=== PATIENT | male | born 1970 ===

== ENCOUNTER 2023-01-26 10:32 | Outpatient (REF) | payer OTHER, SELFPAY ==
--- NOTE | ~2023-01-26 | MR_ITS ---
EXAMINATION: MR BRAIN WITHOUT CONTRAST CLINICAL INFORMATION: Syncope. Ataxia. Vertigo. COMPARISON: None available. TECHNIQUE: Multiplanar, multisequence imaging of the brain was performed without contrast. FINDINGS: No diffusion abnormalities are identified to suggest an acute infarct. The ventricles are normal in size. No mass effect or midline shift is seen. Minimal nonspecific bifrontal white matter signal changes noted. There is [id number] frontoparietal lobe volume loss bilaterally. No extra-axial fluid collections are seen. The brainstem and cerebellum are normal. The hippocampi are normal in appearance. The gradient refocused acquisition is normal. The craniovertebral junction, marrow signal, and midline structures are normal. The major intracranial flow voids at the level of the [place] of [place] are preserved. The dural venous sinus flow voids are maintained. The mastoid air cells and paranasal sinuses are well aerated. MR/MR head/brain wo con IMPRESSION: No acute intracranial process. Nonspecific mild bifrontal white matter signal changes and [id number] bilateral frontoparietal lobe volume loss.
== END 2023-01-26 10:33 | disposition home or self-care (01) ==
LOC: HO.MRI 10:32
PROVIDERS: Visit Provider Psychiatry & Neurology Neurology
DX: R55 Syncope and collapse (principal)
CPT/HCPCS: 70551

== ENCOUNTER 2023-05-26 21:13 | Emergency (ER) | payer OTHER, SELFPAY ==
[2023-05-26 21:54] VITALS: BP 140/87; PULSE 81; RESP 16; TEMP 36.8; O2SAT 96; BMI 31.4
--- NOTE | 2023-05-26 22:13 | MHC.EDTECH ---
EKG taken and signed by provider,labs were obtained and sent to lab.
== END 2023-05-26 23:54 | disposition left against medical advice (07) ==
PROVIDERS: Emergency Provider Emergency Medicine
DX: R42 Dizziness and giddiness (principal); S09.90XA Unspecified injury of head, initial encounter; W18.30XA Fall on same level, unspecified, initial encounter; Z91.81 History of falling; Y93.9 Activity, unspecified; Y92.002 Bathroom of unspecified non-institutional (private) residence as the place of occurrence of the external cause; Y99.9 Unspecified external cause status
CPT/HCPCS: 36415; 80053; 85025; 93005; 99283

== ENCOUNTER → 2023-05-26 22:08 | Outpatient (BNV) | payer OTHER, SELFPAY | PROVIDERS: Emergency Provider Emergency Medicine; Visit Provider Internal Medicine Cardiovascular Disease | DX: R55 Syncope and collapse (principal) | CPT/HCPCS: 93010 ==

== ENCOUNTER 2023-09-20 16:16 | Outpatient (AMB) | payer OTHER, SELFPAY ==
--- NOTE | 2023-09-20 16:56 | MHC.OFFVISPS ---
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 Allergies naproxen Allergy (Verified 05/26/23 21:54) Unknown ondansetron [From Zofran] Allergy (Verified 05/26/23 21:54) Rash Medication List - Last Reconciled 09/20/23 by Elena Sherman APRN acetaminophen 500 mg PO Q6H PRN albuterol sulfate mg inhalation atorvastatin 40 mg PO DAILY cyanocobalamin (vitamin B-12) 1,000 mcg PO DAILY divalproex ER 500 mg PO DAILY divalproex ER 250 mg PO DAILY docusate sodium 100 mg PO BID duloxetine 60 mg PO DAILY empagliflozin (Jardiance) 10 mg PO DAILY gabapentin 600 mg PO DAILY gabapentin 300 mg PO DAILY insulin lispro (Humalog KwikPen U-200 Insulin) subcut magnesium oxide 500 mg PO DAILY melatonin 5 mg PO BEDTIME pantoprazole 20 mg PO DAILY propranolol ER 120 mg PO DAILY psyllium husk (Reguloid (psyllium husk)) grams PO trazodone 200 mg PO BEDTIME PRN HPI- Psychiatric Chief Complaint: depression, insomnia, 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 He has no pain or nausea. He is working out at the gym. He and getting outside No SI or HI; no hallucinations. Pt was supposed to follow up with [facility] for follow up care including psych meds but he did not connect with them. 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: Code(s): F06.30 - Mood disorder due to known physiological condition, unspecified; S09.90XS - Unspecified injury of head, sequela (2) Major depressive disorder, recurrent, moderate: Status: Acute Code(s): F33.1 - Major depressive disorder, recurrent, moderate (3) Mild TBI: Status: Acute Qualifiers: Encounter type: sequela Loss of consciousness presence/duration: unknown LOC status Qualified Code(s): S06.9XAS - Unspecified intracranial injury with loss of consciousness status unknown, sequela Code(s): S06.9XAA - Unspecified intracranial injury with loss of consciousness status unknown, initial encounter (4) Chronic post-traumatic stress disorder (PTSD): Status: Acute Code(s): F43.12 - Post-traumatic stress disorder, chronic Plan continue medications: depakote ER 750mg daily trazodone 200mg at bedtime cymbalta 60 mg daily gabpentin 300mg in am and 600mg at bedtime pt instructed to get labs done before next visit Medications: New divalproex ER 500 mg PO DAILY cyanocobalamin (vitamin B-12) 1,000 mcg PO DAILY gabapentin 600 mg PO DAILY acetaminophen 500 mg PO Q6H PRN albuterol sulfate mg inhalation divalproex ER 250 mg PO DAILY propranolol ER 120 mg PO DAILY docusate sodium 100 mg PO BID magnesium oxide 500 mg PO DAILY trazodone 200 mg PO BEDTIME PRN atorvastatin 40 mg PO DAILY pantoprazole 20 mg PO DAILY insulin lispro (Humalog KwikPen U-200 Insulin) subcut duloxetine 60 mg PO DAILY gabapentin 300 mg PO DAILY Orders: Orders Comprehensive Met. Panel 09/20/23 Z79.899 - Other custodial (current) drug therapy Valproate 09/20/23 Z79.899 - Other custodial (current) drug therapy Complete Blood Count Auto Diff 09/20/23 Z79.899 - Other custodial (current) drug therapy Counseling and coordination of Care Pt. Self Management counseling: Exercise, Maintenance-social rhythm, Mod caffeine/ETOH intake, Sleep hygiene, Behavior activation and General coping skills Medication management counseling: Effectiveness, Side effects, Dosing range, Duration, Drug interaction and Adherence Diagnosis and Prognosis Counseling: Accuracy of diagnosis, Prognosis over time, Impact of diagnosis on life functions, Impact of family relationship, Problematic behaviors secondary to diagnosis and Adequacy of current interventions Details: I spent 45 minutes reviewing the record, seeing the patient and documenting in the medical record. Counseling provided to the patient/caregiver as outlined below. Addressed patient/caregiver concerns regarding current medication regime including effective adherence. Addressed patient/caregiver concerns regarding diagnosis and prognosis including accuracy of diagnosis, prognosis over time, impact of diagnosis. Addressed patient/caregiver concerns regarding impact of recent stressors. 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
== END 2023-09-20 17:05 | disposition home or self-care (01) ==
LOC: HO.HOP 16:16
PROVIDERS: PCP Family Medicine; Visit Provider Clinical Nurse Specialist Psychiatric/Mental Health
DX: F33.1 Major depressive disorder, recurrent, moderate (principal); S06.9XAS Unspecified intracranial injury with loss of consciousness status unknown, sequela; F06.30 Mood disorder due to known physiological condition, unspecified; F43.12 Post-traumatic stress disorder, chronic
CPT/HCPCS: 99215

== ENCOUNTER → 2023-09-20 16:16 | Outpatient (BNVA) | payer OTHER, SELFPAY | PROVIDERS: PCP Family Medicine; Visit Provider Clinical Nurse Specialist Psychiatric/Mental Health | DX: F06.30 Mood disorder due to known physiological condition, unspecified (principal); F33.1 Major depressive disorder, recurrent, moderate; F43.12 Post-traumatic stress disorder, chronic; S09.90XS Unspecified injury of head, sequela; S06.9XAS Unspecified intracranial injury with loss of consciousness status unknown, sequela | CPT/HCPCS: 99212 ==

== ENCOUNTER 2024-01-27 11:42 | Outpatient (AMB) | payer OTHER, SELFPAY ==
--- NOTE | 2024-01-27 11:49 | A.OFFPSYCH_ITS ---
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 Allergies naproxen Allergy (Verified 05/26/23 21:54) Unknown ondansetron [From Zofran] Allergy (Verified 05/26/23 21:54) Rash Medication List - Last Reconciled 01/27/24 by Elena Sherman APRN acetaminophen 500 mg PO Q6H PRN albuterol sulfate mg inhalation atorvastatin 40 mg PO DAILY cyanocobalamin (vitamin B-12) 1,000 mcg PO DAILY divalproex ER 500 mg PO DAILY divalproex ER 250 mg PO DAILY docusate sodium 100 mg PO BID duloxetine 60 mg PO DAILY empagliflozin (Jardiance) 10 mg PO DAILY gabapentin 600 mg PO DAILY gabapentin 300 mg PO DAILY insulin lispro (Humalog KwikPen U-200 Insulin) subcut magnesium oxide 500 mg PO DAILY melatonin 5 mg PO BEDTIME olanzapine 5 mg orally Take 1/2 tablet every night and may take additional half 1/2 tablet during day if needed for agitation; pantoprazole 20 mg PO DAILY propranolol ER 120 mg PO DAILY psyllium husk (Reguloid (psyllium husk)) grams PO trazodone 200 mg PO BEDTIME PRN HPI- Psychiatric Chief Complaint: depression HPI Narrative: pt has been without meds for several days due to missing last two appts. Pt reports not sleeping well and mood angry; pt saw PCP yesterday. no changes; says she has POA for him but not guardianship. Pt reports although he struggles with balance he continues to work out at gym. 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; , depression since preteens, depression and anxiety started when he moved from [place], grew up with grandparents and then came [place] where [place] mother was- she was not able to care for him as well Subjective Subjective Subjective Medication Compliance: Yes Side effects from medications: No Review of Systems Medical Review of Systems: unchanged Mental Status Exam Mental Status Exam Patient Appearance: Well Grooomed and Appropriate Patient Orientation: Person, Place, Time and Situation Level of Consciousness: Awake Patient Behavior: Appropriate Mood Description: Calm Affect Description: Calm Patient Cognition Impaired: No Ability to Follow Directions: Fair Speech Pattern: Clear, Impoverished and Soft-Spoken Memory Description: Remote Impaired, Immediate Impaired and Vocational Director Impaired Hallucinations: None Delusions: Not Present Thought Content: positive for [place] Judgement: Fair Assessment and Plan Assessment & Plan (1) Chronic post-traumatic stress disorder (PTSD): Status: Acute Code(s): F43.12 - Post-traumatic stress disorder, chronic (2) Major depressive disorder, recurrent, moderate: Status: Acute Code(s): F33.1 - Major depressive disorder, recurrent, moderate Plan continue medications discussed need to come to appts in order for me to prescribe medications also discussed need to get lab work and they signed a release of info to obtain lab results from [facility] Medications: New duloxetine 60 mg PO DAILY 90 caps 1RF trazodone 200 mg (2 x 100 mg) PO BEDTIME PRN 180 tabs 1RF sleep gabapentin 600 mg PO DAILY 90 tabs 1RF magnesium oxide 500 mg PO DAILY 90 tabs 1RF cyanocobalamin (vitamin B-12) 1,000 mcg PO DAILY 30 tabs 4RF divalproex ER 500 mg PO DAILY 90 tabs 1RF Refilled gabapentin 300 mg PO DAILY 90 caps 1RF olanzapine 5 mg orally Take 1/2 tablet every night and may take additional half 1/2 tablet during day if needed for agitation; 90 tabs 1RF divalproex ER 250 mg PO DAILY 90 tabs 1RF Counseling and coordination of Care Pt. Self Management counseling: Maintenance-social rhythm, Mod caffeine/ETOH intake, Sleep hygiene, Behavior activation and General coping skills Medication management counseling: Effectiveness, Side effects, Dosing range, Duration, Drug interaction and Adherence Diagnosis and Prognosis Counseling: Accuracy of diagnosis, Prognosis over time, Impact of diagnosis on life functions, Impact of family relationship, Problematic behaviors secondary to diagnosis and Adequacy of current interventions Details: I spent 30 minutes reviewing the record, seeing the patient and documenting in the medical record. Counseling provided to the patient/caregiver as outlined below. Addressed patient/caregiver concerns regarding current medication regime including effective adherence. Addressed patient/caregiver concerns regarding diagnosis and prognosis including accuracy of diagnosis, prognosis over time, impact of diagnosis. Addressed patient/caregiver concerns regarding impact of recent stressors. 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
== END 2024-01-27 16:13 | disposition home or self-care (01) ==
LOC: HO.HOP 11:42
PROVIDERS: PCP Family Medicine; Visit Provider Clinical Nurse Specialist Psychiatric/Mental Health
DX: F43.12 Post-traumatic stress disorder, chronic (principal); F33.1 Major depressive disorder, recurrent, moderate
CPT/HCPCS: 99214

== ENCOUNTER → 2024-01-27 11:42 | Outpatient (BNVA) | payer OTHER, SELFPAY | PROVIDERS: PCP Family Medicine; Visit Provider Clinical Nurse Specialist Psychiatric/Mental Health | DX: F33.1 Major depressive disorder, recurrent, moderate (principal); F43.12 Post-traumatic stress disorder, chronic | CPT/HCPCS: 99212 ==

== ENCOUNTER 2024-05-21 08:03 | Outpatient (AMB) | payer OTHER, SELFPAY ==
--- OUTSIDE RECORDS SUMMARY | 2024-05-21 08:08 | XMS_ITS | Continuity of Care Document ---
Author Organization [facility] [place] [address] [place] [address]- Care Team Providers Care Neurologist Name Role Phone Not on Staff, PCP Primary Care Physician Unavail able Encounter 05/01/24 - 05/08/24 [facility] [address], [address] [place] [address]- Attending Physician: Rian Chew Admitting Physician: Rian Chew Referring Physician: Rian Chew Encounter Type: OutPatient One Time Allergies, Adverse Reactions, Alerts Substance Criticality Severity Reaction Reaction Severity Status naproxen Rash Active Zofran Rash Active Medications aspirin 81 mg oral tablet 1 tablet = 81 mg, By Mouth, Daily, # 30 tablet, 0 Refills, Maintenance, 09/12/18 11:01:57 AM EDT, Tablet Start Date: 09/12/18 Status: Ordered Quantity: 30.0 Unit: tablet Repeat number: 1 atorvastatin 40 mg oral tablet 1 tablet = 40 mg, By Mouth, Daily, Maintenance, 12/25/20 5:23:00 PM EDT, Tablet, ; Start Date: 12/25/20 Status: Ordered Repeat number: 1 dexcom g6 sensors dexcom g6 sensors, See Instructions, # 3 each, Refills 11, Tot. Refills 11, Maintenance, e11.65 useto continously monitor glucose level change every 10 days, 06/07/23 3:22:00 PM EST, Supply, 165, cm,06/03/23 19:55:00 EST, Height, 86, kg, 06/03/23 19:55:00 EST, Dry Weight Start Date: 06/07/23 Status: Ordered Quantity: 3.0 Unit: each Repeat number: 12 DEXCOM G6 TRANSMITTER [address]-24 DEXCOM G6 TRANSMITTER [address]-47, See Instructions, # 1 each, Refills 3, Tot. Refills 3, Maintenance, 11.9 use to monitor blood glucose continuously, change every 90 days, 06/07/23 3:17:00 PM EST, Compound, 165, cm, 06/03/23 19:55:00 EST, Height, 86, kg, 06/03/23 19:55:00 EST, Dry Weight Start Date: 06/07/23 Status: Ordered Quantity: 1.0 Unit: each Repeat number: 4 diazepam 5 mg oral tablet 1 1/2 TABLET, By Mouth, Daily, Maintenance, 12/25/20 5:34:00 PM EDT, ; Start Date: 12/25/20 Status: Ordered Repeat number: 1 docusate sodium 100 mg oral capsule 1 capsule = 100 mg, By Mouth, 2 times a day, PRN as needed for constipation, Maintenance, 12/25/20 5:34:00 PM EDT, Capsule, ; Start Date: 12/25/20 Status: Ordered Repeat number: 1 duloxetine 60 mg oral enteric coated capsule 1 capsule = 60 mg, By Mouth, Daily, # 30 capsule, 0 Refills, Maintenance, 06/16/23 11:07:00 PM EST, EC Capsule, Partial fill upon patient request if the prescription is for a schedule II opioid drug. Start Date: 06/16/23 Status: Ordered Quantity: 30.0 Unit: capsule Repeat number: 1 Freestyle Cindy 2 reader Freestyle Cindy 2 reader, See Instructions, # 1 each, Refills 0, Tot. Refills 0, Maintenance, Use to monitor blood glucose contiously, E11.65, 09/25/21 12:54:00 PM EDT, Patient has voucher from [employer] free reader, Supply, 165, cm, 09/08/21 11:04:00 EDT, Height, 86, kg, 04/10/21 19:26:00 EST, DryWeight Start Date: 09/25/21 Status: Ordered Quantity: 1.0 Unit: each Repeat number: 1 Freestyle Lite Lancets See Instructions, # 100 each, Refills 11, Tot. Refills 11, Maintenance, e11.65, use to check blood glucose 3 times a day, 30 day supply, 03/04/22 4:08:00 PM EDT, Supply, 165, cm, 02/05/22 8:08:00 EDT, Height, 86, kg, 04/10/21 19:26:00 EST, Dry Weight Start Date: 03/04/22 Status: Ordered Quantity: 100.0 Unit: each Repeat number: 12 gabapentin 300 mg oral capsule 300 mg, 1, capsule, By Mouth, 2 times a day, Maintenance, 12/25/20 5:20:00 PM EDT, ; Start Date: 12/25/20 Status: Ordered Repeat number: 1 gabapentin 600 mg oral tablet 1 tablet = 600 mg, By Mouth, Daily at bedtime, 0 Refills, Maintenance, 09/12/18 10:56:39 AM EDT Start Date: 09/12/18 Status: Ordered Repeat number: 1 HumaLOG KwikPen 200 units/mL (Concentrated) subcutaneous solution See Instructions, USE INDICATED FOR MAX OF 230 UNITS DAILY., # 54 mL, 0 Refills, Maintenance, 03/29/24 6:41:00 PM EST, [facility], 164, cm, 06/17/23 7:58:00 EST, Height, 86, kg, 06/16/23 23:29:00 EST, Dry Weight Start Date: 03/29/24 Status: Ordered Quantity: 54.0 Unit: mL Repeat number: 1 Jardiance 10 mg oral tablet 1 tablet, By Mouth, Daily in AM, KEEP UP WITH FLUIDS., # 28 tablet, 11 Refills, Maintenance, 06/15/23 12:48:00 PM EST, [facility] [address], 165, cm, 06/03/23 19:55:00 EST, Height, 86, kg, 06/03/23 19:55:00 EST, Dry Weight Start Date: 06/15/23 Status: Ordered Quantity: 28.0 Unit: tablet Repeat number: 1 lisinopril 2.5 mg oral tablet 2.5 mg, 1, tablet, By Mouth, Daily, # 30 tablet, Refills 0, Maintenance, 06/16/23 11:08:00 PM EST, Partial fill upon patient request if the prescription is for a schedule II opioid drug. Start Date: 06/16/23 Status: Ordered Quantity: 30.0 Unit: tablet Repeat number: 1 loratadine 10 mg oral capsule 1 capsule = 10 mg, By Mouth, Daily, 0 Refills, Maintenance, 09/12/18 10:50:28 AM EDT Start Date: 09/12/18 Status: Ordered Repeat number: 1 magnesium oxide 500 mg oral tablet 1 tablet = 500 mg, By Mouth, Daily, Maintenance, 12/25/20 5:34:00 PM EDT, Tablet, ; Start Date: 12/25/20 Status: Ordered Repeat number: 1 Melatonin 3 mg oral tablet 2 tablet = 6 mg, By Mouth, Daily at bedtime, PRN for insomnia, Maintenance, 12/25/20 5:24:00 PM EDT, Tablet, ; Start Date: 12/25/20 Status: Ordered Repeat number: 1 pantoprazole 20 mg oral delayed release tablet 1 tablet = 20 mg, By Mouth, Daily, Maintenance, 12/25/20 5:19:00 PM EDT, CR Tablet Start Date: 12/25/20 Status: Ordered Repeat number: 1 propranolol 120 mg oral capsule, extended release 1 capsule = 120 mg, By Mouth, Daily, Maintenance, 12/25/20 5:34:00 PM EDT, CR Capsule, ; Start Date: 12/25/20 Status: Ordered Repeat number: 1 REGULOID CAP 400MG REGULOID CAP 400MG, 1, capsule, By Mouth, Daily, Maintenance, METAMUCIL, 12/25/20 5:41:00 PM EDT Start Date: 12/25/20 Status: Ordered Repeat number: 1 SUMAtriptan 100 mg oral tablet 1 tablet = 100 mg, By Mouth, Daily, PRN for migraine headache, may repeat dose after 2 hours up to a maximum of 2, Maintenance, 12/25/20 5:35:00 PM EDT, Tablet, ; Start Date: 12/25/20 Status: Ordered Repeat number: 1 tamsulosin 0.4 mg oral capsule 0.4 mg, 1, capsule, By Mouth, Daily, # 30 capsule, Refills 0, Maintenance, 06/16/23 11:09:00 PM EST,Partial fill upon patient request if the prescription is for a schedule II opioid drug. Start Date: 06/16/23 Status: Ordered Quantity: 30.0 Unit: capsule Repeat number: 1 traZODone 100 mg oral tablet 100 mg, 1, tablet, By Mouth, 2 times a day, Maintenance, 12/25/20 5:22:00 PM EDT, ; Start Date: 12/25/20 Status: Ordered Repeat number: 1 triamcinolone 55 mcg/inh nasal spray 1 sprays, Nares, Both, Daily, Maintenance, 12/25/20 5:35:00 PM EDT, [place], ; Start Date: 12/25/20 Status: Ordered Repeat number: 1 Trulicity Pen 4.5 mg/0.5 mL subcutaneous solution See Instructions, INJECT 4.5 MG SUBCUTANEOUSLY EVERY WEEK; INJECTING SAME DAY EVERY WEEK, # 2 mL, 11 Refills, Maintenance, 08/01/23 4:49:00 PM EDT, [facility], 164, cm, 06/17/23 7:58:00 EST, Height, 86, kg, 06/16/23 23:29:00 EST, Dry Weight Start Date: 08/01/23 Status: Ordered Quantity: 2.0 Unit: mL Repeat number: 1 Vitamin B-12 1000 mcg oral tablet 1,000 mcg, 1, tablet, By Mouth, Daily, Maintenance, 12/25/20 5:35:00 PM EDT, ; Start Date: 12/25/20 Status: Ordered Repeat number: 1 Vitamin D3 2000 intl units oral capsule 1 capsule = 50 mcg, By Mouth, Daily, Maintenance, 12/25/20 5:34:00 PM EDT, Capsule, ; Start Date: 12/25/20 Status: Ordered Repeat number: 1 Problem List Condition Confirmation Course Effective Dates Status H ealth Status Informant Anxiety Confirmed Active Dementia Confirmed Active Depression Confirmed Active Diabetes mellitus Confirmed Active Hyperlipidemia Confirmed Active Hypertension Confirmed Active Common migraine Confirmed Active Obese class I Confirmed Active [place] - Obstructive sleep apnea Confirmed Active PTSD - Post-traumatic stress disorder Confirmed Active Tachycardia 1 Confirmed 2014 Active Vitamin D deficiency Confirmed Active 1client currently under treatment by lab head Results Radiology Reports * Exam Date Time Procedure Performing Provider Status 05/01/24 12:[address] Abd/Pelvis W/O Contrast Keily Voss; Auth (Verified) Notes: (CT Abd/Pelvis W/O Contrast) Reason For Exam: Stone RESULT: CT Abd/Pelvis W/O Contrast CT Abd/Pelvis W/O Contrast Reason: Stone TECHNIQUE: Spiral CT through the abdomen and pelvis without IV contrast formatted in 3 planes. Thisstudy was performed without oral contrast. Weight- based protocol using automatic tube modulation was used to optimize exposure parameters. COMPARISON: 06/16/2023 FINDINGS: Tube Builder View Findings, Lines and Tubes: None. Visualized Chest: The visualized costophrenic angles are clear. No pleural effusion. Liver: Included portion is within normal limits for noncontrast technique Gallbladder: Subcentimeter hypodensity within the gallbladder neck seen on axial image 31 of series2. Bile ducts: No biliary ductal dilation. Spleen: Normal in size Pancreas: Within normal limits for noncontrast technique Adrenal glands: No suspicious nodule Kidneys and ureters: No hydronephrosis, stones, or noncontrast evidence of suspicious masses. Bladder: Incompletely distended, limiting evaluation. No evidence of calculus. Reproductive organs: Unremarkable. Stomach, small bowel, and large bowel: Detailed evaluation is suboptimal without enteral opacification. Stomach is moderately distended with ingested or inspissated contents. Small and large bowel loops are normal in caliber. Mild amount retained stool throughout the colon. No evidence of pericolonic fat stranding. Appendix: Not visualized with certainty. No secondary evidence of acute appendicitis. Peritoneum and retroperitoneum: No ascites or pneumoperitoneum. Lymph nodes: No enlarged lymph nodes. Blood vessels: No evidence of abdominal aortic aneurysm Abdominal and pelvic wall: No acute abnormality Bones: No acute abnormality. Transitional anatomy at the lumbosacral junction and degenerative endplate ridging most pronounced at L3-4 and L4-5. IMPRESSION: No evidence of hydronephrosis or genitourinary calculus Subcentimeter hypodensity within the gallbladder neck which may represent a small noncalcified stone or polyp. Correlation with dedicated right upper quadrant ultrasound is recommended. An actionable message (Yellow) has been communicated via the [employer] system on 05/02/2024 9:23 AM, Message ID [id number]. WSN: [id number] Ordering Physician: Rian Lomeli Dictated By: Zachary Boudreaux Jr, MD Dictated Date/Time: 05/02/24 9:23 am Reviewed By: Zachary Boudreaux Jr, MD Signed By: Zachary Boudreaux Jr, MD Signed Date/Time: 05/02/24 9:23 am Transcribed By: ADY Transcribed Date/Time: 05/02/24 9:12 am Social History Social History Type Response Smoking Status Never (less than 100 in lifetime) entered on: 03/11/21 Sex Sex Representation Male (finding) Patient Care team information Care Team Personnel Name: Clotilde SAWANT, Olivia Position: [facility] RN Member Role: Primary Care Nurse Name: Diana Molina RN Position: [facility] Onco RN Member Role: Primary Care Nurse Name: Olivia Swartz Position: [facility] Outreach Member Role: Lifetime Consulting Physician Name: Not on Staff, PCP Position: [facility] Physician (General Medicine) Member Role: PCP Care Team Related Persons Name: NURIA BARRAZA Insurance Providers Guarantor name: [facility] Information #: 1 Payer: [employer] Member Number: [id number] Policy Number: NA Group Number: [facility] Health Plan Information #: 2 Payer: [employer] [employer] Member Number: [id number] Policy Number: NA Group Number: NA
--- NOTE | 2024-05-21 11:09 | MHC.OFFVISWM ---
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 -see note please Allergies naproxen Allergy (Verified 05/21/24 11:09) Unknown ondansetron [From Zofran] Allergy (Verified 05/21/24 11:09) Rash Medication List - Last Reconciled 05/21/24 by Umer Rider MD acetaminophen 500 mg PO Q6H PRN albuterol sulfate mg inhalation aspirin (Adult Aspirin Regimen) 81 mg PO DAILY atorvastatin 40 mg PO DAILY blood-glucose sensor ([employer] G6 Sensor device) As directed cholecalciferol (vitamin D3) 50 mcg PO DAILY cyanocobalamin (vitamin B-12) 1,000 mcg PO DAILY divalproex ER 250 mg PO DAILY divalproex ER 500 mg PO DAILY docusate sodium 100 mg PO BID dulaglutide (Trulicity) mg subcut duloxetine 60 mg PO DAILY empagliflozin (Jardiance) 10 mg PO DAILY gabapentin 600 mg PO DAILY gabapentin 300 mg PO DAILY insulin pump cart,10 units/day As directed - has sensor that determines rate insulin pump controller As directed lisinopril 2.5 mg PO DAILY magnesium oxide 500 mg PO DAILY melatonin 5 mg PO BEDTIME meloxicam 15 mg PO DAILY olanzapine 2.5 mg PO BEDTIME pantoprazole 20 mg PO DAILY propranolol ER 120 mg PO DAILY psyllium husk (Reguloid (psyllium husk)) grams PO trazodone 200 mg (2 x 100 mg) PO BEDTIME PRN HPI HPI 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 BMI 36.8 -see note please: Details: Start time: 10.59am, End time: 11.59am ?I spent 55 minutes speaking with the patient on the phone plus an additional 5 minutes reviewing and updating records for a total of 60 minutes HPI Comments Details: Previous weight loss efforts: exercise Wakes up: 4am, Sleeps: 7pm Breakfast: skips Lunch: 12pm (chicken and vegetables) Dinner: 5pm (chicken, and vegetables) Snacks: 2 snacks before lunch (Quest bars), 4pm (fruit or Quest bars) Exercise: Gym Fluids: Coffee: none, tea: none, soda: none, juice: daily 1 glass per day (apple juice), ETOH: none PFSH Medical History (Updated 05/21/24 @ 11:37 by Umer Rider MD) Neuropathy Insomnia Asthma DJD (degenerative joint disease) GERD (gastroesophageal reflux disease) Hyperlipidemia Hypertension Insulin dependent type 2 diabetes mellitus BMI 36.0-36.9,adult Obesity H/O nephrolithotomy with removal of calculi Family History (Updated 04/27/24 @ 12:35 by Alli Olsen, JESE) Mother No problems noted. Father No problems noted. Social History (Updated 04/27/24 @ 12:34 by Alli Olsen RN) Alcohol intake: never Patient Tobacco Use Status: Never used Tobacco Telehealth Telehealth Telehealth Platform: Telephone Location of provider rendering services: practice address Location of patient: address on file Patient Identification confirmed using: Name, : Yes Telehealth method: voice only Patient verbally consented to treatment: Yes Patient verbally consented to billing insurance company: Yes Patient informed of any privacy concerns related to visit: Yes Minutes spent on Phone/Video with Pt.: 60 Assessment & Plan Assessment & Plan (1) Obesity: Code(s): E66.9 - Obesity, unspecified Category: Medical Qualifiers: Obesity type: due to excess calories Obesity classification: adult class 2 (BMI 35 - 39.9) Serious obesity comorbidity presence: with serious comorbidity Body mass index: BMI 36.0-36.9 Qualified Code(s): E66.812 - Obesity, class 2; E66.01 - Morbid (severe) obesity due to excess calories; Z68.36 - Body mass index [BMI] 36.0-36.9, adult Plan: 1.? Plan for lap sleeve gastrectomy. If diaphragmatic or ventral hernias are present at time of surgery, these will be repaired laparoscopically as well. I emphasized the importance of close follow-up, adherence to instructions and good communication. The surgery does not replace the need to change your lifestlyle which is the cause of the obesity problem. The surgery provides the motivation to try again to change your lifestyle, it reduces the appetite and make the transition to a better lifestyle easier and doubles the amount of weight you would lose compared to doing the lifestyle change without the surgery. You will need to be on a liquid diet with protein shakes for 2 weeks before surgery to maximize weight loss and boost your nutritional status to recover better from surgery and also for the first two weeks after surgery to let the stomach heal before we introduce other foods. After the first 2 weeks we will introduce protein bars and soft foods like scrambled eggs, cottage cheese and yogurt and after the 6th week will introduce meat, fish and cooked vegetables in small amounts. Over time you should be able to eat everything in small amounts. Side effects like nausea, vomiting, heartburn or abdominal pain are not common in the practice unless you are not following in the practice. This operation requires lifetime commitment to following in our practice and communication with me. You will much less weight and experience side effects if you don?t communicate or not following in the practice. Complications are rare and in our practice is about 1/10 of the national average. However, you can develop bleeding that may require transfusion (hasn?t happened for year in the practice), you may from complications (we did not have any deaths in the practice) and infections. Infections are usually a result of breakdown in communication or not understanding or following directions correctly. They are difficult to treat, they can happen during the first 6 weeks, they may require to be in the hospital for weeks or even months, not being able to eat by mouth and you may have drains and surgeries to try and correct the issue. Other risks and complications include possible conversion to an open procedure, leaks, small bowel obstruction, blood clots, cardiac, or pulmonary complications, as usp complications such as ulcers, insufficient weight loss and vitamin deficiencies. 2. Nutritional counseling. Start with 2 ORGAIN protein shakes (ONE scoop EACH in 8oz low fat unsweetened almond milk each) at 5am-7am and 8am-10am, 2 ORGAIN protein bars at 11am-1pm and 2pm-4pm and dinner at 5pm-6pm (8 forks of protein and 8 forks of salad/vegetables) So you do 2 protein shakes, 2 protein bars and one meal per day. Meal to include lean meat (beef, fish, pork, turkey, chicken), or kinyarwanda yogurt, or egg whites, or beans with a salad with olive oil and fruits (berries, pears, apples, kiwi). Avoid salt, breads, potatoes, rice, pasta, desserts. 3. Each shake would be drunk slowly, like coffee in a period of 2 hours. 4. Cut each bar in 4 pieces and eat each piece in 30min ?to make each bar last 2 hours. 5. I emphasized the importance of measuring accurately the food portion and measure it when serving the food in plate 6. The meal portions include 8 full-size forks of meat and 8 full-size forks of salad. You always eat the meat portion but you can replace up to 4 forks for salad/vegetables with rice, potatoes or pasta, or a fruit ?if you like. The less you do it the better weight loss will be. 7. One full-size fork is what it can be scooped on the fork without falling aside and not what can be bit with the fork. Use regular forks like those you find in a typical restaurant. 8.? Please buy the body composition scale we discussed and send me weight measurements as soon as possible and then once a week. Always include your diet and exercise plan. 9. Start treadmill with an incline of 2.0 and speed of 3.0. Increase incline by 1 every 3 min to a max incline of 8.0, stay 3min at 8.0 and then return to 2.0 and repeat same steps until calorie goal is met. Goal is to burn 2000 calories per week on exercise, which means either 330 calories, 6 days per week. 10. Alternatively start stationary bike at a resistance level of 4.0 Increase level by 1.0 every 3 min to a max level of 10.0. Stay at this level for 3 min and then return to level 4.0 and repeat same steps until 330 calories are burned. Velocity target is 12mph and heart rate is 145 bpm. Goal is to burn 2000 calories per week on exercise 11. Goal is to lose at least 1.5-2lbs per week 12. Goal to lose 10% of your weight before surgery, which is about 21lbs. Ultimate weight goal: 200lbs before surgery 13. Please follow the diet plan exactly without any change. If you don't like something about the plan or you feel hungry you need to communicate with me so I can help you revise the plan. You should not change the plan yourself. 14. To be scheduled for EGD on 06/05/24 due to the history of GERD. The possibility of biopsies was discussed. Patient needs to avoid use of NSAIDs and aspirin for 1 week prior to EGD. You must be on liquids only the day before your endoscopy. Risks of perforation and bleeding was discussed with the patient. This will be an outpatient procedure with IV sedation.
[2024-05-21 11:28] VITALS: BMI 36.8
== END 2024-05-21 11:59 | disposition home or self-care (01) ==
LOC: HO.HBS 08:03
PROVIDERS: PCP Family Medicine; Visit Provider Surgery
DX: E66.812 Obesity, class 2 (principal); E66.01 Morbid (severe) obesity due to excess calories; Z68.36 Body mass index [BMI] 36.0-36.9, adult
CPT/HCPCS: 99205

== ENCOUNTER → 2024-05-21 08:03 | Outpatient (BNVA) | payer OTHER, SELFPAY | PROVIDERS: PCP Family Medicine; Visit Provider Surgery ==

== ENCOUNTER 2024-07-17 16:15 | Outpatient (AMB) | payer OTHER, SELFPAY ==
--- NOTE | 2024-07-17 16:00 | A.OFFPSYCH_ITS ---
Intake Intake Visit Reasons: depression Flame Degreaser Required: No Allergies naproxen Allergy (Verified 05/21/24 11:09) Unknown ondansetron [From Zofran] Allergy (Verified 05/21/24 11:09) Rash Medication List - Last Reconciled 07/17/24 by Elena Sherman APRN albuterol sulfate mg inhalation aspirin (Adult Aspirin Regimen) 81 mg PO DAILY atorvastatin 40 mg PO DAILY blood-glucose sensor (Pawngo G6 Sensor device) As directed cholecalciferol (vitamin D3) 50 mcg PO DAILY cyanocobalamin (vitamin B-12) 1,000 mcg PO DAILY divalproex ER 250 mg PO DAILY divalproex ER 500 mg PO DAILY docusate sodium 100 mg PO BID dulaglutide (Trulicity) mg subcut duloxetine 60 mg PO DAILY empagliflozin (Jardiance) 10 mg PO DAILY gabapentin 600 mg PO DAILY gabapentin 300 mg PO DAILY insulin pump cart,10 units/day As directed - has sensor that determines rate insulin pump controller As directed lisinopril 2.5 mg PO DAILY magnesium oxide 500 mg PO DAILY melatonin 5 mg PO BEDTIME meloxicam 15 mg PO DAILY pantoprazole 20 mg PO DAILY propranolol ER 120 mg PO DAILY psyllium husk (Reguloid (psyllium husk)) grams PO tramadol 50 mg PO Q6H trazodone 200 mg (2 x 100 mg) PO BEDTIME PRN HPI- Psychiatric Chief Complaint: depression HPI Narrative: pt mood fair; currently has viral symptoms and doesn't feel good so asked to do telehlth appt. pt denies significant anxiety; sleep is most troublesome; pt says he only sleeps 3-4 hours and then awake the rest of the night; he is taking most of his meds in am so we agree to change several to bedtime to aid in sleep. No SI or HI. He is working with [employer] to prepare fro surgery due to obesity. 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; , depression since preteens, depression and anxiety started when he moved from [place], grew up with grandparents and then came [place] where his mother was- she was not able to care for him as well Subjective Subjective Subjective Medication Compliance: Yes Side effects from medications: No Mental Status Exam Mental Status Exam Patient Appearance: Well Grooomed and Appropriate Patient Orientation: Person, Place, Time and Situation Level of Consciousness: Awake and Appropriate Patient Behavior: Appropriate Mood Description: Calm, Withdrawn and Depressed Affect Description: Calm, Withdrawn and Depressed Patient Cognition Impaired: No Ability to Follow Directions: Good Speech Pattern: Clear Memory Description: Episodic Impaired Hallucinations: None Delusions: Not Present Thought Process: Slowed Thinking Thought Content: positive for Poverty of Content Judgement: Fair Telehealth Telehealth Telehealth Platform: Other (please specify) ([email or web address]) Location of provider rendering services: practice address Location of patient: address on file Patient Identification confirmed using: Name, : Yes Telehealth method: video Patient verbally consented to treatment: Yes Patient verbally consented to billing insurance company: Yes Patient informed of any privacy concerns related to visit: Yes Minutes spent on Phone/Video with Pt.: 28 Assessment and Plan Assessment & Plan (1) Chronic post-traumatic stress disorder (PTSD): Status: Acute Code(s): F43.12 - Post-traumatic stress disorder, chronic (2) Major depressive disorder, recurrent, moderate: Status: Acute Code(s): F33.1 - Major depressive disorder, recurrent, moderate Plan change gabapentin 600mg to bedtime change depakote 500mg to bedtime change magnesium supplement to bedtime continue melatonin and trazodone to bedtime labs re-ordered as he has not done yet return for f/u in 6 months Medications: New cholecalciferol (vitamin D3) 50 mcg PO DAILY 30 caps 5RF melatonin 5 mg PO BEDTIME 30 tabs 5RF Changed From gabapentin 600 mg PO DAILY 90 tabs 1RF To gabapentin 600 mg PO BEDTIME 30 tabs 5RF From magnesium oxide 500 mg PO DAILY 90 tabs 1RF To magnesium oxide 500 mg PO BEDTIME 30 tabs 5RF From divalproex ER 500 mg PO DAILY 90 tabs 3RF To divalproex ER 500 mg PO BEDTIME 30 tabs 5RF Refilled cyanocobalamin (vitamin B-12) 1,000 mcg PO DAILY 30 tabs 5RF docusate sodium 100 mg PO BID 60 caps 5RF gabapentin 300 mg PO DAILY 30 caps 5RF trazodone 200 mg (2 x 100 mg) PO BEDTIME PRN 60 tabs 5RF sleep divalproex ER 250 mg PO DAILY 30 tabs 5RF duloxetine 60 mg PO DAILY 30 caps 5RF Counseling and coordination of Care Pt. Self Management counseling: Exercise, Maintenance-social rhythm, Med illness tx adherence, Mod caffeine/ETOH intake, Nutrition education and improvement, Sleep hygiene, Behavior activation and General coping skills Medication management counseling: Effectiveness, Side effects, Dosing range, Duration, Drug interaction and Adherence Diagnosis and Prognosis Counseling: Accuracy of diagnosis, Prognosis over time, Impact of diagnosis on life functions, Impact of family relationship, Problematic behaviors secondary to diagnosis and Adequacy of current interventions Details: I spent 35 minutes reviewing the record, seeing the patient and documenting in the medical record. Counseling provided to the patient/caregiver as outlined below. Addressed patient/caregiver concerns regarding current medication regime including effective adherence. Addressed patient/caregiver concerns regarding diagnosis and prognosis including accuracy of diagnosis, prognosis over time, impact of diagnosis. Addressed patient/caregiver concerns regarding impact of recent stressors. [facility] Medical History (Updated 07/16/24 @ 11:00 by WARD Sims) Overweight Carpal tunnel syndrome Sleep apnea Calcium urolithiasis Sinus tachycardia Osteoarthritis of both hands Ulnar neuropathy at elbow Atypical chest pain Glaucoma Anxiety PTSD (post-traumatic stress disorder) Mold exposure Allergic rhinitis BPH (benign prostatic hyperplasia) Type 2 diabetes mellitus Neuropathy Insomnia Asthma DJD (degenerative joint disease) GERD (gastroesophageal reflux disease) Hyperlipidemia Hypertension Insulin dependent type 2 diabetes mellitus BMI 36.0-36.9,adult Obesity H/O nephrolithotomy with removal of calculi Surgical History (Updated 07/16/24 @ 11:01 by WARD Sims) H/O circumcision Family History (Updated 04/27/24 @ 12:35 by Alli Olsen, JESE) Mother No problems noted. Father No problems noted. 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
--- OUTSIDE RECORDS SUMMARY | 2024-07-17 19:42 | XMS_ITS | Encounter Summary ---
Author Organization [facility] Address [address] [place] [address] Care Team Providers Care Windows Software Engineer Name Role Phone Sinai Patel MD Primary Care Pr ovider Reason for Visit * Reason Onset Date Comments call from office 06/07/2024 Encounter Details Date Type Department Care Team ([facility] st Contact Info) Description 06/07/2024 Telephone Endocrinology - [place] [address], [place] [phone] Ty Hager MD [address] [place] [address] call from md office Social History Tobacco Use Types Packs/Day Years Used Date Smoking Tobacco: Never Cigarettes Qu it: 05/23/1990 Smokeless Tobacco: Never Alcohol Use Standard Drinks/Week Comments Not Asked 0 (1 standard drink = 0.6 oz pur e alcohol) Sex and Gender Information Value Date Recorded Sex Assigned at Not on file Legal Sex Male 5:06 PM EST Gender Identity Not on file Sexual Orientation Not on file documented as of this encounter Progress Notes * Bibi Onofre RN - 06/18/2024 9:34 AM EST I can not find patient's pump settings Please enter into chart * Bibi Onofre RN - 06/08/2024 2:43 PM EST Called Melchor from [facility] - he is with a patient,contact info left * Penny Sutherland Godfrey - 06/07/2024 2:16 PM EST Melchor from [facility] office needs to speak with Dr Hager's nurse about patient's pumpand what family knows and does not know. Please call him back. documented in this encounter Plan of Treatment Upcoming Encounters Date Type Department Care Team (Late st Contact Info) Description 08/02/2024 3:20 PM EDT Consult Gastroenterology - [address] [place] [address] Macy Joseph NP [address] [facility] [address] [place] [address] 08/08/2024 2:30 PM EDT Office Visit Adult Medicine [address] [phone] Sinai Patel MD [address] [place] [address] documented as of this encounter Visit Diagnoses Not on filedocumented in this encounter Care Teams Windows Software Engineer Relationship Specialty Start Date End Date Sinai Patel MD [address] [place] [address] PCP - General 07/27/22 documented as of this encounter
--- OUTSIDE RECORDS SUMMARY | 2024-07-17 19:42 | XMS_ITS | Clinical Summary ---
Author Organization [facility] Address [address] [place] [address] Care Team Providers Care Disability Liaison Officer Name Role Phone Irene Logan Primary Care Provider Social History Tobacco Use Types Packs/Day Years Used Date Smoking Tobacco: Never Assessed Sex and Gender Information Value Date Recorded Sex Assigned at Not on file Gender Identity Not on file Sexual Orientation Not on file Plan of Treatment Health Maintenance Due Date Last Done Comments Hepatitis B Vaccines (1 of 3 - 3-dose series) 1969 Hepatitis C Screening 1969 COVID-19 Vaccine (#1) 1969 Depression Screening 1981 Preventative Health Evaluation 1987 Colon Cancer Screening (Colonoscopy) 2014 Shingrix-Zoster Vaccine (1 of 2) 2019 DTap / Tdap / Td (2 - Td or Tdap) 10/14/2020 10/14/2010 Influenza Vaccine (#1) 2024 9, 04/20/2018, 04/19/2017, Additional history exists Pneumococcal Vaccine Aged Out 04/26/2014 No long er eligible based on patient's age to complete this topic RSV Ped < 20 months Aged Out No longe r eligible based on patient's age to complete this topic Care Teams Disability Liaison Officer Relationship Specialty Start Date End Date Irene Logan Elver [address] [place], [place] [address] [address] PCP - General Internal Medicine 02/04/20
--- OUTSIDE RECORDS SUMMARY | 2024-07-17 19:42 | XMS_ITS | Clinical Summary ---
Author Organization [address] [place] [address] Address [address] [place] [address] Phone Care Team Providers Care Track Grinder Operator Name Role Phone Sinai Patel MD Primary Care Pr ovider Allergies Active Allergy Reactions Criticality Noted Date Comments Naproxen High 04/19/2017 Other Reaction(s): Rash/Dermatitis Ondansetron 12/19/2017 zofran Medications aspirin 81 mg EC tablet TAKE 1 TABLET BY MOUTH EVERY DAY Active blood-glucose meter mis Use to test blood sugar twice daily. Active cholecalciferol (VITAMIN D-3) 50 mcg (2,000 unit) capsule TAKE 1 CAPSULE BY MOUTH EVERY DAY Active dulaglutide (Trulicity) 4.5 mg/0.5 mL pen injector injection Inject 4.5 mg into the skin once a week. Active lisinopriL (PRINIVIL,ZESTRI L) 2.5 mg tablet TAKE 1 TABLET BY MOUTH EVERY DAY Active magnesium oxide 500 mg magnesium tablet Take 1 Tablet by mouth daily. Active melatonin 5 mg tablet Take 1 Tablet by mouth every evening. Active alcohol swabs pads, medicated Apply 1 Packet topically at bedtime. Active arformoteroL (BROVANA) 15 mcg/2 mL nebulizer solution Take 2 mL by nebulization 2 times daily. COPD J44.9 024 Active medical supply, miscellaneous (MISCELLANEOUS MEDICAL SUPPLY [facility]) Casts and Splints Mis 2 Each by Does not apply route daily as needed for Other (pain). DX G56.03 024 Active blood-glucose sensor (DEXCOM G6 SENSOR [facility]) DEXCOM G6 SENSOR 3 PACK [id number], See Instructions, # 3 pack/packet, Refills 11, Tot. Refills 11, Maintenance, 11.9 use to monitor blood glucose continuously, change sensor every 10 days, 10/15/22 12:29:00 EDT, Compound 023 Active blood-glucose transmitter (DEXCOM G6 TRANSMITTER [facility]) DEXCOM G6 TRANSMITTER [id number], See Instructions, # 1 each, Refills 3, Tot. Refills 3, Maintenance, 11.9 use to monitor blood glucose continuously, change every 90 days, 10/15/22 12:29:00 EDT, Compound 023 Active diazePAM (VALIUM) 5 mg tablet TAKE 1 TABLET BY MOUTH EVERYDAY AT BEDTIME Active divalproex (DEPAKOTE) [address] tablet 750mg nightly Active docusate sodium (COLACE) 100 mg capsule Take 1 Capsule by mouth 2 times daily. 024 Active DULoxetine (CYMBALTA) [address] capsule Take 1 Capsule by mouth daily. 024 Active arm brace [facility] Elastic Bandages & Supports (Wrist Brace Deluxe) Mis 1 Each by Does not apply route at bedtime. - Does not apply 024 Active empagliflozin (Jardiance) 10 mg tablet Take 1 Tablet by mouth daily. Active gabapentin (NEURONTIN) 300 mg capsule Take 1 Capsule by mouth every morning. Active gabapentin (NEURONTIN) 600 mg tablet Take 1 Tablet by mouth every evening. Per Psych Active insulin lispro (HumaLOG KwikPen Insulin) 200 unit/mL (3 mL) CONCENTRATED injection pen Inject 200 Units into the skin continuous. Use daily with insulin pump. Max daily dose 200 units. 024 Active OLANZapine (ZyPREXA) 5 mg tablet Active glucose blood test strip Apply 1 Strip topically 2 times daily. To test blood sugar. Active lancets lancets Use to test blood sugar twice daily. Active pantoprazole (PROTONIX) 20 mg EC tablet TAKE 1 TABLET BY MOUTH EVERY DAY BEFORE BREAKFAST Active polyethylene glycol (MIRALAX) 17 gram packet 1 capful with water twice daily, or as directed Active inhaler, assist devices (VORTEX HOLDING CHAMBER [facility]) by Does not apply route. Active cycloSPORINE (Restasis MultiDose) 0.05 % drops Active SUMAtriptan (IMITREX) 100 mg tablet Take 1 Tablet by mouth daily as needed. May repeat dose once after 2 hours, if needed. Active tamsulosin (FLOMAX) 0.4 mg 24 hr capsule TAKE 1 CAPSULE BY MOUTH EVERY DAY Active traZODone (DESYREL) 100 mg tablet Take 200 mg by mouth at bedtime. Active triamcinolone (NASACORT) 55 mcg nasal inhaler USE 1 SPRAY INTO EACH NOSTRIL DAILY Active lifitegrast (Xiidra) 5 % dropperette Place 1 Drop into both eyes 2 times daily. Active albuterol HFA (Ventolin HFA) 90 mcg/actuation inhaler Inhale 2 Puffs into the lungs every 6 hours as needed for Cough, Wheezing or Shortness of Breath (chest tightness). Active medical supply, miscellaneous (MISCELLANEOUS MEDICAL SUPPLY [facility]) CPAP Historical (HISTORICAL CPAP Inhale 12-16 cm into the lungs at bedtime. apria-pressure 10-16 Active zolpidem tartrate (ZOLPIDEM ORAL) Take by mouth. Active pen needle, diabetic 32 gauge x 532 needle Use one daily with lantus Active pen needle, diabetic 32 gauge x 532 needle USE DIRECTED EVERY EVENING. Active meclizine (ANTIVERT) 25 mg tablet TAKE 1 TABLET BY MOUTH 2 TIMES DAILY NEEDED FOR DIZZINESS 56 tablet 5 Active loratadine 10 mg capsule Take 1 capsule by mouth 1 (one) time each day. 90 each 1 Active budesonide (PULMICORT) 0.5 mg/2 mL nebulizer solutionIndicati ons:Shortness of breath,Abnormal results of pulmonary function studies TAKE 2 ML BY NEBULIZATION 2 TIMES DAILY. 120 mL 1 025 Active acetaminophen (TYLENOL) 500 mg tablet TAKE 1 TABLET BY MOUTH EVERY 6 HOURS NEEDED FOR PAIN 120 tablet 3 025 Active meloxicam (MOBIC) 15 mg tablet TAKE 1 TABLET BY MOUTH EVERY DAY NEEDED FOR PAIN 90 tablet 1 025 Active psyllium (Reguloid, psyllium husk,) 0.4 gram capsule Take 1 capsule (0.4 g total) by mouth 1 (one) time each day. 28 capsule 3 025 Active traMADoL (ULTRAM) 50 mg tablet Take 1 tablet (50 mg total) by mouth 2 (two) times a day. Max Daily Amount: 100 mg 56 tablet 025 Active atorvastatin (LIPITOR) 40 mg tablet TAKE 1 TABLET BY MOUTH EVERY DAY 30 tablet 025 Active propranolol LA (INDERAL LA) 120 mg 24 hr capsule TAKE 1 CAPSULE BY MOUTH EVERY DAY 90 capsule 1 025 Active acetaminophen (TYLENOL) 500 mg tablet TAKE 1 TABLET BY MOUTH EVERY 6 HOURS NEEDED FOR PAIN 024 2024 Discontinued atorvastatin (LIPITOR) 40 mg tablet Take 1 Tablet by mouth daily. 024 2024 Discontinued propranolol LA (INDERAL LA) 120 mg 24 hr capsule Take 1 Capsule by mouth daily. 024 2024 Discontinued meloxicam (MOBIC) 15 mg tablet TAKE 1 TABLET BY MOUTH EVERY DAY NEEDED FOR PAIN 28 tablet 1 024 2024 Discontinued traMADoL (ULTRAM) 50 mg tablet Take 1 tablet (50 mg total) by mouth 2 (two) times a day. 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 Layton describes chronic low back pain with radiation to the right greater than left leg. It travels down the leg in an S1 distribution. He has not had any recent imaging nor therapy. We talked about appropriate doses of NSAIDs. Going to send him for some x-rays of the lumbar spine. Pending those results he will begin physical therapy. He will follow-up with us in 6 weeks for repeat evaluation. If things or not improving we can consider an MRI at that time. Neck pain 08/31/2023 Overview (03/27/2024): Last Assessment & Plan: Mr. Layton describes neck pain over the past couple of months. He feels like it is related to multiple falls. He denies radiation of pain or numbness into the arms. He has right greater than left shoulder pain but he believes that is related to rotator cuff injuries. He is going to physical therapy for that. I counseled him to take some NSAIDs, will order x-rays of the cervical spine, and pending those results he will begin physical therapy. He will follow-up with us in approximately 6 weeks for repeat evaluation. If he is not improving at that time we can consider an MRI of the cervical spine. Common migraine 07/27/2023 Hyperlipidemia 07/27/2023 Hypertension 07/27/2023 Vitamin D deficiency 07/27/2023 Calcific tendinitis of right shoulder 06/17/2023 Chronic vertigo 06/17/2023 Lumbar degenerative disc disease 06/17/2023 Multiple joint pain 06/17/2023 Traumatic brain injury with loss of consciousnes s 06/17/2023 Benign prostatic hyperplasia 09/06/2022 Seasonal allergic rhinitis 01/04/2022 Evidence of airways hyperrea ctivity without diagnosis of asthma 04/21/2020 Mold exposure 04/21/2020 Restrictive pattern present on pulmonary functio n testing 04/21/2020 Class 1 obesity 03/01/2019 PTSD (post-traumatic stress disorder) 09/01/2018 Anxiety 06/27/2018 Moderate episode of recurrent major depressive d isorder 06/27/2018 Glaucoma 04/19/2017 Overview (03/27/2024): Naomi; Bilat surgery Atypical chest pain 06/08/2016 Ulnar neuropathy at elbow 04/27/2016 Lesions of both ulnar nerves 11/27/2015 Overview (03/27/2024): Bilateral ulnar neuropathy on EMG 11/05 Osteoarthritis of hands, bilateral 11/27/2015 DRAIN TILER (background diabetic retinopathy) 08/27/2015 Sinus tachycardia 04/14/2015 Urolithiasis 12/30/2014 Overview (03/27/2024): Dr. Alston Obstructive sleep apnea 11/29/2014 Overview (03/27/2024): Cx Pulmo 04/09 and 08/17 due to illness resscan 02/10/2016 to 03/30/2016. CPAP@ 10-16/Average 13.5/Max 14.6. 86% compliant with using the machine for >4 hours/day. Average use is 6.5 hours a night with AHI 0.6. 07/14/2016 to 08/12/2016. CPAP@ 10-16/Average 14.8/Max 15.7. 97% compliant with using the machine for >4 hours/day. Average use is 8 hours a night with AHI 0.7. Carpal tunnel syndrome on both sides 12/25/2013 Overview (03/27/2024): Moderate symptoms spring 2013; declined emg Has relief with braces October 2015 EMG: mild bilateral CTS and bilateral ulnar neuropathy Memory impairment 08/24/2013 Overview (03/27/2024): Dr. Pelayo - 08/23/13 - potential benefit for psychotherapy; unclear etiology with only certain segments of memory impairment; followup as needed Overweight 01/29/2013 Diabetic nephropathy 03/22/2008 Encounters Date Type Department Care Team Description 06/07/[address] [phone] Ty Hager MD call from md office 05/30/2024 Telephone Adult Medicine [address] [phone] Tiffanie Velarde, RN 05/28/2024 Telephone Adult [address] [phone] Tiffanie Velarde, RN 05/24/2024 Nurse Triage [address] [phone] Sinai Patel MD from Last 3 Months Immunizations Name Administration Dates Next Due Hepatitis B (Recombivax HB-D ialysis) 18yo and older 05/31/2011,12/04/2010,10/29/2010 Influenza Quadravalent, MDCK , 0.5ml, preservative free (Flucelvax) 6mo and older 05/28/2022,02/11/2021,04/17/2019,04/20 Influenza Quadravalent, MDCK , 0.5ml, with preservative (Flucelvax) 6mo and older 04/19/2017 Influenza trivalent, 0.5mL, preservative free (Fluarix; FluLaval; Fluzone) ages 6mo and older (Afluria) 3 years and older 02/25/2016,04/26/2014,03/22/2008,05/02,04/18/2006 MMR, measles mumps and rubel la Live (Priorix; M-M-R II) 12mo and older 10/29/2010 Pneumococcal polysaccharide 23 valent (Pneumovax 23) 2yo and older 04/26/2014 Td Tetanus diptheria (Tdvax) 7yo and older 05/28/2022 Td, Unspecified 08/29/2003 Tdap Tetanus diptheria acell ular pertussis (Boostrix; Adacel) 7yo and older 10/14/2010 Surgical History Surgery Date Site/Laterality Comments KIDNEY STONE SURGERY - 2015 PROCEDURE: MT NEPHROLITHOTOMY REMOVAL CALCULUS CIRCUMCISION, NON- 05/20/2016 PROCEDURE: CIRCUMCISION, NOT ; COMMENT: [place] OTHER SURGICAL HISTORY N/A PROCEDURE: HISTORY OTHER; COMMENT: kidney stones Medical History Medical History Date Comments Pure hypercholesterolemia 07/11/2006 DX:Pur e hypercholesterolemia Historical Medical DX 03/22/2008 DX:Diabete s, nephropathy Osteoarthritis of hands, bilateral 11/27/2015 DX:Osteoarthritis of hands, bilateral Glaucoma 04/19/2017 DX:Glaucoma Hypertension 07/27/2023 DX:Hypertension Other somatoform disorders DX:Ot her somatoform disorders; COMMENT: fatigue History of fainting spells o f unknown cause DX:History of fainting spell s of unknown cause; COMMENT: fainting spells; black outs Memory change DX:Memory change ; COMMENT: memory problems Disorientation DX:Disorientatio n Difficulty with speech DX:Diffic ulty with speech Unable to concentrate DX:Unable to concentrate Blurred vision DX:Blurred visio n; COMMENT: double; blurred vision Loss of sensation DX:Loss of sen sation Difficulty balancing DX:Difficul ty balancing; COMMENT: vertigo, spinning, etc Depression DX:Depression Anxiety disorder DX:Anxiety diso rder Mixed hyperlipidemia DX:Mixed hy perlipidemia Painful urination DX:Painful uri nation; COMMENT: painful urination; difficulty starting/stopping stream Urinary incontinence DX:Urinary incontinence Kidney stones DX:Kidney stones Joint pain DX:Joint pain; C OMMENT: joint pain and swelling; arm and leg pain Rheumatoid arthritis (CMS/HCC) D X:Rheumatoid arthritis (HCC) Wears glasses DX:Wears glasses Sensorineural hearing loss DX:Se nsorineural hearing loss; COMMENT: hearing loss, wears heaing aids and ringing in the ears Swelling DX:Swelling; COM MENT: hands and feet Mild intermittent asthma, uncomplicated DX:Mild intermittent asthma, uncomplicated Change in bowel habits DX:Change in bowel habits Allergies DX:Allergies Generalized weakness DX:Generali zed weakness; COMMENT: arms and legs Arm and leg pain DX:Arm and leg pain Gastroesophageal reflux dise ase without esophagitis 09/19/2023 DX:Gastroesophageal reflux d isease without esophagitis Family History Medical History Relation Name Comments Cataracts Maternal Grandfather Diabetes Maternal Grandfather Cataracts Maternal Grandmother Diabetes Maternal Grandmother Diabetes Mother Other: unknown Other pt states fam figueroa does not talk about anything Blindness Paternal Grandfather Cataracts Paternal Grandfather Diabetes Paternal Grandfather Cataracts Paternal Grandmother Macular degeneration Neg Hx Strabismus Neg Hx Relation Name Status Comments Maternal Grandfather Maternal Grandmother Mother Other Paternal Grandfather Paternal Grandmother Social History Tobacco Use Types Packs/Day Years [...] on file Sexual Orientation Not on file Obstetrics History Last Filed Vital Signs Vital Sign Reading Time Taken Comments Blood Pressure 114/68 03/14/2024 1:24 PM EDT Pulse 88 03/14/2024 1:24 PM EDT Temperature - - Respiratory Rate - - Oxygen Saturation - - Inhaled Oxygen Concentration - - Weight 101 kg (222 lb) 03/14/2024 1:24 PM EDT Height 165.1 cm (5' 5 ) 03/14/2024 1:24 PM EDT Body Mass Index 36.94 03/14/2024 1:24 PM EDT Plan of Treatment Upcoming Encounters Date Type Department Care Team (Late st Contact Info) Description 08/02/2024 3:20 PM EDT Consult Gastroenterology - [place] [address] [place] [phone] Macy Joseph NP [address] [facility] [address] [place] [address] 08/08/2024 2:30 PM EDT Office Visit Adult Medicine [address] [phone] Sinai Patel MD [address] [place] [address] Health Maintenance Due Date Last Done Comments Diabetes: Annual Retina Eye Exam 1979 Pneumococcal Vaccine: 50+ Years (2 of 2 - PCV) 04/26/2015 04/26/2014 Pneumococcal Vaccine: Pediatrics (0 to 5 Years) and At-Risk Patients (6 to 64 Years) (2 of 2 - PCV) 04/26/2015 04/26/2014 Zoster Vaccines (1 of 2) 2019 HIV Screening 05/01/2022 Medicare Annual Wellness Visit 05/01/2022 Social Influencers of Health Screening 05/01/2022 Diabetes: Annual GFR (Glomerular Filtration Rate) 10/13/2023 10/12/2022 Hypertension/CHF/CAD Annual BMP Blood Test 12/16/2023 10/12/2022 COVID-19 Vaccine ( season) 2024 Influenza Vaccine (#1) 2024 , 02/11/2021, 04/17/2019, Additional history exists Diabetes: Blood Sugar Control Test (HGBA1C) 09/12/2024 03/14/2024, 03/14/2024, 12/01/2023 Diabetes: Annual Foot Exam 11/29/2024 11/30/2023 Diabetes: Annual Urine Albumin-Creatinine Ratio (uACR) 11/30/2024 12/01/2023 Colorectal Cancer Screening: Colonoscopy 03/12/2025 03/12/2020 Depression Screening 03/14/2025 03/14/2024 Cholesterol Screening (Lipid Panel) 08/28/2028 08/29/2023 DTaP,Tdap,and Td Vaccines (4 - Td or Tdap) 05/28/2032 05/28/2022, 10/14/2010, 08/29/2003 Hepatitis C Screening Completed 11/30/2003 MMR Vaccines Aged Out 10/29/2010 No longer eligi ble based on patient's age to complete this topic Hepatitis B Vaccines Completed 05/31/2011, 12/04/2010, 10/29/2010 HIB Vaccines Aged Out No longer eligi ble based on patient's age to complete this topic HPV Vaccines Aged Out No longer eligi ble based on patient's age to complete this topic Hepatitis A Vaccines Aged Out No long er eligible based on patient's age to complete this topic IPV Vaccines Aged Out No longer eligi ble based on patient's age to complete this topic Meningococcal ACWY Vaccine Aged Out N o longer eligible based on patient's age to complete this topic Meningococcal B Vacine Aged Out No lo nger eligible based on patient's age to complete this topic RSV Immunization Patients Under 20 months Aged Out No longer eligible based on patient's age to complete this topic Varicella Vaccines Aged Out No longer eligible based on patient's age to complete this topic Procedures Procedure Name Priority Date/Time Associated Diagnosis Comments DEPRESSION SCREENING Routine 03/14/2024 HEMOGLOBIN A1C Routine 03/14/2024 URINE ALBUMIN CREATININE RATIO Routine 12/01/2023 DIABETES FOOT EXAM Routine 11/30/2023 LIPID PANEL Routine 08/29/2023 ANNUAL BMP BLOOD TEST Routine 10/12/2022 COLONOSCOPY Routine 03/12/2020 HEPATITIS C SCREENING Routine 11/30/2003 from Last 3 Months or Most Recently Relevant to Health Maintenance Results * Depression Screening (03/14/2024) Pathologist [facility] Depression Screening Abstracted Result [facility] Provider HEALTH MAINTENANCE Final Result * (ABNORMAL) Hemoglobin A1c (03/14/2024) [facility] Hemoglobin A1C 6.7(A) <=6.5 % Blood Venous blood specimen / Unknown Result [facility] Provider LAB BLOOD ORDERABLES Ludivina l Result * Urine Albumin Creatinine Ratio (12/01/2023) Pathologist [facility] Urine Albumin Creatinine Ratio Abstracted Result [facility] Provider HEALTH MAINTENANCE Final Result * Diabetes Foot Exam (11/30/2023) Pathologist [facility] Diabetes: Annual Foot Exam Abstracted Result [facility] Provider HEALTH MAINTENANCE Final Result * (ABNORMAL) Lipid panel (08/29/2023) [facility] LDL/HDL Ratio 3 0 - 4 Triglycerides 204(A) 0 - 150 mg/dL Cholesterol 145 0 - 200 mg/dL HDL 51 >=40 mg/dL LDL Cholesterol 54 0 - 100 mg/dL Blood Venous blood specimen / Unknown [facility] Provider LAB BLOOD ORDERABLES Ludivina l Result * Annual BMP Blood Test (10/12/2022) [facility] Annual BMP Blood Test Abstracted Result [facility] Provider HEALTH MAINTENANCE Final Result * Colonoscopy (03/12/2020) [facility] Colonoscopy No Interpretation , Abstracted Anatomical Region Laterality Modality Other [facility] Provider HEALTH MAINTENANCE Final Result * Hepatitis C Screening (11/30/2003) [facility] Hepatitis C Screening Abstracted [facility] Provider HEALTH MAINTENANCE Final Result from Last 3 Months or Most Recently Relevant to Health Maintenance Insurance [employer] MEDICARE Member Subscriber Plan / Payer (Ef fective 2018-Present) Name:Destin Layton Relation to Subscriber:Self Name:Destin Layton Payer ID:[id number] Group ID:[id number] Type:Not on file Address: [address] [facility] [place] [address] Care Teams Track Grinder Operator Relationship Specialty Start Date End Date Sinai Patel MD [address] [place] [phone] PCP - General 07/27/22
--- OUTSIDE RECORDS SUMMARY | 2024-07-17 19:42 | XMS_ITS | Encounter Summary ---
Author Organization [employer] Address [address] [place] [address] Care Team Providers Care Carton Folder Name Role Phone Sinai Patel MD Primary Care Pr ovider Encounter Details Date Type Department Care Team (Late st Contact Info) Description 05/24/2024 Nurse Triage Adult Medicine [address] [phone] Sinai Patel MD [address] [place] [address] Social History Tobacco Use Types Packs/Day Years [...] on file documented as of this encounter Plan of Treatment Upcoming Encounters Date Type Department Care Team (Late Contact Info) Description 08/02/2024 3:20 PM EDT Consult Gastroenterology - [place] [address] [facility] [address] [place] [phone] Macy Joseph, RAMIREZ 175 [facility] [address] [place] [address] 08/08/2024 2:30 PM EDT Office Visit Adult Medicine [facility] [address] [place] [address] Sinai Patel MD [address] [place] [phone] documented as of this encounter Visit Diagnoses Not on filedocumented in this encounter Care Teams Carton Folder Relationship Specialty Start Date End Date Sinai Patel MD [address] [place] [address] [phone] PCP - General 07/27/22 documented as of this encounter
== END 2024-07-17 16:16 | disposition home or self-care (01) ==
LOC: HO.HOP 16:15
PROVIDERS: Visit Provider Clinical Nurse Specialist Psychiatric/Mental Health
DX: F33.1 Major depressive disorder, recurrent, moderate (principal); F43.12 Post-traumatic stress disorder, chronic
CPT/HCPCS: 99214

== ENCOUNTER 2024-07-23 08:11 | Outpatient (AMB) | payer OTHER, SELFPAY ==
[2024-07-23 08:17] VITALS: BP 138/82; PULSE 82; O2SAT 96; BMI 36.8
--- NOTE | 2024-07-23 08:17 | A.OFFVIS_ITS ---
Vital Signs 07/23/24 08:17 Height 5 ft 5 in Weight 221 lb BMI 36.8 BP 138/82 Blood Pressure Location Rt brachial Position Sitting Pulse 82 Pulse Source Pulse Oximeter Pulse Oximetry (%) 96 Oxygen Delivery Method Room Air Intake Visit Reasons: ENP:Chronic Dizziness and memory loss Intake Note: patient referred for memory loss and dizziness. Allergies naproxen Allergy (Verified 07/23/24 08:19) Unknown ondansetron [From Zofran] Allergy (Verified 07/23/24 08:19) Rash Medication List - Last Reconciled 07/23/24 by Meredith Lozano MD albuterol sulfate mg inhalation aspirin (Adult Aspirin Regimen) 81 mg PO DAILY atorvastatin 40 mg PO DAILY blood-glucose sensor (GymRealm G6 Sensor device) As directed cholecalciferol (vitamin D3) 50 mcg PO DAILY cyanocobalamin (vitamin B-12) 1,000 mcg PO DAILY divalproex ER 250 mg PO DAILY divalproex ER 500 mg PO BEDTIME docusate sodium 100 mg PO BID dulaglutide (Trulicity) mg subcut duloxetine 60 mg PO DAILY empagliflozin (Jardiance) 10 mg PO DAILY gabapentin 600 mg PO BEDTIME gabapentin 300 mg PO DAILY insulin pump cart,10 units/day As directed - has sensor that determines rate insulin pump controller As directed lisinopril 2.5 mg PO DAILY magnesium oxide 500 mg PO BEDTIME melatonin 5 mg PO BEDTIME meloxicam 15 mg PO DAILY pantoprazole 20 mg PO DAILY propranolol ER 120 mg PO DAILY psyllium husk (Reguloid (psyllium husk)) grams PO tramadol 50 mg PO Q6H trazodone 200 mg (2 x 100 mg) PO BEDTIME PRN HPI Comments Details: 54y/o Right handed male comes for evaluation of chronic dizziness and memory issues. He has h/o diabetes ( mid 20s) on insulin pump, not well controlled, HTN , back pain, neuropathy [place] on CPAP. According to his he started c/o dizziness since 2010 and has been worse since then . He describes the dizziness as room spinning with nausea.He sees ENT and has done vestibular therapy . He was in in and fought in the first [place] war- had multiple head injuries and concussions.He had a major injury in 2007 when he fell from a flat bed truck - had LOC and diagnosed with concussion. He also has chronic headaches since then.The headaches are mostly occipital and radiates to the front, with light sensitivty . He takes tramadol and meloxicam qd . He started noticing memory issues - in 2007 . 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 he had cognitive evaluation in 2012- results were not available. [facility] Medical History (Updated 07/24/24 @ 08:27 by Meredith Lozano MD) TBI (traumatic brain injury) Overweight Carpal tunnel syndrome Sleep apnea Calcium urolithiasis Sinus tachycardia Osteoarthritis of both hands Ulnar neuropathy at elbow Atypical chest pain Glaucoma Anxiety PTSD (post-traumatic stress disorder) Mold exposure Allergic rhinitis BPH (benign prostatic hyperplasia) Type 2 diabetes mellitus Neuropathy Insomnia Asthma DJD (degenerative joint disease) GERD (gastroesophageal reflux disease) Hyperlipidemia Hypertension Insulin dependent type 2 diabetes mellitus BMI 36.0-36.9,adult Obesity H/O nephrolithotomy with removal of calculi Surgical History H/O circumcision Family History Mother No problems noted. Father No problems noted. Social History Alcohol intake: never Patient Tobacco Use Status: Never used Tobacco Physical Exam Vital Signs: Last Vital Signs Pulse 82 07/23/24 08:17 BP 138/82 07/23/24 08:17 Pulse Ox 96 07/23/24 08:17 Oxygen Delivery Method Room Air 07/23/24 08:17 BMI result Body Mass Index 36.8 Const General: cooperative and comfortable Nutritional Appearance: average body habitus Orientation/consciousness: patient oriented x3 Eyes Pupils: Equal, round and reactive pupils present Neuro Other: Decreased facial expression and blink No tremors slow responses to questions Gait- slow General: patient oriented x3, tone normal, moves all extremities and no focal motor deficits Cranial nerves: Yes Facial sensation intact/muscles of mastication intact, Yes Equal, round and reactive pupils present, Yes Bilaterally intact EOM present, Yes Nystagmus not present, Yes Normal facial strength present, Yes Midline tongue present, Yes Symmetric palate elevation present and Yes Ability to bilaterally elevate shoulders present Deep tendon reflexes (DTR's): Right triceps reflex intensity grade: 1+, Left triceps reflex intensity grade: 1+, Rt Biceps (C5, C6): 1+, Left biceps reflex intensity grade: 1+, Right brachioradialis reflex intensity grade: 1+, Left brachioradialis reflex intensity grade: 1+, Right patellar reflex intensity grade: 1+ and Left patellar reflex intensity grade: 1+ Coordination: [id number] test normal Psych Appearance: grossly normal Speech and movement: Slowed speech present (Psych) and Slowed movement present (Neuro) Affect: Depressed mood present and Blunted affect present Attitude: cooperative Thought content: Normal thought content present Results Reviewed Results Reviewed: 01/2023 No acute intracranial process. Nonspecific mild bifrontal white matter signal changes and [id number] bilateral frontoparietal lobe volume loss. Assessment & Plan Assessment & Plan (1) TBI (traumatic brain injury): Code(s): S06.9XAA - Unspecified intracranial injury with loss of consciousness status unknown, initial encounter Category: Medical Qualifiers: Encounter type: sequela Loss of consciousness presence/duration: unknown LOC status Qualified Code(s): S06.9XAS - Unspecified intracranial injury with loss of consciousness status unknown, sequela (2) Chronic post-traumatic stress disorder (PTSD): Code(s): F43.12 - Post-traumatic stress disorder, chronic Category: Medical Plan Decrease gabapentin to 600mg qhs PT for neck and back Cognitive therapy Good metabolic control Refer to [facility] TBI clinic for further management. Orders: Orders PT Evaluation and Treatment 07/23/24 M54.2 - Cervicalgia, M54.9 - Dorsalgia, unspecified Referrals Neurology Referral S06.9XAA - Unspecified intracranial injury with loss of consciousness status unknown, initial encounter Speech and Hearing Referral F09 - Unspecified mental disorder due to known physiological condition Coding Level of Care Code New Pt Level 4 (12487) Complex EM visit Add On G2211 Diagnoses Traumatic brain injury, with unknown loss of consciousness status, sequela S06.9XAS Encounter type: sequela Loss of consciousness presence/duration: unknown LOC status Chronic post-traumatic stress disorder (PTSD) F43.12
--- OUTSIDE RECORDS SUMMARY | 2024-07-23 08:22 | XMS_ITS | Clinical Summary ---
Author Organization [facility] Address [address] [place] [address] Care Team Providers Care Skiff Operator Name Role Phone Irene Logan Primary Care [...] age to complete this topic Care Teams Skiff Operator Relationship Specialty Start Date End Date Irene Logan Elver [address] [place], [place] [address] [address] PCP - General Internal Medicine 02/04/20
--- OUTSIDE RECORDS SUMMARY | 2024-07-23 08:22 | XMS_ITS | Encounter Summary ---
Author Organization [facility] Address [address] [place] [address] Care Team Providers Care Curb Setter Name Role Phone Sinai Patel MD Primary Care Pr ovider Reason for Visit * Reason Onset Date Comments Medication 07/19/2024 Clarification Encounter Details Date Type Department Care Team (Late st Contact Info) Description 07/19/2024 Telephone Adult Medicine [address] [phone] Sinai Patel MD [address] [place] [phone] Medication (Clarification ) Social History Tobacco Use Types Packs/Day Years [...] as of this encounter Progress Notes * PAYTON Camacho - 07/19/2024 4:02 PM EST Normal renal function February, normal liver function (2022), no history of abnormal liver function on lab work Scheduled with PCP in a few weeks I don't see any reason he cannot take these medications * Mar He - 07/19/2024 11:03 AM EST The pharmacy is calling in regards to patient's pain medications and is wondering if it is okay forthe patient to receive all tramadol, tylenol and meloxicam. They just was concern if the patient isokay health andrade to take all those pain meds and if he can continue with all of them. Please contact pharmacy at phone number [phone]. documented in this encounter Plan of Treatment Upcoming Encounters Date Type Department Care Team (Late st Contact Info) Description 08/02/2024 3:20 PM EDT Consult Gastroenterology - [address] [phone] Macy Joseph NP 175 [facility] [address] [place] [address] 08/08/2024 2:30 PM EDT Office Visit Adult Medicine [address] [phone] Sinai Patel MD [address] [place] [address] documented as of this encounter Visit Diagnoses Not on filedocumented in this encounter Care Teams Curb Setter Relationship Specialty Start Date End Date Sinai Patel MD [address] [place] [address] PCP - General 07/27/22 documented as of this encounter
--- OUTSIDE RECORDS SUMMARY | 2024-07-23 08:22 | XMS_ITS | Clinical Summary ---
Author Organization 175 [facility] Address [address] [place] [address] Phone Care Team Providers Care Crossbar Switch Adjuster Name Role Phone Sinai Patel MD Primary [...] Active medical supply, miscellaneous (MISCELLANEOUS MEDICAL SUPPLY [facility]) Casts and Splints Mis 2 Each by Does not apply route daily as needed for Other (pain). DX G56.03 024 Active blood-glucose sensor (DEXCOM G6 SENSOR [facility]) DEXCOM G6 SENSOR 3 PACK [address]-27, See Instructions, # 3 pack/packet, Refills 11, Tot. Refills 11, Maintenance, 11.9 use to monitor blood glucose continuously, change sensor every 10 days, 10/15/22 12:29:00 EDT, Compound 023 Active blood-glucose transmitter (DEXCOM G6 TRANSMITTER [facility]) DEXCOM G6 TRANSMITTER [address]-72, See Instructions, # 1 each, Refills 3, [...] by mouth daily. 024 Active arm brace [facility] Elastic Bandages & Supports (Wrist Brace Deluxe) [...] Active inhaler, assist devices ([employer] CHAMBER [facility]) by Does not apply route. Active cycloSPORINE [...] Active medical supply, miscellaneous (MISCELLANEOUS MEDICAL SUPPLY [facility]) CPAP Historical (HISTORICAL CPAP Inhale 12-16 cm [...] (one) time each day. 90 each 1 024 Active budesonide (PULMICORT) 0.5 mg/2 mL nebulizer [...] each day. 28 capsule 3 025 Active atorvastatin (LIPITOR) 40 mg tablet TAKE 1 TABLET BY MOUTH EVERY DAY 30 tablet 025 Active propranolol LA (INDERAL LA) 120 mg 24 hr capsule TAKE 1 CAPSULE BY MOUTH EVERY DAY 90 capsule 1 025 Active traMADoL (ULTRAM) 50 mg tablet Take 1 tablet (50 mg total) by mouth 2 (two) times a day. Max Daily Amount: 100 mg 56 tablet 025 Active atorvastatin (LIPITOR) 40 mg tablet Take 1 Tablet by mouth daily. 024 2024 Discontinued propranolol LA (INDERAL LA) 120 mg 24 hr capsule Take 1 Capsule by mouth daily. 024 2024 Discontinued traMADoL (ULTRAM) 50 mg tablet Take 1 tablet (50 mg total) by mouth 2 (two) times a day. 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 (background diabetic retinopathy) 08/27/2015 Sinus tachycardia 04/14/2015 [...] Encounters Date Type Department Care Team Description 07/19/2024 Telephone Adult Medicine [address] [phone] Sinai Patel MD Medication (Clarification ) 06/07/[address] [phone] Ty Hager MD call from md office 05/30/2024 Telephone Adult Medicine [address] [phone] Tiffanie Velarde, RN 05/28/2024 Telephone Adult Medicine [address] [phone] Tiffanie Velarde, RN 05/24/2024 Nurse Triage Adult [address] [phone] Sinai Patel MD from Last 3 Months [...] Date Site/Laterality Comments KIDNEY STONE SURGERY - 2014 PROCEDURE: [place] NEPHROLITHOTOMY REMOVAL CALCULUS CIRCUMCISION, NON- 05/20/2016 PROCEDURE: [...] 08/02/2024 3:20 PM EDT Consult Gastroenterology - [place] 175 [facility] 175 [facility] [address] [place] [phone] Macy Joseph NP 175 [facility] [address] [place] [address] 08/08/2024 2:30 PM EDT Office Visit Adult Medicine [address] [phone] Sinai Patel MD [address] [place] [address] Health Maintenance Due Date Last Done Comments [...] Maintenance Results * Depression Screening (03/14/2024) Pathologist [facility] Depression Screening Abstracted [facility] Provider HEALTH MAINTENANCE Final Result * (ABNORMAL) Hemoglobin A1c (03/14/2024) [facility] Hemoglobin A1C 6.7(A) <=6.5 % Blood Venous blood specimen / Unknown Result [facility] Provider LAB BLOOD ORDERABLES Ludivina l Result * Urine Albumin Creatinine Ratio (12/01/2023) [facility] Urine Albumin Creatinine Ratio Abstracted [facility] Provider HEALTH MAINTENANCE Final Result * Diabetes Foot Exam (11/30/2023) [facility] Diabetes: Annual Foot Exam Abstracted [facility] Provider HEALTH MAINTENANCE Final Result * (ABNORMAL) Lipid panel (08/29/2023) [facility] LDL/HDL Ratio 3 0 - 4 Triglycerides 204(A) 0 - 150 mg/dL Cholesterol 145 0 - 200 mg/dL HDL 51 >=40 mg/dL LDL Cholesterol 54 0 - 100 mg/dL Blood Venous blood specimen / Unknown Historical Provider LAB BLOOD ORDERABLES Ludivina l Result * Annual BMP Blood Test (10/12/2022) [facility] Annual BMP Blood Test Abstracted Result [facility] Provider HEALTH MAINTENANCE Final Result * Colonoscopy (03/12/2020) [facility] Colonoscopy No Interpretation , Abstracted Anatomical Region Laterality Modality Other [facility] Provider HEALTH MAINTENANCE Final Result * Hepatitis C Screening (11/30/2003) [facility] Hepatitis C Screening Abstracted [facility] Provider HEALTH MAINTENANCE Final Result from Last 3 Months or Most Recently Relevant to Health Maintenance Insurance [employer] MEDICARE Member Subscriber Plan / Payer (Ef fective 2018-Present) Name:Destin Layton Relation to Subscriber:Self Name:Destin Layton Payer ID:[id number] Group ID:[id number] Type:Not on file Address: [place] [address] [address] [id number] Care Teams Crossbar Switch Adjuster Relationship Specialty Start Date End Date Sinai Patel MD [address] [place] [phone] PCP - General 07/27/22
--- OUTSIDE RECORDS SUMMARY | 2024-07-23 08:22 | XMS_ITS | Encounter Summary ---
Author Organization [facility] Address [address] [place] [address] Care Team Providers Care Division Director Name Role Phone Sinai Patel MD Primary Care Pr ovider Reason for Visit * Reason Onset Date Comments call from office 06/07/2024 Encounter Details Date Type Department Care Team ([facility] st Contact Info) Description 06/07/2024 Telephone Endocrinology - [place] [address] [place], [place] [phone] Ty Hager MD [address] [place] [address] call from md office Social [...] 06/08/2024 2:43 PM EST Called Melchor from [facility] - he is with a patient,contact info left * Penny Sutherland Godfrey - 06/07/2024 2:16 PM EST Melchor from [facility] office needs to speak with Dr Hager's nurse about patient's pumpand what family knows and does not know. Please call him back. documented in this encounter Plan of Treatment Upcoming Encounters Date Type Department Care Team (Late st Contact Info) Description 08/02/2024 3:20 PM EDT Consult Gastroenterology - [address] [place] [address] Macy Joseph NP 175 [facility] [address] [place] [address] 08/08/2024 2:30 PM EDT Office Visit Adult Medicine [address] [phone] Sinai Patel MD [address] [place] [address] documented as of this encounter Visit Diagnoses Not on filedocumented in this encounter Care Teams Division Director Relationship Specialty Start Date End Date Sinai Patel MD [address] [place] [address] PCP - General 07/27/22 documented as of this encounter
--- OUTSIDE RECORDS SUMMARY | 2024-07-23 08:22 | XMS_ITS | Encounter Summary ---
Author Organization [facility] Address [address] [place] [address] Care Team Providers Care Etcher Aircraft Name Role Phone Sinai Patel MD Primary Care Pr ovider Encounter Details Date Type Department Care Team (Late st Contact Info) Description 05/24/2024 Nurse Triage Adult Medicine [address] [phone] Sinai Patel MD [address] [place] [address] Social History Tobacco Use Types Packs/Day Years [...] 08/02/2024 3:20 PM EDT Consult Gastroenterology - [place] [address] [facility] [address] [place] [phone] Macy Joseph, RAMIREZ 175 [facility] [address] [place] [address] 08/08/2024 2:30 PM EDT Office Visit Adult Medicine [facility] [address] [place] [address] Sinai Patel MD [address] [place] [address] documented as of this encounter Visit Diagnoses Not on filedocumented in this encounter Care Teams Etcher Aircraft Relationship Specialty Start Date End Date Sinai Patel MD [address] [place] [phone] PCP - General 07/27/22 documented as of this encounter
== END 2024-07-23 09:05 | disposition home or self-care (01) ==
PROVIDERS: Visit Provider Psychiatry & Neurology Neurology
DX: S06.9XAS Unspecified intracranial injury with loss of consciousness status unknown, sequela (principal); F43.12 Post-traumatic stress disorder, chronic
CPT/HCPCS: 99204; G2211

== ENCOUNTER → 2024-07-23 08:11 | Outpatient (BNVA) | payer OTHER, SELFPAY | PROVIDERS: Visit Provider Psychiatry & Neurology Neurology | DX: S06.9XAD Unspecified intracranial injury with loss of consciousness status unknown, subsequent encounter (principal); F43.12 Post-traumatic stress disorder, chronic | CPT/HCPCS: 99202 ==

== ENCOUNTER 2024-08-17 14:20 | Outpatient (AMB) | payer OTHER, SELFPAY ==
--- NOTE | 2024-08-17 14:19 | A.OFFWM_ITS ---
Intake Intake Visit Reasons: TV BH Intake Allergies naproxen Allergy (Verified 07/23/24 08:19) Unknown ondansetron [From Zofran] Allergy (Verified 07/23/24 08:19) Rash [facility] Medical History (Updated 07/24/24 @ 08:27 by Meredith Lozano MD) TBI (traumatic brain injury) Overweight Carpal tunnel syndrome Sleep apnea Calcium urolithiasis Sinus tachycardia Osteoarthritis of both hands Ulnar neuropathy at elbow Atypical chest pain Glaucoma Anxiety PTSD (post-traumatic stress disorder) Mold exposure Allergic rhinitis BPH (benign prostatic hyperplasia) Type 2 diabetes mellitus Neuropathy Insomnia Asthma DJD (degenerative joint disease) GERD (gastroesophageal reflux disease) Hyperlipidemia Hypertension Insulin dependent type 2 diabetes mellitus BMI 36.0-36.9,adult Obesity H/O nephrolithotomy with removal of calculi Surgical History H/O circumcision Family History Mother No problems noted. Father No problems noted. Social History Alcohol intake: never Patient Tobacco Use Status: Never used Tobacco Behavioral Health Assessment Weight Management Therapy Therapy Notes Details PT is a 54 years old Female, who presents for a visit to complete BH assessment as part of surgical weight loss program. He was told about the program by his , who had weight-loss surgery here. Presenting Concerns Referral Source [facility]-Provider Reason for referral Completion of behavioral health assessment as part of process for weight-loss surgery. Precipitating Event Obesity. Living Situation Current Living Situation Own At risk of losing current housing? No Satisfied with current living situation? No Comments Pt lives with his and 2 daughters. Food/Weight/Diet Expectations of change Initial Goal to lose 10% of her weight before surgery, which is about 21lbs. Ultimate weight goal: 200lbs before surgery. PT started the program on 05/21/2025 at 221Lbs and most recent weight as of today 219Lbs. PT is not currently following a specific meal plan. PT goes to the Gym 5 times at week, he does the treadmill and bike, also a water class. History/Relationship with food PT reports when stressed he tends to eat a lot. Also at times he tends to skip meals land then feeling very hungry. Example of meals before starting the program: Breakfast: Lunch: Dinner: Snacks: Drinks/Liquids: History/Relationship with weight Denies being overweigh or obese in childhood. In HS he was 140Lbs. 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 In the last 10 years, the patient's Lowest weight was 190Lbs and highest close to 300Lbs History/Relationship with dieting Self-diet, exercise. Social History Family history and relationship PT has been for 29 years. They have 4 children, 2 adults and 2 at home. 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 Developmental history and status Unsure of challenges in childhood, he has been told as an adult he has attentional issues. PT has had 3 TBI, 2 in the and early onset dementia. Currently doesn't receive any treatment. Education Preferred learning style Learn by doing and Visual Service Service? Yes ([place]) Mental Health and Addiction Treatment Current/Past substance abuse? No Comments Alcohol: None Cigarettes/Tobacco: None Cannabis/Edibles: None Current/Past addictive behavior concerns? No Psychiatric history PT attend psychiatrics treatment with Mckayla Smith at [facility]. Not in counseling. Active PTSD Sx. PT has been inpatient, he has done PHP about 3 years ago. He has a history of passive SI. Medical and Physical Health Summary Additional Medical History not covered in history None aditional Sexual History concerns None reported Physical exam in the last year? Yes (Today) Pain Screening Current pain? Yes Pain in the last few months? Yes Medications Is the patient compliant with medications? Yes Does the patient have Max Guardian in place? Not applicable Does the patient use complimentary health approaches? No Trauma/Abuse History History of trauma? Yes Related Trauma Past Assessment & Plan Assessment & Plan (1) Chronic post-traumatic stress disorder (PTSD): Code(s): F43.12 - Post-traumatic stress disorder, chronic Plan PT not cleared today. Will return on 09/12/2024 at 2pm to continue assessment. Coding Level of Care Code New Pt Tele Psy Diag Eval (15412) Patient Type New Diagnoses Chronic post-traumatic stress disorder (PTSD) F43.12 Time Spent (min) 50
== END 2024-08-17 14:59 | disposition home or self-care (01) ==
LOC: HO.HBST 14:20
PROVIDERS: Visit Provider Counselor Mental Health
DX: F43.12 Post-traumatic stress disorder, chronic (principal)
CPT/HCPCS: 90791

== ENCOUNTER → 2024-09-12 14:18 | Outpatient (BNVA) | payer OTHER, SELFPAY | PROVIDERS: Visit Provider Counselor Mental Health ==

== ENCOUNTER → 2024-09-12 14:18 | Outpatient (AMB) | payer OTHER, SELFPAY ==
--- NOTE | 2024-09-12 14:15 | A.OFFWM_ITS ---
Intake Intake Visit Reasons: TV BH F/U Allergies naproxen Allergy (Verified 07/23/24 08:19) Unknown ondansetron [From Zofran] Allergy (Verified 07/23/24 08:19) Rash [facility] Medical History (Updated 07/24/24 @ 08:27 by Meredith Lozano MD) TBI (traumatic brain injury) Overweight Carpal tunnel syndrome Sleep apnea Calcium urolithiasis Sinus tachycardia Osteoarthritis of both hands Ulnar neuropathy at elbow Atypical chest pain Glaucoma Anxiety PTSD (post-traumatic stress disorder) Mold exposure Allergic rhinitis BPH (benign prostatic hyperplasia) Type 2 diabetes mellitus Neuropathy Insomnia Asthma DJD (degenerative joint disease) GERD (gastroesophageal reflux disease) Hyperlipidemia Hypertension Insulin dependent type 2 diabetes mellitus BMI 36.0-36.9,adult Obesity H/O nephrolithotomy with removal of calculi Surgical History H/O circumcision Family History Mother No problems noted. Father No problems noted. Social History Alcohol intake: never Patient Tobacco Use Status: Never used Tobacco Behavioral Health Assessment Weight Management Therapy Therapy Notes Details Client is a 54-year-old male presenting for his second visit to continue the behavioral health assessment as part of the surgical weight loss program. He was referred to the program by his , who previously underwent bariatric surgery at this facility. Client reports currently receiving psychiatric care from Dr. Mckayla Smith at [facility] but is not engaged in ongoing counseling. He has a history of TBI and is experiencing active PTSD symptoms. He shared a past history of inpatient treatment and completed a PHP approximately three years ago. Client also disclosed a history of passive suicidal ideation, though no current risk was identified during the session. At this time, client is not fully adhering to the recommended meal plan and has not maintained contact with his WMP provider, Dr Pérez at [facility]. He also reported current plans to sell his home and relocate out of state, which has created uncertainty around whether he will proceed with bariatric surgery. Presenting Concerns Referral Source WMP-Provider Reason for referral Completion of behavioral health assessment as part of process for weight-loss surgery. Precipitating Event Obesity. Living Situation Current Living Situation Own At risk of losing current housing? No Satisfied with current living situation? No Comments Pt lives with his and 2 daughters. Food/Weight/Diet Expectations of change Initial Goal to lose 10% of her weight before surgery, which is about 21lbs. Ultimate weight goal: 200lbs before surgery. PT started the program on 05/21/2025 at 221Lbs, and the most recent weight as of today is 219Lbs. Meal plan: Not following strictly. Had a combination of 2 shakes, 2 shakes, and 1 meal. Exercise plan: PT goes to the Gym 5 times at week, he does the treadmill and bike, also a water class. Scale: Yes Communication w/ provider: Dr Pérez History/Relationship with food PT reports when stressed he tends to eat a lot, at times he tends to skip meals, and then, feeling very hungry and his portions are bigger in general. Example of meals before starting the program: Breakfast: Lunch: Dinner: Snacks: Drinks/Liquids: History/Relationship with weight Denies being overweigh or obese in childhood. In HS he was 140Lbs. 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 In the last 10 years, the patient's Lowest weight was 190Lbs and highest close to 300Lbs History/Relationship with dieting Self-diet, exercise. Social History Family history and relationship PT has been for 29 years. They have 4 children, 2 adults and 2 at home. 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 Developmental history and status Unsure of challenges in childhood, he has been told as an adult he has attentional issues. PT has had 3 TBI, 2 in the and early onset dementia. Currently doesn't receive any treatment. Social support and children. Community support None. Taoist/Spirituality Christian. Cultural/Ethnic information PT was born in [facility]. [place]oved [place] the [place] at age 7. Legal Involvement and History Current or historical involvement with the legal system? None reported. Education Highest grade completed Masters degree in theology. Preferred learning style Learn by doing and Visual Currently enrolled in educational program? No Interested in further educational program? 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 Employment Employment Status Unemployed (since 2010. ) Wants help to find employment? No Meaningful activities Shelli-related activities. Reading. Financial Situation Describe current financial situation Occasional struggle and Often struggles with finance Financial assistance? Food [place] and Disability Service Service? Yes ([place] - [employer]) Mental Health and Addiction Treatment Current/Past substance abuse? No Comments Alcohol: None Cigarettes/Tobacco: None Cannabis/Edibles: None Current/Past addictive behavior concerns? No Psychiatric history PT attend psychiatrics treatment with Mckayla Smith at [facility]. Not in counseling. Active PTSD Sx. PT has been inpatient, he has done PHP about 3 years ago. He has a history of passive SI. Medical and Physical Health Summary Additional Medical History not covered in history None aditional Sexual History concerns None reported Physical exam in the last year? Yes (Today) Pain Screening Current pain? Yes Pain in the last few months? Yes Medications Is the patient compliant with medications? Yes Does the patient have Max Guardian in place? Not applicable Does the patient use complimentary health approaches? No Trauma/Abuse History History of trauma? Yes Related Trauma Past Assessment & Plan Assessment & Plan (1) Chronic post-traumatic stress disorder (PTSD): Code(s): F43.12 - Post-traumatic stress disorder, chronic Plan The assessment could not be completed today, and the client did not finish the new patient intake packet which includes the PHQ-9 or BES. He is scheduled to return for a third visit, during which the assessment and required scales will be completed. Next annetta: 1-3 weeks. Telehealth Telehealth Telehealth Platform: [facility] Location of provider rendering services: other Location of patient: address on file Patient Identification confirmed using: Name, : Yes Telehealth method: voice only Patient verbally consented to treatment: Yes Patient verbally consented to billing insurance company: Yes Patient informed of any privacy concerns related to visit: Yes Minutes spent on Phone/Video with Pt.: 45 Coding Level of Care Code Established Pt Tele Psytx 45 mins (99500) Patient Type Established Diagnoses Chronic post-traumatic stress disorder (PTSD) F43.12 Time Spent (min) 45 Comment Start time: 2:45pm - End time: 3:00pm
--- OUTSIDE RECORDS SUMMARY | 2024-09-12 17:11 | XMS_ITS | Encounter Summary ---
Author Organization [employer] [facility] Address [address] [place] [address] Care Team Providers Care Senior Property Manager Name Role Phone Sinai Patel MD Primary Care Provider + Rosemarie Young MD Unavailable [phone] Antonette King PA-C Unavailable [phone] Samson Ellis PA-C Unavailable [phone] Encounter Details Date Type Department Care Team Description 06/17/2023 Hospital Medical Records [address] [place] [address] Chris Lau MD Social History Tobacco Use Types Packs/Day Years Used Date Smoking Tobacco: Never Cigarettes Qu it: 05/23/1990 Smokeless Tobacco: Never Alcohol Use Standard Drinks/Week Comments Not Asked 0 (1 standard drink = 0.6 oz pur e alcohol) Sex Assigned at Date Recorded Not on file Job Start Date Occupation Industry Not on file Not on file Not on file documented as of this encounter Plan of Treatment Not on file documented as of this encounter Visit Diagnoses Not on filedocumented in this encounter Care Teams Senior Property Manager Relationship Specialty Start Date End Date Sinai Patel MD [address] [place] [address] PCP - General Internal Medicine 07/27/22 Rosemarie Young MD [address] [facility] [address] [place], [place] [id number] Surgeon Neurosurgery 07/27/23 Antonette King PA-C [address] [address] Specialist Neurosurgery 07/27/23 Samson Ellis PA-C [address] [address] Specialist Neurosurgery 07/27/23 documented as of this encounter
--- OUTSIDE RECORDS SUMMARY | 2024-09-12 17:11 | XMS_ITS | Encounter Summary ---
Author Organization [employer] [facility] Address [address] [place] [address] Care Team Providers Care Digital Court Reporter Name Role Phone Irene Armstrong MD Primary Care Provider U Jose Gao MD Primary Care Provider [phone] Sinai Patel MD Primary Care Provider + Rosemarie Young MD Unavailable [phone] Antonette King PA-C Unavailable [phone] Samson Ellis PA-C Unavailable [phone] Reason for Visit * Reason Onset Date Comments Call From Md Office 11/14/2020 Dr. Huy romero Encounter Details Date Type Department Care Team Description 11/14/2020 Telephone Adult Medicine [address] [address] Irene Armstrong MD Call From Office (Dr. Lin) Social History Tobacco Use Types Packs/Day Years Used Date Smoking Tobacco: Former Cigarettes Q uit: 05/23/1990 Smokeless Tobacco: Never Alcohol Use Standard Drinks/Week Comments Not Asked 0 (1 standard drink = 0.6 oz pur e alcohol) Sex Assigned at Date Recorded Not on file Job Start Date Occupation Industry Not on file Not on file Not on file COVID-19 Exposure Response Date Recorded In the last month, have you been in contact with someone who was confirmed or suspected to have Coronavirus / COVID-19? No / Unsure 11/14/2020 9:24 AM EDT documented as of this encounter Miscellaneous Notes * Telephone Encounter - Sarina Medina C.M.A. - 11/19/2020 8:49 AM EDT NOted. FYI as above. * Telephone Encounter - Irene Logan MD - 11/18/2020 11:[address] Lin's office. He is off all week and will return 11/25. Left number to call back when he gets back in. * Telephone Encounter - Sarina Medina C.M.A. - 11/18/2020 8:[address] Lin would like to speak to pt pcp dr Logan, please review and advise what time the call can be connected or please call at your convenience at [phone] option 0, thanks. * Telephone Encounter - Dee Valdivia M.A. - 11/14/2020 3:40 PM EDT Spoke to the office of Dr. Lin and the service picked up, they leave early on Fridays. Please follow up with Pasquale (the caller) next week regarding this message when is back in the office. Thank you. * Telephone Encounter - Dee Valdivia M.A. - 11/14/2020 12:58 PM EDT is out of the office this afternoon, ok to wait (Per verbal ). Will return call after to 2 PM to advise their office. * Telephone Encounter - Enid Clotilde - 11/14/2020 12:19 PM EDT Pasquale from Dr. Lin office, states that he would like to speak to DR. Logan in regards to this patient. He will only be in the office today till about 2 p.m. maybe a little later. documented in this encounter Plan of Treatment Not on file documented as of this encounter Visit Diagnoses Not on filedocumented in this encounter Care Teams Digital Court Reporter Relationship Specialty Start Date End Date Irene Armstrong MD PCP - General Internal Medicine 04/19/17 Jose Tidwell MD PCP - General Internal Medicine 05/26/22 07/26/22 Sinai Patel MD [address] [place] [address] PCP - General Internal Medicine 07/27/22 Rosemarie Young MD [address] [address] Surgeon Neurosurgery 07/27/23 Antonette King PA-C [address] [address] Specialist Neurosurgery 07/27/23 Samson Ellis PA-C [address] [address] Specialist Neurosurgery 07/27/23 documented as of this encounter
--- OUTSIDE RECORDS SUMMARY | 2024-09-12 17:11 | XMS_ITS | Encounter Summary ---
Author Organization [employer] [facility] [place] [facility] Address [address] [place] [address] Care Team Providers Care Registered Land Surveyor Name Role Phone Irene Armstrong MD Primary Care Provider U Jose Gao MD Primary Care Provider [phone] Sinai Patel MD Primary Care Provider + Rosemarie Young MD Unavailable [phone] Antonette King PA-C Unavailable [phone] Samson Ellis PA-C Unavailable [phone] Reason for Visit * Reason Onset Date Comments Form 06/26/2019 VGO Encounter Details Date Type Department Care Team Description 06/26/2019 Telephone Endocrinology - [place] [address] [place] [address] Zachary Jaramillo MD Form (O) Social History Tobacco Use Types Packs/Day Years Used Date Smoking Tobacco: Former Cigarettes Q uit: 05/23/1990 Smokeless Tobacco: Never Alcohol Use Standard Drinks/Week Comments Not Asked 0 (1 standard drink = 0.6 oz pur e alcohol) Sex Assigned at Date Recorded Not on file Job Start Date Occupation Industry Not on file Not on file Not on file documented as of this encounter Miscellaneous Notes * Telephone Encounter - Fabian Francois - 06/26/2019 9:01 AM EST Marcella is looking for additional information needed for a VGO system faxed back to [phone] documented in this encounter Plan of Treatment Not on file documented as of this encounter Visit Diagnoses Not on filedocumented in this encounter Care Teams Registered Land Surveyor Relationship Specialty Start Date End Date Irene Armstrong MD PCP - General Internal Medicine 04/19/17 Jose Tidwell MD PCP - General Internal Medicine 05/26/22 07/26/22 Sinai Patel MD [address] [place] [address] PCP - General Internal Medicine 07/27/22 Rosemarie Young MD [address] [address] Surgeon Neurosurgery 07/27/23 Antonette King PA-C [address] [address] Specialist Neurosurgery 07/27/23 Samson Ellis PA-C [address] [address] Specialist Neurosurgery 07/27/23 documented as of this encounter
--- OUTSIDE RECORDS SUMMARY | 2024-09-12 17:11 | XMS_ITS | Encounter Summary ---
Author Organization [employer] [facility] Address [address] [place] [address] Care Team Providers Care Extension Forester Name Role Phone Irene Armstrong MD Primary Care Provider U Jose Gao MD Primary Care Provider [phone] Sinai Patel MD Primary Care Provider + Rosemarie Young MD Unavailable [phone] Antonette King PA-C Unavailable [phone] Samson Ellis PA-C Unavailable [phone] Reason for Referral * EXTERNAL (Routine) - Closed Specialty Diagnoses / Procedures Referred By Contjavier t Referred To Contact Cardiology Procedures REFERRAL TO CARDIOLOGY Irene Armstrong MD [address] [place] [address] [facility] Referral ID Status Reason Start Date Expiration Date Visits Re quested Visits Authorized [id number] Closed 11/03/2020 11/03/2021 1 1 Reason for Visit * Reason Onset Date Comments Security Systems Installer Feedback 11/03/2020 [facility] Cardiol monica Encounter Details Date Type Department Care Team Description 11/03/2020 Telephone Adult Medicine B - [address] [address] Irene Armstrong MD Security Systems Installer Feedback ([facility] Cardiology) Social History Tobacco Use Types Packs/Day Years [...] have Coronavirus / COVID-19? No / Unsure 11/04/2020 10:31 AM EDT documented as of this encounter Miscellaneous Notes * Telephone Encounter - Freddie Henry - 11/03/2020 11:03 AM EDT Please review this patients new referral request. The referral has been pended. Please complete the following: If approved> sign order If denied>please give instructions and route to your practice nursing pool. Practice nurse should inform referrals and the patient if denied. * Telephone Encounter - Joseluis Roach - 11/03/2020 10:56 AM EDT What insurance does the patient have today? [facility] Effective 02/20/09: BCBS will not retro referral requests over 90 days. If request is for this please instruct patient to call the 800# on their insurance card to appeal. Do not submit a request. Referrals cannot be processed if the insurance is not accurate. If the insurance listed above in red is NO BILLING INFORMATION FOUND FOR THIS ENCOUTNER The patients correct insurance must be obtained and registered in [facility] or their referral can not be processed. Is this a retro request? NO. If yes for what date of service do you need the retro referral? N/A Who is calling to request this referral? Spouse If the caller is not the patient, what is their name? Shanda Layton Ask the patient WHO referred them to this specialty: Not an initial visit; it is for follow up/continuation of care. Patients PCP is Dr Logan FIRST and LAST NAME of SPECIALIST PATIENT is seeing: [facility] Cardiology What specialty is this? Cardiology DIAGNOSIS Patient is being seen for (Not a body part or a procedure): Enlarged heart Have you seen this SPECIALIST for this PROBLEM/DX before?NO If YES, when:n/a Have you checked REVIEW or the APPT DESK to see if this referral has already been done or has visits left? YES Is this visit:Initial Visit Address of Specialist:[facility] [address] Phone # of Specialist:[phone] Fax #: (if applicable):? Does patient have an appointment scheduled?: NO Date of appointment- (including a retro-request): n/a Is this appointment related to: Not MVA, WC or Surgery related documented in this encounter Plan of Treatment Not on file documented as of this encounter Visit Diagnoses Not on filedocumented in this encounter Care Teams Extension Forester Relationship Specialty Start Date End Date Irene Armstrong MD PCP - General Internal Medicine 04/19/17 Jose Tidwell MD PCP - General Internal Medicine 05/26/22 07/26/22 Sinai Patel MD [address] [place] [address] PCP - General Internal Medicine 07/27/22 Rosemarie Young MD [address] [address] Surgeon Neurosurgery 07/27/23 Antonette King PA-C [address] [address] Specialist Neurosurgery 07/27/23 Samson Ellis PA-C [address] [address] Specialist Neurosurgery 07/27/23 documented as of this encounter
--- OUTSIDE RECORDS SUMMARY | 2024-09-12 17:11 | XMS_ITS | Encounter Summary ---
Author Organization [employer] [facility] Address [address] [place] [address] Care Team Providers Care Waste Management Engineer Name Role Phone Sinai Patel MD Primary Care Provider + Rosemarie Young MD Unavailable [phone] Antonette King-Sammie Unavailable Samson Ellis-Sammie Unavailable Reason for Visit * Reason Onset Date Comments Prior Authorization 06/20/2023 Ct scan of c hest not contrast Encounter Details Date Type Department Care Team Description 06/20/2023 Telephone Pulmonology - [place] [address] [facility] [address] [place] [address] Adele Walker APRN 175 [facility] [address] [place] [address] Prior Authorization (Ct scan of chest not contrast) Social History Tobacco Use Types Packs/Day Years [...] encounter Miscellaneous Notes * Telephone Encounter - Xin Doyle - 06/21/2023 10:08 AM EST Our office has schedule a CT-Scan of the chest without contrast Appointment Date: July 14, 2023 Time: 9:30 am (with an arrival at 9:15 am) Location: [facility] [address] [place] [address] letter sent to patient * Telephone Encounter - Xin Doyle - 06/21/2023 10:06 AM EST Notice of Approval of Service Request Service provider: [facility] Authorization number: [id number] Start date: 06/17/2023 End Date: 10/16/2023 left vm to call back the office for a reminder of his ctscan of the chest ordered by Adele * Telephone Encounter - Xin Doyle - 06/20/2023 10:53 AM EST Autorization sent to [facility] Waiting on an approval documented in this encounter Plan of Treatment Not on file documented as of this encounter Visit Diagnoses Not on filedocumented in this encounter Care Teams Waste Management Engineer Relationship Specialty Start Date End Date Sinai Patel MD [address] [place] [address] PCP - General Internal Medicine 07/27/22 Rosemarie Young MD [address] [address] Surgeon Neurosurgery 07/27/23 Antonette King PA-C [address] [address] Specialist Neurosurgery 07/27/23 Samson Ellis PA-C [address] [address] Specialist Neurosurgery 07/27/23 documented as of this encounter
--- OUTSIDE RECORDS SUMMARY | 2024-09-12 17:11 | XMS_ITS | Encounter Summary ---
Author Organization [employer] [facility] Address [address] [place] [address] Care Team Providers Care Shipping Coordinator Name Role Phone Irene Armstrong MD Primary Care Provider U Jose Gao MD Primary Care Provider [phone] Sinai Patel MD Primary Care Provider + Rosemarie Young MD Unavailable [phone] Antonette King PA-C Unavailable [phone] Samson Ellis PA-C Unavailable [phone] Reason for Visit * Reason Onset Date Comments Medication 12/23/2020 Encounter Details Date Type Department Care Team Description 12/23/2020 Telephone Adult Medicine [address] [address] Irene Armstrong MD Medication Social History Tobacco Use Types Packs/Day Years [...] have Coronavirus / COVID-19? No / Unsure 12/23/2020 9:43 AM EDT documented as of this encounter Miscellaneous Notes * Telephone Encounter - Jazmyn Doyle - 12/24/2020 11:54 AM EDT Soonest available appt booked per PCP request * Telephone Encounter - Shefali Ascencio M.A - 12/24/2020 11:43 AM EDT Left message to call back ask to speak to Dr Logan nurse [phone]. * Telephone Encounter - Irene Logan MD - 12/24/2020 11:36 AM EDT That's not an indication for thick-it. It's a thickener for fluids. Please have him discuss this further with a telehealth visit * Telephone Encounter - Jazmyn Doyle - 12/24/2020 8:46 AM EDT Spoke with patient's she states that his asthma doctor started him on a pump about a year ago and since then he has been having problems with drinking and last satuday he was hospitalized with kidney stones/dehydration. She is concerned he is not getting enough fluids and is wondering if you would be willing to prescribe the thicket medication. * Telephone Encounter - Irene Logan MD - 12/23/2020 5:03 PM EDT Why is he needing this? Was there a recommendation from a speech therapist or GI? * Telephone Encounter - Antonette Henry M.A. - 12/23/2020 4:39 PM EDT Rx pending, please complete and sign if appropriate. * Telephone Encounter - Antonette Henry M.A. - 12/23/2020 3:36 PM EDT Need pharmacy * Telephone Encounter - Samantha Randolph - 12/23/2020 3:26 PM EDT Who is calling? Spouse: Name: Shanda Name of the medication Thicket (Used to thicken up other liquids) What is the specific problem or interaction? Patient would like to know if Doctor would prescribe this medication? If the patient is having a problem with taking the med - how long has the problem been going on? N/A documented in this encounter Plan of Treatment Not on file documented as of this encounter Visit Diagnoses Not on filedocumented in this encounter Care Teams Shipping Coordinator Relationship Specialty Start Date End Date Irene Armstrong MD PCP - General Internal Medicine 04/19/17 Jose Tidwell MD PCP - General Internal Medicine 05/26/22 07/26/22 Sinai Patel MD [address] [place] [address] PCP - General Internal Medicine 07/27/22 Rosemarie Young MD [address] [address] Surgeon Neurosurgery 07/27/23 Antonette King PA-C [address] [address] Specialist Neurosurgery 07/27/23 Samson Ellis PA-C [address] [address] Specialist Neurosurgery 07/27/23 documented as of this encounter
--- OUTSIDE RECORDS SUMMARY | 2024-09-12 17:11 | XMS_ITS | Encounter Summary ---
Author Organization [facility] Address [address] [place] [address] Care Team Providers Care Dish Room Worker Name Role Phone Zachary Jaramillo MD Primary Care Provider Unavail able Irene Armstrong MD Primary Care Provider [facility] Primary Care Provider [facility] Kell[facility] MD Primary Care Provider [phone] Sinai Patel MD Primary Care Provider + Rosemarie Young MD Unavailable [phone] Antonette King PA-C Unavailable [phone] Samson Ellis PA-C Unavailable [phone] Encounter Details Date Type Department Care Team Description 09/13/2014 Juvenile Officer Report Medical Records [address] [place] [address] Porfirio Alston MD Social History Tobacco Use Types Packs/Day Years Used Date Smoking Tobacco: Former Alcohol Use Standard Drinks/Week Comments Not Asked [...] on filedocumented in this encounter Care Teams Dish Room Worker Relationship Specialty Start Date End Date Zachary Jaramillo MD PCP - General Internal Medicine 05/21/14 03/06/15 Irene Armstrong MD PCP - General Internal Medicine 04/19/17 Irene Armstrong MD PCP - General 03/07/15 Jose Tidwell MD PCP - General Internal Medicine 05/26/22 07/26/22 Sinai Patel MD [address] [place] [address] PCP - General Internal Medicine 07/27/22 Rosemarie Young MD [address] [address] Surgeon Neurosurgery 07/27/23 Antonette King PA-C [address] [address] Specialist Neurosurgery 07/27/23 Samson Ellis PA-C 175 [facility] [address] [place] [address] Specialist Neurosurgery 07/27/23 documented as of this encounter
--- OUTSIDE RECORDS SUMMARY | 2024-09-12 17:11 | XMS_ITS | Encounter Summary ---
Author Organization [facility] Address [address] [place] [address] Care Team Providers Care Conservation Officer Name Role Phone Irene Armstrong MD Primary Care Provider U Jose Gao MD Primary Care Provider [phone] Sinai Patel MD Primary Care Provider + Rosemarie Young MD Unavailable [phone] Antonette King PA-C Unavailable Samson Ellis PA-C Unavailable [phone] Reason for Visit * Reason Onset Date Comments medication problems 11/13/2020 Encounter Details Date Type Department Care Team Description 11/13/2020 Telephone Endocrinology - [address] [address] Rosemarie Thomas PA-C [address] [place] [address] medication problems Social History Tobacco Use Types Packs/Day Years [...] encounter Miscellaneous Notes * Telephone Encounter - Precious Escalera - 11/14/2020 2:50 PM EDT Patient's spouse called sating wrong medication was send to pharmacy again. It is supposed to be Concentrated NA Pen. Please review and call the patient * Telephone Encounter - Antonette Henry M.A. - 11/13/2020 9:39 AM EDT Corrected rx pending. Please sign. * Telephone Encounter - Honey James - 11/13/2020 9:31 AM EDT Patient's spouse claims that an Rx for Humalog was sent to the pharmacy, when an Rx for Novolog should have been sent. Patient's states that it is imperative that the correct Rx be sent neha. documented in this encounter Plan of Treatment Not on file documented as of this encounter Visit Diagnoses Not on filedocumented in this encounter Care Teams Conservation Officer Relationship Specialty Start Date End Date Irene Armstrong MD PCP - General Internal Medicine 04/19/17 Jose Tidwell MD PCP - General Internal Medicine 05/26/22 07/26/22 Sinai Patel MD [address] [place] [address] PCP - General Internal Medicine 07/27/22 Rosemarie Young MD 175 [facility] [address] [place] [address] Surgeon Neurosurgery 07/27/23 Antonette King PA-C [address] [address] Specialist Neurosurgery 07/27/23 Samson Ellis PA-C [address] [address] Specialist Neurosurgery 07/27/23 documented as of this encounter
--- OUTSIDE RECORDS SUMMARY | 2024-09-12 17:11 | XMS_ITS | Encounter Summary ---
Author Organization [facility] Address [address] [place] [address] Care Team Providers Care Hogshead Salvage Name Role Phone Sinai Patel MD Primary Care Provider + Rosemarie Young MD Unavailable [phone] Antonette King PA-C Unavailable [phone] Samson Ellis PA-C Unavailable [phone] Encounter Details Date Type Department Care Team Description 06/16/2023 Pt. Non Urgent Medical Question Adult Medicine [address] [address] Elizabeth Rodriguez PA-C [address] [place] [address] Social History Tobacco Use Types Packs/Day Years [...] encounter Miscellaneous Notes * Telephone Encounter - Amanda Trinh - 06/16/2023 1:13 PM ESTFrom: Destin Layton To: Andrew Rodriguez Sent: 06/16/2023 1:10 PM EST Subject: Appointment I???m having problems connecting to your phone, they keep hanging up documented in this encounter Plan of Treatment Not on file documented as of this encounter Visit Diagnoses Not on filedocumented in this encounter Care Teams Hogshead Salvage Relationship Specialty Start Date End Date Sinai Patel MD [address] [place] [address] PCP - General Internal Medicine 07/27/22 Rosemarie Young MD [address] [address] Surgeon Neurosurgery 07/27/23 Antonette King PA-C [address] [address] Specialist Neurosurgery 07/27/23 Samson Ellis PA-C [address] [address] Specialist Neurosurgery 07/27/23 documented as of this encounter
--- OUTSIDE RECORDS SUMMARY | 2024-09-12 17:11 | XMS_ITS | Encounter Summary ---
Author Organization [facility] Address [address] [place] [address] Care Team Providers Care Craft Worker Name Role Phone Irene Armstrong MD Primary Care Provider U Jose Gao MD Primary Care Provider [phone] Sinai Patel MD Primary Care Provider + Rosemarie Young MD Unavailable [phone] Antonette King PA-C Unavailable [phone] Samson Ellis PA-C Unavailable [phone] Encounter Details Date Type Department Care Team Description 08/06/2019 Pt. Non Urgent Medical Question Adult Medicine - [address] [address] Irene Armstrong MD Social History Tobacco Use Types Packs/Day [...] as of this encounter Progress Notes * Milrded Chavez M.A. - 08/06/2019 10:35 AM EDTFrom: Destin Layton To: Irene Logan MD Sent: 08/06/2019 9:21 AM EDT Subject: Appointment I have an appointment tomorrow morning with you,are you still seeing patients? documented in this encounter Plan of Treatment Not on file documented as of this encounter Visit Diagnoses Not on filedocumented in this encounter Care Teams Craft Worker Relationship Specialty Start Date End Date Irene Armstrong MD PCP - General Internal Medicine 04/19/17 Jose Tidwell MD PCP - General Internal Medicine 05/26/22 07/26/22 Sinai Patel MD [address] [place] [address] PCP - General Internal Medicine 07/27/22 Rosemarie Young MD [address] [address] Surgeon Neurosurgery 07/27/23 Antonette King PA-C [address] [address] Specialist Neurosurgery 07/27/23 Samson Ellis PA-C [address] [address] Specialist Neurosurgery 07/27/23 documented as of this encounter
--- OUTSIDE RECORDS SUMMARY | 2024-09-12 17:11 | XMS_ITS | Encounter Summary ---
Author Organization [facility] Address [address] [place] [address] Care Team Providers Care Mechanical Technical Service Specialist Name Role Phone Irene Armstrong MD Primary Care Provider U Jose Gao MD Primary Care Provider [phone] Sinai Patel MD Primary Care Provider + Rosemarie Young MD Unavailable [phone] Antonette King PA-C Unavailable Samson Ellis PA-C Unavailable Reason for Visit * Reason Onset Date Comments medication problems 01/19/2021 Encounter Details Date Type Department Care Team Description 01/19/2021 Telephone Endocrinology - [address] [address] Rosemarie Thomas PA-C [address] [place] [address] medication problems Social History Tobacco Use Types [...] have Coronavirus / COVID-19? No / Unsure 01/20/2021 10:59 AM EDT documented as of this encounter Miscellaneous Notes * Telephone Encounter - Rosemarie Thomas PA-C - 01/19/2021 1:33 PM EDT See other tell encounter. * Telephone Encounter - Honey James - 01/19/2021 9:49 AM EDT Patient's reports that the numbers on the patient's Jaiden Pod will need to changed. documented in this encounter Plan of Treatment Not on file documented as of this encounter Visit Diagnoses Not on filedocumented in this encounter Care Teams Mechanical Technical Service Specialist Relationship Specialty Start Date End Date Irene Armstrong MD PCP - General Internal Medicine 04/19/17 Jose Tidwell MD PCP - General Internal Medicine 05/26/22 07/26/22 Sinai Patel MD [address] [place] [address] PCP - General Internal Medicine 07/27/22 Rosemarie Young MD [address] [address] Surgeon Neurosurgery 07/27/23 Antonette King PA-C [address] [address] Specialist Neurosurgery 07/27/23 Samson Ellis PA-C 175 [facility] [address] [place] [address] Specialist Neurosurgery 07/27/23 documented as of this encounter
--- OUTSIDE RECORDS SUMMARY | 2024-09-12 17:11 | XMS_ITS | Encounter Summary ---
Author Organization [facility] Address [address] [place] [address] Care Team Providers Care Retail Tire Sales Manager Name Role Phone Sinai Patel MD Primary Care Provider + Rosemarie Young MD Unavailable [phone] Antonette King PA-C Unavailable [phone] Samson Ellis PA-C Unavailable [phone] Encounter Details Date Type Department Care Team Description 06/10/2023 [facility] Report Medical Records [address] [place] [address] Abstract, Provider Social History Tobacco Use Types Packs/Day [...] on filedocumented in this encounter Care Teams Retail Tire Sales Manager Relationship Specialty Start Date End Date Sinai Patel MD [address] [place], [place] [phone] PCP - General Internal Medicine 07/27/22 Rosemarie Young MD 175 [facility] [address] [place], [place] [address] Surgeon Neurosurgery 07/27/23 Antonette King PA-C [address] [id number] Specialist Neurosurgery 07/27/23 Samson Ellis PA-C [address] [address] Specialist Neurosurgery 07/27/23 documented as of this encounter
--- OUTSIDE RECORDS SUMMARY | 2024-09-12 17:11 | XMS_ITS | Encounter Summary ---
Author Organization [facility] Address [address] [place] [address] Care Team Providers Care Lawyer Real Estate Name Role Phone Sinai Patel MD Primary Care Provider + Rosemarie Young MD Unavailable [phone] Antonette King PA-C Unavailable [phone] Samson Ellis PA-C Unavailable [phone] Reason for Visit * Reason Onset Date Comments other 04/05/2023 Diabetic shoes Encounter Details Date Type Department Care Team Description 04/05/2023 Telephone [facility] 175 [facility] [address] [place] [phone] Zion Lagos DPM other (Diabetic shoes) Social History Tobacco Use Types Packs/Day Years [...] Exposure Response Date Recorded In the last 10 days, have yo u been in contact with someone who was confirmed or suspected to have Coronavirus/COVID-19? No / Unsure 03/24/2023 2:47 PM EDT documented as of this encounter Miscellaneous Notes * Telephone Encounter - Shaista Coats - 04/06/2023 10:20 AM EST I called could not talk at a doctors Appointment. * Telephone Encounter - Kaitlin Lala - 04/05/2023 2:28 PM EST Shanda Layton calling on behalf of her spouse Destin: They are wondering is Dr Lagos can writean Rx for diabetic shoes as the insert that they tried getting is very expensive. 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, not stated as uncontrolled Pain in both feet Pain in limb Arthritis of foot, right Unspecified arthropathy, ankle and foot Plantar fasciitis, left Plantar fascial fibromatosis Radiculopathy, lumbosacral region Thoracic or lumbosacral neuritis or radiculitis, unspecified documented in this encounter Care Teams Lawyer Real Estate Relationship Specialty Start Date End Date Sinai Patel MD [address] [place] [address] PCP - General Internal Medicine 07/27/22 Rosemarie Young MD [address] [address] Surgeon Neurosurgery 07/27/23 Antonette King PA-C [address] [address] Specialist Neurosurgery 07/27/23 Samson Ellis PA-C 175 [facility] [address] [place] [address] Specialist Neurosurgery 07/27/23 documented as of this encounter
--- OUTSIDE RECORDS SUMMARY | 2024-09-12 17:11 | XMS_ITS | Encounter Summary ---
Author Organization [facility] Address [address] [place] [address] Care Team Providers Care Brinell Tester Name Role Phone rIene Armstrong MD Primary Care Provider U Jose Gao MD Primary Care Provider [phone] Sinai Patel MD Primary Care Provider + Rosemarie Young MD Unavailable [phone] Antonette King PA-C Unavailable [phone] Samson Ellis PA-C Unavailable [phone] Reason for Visit * Reason Comments E-prescribe Rx Request Encounter Details Date Type Department Care Team Description 11/05/2020 Refill Adult Medicine - [address] [address] Zachary Jaramillo MD E-prescribe Rx Request Social History Tobacco Use Types Packs/Day Years [...] encounter Miscellaneous Notes * Telephone Encounter - Susan Cristobal M.A. - 11/05/2020 4:56 PM EDT Date of last office visi twas 09/24/20. Pended appt for 11/13/20 Lab Results Component Value Date NA 136 11/04/2020 K 4.3 11/04/2020 CO2 26 11/04/2020 CL 103 11/04/2020 BUN 18 11/04/2020 CREAT 0.97 11/04/2020 GLU 147 11/04/2020 CA 9.6 11/04/2020 GFR > 60 11/04/2020 * Telephone Encounter - Feliberto Laboy M.A. - 11/05/2020 2:54 PM EDT I have attempted without success to contact this patient by phone to REFILL / NO ANSWER , WILL TRY AGAIN * Telephone Encounter - Maddie Jo - 11/05/2020 2:28 PM EDT Patient would like script to be: E-PRESCRIBED/FAXED TO PHARMACY WHEN WAS THE PATIENT'S LAST APPOINTMENT IN ADULT MEDICINE? 09/24/20 WHEN WAS THE LAST TIME THE PATIENT SAW THEIR PCP? 04/02/20 Does patient have an upcoming appointment? Yes 11/13/20 (THE MEDICATION REQUESTED IS ON THE MED LIST ABOVE) All of the medications requested were on the CURRENT MEDS list Did you check the Pharmacy information above?: YES Patient wants: 30 -day supply Is this a mail order prescription request ? NO If the refill is from a FAXED refill request what is the RX # listed on the fax? N/A Patients current insurance carrier is: Payor: [employer] [facility] [employer] M[employer] / Plan: [facility] / Product Type: HMO [id number] documented in this encounter Plan of Treatment Not on file documented as of this encounter Visit Diagnoses Not on filedocumented in this encounter Care Teams Brinell Tester Relationship Specialty Start Date End Date Irene Armstrong MD PCP - General Internal Medicine 04/19/17 Jose Tidwell MD PCP - General Internal Medicine 05/26/22 07/26/22 Sinai Patel MD [address] [place] [address] PCP - General Internal Medicine 07/27/22 Rosemarie Young MD [address] [address] Surgeon Neurosurgery 07/27/23 Antonette King PA-C [address] [address] Specialist Neurosurgery 07/27/23 Samson Ellis PA-C 175 [facility] [address] [place] [address] Specialist Neurosurgery 07/27/23 documented as of this encounter
--- OUTSIDE RECORDS SUMMARY | 2024-09-12 17:11 | XMS_ITS | Clinical Summary ---
Author Organization [facility] Address [address] [place] [address] Care Team Providers Care Tafe Lecturer Name Role Phone Irene Logan Primary Care [...] age to complete this topic Care Teams Tafe Lecturer Relationship Specialty Start Date End Date Irene Logan Elver [address] [place], [place] [address] [address] PCP - General Internal Medicine 02/04/20
--- OUTSIDE RECORDS SUMMARY | 2024-09-12 17:11 | XMS_ITS | Encounter Summary ---
Author Organization [email or web address] [facility] Address [address] [place] [address] Care Team Providers Care Aboriginal Education Teacher Name Role Phone Irene Armstrong MD Primary Care Provider U Jose Gao MD Primary Care Provider [phone] Sinai Patel MD Primary Care Provider + Rosemarie Young MD Unavailable [phone] Antonette King PA-C Unavailable [phone] Samson Ellis PA-C Unavailable [phone] Encounter Details Date Type Department Care Team Description 11/27/2020 Hospital Medical Records [address] [place] [address] Evie Waller NP Social History Tobacco Use Types Packs/Day Years [...] AM EDT documented as of this encounter Plan of Treatment Not on file documented as of this encounter Visit Diagnoses Not on filedocumented in this encounter Care Teams Aboriginal Education Teacher Relationship Specialty Start Date End Date Irene Armstrong MD PCP - General Internal Medicine 04/19/17 Jose Tidwell MD PCP - General Internal Medicine 05/26/22 07/26/22 Sniai Patel MD [address] [place] [address] PCP - General Internal Medicine 07/27/22 Rosemarie Young MD [address] [address] Surgeon Neurosurgery 07/27/23 Antonette King PA-C [address] [address] Specialist Neurosurgery 07/27/23 Samson Ellis PA-C [address] [address] Specialist Neurosurgery 07/27/23 documented as of this encounter
--- OUTSIDE RECORDS SUMMARY | 2024-09-12 17:11 | XMS_ITS | Encounter Summary ---
Author Organization [facility] Address [address] [place] [address] Care Team Providers Care Multimedia Developer Name Role Phone Irene Armstrong MD Primary Care Provider U Jose Gao MD Primary Care Provider [phone] Sinai Patel MD Primary Care Provider + Rosemarie Young MD Unavailable [phone] Antonette King PA-C Unavailable [phone] Samson Ellis PA-C Unavailable [phone] Reason for Visit * Reason Onset Date Comments [facility] Rx Refill 07/23/2019 Encounter Details Date Type Department Care Team Description 07/23/2019 Refill Adult Medicine - [address] [address] Irene Armstrong MD Mychart Rx Refill Social History Tobacco Use Types Packs/Day Years [...] encounter Miscellaneous Notes * Telephone Encounter - Marla Yarbrough M.A. - 07/24/2019 12:46 PM EST Pt states that apt is scheduled 08/01 * Telephone Encounter - Irene Logan MD - 07/24/2019 12:38 PM EST Signed, please ask him when he has an appointment with psych. * Telephone Encounter - Feliberto Laboy M.A. - 07/24/2019 9:49 AM EST Last office visit 05.10.19 Pending appt 08.07.19 NO CSC for the Valium Last rx was 28 on 06.22.19 documented in this encounter Plan of Treatment Not on file documented as of this encounter Visit Diagnoses Not on filedocumented in this encounter Care Teams Multimedia Developer Relationship Specialty Start Date End Date Irene Armstrong MD PCP - General Internal Medicine 04/19/17 Jose Tidwell MD PCP - General Internal Medicine 05/26/22 07/26/22 Sinai Patel MD [address] [place] [address] PCP - General Internal Medicine 07/27/22 Rosemarie Young MD [address] [address] Surgeon Neurosurgery 07/27/23 Antonette King PA-C [address] [address] Specialist Neurosurgery 07/27/23 Samson Ellis PA-C [address] [address] Specialist Neurosurgery 07/27/23 documented as of this encounter
--- OUTSIDE RECORDS SUMMARY | 2024-09-12 17:11 | XMS_ITS | Encounter Summary ---
Author Organization [facility] Address [address] [place] [address] Care Team Providers Care Assistant Manager Airside Operations Name Role Phone Irene Armstrong MD Primary Care Provider U [facility] Jose Tidwell MD Primary Care Provider [phone] Sinai Patel MD Primary Care Provider + Rosemarie Young MD Unavailable [phone] Antonette King PA-C Unavailable [phone] Samson Ellis PA-C Unavailable [phone] Encounter Details Date Type Department Care Team Description 02/27/2020 Manager Medical Report Medical Records [address] [place] [address] Porfirio Alston MD Social History Tobacco Use [...] on filedocumented in this encounter Care Teams Assistant Manager Airside Operations Relationship Specialty Start Date End Date Irene Armstrong MD PCP - General Internal Medicine 04/19/17 Jose Tidwell MD PCP - General Internal Medicine 05/26/22 07/26/22 Sinai Patel MD [address] [place] [address] PCP - General Internal Medicine 07/27/22 Rosemarie Young MD [address] [address] Surgeon Neurosurgery 07/27/23 Antonette King PA-C [address] [address] Specialist Neurosurgery 07/27/23 Samson Ellis PA-C 175 [facility] [address] [place] [address] Specialist Neurosurgery 07/27/23 documented as of this encounter
--- OUTSIDE RECORDS SUMMARY | 2024-09-12 17:11 | XMS_ITS | Encounter Summary ---
Author Organization [facility] Address [address] [place] [address] Care Team Providers Care Medical Staff Specialist Name Role Phone Irene Armstrong MD Primary Care Provider U Jose Gao MD Primary Care Provider [phone] Sinai Patel MD Primary Care Provider + Rosemarie Young MD Unavailable [phone] Antonette King PA-C Unavailable [phone] Samson Ellis PA-C Unavailable [phone] Reason for Visit * Reason Onset Date Comments refill request 12/17/2020 Encounter Details Date Type Department Care Team Description 12/17/2020 Refill Gastroenterology - [address] [place] [address] Brandon Aguilar PA-C refill request Social History Tobacco Use Types Packs/Day Years [...] or suspected to have Coronavirus / COVID-19? Unable to assess 12/20/2020 11:21 AM EDT documented as of this encounter Miscellaneous Notes * Telephone Encounter - Irma Arvizu M.A. - 12/17/2020 3:54 PM EDT [facility] 08/01/20 * Telephone Encounter - Jennifer Thomas - 12/17/2020 1:58 PM EDT [facility] 08/01/20 documented in this encounter Plan of Treatment Not on file documented as of this encounter Visit Diagnoses Not on filedocumented in this encounter Care Teams Medical Staff Specialist Relationship Specialty Start Date End Date Irene Armstrong MD PCP - General Internal Medicine 04/19/17 Jose Tidwell MD PCP - General Internal Medicine 05/26/22 07/26/22 Sinai Patel MD [address] [place] [address] PCP - General Internal Medicine 07/27/22 Rosemarie Young MD [address] [address] Surgeon Neurosurgery 07/27/23 Antonette King PA-C [address] [address] Specialist Neurosurgery 07/27/23 Samson Ellis PA-C [address] [address] Specialist Neurosurgery 07/27/23 documented as of this encounter
--- OUTSIDE RECORDS SUMMARY | 2024-09-12 17:11 | XMS_ITS | Encounter Summary ---
Author Organization [employer] [facility] Address [address] [place] [address] Care Team Providers Care Medical Economics Consultant Name Role Phone Irene Armstrong MD Primary Care Provider U Jose Gao MD Primary Care Provider [phone] Sinai Patel MD Primary Care Provider + Rosemarie Young MD Unavailable [phone] Antonette King PA-C Unavailable [phone] Samson Ellis PA-C Unavailable [phone] Reason for Visit * Reason Onset Date Comments Prior Authorization 09/11/2019 Continuous B lood Gluc Sensor (FREESTYLE JOHN PAUL 14 DAY SENSOR) [facility] Encounter Details Date Type Department Care Team Description 09/11/2019 Telephone Adult Medicine [facility] [address] [place] [address] Irene Armstrong MD Prior Authorization (Continuous Blood Gluc Sensor (FREESTYLE JOHN PAUL 14 DAY SENSOR) [facility] [place] Social History Tobacco Use Types Packs/Day Years [...] encounter Miscellaneous Notes * Telephone Encounter - Ara Richmond M.A. - 09/18/2019 10:48 AM EDT It was APPROVAL * Telephone Encounter - Ara Richmond M.A. - 09/17/2019 11:30 AM EDT Received a paper work from [facility] Notice of Approval of Service Request.. * Telephone Encounter - Juanita Mackay M.A. - 09/12/2019 8:50 AM EDT Ordered by dr allen, not sure if we are supposed to do prior auths on these now This is navitus ins, would need to call can be done by phone [place] p [phone] Prior Auth sheryl Mackay M.A. [facility] Prior Authorizations Ext [phone] Fax: [phone] reply back to p [phone] Prior Auth pool * Telephone Encounter - Kaitlin Almazan - 09/11/2019 3:58 PM EDT Prior Authorization for Medication-do not complete and send this encounter unless you have the fax from the pharmacy. Is this a Cover My Meds request: Yes -- Thomas Code [id number] Name of Medication: Continuous Blood Gluc Sensor (FREESTYLE JOHN PAUL 14 DAY SENSOR) Misc Dose of Medication N/A What is the RX # from the faxed refill? [facility] How does patient take this med? Use to check blood sugars. ??Apply to the back of the upper arm every 14 days. What Pharmacy did the fax come from: [facility] fax #: [phone] [employer] Information from fax: What Prescription Plan does the patient have? BIN/PCN if applicable: Cardholder ID: Person Code: Relationship Code: Help desk phone: [phone] documented in this encounter Plan of Treatment Not on file documented as of this encounter Visit Diagnoses Not on filedocumented in this encounter Care Teams Medical Economics Consultant Relationship Specialty Start Date End Date Irene Armstrong MD PCP - General Internal Medicine 04/19/17 Jose Tidwell MD PCP - General Internal Medicine 05/26/22 07/26/22 Sinai Patel MD [address] [place] [address] PCP - General Internal Medicine 07/27/22 Rosemarie Young MD [address] [address] Surgeon Neurosurgery 07/27/23 Antonette King PA-C [address] [address] Specialist Neurosurgery 07/27/23 Samson Ellis PA-C [address] [address] Specialist Neurosurgery 07/27/23 documented as of this encounter
--- OUTSIDE RECORDS SUMMARY | 2024-09-12 17:11 | XMS_ITS | Encounter Summary ---
Author Organization [facility] Address [address] [place] [address] Care Team Providers Care Ruling Machine Set Up Operator Name Role Phone Irene Armstrong MD Primary Care Provider U Jose Gao MD Primary Care Provider [phone] Sinai Patel MD Primary Care Provider + Rosemarie Young MD Unavailable [phone] Antonette King PA-C Unavailable [phone] Samson Ellis PA-C Unavailable [phone] Encounter Details Date Type Department Care Team Description 09/24/2019 Telephone Rheumatology - [address] [address] Monroe Noonan MD Social History Tobacco Use Types Packs/Day [...] encounter Miscellaneous Notes * Telephone Encounter - Carolyn Sexton M.A. - 09/24/2019 10:01 AM EDT Appt booked for tomorrow, 09/24 at 11am. * Telephone Encounter - Carolyn Sexton M.A. - 09/24/2019 8:56 AM EDT Patient's calling following a [employer] message we received on 09/11/19. Patient is in a lot of pain and states he needs to be seen . He has appt booked with Dr. Noonan on 10/04/19 for joint pain (audio). If okay to book sooner, what would be a good day and time to bring in patient rather than audio? We are booked until 10/08/19, even Ronnie. . documented in this encounter Plan of Treatment Not on file documented as of this encounter Visit Diagnoses Not on filedocumented in this encounter Care Teams Ruling Machine Set Up Operator Relationship Specialty Start Date End Date Irene Armstrong MD PCP - General Internal Medicine 04/19/17 Jose Tidwell MD PCP - General Internal Medicine 05/26/22 07/26/22 Sinai Patel MD [address] [place] [address] PCP - General Internal Medicine 07/27/22 Rosemarie Young MD [address] [address] Surgeon Neurosurgery 07/27/23 Antonette King PA-C 175 [facility] [address] [place] [address] Specialist Neurosurgery 07/27/23 Samson Ellis PA-C 175 [facility] [address] [place] [address] Specialist Neurosurgery 07/27/23 documented as of this encounter
--- OUTSIDE RECORDS SUMMARY | 2024-09-12 17:11 | XMS_ITS | Encounter Summary ---
Author Organization [employer] [facility] Address [address] [place] [address] Care Team Providers Care Cnc Mill Set Up Operator Name Role Phone Irene Armstrong MD Primary Care Provider U Jose Gao MD Primary Care Provider [phone] Sinai Patel MD Primary Care Provider + Rosemarie Young MD Unavailable [phone] Antonette King PA-C Unavailable [phone] Samson Ellis PA-C Unavailable [phone] Encounter Details Date Type Department Care Team Description 11/27/2020 Hospital Medical Records [address] [place] [address] Evie Waller NP Social History Tobacco Use [...] on file documented as of this encounter Procedures Procedure Name Priority Date/Time Associated Diagnosis Comments OUTSIDE LAB Routine 11/27/2020 OUTSIDE LAB Routine 11/27/2020 OUTSIDE LAB Routine 11/27/2020 documented in this encounter Results * OUTSIDE LAB (11/27/2020) Provider Default LAB * OUTSIDE LAB (11/27/2020) Provider Default LAB * OUTSIDE LAB (11/27/2020) Provider Default LAB documented in this encounter Visit Diagnoses Not on filedocumented in this encounter Care Teams Cnc Mill Set Up Operator Relationship Specialty Start Date End Date rIene Armstrong MD PCP - General Internal Medicine 04/19/17 Jose Tidwell MD PCP - General Internal Medicine 05/26/22 07/26/22 Sinai Patel MD [address] [place] [address] PCP - General Internal Medicine 07/27/22 Rosemarie Young MD [address] [address] Surgeon Neurosurgery 07/27/23 Antonette King PA-C [address] [address] Specialist Neurosurgery 07/27/23 Samson Ellis PA-C [address] [address] Specialist Neurosurgery 07/27/23 documented as of this encounter
--- OUTSIDE RECORDS SUMMARY | 2024-09-12 17:11 | XMS_ITS | Encounter Summary ---
Author Organization [employer] Address [address] [place] [address] Care Team Providers Care Work Order Clerk Name Role Phone Sinai Patel MD Primary Care Pr ovider Encounter Details Date Type Department Care Team (Late Contact Info) Description 05/24/2024 Nurse Triage Adult Medicine [address] [phone] Sinai Patel MD [address] [place] [address] Social History Tobacco Use Types Packs/Day Years Used Date Smoking Tobacco: Never Cigarettes Qu it: 05/23/1990 Smokeless Tobacco: Never Alcohol Use Standard Drinks/Week Comments Not Asked 0 (1 standard drink = 0.6 oz pur e alcohol) Sex and Gender Information Value Date Recorded Sex Assigned at Male 08/03/2024 1:26 PM EDT Legal Sex Male 5:06 PM EST Gender Identity Male 08/03/2024 1:26 PM EDT Sexual Orientation Straight 08/03/2024 1: 26 PM EDT documented as of this encounter Plan of Treatment Upcoming Encounters Date Type Department Care Team (Late Contact Info) Description 10/03/2024 2:15 PM EDT Office Visit [address] [phone] Ty Hager MD [address] [place] [address] 11/12/2024 1:30 PM EDT Office Visit Adult Medicine [address] [phone] Sinai Patel MD [address] [place] [address] documented as of this encounter Visit Diagnoses Not on filedocumented in this encounter Care Teams Work Order Clerk Relationship Specialty Start Date End Date Sinai Patel MD [address] [place] [address] PCP - General 07/27/22 documented as of this encounter
--- OUTSIDE RECORDS SUMMARY | 2024-09-12 17:11 | XMS_ITS | Encounter Summary ---
Author Organization [facility] Address [address] [place] [address] Care Team Providers Care Flower Picker Name Role Phone Samson Iyer MD Primary Care Provider Unavail able Tisha Carpio MD Primary Care Provider Osvaldo Lambert MD Primary Care Provider Unava ilJuve Krueger MD Primary Care Provider Unavailab Zachary Rasmussen MD Primary Care Provider Unavail able Irene Armstrong MD Primary Care Provider U navailIrnee Araujo MD Primary Care Provider U Jose Gao MD Primary Care Provider [phone] Sinai Patel MD Primary Care Provider + Rosemarie Young MD Unavailable [phone] Antonette King PA-C Unavailable [phone] Samson Ellis PA-C Unavailable [phone] Encounter Details Date Type Department Care Team Description 11/28/2004 Orders Only Medical [address] [place] [address] Zachary Jaramillo MD DIABETES MELLITUS TYPE II-UNCOMPL (Primary Dx) Social History Tobacco Use Types Packs/Day Years Used Date Smoking Tobacco: Never Assessed Sex Assigned at Date Recorded Not on file Job Start Date Occupation Industry Not on file Not on file Not on file documented as of this encounter Plan of Treatment Scheduled Orders Name Type Priority Associated Diagnoses Orde r Schedule VENIPUNCTURE Lab Routine Diabetes Mellitus Type Ii-Uncompl Ordered: 11/28/2004 documented as of this encounter Procedures Procedure Name Priority Date/Time Associated Diagnosis Comments MICROALBUMIN/CREATININ E, URINE Routine 11/28/2004 9:05 AM EDT Diabetes Mellitus Type Ii-Uncompl HEMOGLOBIN A1C Routine 11/28/2004 9:05 AM EDT Diabetes Mellitus Type Ii-Uncompl TSH Routine 11/28/2004 9:05 AM EDT Diabetes Mellitus Type Ii-Uncompl CHG LIPID PANEL Routine 11/28/2004 9:05 AM EDT Diabetes Mellitus Type Ii-Uncompl CHG COMPREHENSIVE METABOLIC PANEL Routine 11/28/2004 9:05 AM EDT Diabetes Mellitus Type Ii-Uncompl documented in this encounter Results * TSH (11/28/2004 9:05 AM EDT) TSH 0.83 0.40 - 4.00 uIU/ml [facility] 11/28/2004 9:05 AM EDT 11/28/2004 11:28 AM EDT Zachary Jaramillo MD LAB Performing Organization Address [facility]/ZIP Co de Phone Number [email or web address] * MICROALBUMIN/CREATININE, URINE (11/28/2004 9:05 AM EDT) MICROALBUMIN, RANDOM 11.4 0.0 - 29.0 mg/L [facility] MICROALB/CRE RATIO RANDOM 7.4 0.0 - 30.0 mg/G [facility] CREATININE, RANDOM URINE 153 mg/dL [facility] 11/28/2004 9:05 AM EDT 11/28/2004 11:28 AM EDT Zachary Jaramillo MD LAB [facility] * (ABNORMAL) HEMOGLOBIN A1C (11/28/2004 9:05 AM EDT) GLYCOSYLATED HEMOGLOBIN A1C 7.2(H) 4.0 - 6.0 % [facility] 11/28/2004 9:05 AM EDT 11/28/2004 11:28 AM EDT Zachary Jaramillo MD LAB [facility] * LIPID PROFILE (11/28/2004 9:05 AM EDT) Pathologist [facility] Cholesterol 137 0 - 200 mg/dL [facility] TRIGLYCERIDES 102 0 - 150 mg/dL [facility] HDL CHOLESTEROL 52 >40 mg/dL [facility] LDL CALCULATED 65 0 - 100 mg/dL [facility] TC-HDLC RATIO 2.6 0 - 4.4 mg/dL [facility] 11/28/2004 9:05 AM EDT 11/28/2004 11:28 AM EDT Zachary Jaramillo MD LAB Performing Organization Address City/[facility]/ZIP Co de Phone Number [facility] * (ABNORMAL) COMPREHENSIVE METABOLIC PANEL (11/28/2004 9:05 AM EDT) GLUCOSE 104 70 - 110 mg/dL [facility] Blood Urea Nitrogen 10 5 - 25 mg/dL [facility] creatinine 0.8 0.7 - 1.5 mg/dL [facility] BUN/CREATININE RATIO 12.5 6.0 - 20.0 G/dL [facility] Sodium 136 133 - 145 mEq/L [facility] Potassium 4.1 3.5 - 5.2 mEq/L [facility] Chloride 101 96 - 108 mEq/L [facility] CARBON DIOXIDE (CO2) 23.6 21.0 - 32.0 mEq/L [facility] CALCIUM 9.3 8.5 - 10.5 mg/dL [facility] TOTAL PROTEIN (TP) 8.4(H) 6.0 - 8.0 G/dL [facility] Albumin 4.4 3.2 - 5.6 G/dL [facility] GLOBULIN 4.0 1.9 - 4.4 G/dL [facility] ALBUMIN/GLOBULI N RATIO 1.1 1.1 - 2.3 [facility] BILIRUBIN TOTAL 0.6 0.0 - 1.4 mg/dL [facility] AST (SGOT) 29 10 - 42 U/L [facility] ALT (SGPT) 46 10 - 60 U/L [facility] Alk Phos 59 42 - 121 U/L [facility] 11/28/2004 9:05 AM EDT 11/28/2004 11:28 AM EDT Zachary Jaramillo MD LAB [facility] documented in this encounter Visit Diagnoses Diagnosis Type II or unspecified type diabetes mellitus without mention of complication, not stated as uncontrolled- Primary documented in this encounter Care Teams Flower Picker Relationship Specialty Start Date End Date Samson Iyer MD PCP - General 02/10/11 01/29/13 Tisha Carpio MD [address] [place] [address] PCP - General 12/05/01 02/09/11 Osvaldo Lambert MD [address] [place] [address] PCP - General Internal Medicine 01/30/13 08/12/13 Juve Reno MD [address] [place] [address] PCP - General Internal Medicine 08/13/13 05/20/14 Zachary Jaramillo MD [address] [place] [address] PCP - General Internal Medicine 05/21/14 03/06/15 Irene Armstrong MD [address] [place] [address] PCP - General Internal Medicine 04/19/17 05/25/22 Irene Armstrong MD [address] [place] [address] PCP - General 03/07/15 04/18/17 Jose Tidwell MD [address] [place] [address] PCP - General Internal Medicine 05/26/22 07/26/22 Sinai Patel MD [address] [place] [address] PCP - General Internal Medicine 07/27/22 Rosemarie Young MD [address] [address] Surgeon Neurosurgery 07/27/23 Antonette King PA-C [address] [address] Specialist Neurosurgery 07/27/23 Samson Ellis PA-C [address] [phone] Specialist Neurosurgery 07/27/23 documented as of this encounter
--- OUTSIDE RECORDS SUMMARY | 2024-09-12 17:12 | XMS_ITS | Encounter Summary ---
Author Organization [facility] Address [address] [place] [address] Care Team Providers Care Film Or Videotape Editor Name Role Phone Sinai Patel MD Primary Care Provider + Rosemarie Young MD Unavailable [phone] Antonette King PA-C Unavailable [phone] Samson Ellis PA-C Unavailable [phone] Encounter Details Date Type Department Care Team Description 08/09/2023 SCAN [facility] Medical [facility] Neurosurgery [place] [address] [phone] Samson Ellis PA-C [address] [phone] Social History Tobacco Use Types Packs/Day Years [...] on filedocumented in this encounter Care Teams Film Or Videotape Editor Relationship Specialty Start Date End Date Sinai Patel MD [address] [place] [phone] PCP - General Internal Medicine 07/27/22 Rosemarie Young MD 175 [facility] [address] [place] [phone] Surgeon Neurosurgery 07/27/23 Antonette King PA-C [address] [address] Specialist Neurosurgery 07/27/23 Samson Ellis PA-C 175 [facility] [address] [place] [address] Specialist Neurosurgery 07/27/23 documented as of this encounter
--- OUTSIDE RECORDS SUMMARY | 2024-09-12 17:12 | XMS_ITS | Encounter Summary ---
Author Organization [employer] [facility] Address [address] [place] [address] Care Team Providers Care Plant Equipment Engineer Name Role Phone Irene Armstrong MD Primary Care Provider [facility] Jose Tidwell MD Primary Care Provider [phone] Sinai Patel MD Primary Care Provider + Rosemarie Young MD Unavailable [phone] Antonette King PA-C Unavailable [phone] Samson Ellis PA-C Unavailable [phone] Encounter Details Date Type Department Care Team Description 03/16/2022 Joint Cleaning Machine Operator Report Medical Records [address] [place] [address] [facility] Endocrine And Diabetes Social History Tobacco Use Types Packs/Day Years [...] on filedocumented in this encounter Care Teams Plant Equipment Engineer Relationship Specialty Start Date End Date Irene Armstrong MD PCP - General Internal Medicine 04/19/17 Jose Tidwell MD PCP - General Internal Medicine 05/26/22 07/26/22 Sinai Patel MD [address] [place] [address] PCP - General Internal Medicine 07/27/22 Rosemarie Young MD [address] [address] Surgeon Neurosurgery 07/27/23 Antonette King PA-C [address] [address] Specialist Neurosurgery 07/27/23 Samson Ellis PA-C 175 [facility] [address] [place] [address] Specialist Neurosurgery 07/27/23 documented as of this encounter
--- OUTSIDE RECORDS SUMMARY | 2024-09-12 17:12 | XMS_ITS | Encounter Summary ---
Author Organization [employer] [facility] Address [address] [place] [address] Care Team Providers Care Solar Process Engineer Name Role Phone Sinai Patel MD Primary Care Provider + Rosemarie Young MD Unavailable [phone] Antonette King PA-C Unavailable [phone] Samson Ellis PA-C Unavailable [phone] Reason for Visit * Reason Comments E-prescribe Rx Request Encounter Details Date Type Department Care Team Description 08/13/2023 [facility] Gastroenterology [address] [place] [phone] Brandon Aguilar PA-C E-prescribe Rx Request Social History Tobacco Use [...] on filedocumented in this encounter Care Teams Solar Process Engineer Relationship Specialty Start Date End Date Sinai Patel MD [address] [place] [address] PCP - General Internal Medicine 07/27/22 Rosemarie Young MD [address] [address] Surgeon Neurosurgery 07/27/23 Antonette King PA-C [address] [address] Specialist Neurosurgery 07/27/23 Samson Ellis PA-C [address] [address] Specialist Neurosurgery 07/27/23 documented as of this encounter
--- OUTSIDE RECORDS SUMMARY | 2024-09-12 17:12 | XMS_ITS | Encounter Summary ---
Author Organization [employer] [facility] Address [address] [place] [address] Care Team Providers Care Chief Cloth Finishing Range Operator Name Role Phone Irene Armstrong MD Primary Care Provider U Jose Gao MD Primary Care Provider [phone] Sinai Patel MD Primary Care Provider + Rosemarie Young MD Unavailable [phone] Antonette King PA-C Unavailable [phone] Samson Ellis PA-C Unavailable Reason for Visit * Reason Comments E-prescribe Rx Request Encounter Details Date Type Department Care Team Description 05/15/2017 Refill Adult Medicine B - [address] [address] Rosemarie Thomas PA-C [address] [place] [address] E-prescribe Rx Request Social History Tobacco Use [...] encounter Miscellaneous Notes * Telephone Encounter - Irene Logan MD - 2017 3:39 PM EST Signed, thank you * Telephone Encounter - Lisa DicksonPSanjanaN. - 2017 3:06 PM EST Last office visit 04/19/17. * Telephone Encounter - Jeremy Derick - 2017 6:44 AM EST Patient would like script to be: E-PRESCRIBED/FAXED TO PHARMACY WHEN WAS THE PATIENT'S LAST APPOINTMENT IN ADULT MEDICINE? 04/19/17 WHEN WAS THE LAST TIME THE PATIENT SAW THEIR PCP? N/a Does patient have an upcoming appointment? No-patient refused appointment, will call back to book appointment (THE MEDICATION REQUESTED IS ON THE MED LIST ABOVE) All of the medications requested were on the CURRENT MEDS list Did you check the Pharmacy information above?: YES Patient wants: 30 -day supply Is this a mail order prescription request ? NO Patients current insurance carrier is: Payor: [facility] [facility] MEDICAID / Plan: [facility] MEDICAID HMO $0 [place] / Product Type: HMO [id number] documented in this encounter Plan of Treatment Not on file documented as of this encounter Visit Diagnoses Not on filedocumented in this encounter Care Teams Chief Cloth Finishing Range Operator Relationship Specialty Start Date End Date Irene Armstrong MD PCP - General Internal Medicine 04/19/17 Jose Tidwell MD PCP - General Internal Medicine 05/26/22 07/26/22 Sinai Patel MD [address] [place] [address] PCP - General Internal Medicine 07/27/22 Rosemarie Young MD [address] [address] Surgeon Neurosurgery 07/27/23 Antonette King PA-C [address] [address] Specialist Neurosurgery 07/27/23 Samson Ellis PA-C [address] [address] Specialist Neurosurgery 07/27/23 documented as of this encounter
--- OUTSIDE RECORDS SUMMARY | 2024-09-12 17:12 | XMS_ITS | Encounter Summary ---
Author Organization [facility] [facility] Address [address] [place] [address] Care Team Providers Care Quality Assurance Inspector Name Role Phone Sinai Patel MD Primary Care Provider + Rosemarie Young MD Unavailable [phone] Antonette King PA-C Unavailable [phone] Samson Ellis PA-C Unavailable [phone] Encounter Details Date Type Department Care Team Description 10/07/2023 Refill Pulmonology - [address] [place] [address] Fernando Richey MD Social History Tobacco Use Types Packs/Day [...] as of this encounter Visit Diagnoses Diagnosis Restrictive pattern present on pulmonary function testing Shortness of breath Wheezing Obstructive sleep apnea AHI 5.8/REM AHI 53 Obstructive sleep apnea (adult) (pediatric) documented in this encounter Care Teams Quality Assurance Inspector Relationship Specialty Start Date End Date Sinai Patel MD [address] [place] [phone] PCP - General Internal Medicine 07/27/22 Rosemarie Young MD [address] [phone] Surgeon Neurosurgery 07/27/23 Antonette King PA-C [address] [address] Specialist Neurosurgery 07/27/23 Samson Ellis PA-C 175 [facility] [address] [place] [phone] Specialist Neurosurgery 07/27/23 documented as of this encounter
--- OUTSIDE RECORDS SUMMARY | 2024-09-12 17:12 | XMS_ITS | Encounter Summary ---
Author Organization [employer] [facility] Address [address] [place] [address] Care Team Providers Care Surgical Instrument Mechanic Name Role Phone Irene Armstrong MD Primary Care Provider U Jose Gao MD Primary Care Provider [phone] Sinai Patel MD Primary Care Provider + Rosemarie Young MD Unavailable [phone] Antonette King PA-C Unavailable [phone] Samson Ellis PA-C Unavailable [phone] Encounter Details Date Type Department Care Team Description 03/13/2021 Hospital Medical Records [address] [place] [address] Fransisco Landry MD Social History Tobacco Use Types Packs/Day [...] have Coronavirus / COVID-19? No / Unsure 03/13/2021 2:12 PM EDT documented as of this encounter Plan of Treatment Not on file documented as of this encounter Visit Diagnoses Not on filedocumented in this encounter Care Teams Surgical Instrument Mechanic Relationship Specialty Start Date End Date Irene Armstrong MD PCP - General Internal Medicine 04/19/17 Jose Tidwell MD PCP - General Internal Medicine 05/26/22 07/26/22 Sinai Patel MD [address] [place] [address] PCP - General Internal Medicine 07/27/22 Rosemarie Young MD [address] [address] Surgeon Neurosurgery 07/27/23 Antonette King PA-C [address] [address] Specialist Neurosurgery 07/27/23 Samson Ellis PA-C [address] [address] Specialist Neurosurgery 07/27/23 documented as of this encounter
--- OUTSIDE RECORDS SUMMARY | 2024-09-12 17:12 | XMS_ITS | Encounter Summary ---
Author Organization [facility] Address [address] [place] [address] Care Team Providers Care Warehouse Guard Name Role Phone Zachary Jaramillo MD Primary Care Provider Unavail able Irene Armstrong MD Primary [facility] Primary Care Provider U Jose Gao MD Primary Care Provider [phone] Sinai Patel MD Primary Care Provider + Rosemarie Young MD Unavailable [phone] Antonette King PA-C Unavailable [phone] Samson Ellis PA-C Unavailable [phone] Encounter Details Date Type Department Care Team Description 09/30/2014 Skin Grader Report Medical Records [address] [place] [id number] Porfirio Alston MD Social History Tobacco Use [...] on filedocumented in this encounter Care Teams Warehouse Guard Relationship Specialty Start Date End Date Zachary Jaramillo MD PCP - General Internal Medicine 05/21/14 03/06/15 Irene Armstrong MD PCP - General Internal Medicine 04/19/17 Irene Armstrong MD PCP - General 03/07/15 Jose Tidwell MD PCP - General Internal Medicine 05/26/22 07/26/22 Sinai Patel MD [address] [place] [id number] PCP - General Internal Medicine 07/27/22 Rosemarie Young MD [address] [address] Surgeon Neurosurgery 07/27/23 Antonette King PA-C [address] [address] Specialist Neurosurgery 07/27/23 Samson Ellis PA-C [address] [facility] [address] [place] [address] Specialist Neurosurgery 07/27/23 documented as of this encounter
--- OUTSIDE RECORDS SUMMARY | 2024-09-12 17:12 | XMS_ITS | Clinical Summary ---
Author Organization [address] [facility] Address [address] [place] [address] Phone Care Team Providers Care Classification Analyst Name Role Phone iSnai Patel MD Primary Care Pr ovider Allergies Active Allergy Reactions Criticality Noted Date Comments Naproxen High 04/19/2017 Other Reaction(s): Rash/Dermatitis Ondansetron Rash 12/19/2017 Medications blood-glucose meter misc Use to test blood sugar twice daily. Active cholecalciferol (VITAMIN D-3) 50 mcg (2,000 unit) capsule TAKE 1 CAPSULE BY MOUTH EVERY DAY Active dulaglutide (Trulicity) 4.5 mg/0.5 mL pen injector injection Inject 4.5 mg into the skin once a week. 024 Active magnesium oxide 500 mg magnesium tablet Take 1 Tablet by mouth daily. Active melatonin 5 mg tablet Take 1 Tablet by mouth every evening. Active alcohol swabs pads, medicated Apply 1 Packet topically at bedtime. 023 Active arformoteroL (BROVANA) 15 mcg/2 mL nebulizer solution Take 2 mL by nebulization 2 times daily. COPD J44.9 024 Active medical supply, miscellaneous (MISCELLANEOUS MEDICAL SUPPLY MISC) Casts and Splints Misc 2 Each by Does not apply route daily as needed for Other (pain). DX G56.03 Active blood-glucose transmitter (DEXCOM G6 TRANSMITTER [facility]) DEXCOM G6 TRANSMITTER [address]-05, See Instructions, # 1 each, Refills 3, Tot. Refills 3, Maintenance, 11.9 use to monitor blood glucose continuously, change every 90 days, 10/15/22 12:29:00 EDT, Compound Active divalproex (DEPAKOTE) [address] tablet 750mg nightly Active docusate sodium (COLACE) 100 mg capsule Take 1 Capsule by mouth 2 times daily. Active DULoxetine (CYMBALTA) [address] capsule Take 1 Capsule by mouth daily. Active arm brace [facility] Elastic Bandages & Supports (Wrist Brace Deluxe) [facility] 1 Each by Does not apply route at bedtime. - Does not apply Active gabapentin (NEURONTIN) 300 mg capsule Take 1 Capsule by mouth every morning. Active gabapentin (NEURONTIN) 600 mg tablet Take 1 Tablet by mouth every evening. Per Psych Active insulin lispro (HumaLOG KwikPen Insulin) 200 unit/mL (3 mL) CONCENTRATED injection pen Inject 200 Units into the skin continuous. Use daily with insulin pump. Max daily dose 200 units. Active OLANZapine (ZyPREXA) 5 mg tablet Active glucose blood test strip Apply 1 Strip topically 2 times daily. To test blood sugar. Active lancets lancets Use to test blood sugar twice daily. Active polyethylene glycol (MIRALAX) 17 gram packet 1 capful with water twice daily, or as directed Active inhaler, assist devices (VORTEX HOLDING CHAMBER [facility]) by Does not apply route. Active cycloSPORINE (Restasis MultiDose) 0.05 % drops Active SUMAtriptan (IMITREX) 100 mg tablet Take 1 Tablet by mouth daily as needed. May repeat dose once after 2 hours, if needed. Active lifitegrast (Xiidra) 5 % dropperette Place 1 Drop into both eyes 2 times daily. 07/23/2 021 Active albuterol HFA (Ventolin HFA) 90 mcg/actuation inhaler Inhale 2 Puffs into the lungs every 6 hours as needed for Cough, Wheezing or Shortness of Breath (chest tightness). 024 Active medical supply, miscellaneous (MISCELLANEOUS MEDICAL SUPPLY [facility]) CPAP Historical (HISTORICAL CPAP Inhale 12-16 cm into the lungs at bedtime. apria-pressure 10-16 021 Active zolpidem tartrate (ZOLPIDEM ORAL) Take by mouth. Active pen needle, diabetic 32 gauge x 5/32 needle Use one daily with lantus Active pen needle, diabetic 32 gauge x 5/32 needle USE DIRECTED EVERY EVENING. 020 Active budesonide (PULMICORT) 0.5 mg/2 mL nebulizer solutionIndicatio ns:Shortness of breath,Abnormal results of pulmonary function studies [...] each day. 28 capsule 3 025 Active propranolol LA (INDERAL LA) 120 mg 24 hr capsule TAKE 1 CAPSULE BY MOUTH EVERY DAY 90 capsule 1 025 Active cyanocobalamin (VITAMIN B-12) 1,000 mcg tablet Take 1 tablet (1,000 mcg total) by mouth 1 (one) time each day. 025 Active traMADoL (ULTRAM) 50 mg tablet TAKE 1 TABLET BY MOUTH TWICE A DAY 56 tablet 025 Active aspirin 81 mg EC tabletIndications :Mixed hyperlipidemia,Pr imary hypertension Take 1 tablet (81 mg total) by mouth 1 (one) time each day. 90 tablet 1 025 Active atorvastatin (LIPITOR) 40 mg tabletIndications :Mixed hyperlipidemia Take 1 tablet (40 mg total) by mouth 1 (one) time each day. 90 each 1 025 2024 Active lisinopriL (PRINIVIL,ZESTRIL ) 2.5 mg tabletIndications :Primary hypertension Take 1 tablet (2.5 mg total) by mouth 1 (one) time each day. 90 tablet 1 025 Active meclizine (ANTIVERT) 25 mg tabletIndications :Chronic vertigo Take 1 tablet (25 mg total) by mouth 2 (two) times a day. 180 tablet 1 025 Active traZODone (DESYREL) 100 mg tablet Take 2 tablets (200 mg total) by mouth at bedtime. Active loratadine 10 mg capsuleIndication s:Seasonal allergic rhinitis, unspecified trigger Take 1 capsule by mouth 1 (one) time each day. 90 each Active blood-glucose sensor (Dexcom G6 Sensor) device Change sensor every 10 days. 9 each 025 Active pantoprazole (PROTONIX) 20 mg EC tablet TAKE 1 TABLET BY MOUTH EVERY DAY BEFORE BREAKFAST 90 tablet 1 025 Active tamsulosin (FLOMAX) 0.4 mg 24 hr capsule Take 1 capsule (0.4 mg total) by mouth 1 (one) time each day. Capsules should be taken 30 minutes following the same meal each day. 90 capsule 1 Active aspirin 81 mg EC tablet TAKE 1 TABLET BY MOUTH EVERY DAY 2024 Discontinued(R eorder) lisinopriL (PRINIVIL,ZESTRIL ) 2.5 mg tablet TAKE 1 TABLET BY MOUTH EVERY DAY 2024 Discontinued(R eorder) blood-glucose sensor (DEXCOM G6 SENSOR [facility]) DEXCOM G6 SENSOR 3 PACK [id number], See Instructions, # 3 pack/packet, Refills 11, Tot. Refills 11, Maintenance, 11.9 use to monitor blood glucose continuously, change sensor every 10 days, 10/15/22 12:29:00 EDT, Compound 023 2024 Discontinued(R eorder) diazePAM (VALIUM) 5 mg tablet TAKE 1 TABLET BY MOUTH EVERYDAY AT BEDTIME 2024 Discontinued(T herapy completed) empagliflozin (Jardiance) 10 mg tablet Take 1 Tablet by mouth daily. 2024 Discontinued(T herapy completed) pantoprazole (PROTONIX) 20 mg EC tablet TAKE 1 TABLET BY MOUTH EVERY DAY BEFORE BREAKFAST 2024 Discontinued tamsulosin (FLOMAX) 0.4 mg 24 hr capsule TAKE 1 CAPSULE BY MOUTH EVERY DAY 2024 Discontinued(R eorder) traZODone (DESYREL) 100 mg tablet Take 200 mg by mouth at bedtime. 2024 Discontinued(R eorder) triamcinolone (NASACORT) 55 mcg nasal inhaler USE 1 SPRAY INTO EACH NOSTRIL DAILY 2024 Discontinued(T herapy completed) meclizine (ANTIVERT) 25 mg tablet TAKE 1 TABLET BY MOUTH 2 TIMES DAILY NEEDED FOR DIZZINESS 56 tablet 5 2024 Discontinued(R eorder) loratadine 10 mg capsule Take 1 capsule by mouth 1 (one) time each day. 90 each 1 2024 Discontinued(R eorder) atorvastatin (LIPITOR) 40 mg tablet TAKE 1 TABLET BY MOUTH EVERY DAY 30 tablet 2024 Discontinued(R eorder) traMADoL (ULTRAM) 50 mg tablet Take 1 tablet (50 mg total) by mouth 2 (two) times a day. Max Daily Amount: 100 mg 56 tablet 2024 Discontinued clotrimazole-beta methasone (LOTRISONE) 1-0.05 % cream APPLY SMALL AMOUNTS TO AFFECTED AREA EVERY 12 HOURS. 2024 Discontinued(T herapy completed) polyethylene glycol (Golytely) 236-22.74-6.74 -5.86 gram solution Take 4L by mouth once for one dose. May substitue any PEG. Starting at 6PM the night before your procedure drink 1 8oz glasses at your own pace until you complete half of the gallon. Finish 2nd half of the gallon 5 hours before your procedure. 4000 mL 28/ 2025 Discontinued(T herapy completed) bisacodyL (DULCOLAX) 5 mg EC tablet Take 2 tablets by mouth right before beginning bowel prep. See instructions provided by the office 2 tablet 025 2024 Discontinued(T herapy completed) Active Problems Problem Noted Date Diagnosed Date Fatty liver 09/11/2024 Urge incontinence of urine 08/17/2024 Assessment & Plan (08/17/2024 5:41 PM EDT): He already has briefs, wipes and urine pads. Requesting [employer] for the bed because he sometimes has accidents. 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 the building today Will update labs Orders: Ambulatory referral to Endocrinology; Future Hemoglobin A1c; Future Comprehensive metabolic panel; Future CBC and differential; Future Microalbumin creatinine urine ratio; Future Gastroesophageal reflux disease without esophagi tis 09/19/2023 Assessment & Plan (08/17/2024 5:41 PM EDT): Continue pantoprazole 20 mg daily Insomnia 09/19/2023 Assessment & Plan (08/17/2024 5:41 PM EDT): Continue valproic acid 750mg nightly , trazodone and zolpidem -these are prescribed by his psychiatrist Ama Sherman Chronic low back pain with bilateral sciatica [...] can consider an MRI at that time. Assessment & Plan (08/17/2024 5:41 PM EDT): He Is on [facility] for tramadol 50 mg BID. His last visit was in February. Per controlled substance contract he is to be seen every 3 months. He is strongly advised that he needs to keep up with appointments every 3 months, otherwise he will be found in violation of his contract and he will no longer be able to get the tramadol. He expressed understanding Neck pain 08/31/2023 Overview (03/27/2024): Last Assessment [...] of the cervical spine. Common migraine 07/27/2023 Assessment & Plan (08/17/2024 5:41 PM EDT): Continue propranolol 120 mg daily, sumatriptan 100 mg daily as needed Hyperlipidemia 07/27/2023 Assessment & Plan (08/17/2024 5:41 PM EDT): Continue Lipitor Orders: aspirin 81 mg EC tablet; Take 1 tablet (81 mg total) by mouth 1 (one) time each day. atorvastatin (LIPITOR) 40 mg tablet; Take 1 tablet (40 mg total) by mouth 1 (one) time each day. Lipid panel with reflex to direct LDL; Future Hypertension 07/27/2023 Assessment & Plan (08/17/2024 5:41 PM EDT): Continue lisinopril Orders: aspirin 81 mg EC tablet; Take 1 tablet (81 mg total) by mouth 1 (one) time each day. lisinopriL (PRINIVIL,ZESTRIL) 2.5 mg tablet; Take 1 tablet (2.5 mg total) by mouth 1 (one) time each day. Vitamin D deficiency 07/27/2023 Assessment & Plan (08/17/2024 5:41 PM EDT): Continue vitamin D Calcific tendinitis of right shoulder 06/17/2023 Chronic vertigo 06/17/2023 Assessment & Plan (08/17/2024 5:41 PM EDT): Continue meclizine Orders: meclizine (ANTIVERT) 25 mg tablet; Take 1 tablet (25 mg total) by mouth 2 (two) times a day. CBC and differential; Future Lumbar degenerative disc disease 06/17/2023 Assessment & Plan (08/17/2024 5:41 PM EDT): Continue Tramadol 50 mg BID Multiple joint pain 06/17/2023 Assessment & Plan (08/17/2024 5:41 PM EDT): Continue Tramadol 50 mg BID Traumatic brain injury with loss of consciousness ([facility] V24, [facility] V28) 06/17/2023 Benign prostatic hyperplasia 09/06/2022 Assessment & Plan (08/17/2024 5:41 PM EDT): Continue tamsulosin 0.4 mg daily Seasonal allergic rhinitis 01/04/2022 Assessment & Plan (08/17/2024 5:41 PM EDT): Orders: loratadine 10 mg capsule; Take 1 capsule by mouth 1 (one) time each day. Evidence of airways hyperrea ctivity without diagnosis of asthma 04/21/2020 Mold exposure 04/21/2020 Restrictive pattern present on pulmonary functio n testing 04/21/2020 Class 1 obesity 03/01/2019 PTSD (post-traumatic stress disorder) 09/01/2018 Assessment & Plan (08/17/2024 5:41 PM EDT): Continue valproic acid. Continue follow-up with his psychiatrist Anxiety and depression 06/27/2018 Assessment & Plan (08/17/2024 5:41 PM EDT): Continue duloxetine 60 mg , gabapentin 300 mg every morning +600 mg nightly, Zyprexa- prescribed by Ama Sherman Glaucoma 04/19/2017 Overview (03/27/2024): Salgado; Bilat surgery Atypical chest pain 06/08/2016 Ulnar neuropathy at elbow 04/27/2016 Lesions of both ulnar nerves 11/27/2015 Overview (03/27/2024): Bilateral ulnar neuropathy on EMG 11/05 Osteoarthritis of hands, bilateral 11/27/2015 SE[employer] (background diabetic ret inopathy) ([facility] V24, [facility] V28) 08/27/2015 Urolithiasis 12/30/2014 Overview (03/27/2024): Dr. Alston Obstructive [...] segments of memory impairment; followup as needed Diabetic nephropathy ([facility] V24, [facility] V28) 03/22/2008 Resolved Problems Problem Noted Date Diagnosed Date Resolved Date Moderate episode of recurren t major depressive disorder ([facility] V24, [facility] V28) 06/27/2018 08/17/2024 Sinus tachycardia 04/14/2015 08/17/2024 Overweight 01/29/2013 08/17/2024 Encounters Date Type Department Care Team Description 09/11/2024 7:51 AM EDT - 09/11/2024 11:59 PM EDT Hospital Encounter Radiology Department - [address] [phone] Right upper quadrant abdominal pain Discharge Disposition: Home or Self Care 09/11/2024 Telephone Adult Medicine [address] [phone] Sinai Patel MD Results 08/27/2024 Telephone Endocrinology [address] [phone] Ty Hager MD prior auth 08/20/2024 Telephone Adult Medicine [address] [phone] Kerry Ramirez LPN Fitting for DME 08/17/2024 12:30 PM EDT Office Visit Adult Medicine [address] [phone] Sinai Patel MD Type 2 diabetes mellitus with diabetic neuropathic arthropathy, with long-term current use of insulin ([facility] V24, [facility] V28) (Primary Dx); Chronic vertigo; Migraine without aura and without status migrainosus, not intractable; Urge incontinence of urine; Benign prostatic hyperplasia with lower urinary tract symptoms, symptom details unspecified; Gastroesophageal reflux disease without esophagitis; Mixed hyperlipidemia; Primary hypertension; Primary insomnia; Chronic bilateral low back pain with bilateral sciatica; Degeneration of intervertebral disc of lumbar region with discogenic back pain; Multiple joint pain; PTSD (post-traumatic stress disorder); Anxiety and depression; Vitamin D deficiency; Dysuria; Right upper quadrant abdominal pain; Seasonal allergic rhinitis, unspecified trigger; Need for vaccination against Streptococcus pneumoniae; Family history of B12 deficiency 08/15/2024 9:49 AM EDT Anesthesia Event [facility] [address] [place] [phone] Hong Marquis DO 08/15/2024 9:06 AM EDT - 08/15/2024 11:59 PM EDT Hospital Encounter [facility] [address] [place] [phone] Mary Kimbrough MD Steele, Matthew G, CRNA Kriz, Petra, MD Right upper quadrant abdominal pain; Chronic constipation; Chronic GERD; History of adenomatous polyp of colon Discharge Disposition: Home or Self Care 08/08/2024 Telephone Gastroenterology [facility] [address] [phone] Mary Kimbrough MD special procedure 08/08/2024 Telephone Adult Medicine [address] [phone] Tiffanie Velarde RN 08/02/2024 3:20 PM EDT Consult Gastroenterology [address] [phone] Macy Joseph NP Right upper quadrant abdominal pain (Primary Dx); Chronic constipation; Chronic GERD; History of adenomatous polyp of colon; Incontinence of feces with fecal urgency 08/02/2024 Telephone Gastroenterology [address] [phone] Mcay Joseph NP 07/19/2024 Telephone Adult Medicine [address] [phone] Sinai Patel MD Medication (Clarification ) from Last 3 Months Immunizations Name Administration Dates Next Due Hepatitis B (Vwpcgid-N-Hties , Recombivax HB-Adult) 19yo and older 05/31/2011,12/04/2010,10/29/2010 Hepatitis B (Recombivax HB-D ialysis) 18yo and older 05/31/2011,12/04/2010,10/29/2010 Influenza Quadravalent, MDCK , 0.5ml, preservative free (Flucelvax) 6mo and older 05/28/2022,02/11/2021,04/17/2019,04/20 Influenza Quadravalent, MDCK , 0.5ml, with preservative (Flucelvax) 6mo and older 04/19/2017 Influenza trivalent, 0.5mL, preservative free (Fluarix; FluLaval; Fluzone) ages 6mo and older (Afluria) 3 years and older 02/25/2016,04/26/2014,03/22/2008,05/02,04/18/2006 Influenza trivalent, with pr eservative (Fluzone; Afluria) 6mo and older 02/25/2016,04/26/2014,03/22/2008,05/02,04/18/2006 MMR, measles mumps and rubel la Live (Priorix; M-M-R II) 12mo and older 10/29/2010 Pneumococcal conjugate 20 va lent (Prevnar 20, PCV 20) 2mo and older 08/17/2024 Pneumococcal polysaccharide 23 valent (Pneumovax 23) 2yo and older 04/26/2014 Td Tetanus diptheria (Tdvax) 7yo and older 05/28/2022 Td, Unspecified 08/29/2003 Tdap Tetanus diptheria acell ular pertussis (Boostrix; Adacel) 7yo and older 10/14/2010 Surgical History Surgery Date Site/Laterality Comments KIDNEY STONE SURGERY - 2014 PROCEDURE: [place] NEPHROLITHOTOMY REMOVAL CALCULUS CIRCUMCISION, NON- 05/20/2016 PROCEDURE: CIRCUMCISION, NOT ; COMMENT: [place] OTHER SURGICAL HISTORY N/A PROCEDURE: HISTORY OTHER; COMMENT: kidney stones COLONOSCOPY Medical History Medical History Date Comments Pure [...] swelling; arm and leg pain Rheumatoid arthritis ([facility] V[facility], [facility] V28) DX:Rheumatoid arthritis ([facility] ) Wears glasses DX:Wears glasses Sensorineural hearing loss [...] 09/19/2023 DX:Gastroesophageal reflux d isease without esophagitis Moderate episode of recurren t major depressive disorder ([facility] V24, [facility] V28) 06/27/2018 Sinus tachycardia 04/14/2015 Family History Medical History Relation Name Comments [...] Tobacco: Never Alcohol Use Standard Drinks/Week Comments Never 0 (1 standard drink = 0.6 oz pur e alcohol) Interpersonal Safety Answer Date Record ed Physical Abuse 08/15/2024 Verbal Abuse 08/15/2024 Sex and Gender Information Value Date Recorded Sex Assigned at Male 08/03/2024 1:26 PM EDT Legal Sex Male 5:06 PM EST Gender Identity Male 08/03/2024 1:26 PM EDT Sexual Orientation Straight 08/03/2024 1: 26 PM EDT Obstetrics History Last Filed Vital Signs Vital Sign Reading Time Taken Comments Blood Pressure 112/69 08/17/2024 12:35 PM EDT Pulse 76 08/17/2024 12:35 PM EDT Temperature 36.8 ??C (98.2 ??F) 08/17/2024 12:35 PM E DT Respiratory Rate 18 08/17/2024 12:35 PM EDT Oxygen Saturation 96% 08/15/2024 10:20 AM EDT Inhaled Oxygen Concentration - - Weight 97.5 kg (215 lb) 08/17/2024 12:35 PM EDT Height 165.1 cm (5' 5 ) 08/17/2024 12:35 PM EDT Body Mass Index 35.78 08/17/2024 12:35 PM EDT Plan of Treatment Upcoming Encounters Date Type Department Care Team (Late st Contact Info) Description 10/03/2024 2:15 PM EDT Office Visit [address] [phone] Ty Hager MD [address] [place] [phone] 11/12/2024 1:30 PM EDT Office Visit Adult Medicine [address] [phone] Sinai Patel MD [address] [place] [address] Health Maintenance Due Date Last Done Comments Zoster Vaccines (1 of 2) 2019 HIV Screening 05/01/2022 Medicare Annual Wellness Visit 05/01/2022 Social Influencers of Health Screening 05/01/2022 Diabetes: Annual Foot Exam 11/29/2024 11/30/2023 Diabetes: Blood Sugar Control Test (HGBA1C) 02/17/2025 08/17/2024, 03/14/2024, 03/14/2024, Additional history exists Depression Screening 03/14/2025 03/14/2024 Diabetes: Annual Retina Eye Exam 06/19/2025 06/19/2024 Diabetes: Annual Urine Albumin-Creatinine Ratio (uACR) 08/17/2025 08/17/2024, 12/01/2023 Diabetes: Annual GFR (Glomerular Filtration Rate) 08/17/2025 08/17/2024, 10/12/2022 Hypertension/CHF/CAD Annual BMP Blood Test 08/17/2025 08/17/2024, 10/12/2022 Colorectal Cancer Screening: Colonoscopy 08/15/2029 08/15/2024, 03/12/2020 Cholesterol Screening (Lipid Panel) 08/17/2029 08/17/2024, 08/29/2023 DTaP,Tdap,and Td Vaccines (4 - Td or Tdap) 05/28/2032 05/28/2022, 10/14/2010, 08/29/2003 Hepatitis C Screening Completed 11/30/2003 MMR Vaccines Aged Out 10/29/2010 No longer eligi ble based on patient's age to complete this topic Hepatitis B Vaccines Completed 05/31/2011, 05/31/2011, 12/04/2010, Additional history exists Influenza Vaccine Discontinued 05/28/2022, , 04/17/2019, Additional history exists Pneumococcal Vaccine: 50+ Years Completed 08/17/2024, 04/26/2014 Pneumococcal Vaccine: Pediatrics (0 to 5 Years) and At-Risk Patients (6 to 64 Years) Completed 08/17/2024, 04/26/2014 COVID-19 Vaccine Discontinued HIB Vaccines Aged Out No longer eligi [...] age to complete this topic Meningococcal B Vaccine Aged Out No l onger eligible based on patient's age to complete this topic RSV Immunization Patients Under 20 months Aged Out No longer eligible based on patient's age to complete this topic Varicella Vaccines Aged Out No longer eligible based on patient's age to complete this topic Procedures Procedure Name Priority Date/Time Associated Diagnosis Comments US ABDOMEN LIMITED Routine 09/11/2024 8: 23 AM EDT Right upper quadrant abdominal pain URINALYSIS WITH REFLEX MICROSCOPIC Routine 08/17/2024 1:29 PM EDT Dysuria MICROALBUMIN CREATININE URINE RATIO Routine 08/17/2024 1:29 PM EDT Type 2 diabetes mellitus with diabetic neuropathic arthropathy, with long-term current use of insulin ([facility] V24, CMS/HCC V28) URINALYSIS WITH REFLEX MICROSCOPIC Routine 08/17/2024 1:29 PM EDT Dysuria CULTURE URINE Routine 08/17/2024 1:29 PM EDT Dysuria CBC WITH AUTO DIFFERENTIAL Routine 08/17/2024 1:27 PM EDT Type 2 diabetes mellitus with diabetic neuropathic arthropathy, with long-term current use of insulin (CMS/HCC V24, CMS/HCC V28) Chronic vertigo HEMOGLOBIN A1C Routine 08/17/2024 1:27 PM EDT Type 2 diabetes mellitus with diabetic neuropathic arthropathy, with long-term current use of insulin (CMS/HCC V24, CMS/HCC V28) LIPID PANEL WITH REFLEX TO DIRECT LDL Routine 08/17/2024 1:27 PM EDT Mixed hyperlipidemia COMPREHENSIVE METABOLIC PANEL Routine 08/17/2024 1:27 PM EDT Type 2 diabetes mellitus with diabetic neuropathic arthropathy, with long-term current use of insulin (CMS/HCC V24, CMS/HCC V28) CBC AND DIFFERENTIAL Routine 08/17/2024 1:27 PM EDT Type 2 diabetes mellitus with diabetic neuropathic arthropathy, with long-term current use of insulin (CMS/HCC V24, CMS/HCC V28) Chronic vertigo COLONOSCOPY Routine 08/15/2024 10:09 AM EDT Right upper quadrant abdominal pain Chronic constipation Chronic GERD History of adenomatous polyp of colon EGD Routine 08/15/2024 10:09 AM EDT Right upper quadrant abdominal pain Chronic constipation Chronic GERD History of adenomatous polyp of colon DEPRESSION SCREENING Routine 03/14/2024 DIABETES FOOT EXAM Routine 11/30/2023 HEPATITIS C SCREENING Routine 11/30/2003 from Last 3 Months or Most Recently Relevant to Health Maintenance Results * US Abdomen Limited (09/11/2024 8:23 AM EDT) Anatomical Region Laterality Modality Body Ultrasound 09/11/2024 10:4 0 AM EDT Narrative 09/11/2024 10:43 AM EDT Limited abdominal ultrasound. Right upper quadrant pain. Comparison with previous study from 12/02/2022. Study is limited due to patient's body habitus and bowel gas artifact. Gallbladder is unremarkable. There is no biliary ducts dilatation. Liver measures 16.1 cm in long axis. It revealed heterogeneous increased echotexture with focal areas of sparing near the gallbladder fossa. There is no intrahepatic biliary duct dilatation. Common biliary duct is normal in caliber, measuring 4 mm. There is normal flow in the portal vein. Pancreas is mostly obscured due to bowel gas artifact. Right kidney is normal in size and echogenicity. CONCLUSIONS: Limited by body habitus and bowel gas artifact examination. Abnormal echogenicity of the liver most likely due to steatosis with focal sparing. Nonvisualization of the pancreas. -------- FINAL REPORT -------- Dictated By: Celeste Avery Dictated Date: 09/11/2024 10:40 ET Assigned Physician: Celeste Avery Reviewed and Electronically Signed By: Celeste Avery Signed Date: 09/11/2024 10:43 ET Workstation ID: [id number] Transcribed By: Self Edit Transcribed Date: 09/11/2024 10:40 ET Procedure Note Celeste Avery MD - 09/11/2024 Limited abdominal ultrasound. Right upper quadrant pain. Comparison with previous study from 12/02/2022. Study is limited due to patient's body habitus and bowel gas artifact. Gallbladder is unremarkable. There is no biliary ducts dilatation. Livermeasures 16.1 cm in long axis. It revealed heterogeneous increasedechotexture with focal areas of sparing near the gallbladder fossa. Thereis no intrahepatic biliary duct dilatation. Common biliary duct is normalin caliber, measuring 4 mm. There is normal flow in the portal vein. Pancreas is mostly obscured due to bowel gas artifact. Right kidney isnormal in size and echogenicity. CONCLUSIONS: Limited by body habitus and bowel gas artifact examination.Abnormal echogenicity of the liver most likely due to steatosis with focalsparing. Nonvisualization of the pancreas. -------- FINAL REPORT -------- Dictated By: Celeste Avery Dictated Date: 09/11/2024 10:40 ET Assigned Physician: Celeste Avery Reviewed and Electronically Signed By: Celeste Avery Signed Date: 09/11/2024 10:43 ET Workstation ID: [id number] Transcribed By: Self Edit Transcribed Date: 09/11/2024 10:40 ET us Sinai Patel MD [facility] [place] US PROCEDURE S Final Result * (ABNORMAL) Urinalysis with reflex microscopic (08/17/2024 1:29 PM EDT) Specific [place] Urine 1.045(H) 1.003 - 1.030 LAB URINALYSIS - AUTOMATED METHOD 08/17/2024 6:31 PM EDT [facility] pH, Urine 5.5 5.0 - 8.0 pH LAB URINALYSIS - AUTOMATED METHOD 08/17/2024 6:31 PM [facility] Leukocytes, Urine Negative Negative LAB URINALYSIS - AUTOMATED METHOD 08/17/2024 6:31 PM [facility] Nitrite, Urine Negative Negative LAB URINALYSIS - AUTOMATED METHOD 08/17/2024 6:31 PM [facility] Protein, Urine Negative <=Trace mg/dL LAB URINALYSIS - AUTOMATED METHOD 08/17/2024 6:31 PM [facility] Glucose, Urine >=1000(A) Negative mg/dL LAB URINALYSIS - AUTOMATED METHOD 08/17/2024 6:31 PM [facility] Ketones, Urine Negative Negative mg/dL LAB URINALYSIS - AUTOMATED METHOD 08/17/2024 6:31 PM [facility] Urobilinogen , Urine 0.2 0.2 - 1.0 mg/dL LAB URINALYSIS - AUTOMATED METHOD 08/17/2024 6:31 PM [facility] Bilirubin, Urine Negative Negative LAB URINALYSIS - AUTOMATED METHOD 08/17/2024 6:31 PM [facility] Blood, Urine Negative Negative LAB URINALYSIS - AUTOMATED METHOD 08/17/2024 6:31 PM [facility] Urine Urine specimen obtained by clean catch procedure / Unknown Non-blood Collection / Unknown 08/17/2024 1:29 PM EDT 08/17/2024 1:29 PM EDT us Sinai Patel MD LAB URINE ORDERA BLES Final Result [facility] [address] [place] [address], [place] [phone] * Microalbumin creatinine urine ratio (08/17/2024 1:29 PM EDT) Creatinine, Urine 91.0 mg/dL LAB CHEMISTRY METHOD 08/17/2024 7:05 PM EDT [facility] Microalb, Ur 7.8 0.0 - 29.0 mg/L LAB CHEMISTRY METHOD 08/17/2024 7:05 PM EDT [facility] Microalb/Creat Ratio 9 <30 mg/g creat LAB CHEMISTRY METHOD 08/17/2024 7:05 PM EDT [facility] Urine Urine specimen obtained by clean catch procedure / Unknown Non-blood Collection / Unknown 08/17/2024 1:29 PM EDT 08/17/2024 1:29 PM EDT Sinai Patel MD LAB URINE ORDERA BLES Final Result [facility] [address] [place] [address], [place] [phone] * Culture urine (08/17/2024 1:29 PM EDT) Culture, Urine No growth 08/18/2024 10:26 AM EDT [facility] Urine Urine specimen obtained by clean catch procedure / Unknown Non-blood Collection / Unknown 08/17/2024 1:29 PM EDT 08/17/2024 1:29 PM EDT Sinai Patel MD LAB MICROBIOLOGY - GENERAL ORDERABLES Final Result [facility] [address] [place] [address], [place] [phone] * (ABNORMAL) Lipid panel with reflex to direct LDL (08/17/2024 1:27 PM EDT) Pathologist [facility] Cholesterol 154 0 - 200 mg/dL LAB CHEMISTRY METHOD 08/17/2024 6:27 PM EDT [facility] Triglycerides 187(H) 0 - 150 mg/dL LAB CHEMISTRY METHOD 08/17/2024 6:27 PM EDT [facility] HDL 46 >=40 mg/dL LAB CHEMISTRY METHOD 08/17/2024 6:27 PM EDT [facility] LDL Calculated 71 0 - 100 mg/dL LAB CHEMISTRY METHOD 08/17/2024 6:27 PM EDT [facility] VLDL Cholesterol Shreyas 37.4 mg/dL LAB CHEMISTRY METHOD 08/17/2024 6:27 PM EDT [facility] Non HDL Chol. (LDL+VLDL) 108 <145 mg/dL LAB CHEMISTRY METHOD 08/17/2024 6:27 PM EDT [facility] Chol/HDL Ratio 3.3 0.0 - 4.4 LAB CHEMISTRY METHOD 08/17/2024 6:27 PM EDT [facility] Blood Venous blood specimen / Unknown Venipuncture / Unknown 08/17/2024 1:27 PM EDT 08/17/2024 1:27 PM EDT Sinai Patel MD LAB BLOOD ORDERA BLES Final Result [facility] [address] [place] [address], [place] [phone] * (ABNORMAL) CBC auto differential (08/17/2024 1:27 PM EDT) Pathologist [facility] WBC 8.9 4.8 - 10.8 K/mcL LAB HEMETOLOGY METHOD 08/17/2024 6:14 PM EDT [facility] RBC 4.90 4.50 - 5.50 M/mcL LAB HEMETOLOGY METHOD 08/17/2024 6:14 PM EDT [facility] Hemoglobin 14.2 13.5 - 17.5 g/dL LAB HEMETOLOGY METHOD 08/17/2024 6:14 PM EDT [facility] Hematocrit 44.1 42.0 - 54.0 % LAB HEMETOLOGY METHOD 08/17/2024 6:14 PM EDT [facility] MCV 89.3 79.0 - 98.0 FL LAB HEMETOLOGY METHOD 08/17/2024 6:14 PM EDT [facility] MCH 28.7 27.0 - 32.0 pcg LAB HEMETOLOGY METHOD [facility]24 [facility] MCHC 32.2 32.0 - 37.0 g/dL LAB HEMETOLOGY METHOD 08/17/2024 6:[facility] RDW 13.9 11.0 - 15.0 % LAB HEMETOLOGY METHOD 08/17/2024 6:[facility] Platelets 180 130 - 400 K/mcL LAB HEMETOLOGY METHOD 08/17/2024 6:[facility] MPV 10.5 7.0 - 11.0 FL LAB HEMETOLOGY METHOD 08/17/2024 6:[facility] NRBC 0.0 <1.0 % LAB HEMETOLOGY METHOD 08/17/2024 6:14 PM EDT [facility] NRBC Absolute 0.00 <0.10 K/mcL LAB HEMETOLOGY METHOD 08/17/2024 6:[facility] Neutrophils Relative 55.5 % LAB HEMETOLOGY METHOD 08/17/2024 6:14 [facility] Lymphocytes Relative 32.5 % LAB HEMETOLOGY METHOD 08/17/2024 6:14 PM EDT [facility] Monocytes Relative 7.2 % LAB HEMETOLOGY METHOD 08/17/2024 6:14 PM EDT [facility] Eosinophils Relative 3.4 % LAB HEMETOLOGY METHOD 08/17/2024 6:14 PM EDT [facility] Basophils Relative 0.9 % LAB HEMETOLOGY METHOD 08/17/2024 6:14 PM EDT [facility] Immature Granulocytes Relative 0.5 % LAB HEMETOLOGY METHOD 08/17/2024 6:14 PM EDT [facility] Neutrophils Absolute 4.91 1.50 - 7.00 K/mcL LAB HEMETOLOGY METHOD 08/17/2024 6:14 PM EDT [facility] Lymphocytes Absolute 2.88 1.00 - 5.00 K/mcL LAB HEMETOLOGY METHOD 08/17/2024 6[facility] Monocytes Absolute 0.64 0.20 - 1.00 K/mcL LAB HEMETOLOGY METHOD 08/17/2024 6:14 PM EDT [facility] Eosinophils Absolute 0.30 0.00 - 0.50 K/mcL LAB HEMETOLOGY METHOD 08/17/2024 6:14 PM [facility] Basophils Absolute 0.08 0.00 - 0.20 K/mcL LAB HEMETOLOGY METHOD 08/17/2024 6:14 PM EDT [facility] Immature Granulocytes Absolute 0.04(H) 0.00 - 0.03 K/mcL LAB HEMETOLOGY METHOD 08/17/2024 6:14 PM [facility] Blood Venous blood specimen / Unknown Venipuncture / Unknown 08/17/2024 1:27 PM EDT 08/17/2024 1:27 PM EDT Sinai Patel MD LAB BLOOD ORDERA BLES Final Result Performing Organization Address [facility]/ZIP Co de Phone Number [facility] [address] [place] [address], * (ABNORMAL) Hemoglobin A1c (08/17/2024 1:27 PM EDT) Pathologist [facility] Hemoglobin A1C 7.3(H) <6.5 % LAB CHEMISTRY METHOD 08/17/2024 8:17 PM EDT [facility] Mean Bld Glu Estim. 163 mg/dL LAB CHEMISTRY METHOD 08/17/2024 8:17 PM EDT [facility] Blood Venous blood specimen / Unknown Venipuncture / Unknown 08/17/2024 1:27 PM EDT 08/17/2024 1:27 PM EDT Sinai Patel MD LAB BLOOD ORDERA BLES Final Result Performing Organization Address [facility]/ZIP Co de Phone Number [facility] [address] [place] [address], * (ABNORMAL) Comprehensive metabolic panel (08/17/2024 1:27 PM EDT) [facility] Sodium 137 133 - 145 mmol/L LAB CHEMISTRY METHOD 08/17/2024 6:27 PM EDT [facility] Potassium 3.9 3.5 - 5.5 mmol/L LAB CHEMISTRY METHOD 08/17/2024 6:27 PM EDT [facility] Chloride 101 96 - 110 mmol/L LAB CHEMISTRY METHOD 08/17/2024 6:27 PM EDT [facility] CO2 29 21 - 32 mmol/L LAB CHEMISTRY METHOD 08/17/2024 6:27 PM EDT [facility] Anion Gap 7 3 - 11 LAB CHEMISTRY METHOD 08/17/2024 6:27 PM EDT [facility] Glucose 156(H) 70 - 100 mg/dL LAB CHEMISTRY METHOD 08/17/2024 6:27 PM [facility] BUN 12 5 - 25 mg/dL LAB CHEMISTRY METHOD 08/17/2024 6:27 PM [facility] Creatinine 0.90 0.70 - 1.30 mg/dL LAB CHEMISTRY METHOD 08/17/2024 6:27 PM [facility] eGFR 101 >=60 mL/min/1. 73m2 LAB CHEMISTRY METHOD 08/17/2024 6:27 PM [facility] Comment:Calculation based on the??Chronic Kidney Disease Epidemiology Collaboration (CKD-EPI) equation refit??without adjustment for race. BUN/Creatinine Ratio 13.3 LAB CHEMISTRY METHOD 08/17/2024 6:27 PM [facility] Calcium 9.1 8.5 - 10.5 mg/dL LAB CHEMISTRY METHOD 08/17/2024 6:27 PM [facility] AST (SGOT) 14 10 - 42 unit/L LAB CHEMISTRY METHOD 08/17/2024 6:27 PM [facility] ALT (SGPT) 20 10 - 60 unit/L LAB CHEMISTRY METHOD 08/17/2024 6:27 PM [facility] Alkaline Phosphatase 60 42 - 121 unit/L LAB CHEMISTRY METHOD 08/17/2024 6:27 PM [facility] Total Protein 7.9 6.0 - 8.0 g/dL LAB CHEMISTRY METHOD 08/17/2024 6:27 PM [facility] Albumin 3.6 3.2 - 5.0 g/dL LAB CHEMISTRY METHOD 08/17/2024 6:27 PM [facility] Total Bilirubin 0.3 0.0 - 1.4 mg/dL LAB CHEMISTRY METHOD 08/17/2024 6:27 PM [facility] Blood Venous blood specimen / Unknown Venipuncture / Unknown 08/17/2024 1:27 PM EDT 08/17/2024 1:27 PM EDT Sinai Patel MD LAB BLOOD ORDERA BLES Final Result Performing Organization Address [facility]/ZIP Co de Phone Number [facility] [address] [place] [address], * COLONOSCOPY Anesthesia - MAC; [facility] ENDOSCOPY (08/15/2024 10:09 AM EDT) Anatomical Region Laterality Modality Endoscopy 08/15/2024 9:52 AM EDT Impressions 08/15/2024 10:11 AM EDT - The entire examined colon is normal on direct and ? retroflexion views. ? - No specimens collected. Recommendation: ?- Discharge patient to home. ? - Repeat colonoscopy in 10 years for surveillance. Narrative 08/15/2024 10:11 AM EDT [facility] Patient Name: Destin Layton Procedure Date: 08/15/2024 9:52 AM Date of : 1970 Age: 54 Gender: Male Note Status: Finalized Attending MD: Mary Kimbrough MD, Procedure Date No Time: 08/15/2024 Procedure: ? Colonoscopy Indications: ? High risk colon cancer surveillance: Personal history ? of colonic polyps, Last colonoscopy: February 2020 Providers: ? Mary Kimbrough MD Referring MD: ?Mary Kimbrough MD Medicines: ? Monitored Anesthesia Care Complications: ? No immediate complications. Estimated Blood Loss: ? Estimated blood loss: none. Procedure: ? Pre-Anesthesia Assessment: ? - Prior to the procedure, a History and Physical was ? performed, and patient medications and allergies were ? reviewed. The patient is competent. The risks and ? benefits of the procedure and the sedation options and ? risks were discussed with the patient. All questions ? were answered and informed consent was obtained. ? Patient identification and proposed procedure were ? verified by the physician, the nurse, the recreation counselor ? and the pharmacy intake technician in the pre-procedure area in the ? endoscopy suite. Mental Status Examination: alert and ? oriented. Airway Examination: normal oropharyngeal ? airway and neck mobility. Respiratory Examination: ? clear to auscultation. CV Examination: normal. ? Prophylactic Antibiotics: The patient does not require ? prophylactic antibiotics. Prior Anticoagulants: The ? patient has taken no anticoagulant or antiplatelet ? agents. ASA Grade Assessment: III - A patient with ? severe systemic disease. After reviewing the risks and ? benefits, the patient was deemed in satisfactory ? condition to undergo the procedure. The anesthesia ? plan was to use monitored anesthesia care (MAC). ? Immediately prior to administration of medications, ? the patient was re-assessed for adequacy to receive ? sedatives. The heart rate, respiratory rate, oxygen ? saturations, blood pressure, adequacy of pulmonary ? ventilation, and response to care were monitored ? throughout the procedure. The physical status of the ? patient was re-assessed after the procedure. ? After I obtained informed consent, the scope was ? passed under direct vision. Throughout the procedure, ? the patient's blood pressure, pulse, and oxygen ? saturations were monitored continuously.The ? Colonoscope was introduced through the anus and ? advanced to the cecum, identified by appendiceal ? orifice and ileocecal valve. The colonoscopy was ? performed without difficulty. The patient tolerated ? the procedure well. The quality of the bowel ? preparation was excellent. Findings: ?The perianal and digital rectal examinations were ? normal. ? The entire examined colon appeared normal on direct ? and retroflexion views. Procedure Code(s): ? --- Professional --- ? G0105, Colorectal cancer screening; colonoscopy on ? individual at high risk Diagnosis Code(s): ? --- Professional --- ? Z86.010, Personal history of colonic polyps CPT copyright 202 [employer]. All rights reserved. The codes documented in this report are preliminary and upon demand inspector review may be revised to meet current compliance requirements. Mary Kimbrough MD 08/15/2024 10:11:05 AM This report has been signed electronically.Mary Kimbrough MD Number of Addenda: 0 Note Initiated On: 08/15/2024 9:52 AM Scope Withdrawal Time: 0 hours 6 minutes 8 seconds Scope In: 9:57:18 AM Scope Out: 10:04:37 AM ? Endoscopy Department at [facility] - [address] [place] [address], ? [place] [address] Procedure Note Mary Kimbrough MD - 08/15/2024 [facility] Patient Name: Destin Layton Procedure Date: 08/15/2024 9:52 AM Date of : 1970 Age: 54 Gender: Male Note Status: Finalized Attending MD: Mary Kimbrough MD, Procedure Date No Time: 08/15/2024 Procedure: Colonoscopy Indications: High risk colon cancer surveillance: Personalhistory of colonic polyps, Last colonoscopy: February 2020 Providers: Mary Kimbrough MD Referring MD: Mary Kimbrough MD Medicines: Monitored Anesthesia Care Complications: No immediate complications. Estimated Blood Loss: Estimated blood loss: none. Procedure: Pre-Anesthesia Assessment: - Prior to the procedure, a History and Physicalwas performed, and patient medications and allergieswere reviewed. The patient is competent. The risks and benefits of the procedure and the sedation optionsand risks were discussed with the patient. Allquestions were answered and informed consent was obtained. Patient identification and proposed procedure were verified by the physician, the nurse, theanesthetist and the pharmacy intake technician in the pre-procedure area in the endoscopy suite. Mental Status Examination: alertand oriented. Airway Examination: normal oropharyngeal airway and neck mobility. Respiratory Examination: clear to auscultation. CV Examination: normal. Prophylactic Antibiotics: The patient does notrequire prophylactic antibiotics. Prior Anticoagulants: The patient has taken no anticoagulant or antiplatelet agents. ASA Grade Assessment: III - A patient with severe systemic disease. After reviewing the risksand benefits, the patient was deemed in satisfactory condition to undergo the procedure. The anesthesia plan was to use monitored anesthesia care (MAC). Immediately prior to administration of medications, the patient was re-assessed for adequacy to receive sedatives. The heart rate, respiratory rate, oxygen saturations, blood pressure, adequacy of pulmonary ventilation, and response to care were monitored throughout the procedure. The physical status ofthe patient was re-assessed after the procedure. After I obtained informed consent, the scope was passed under direct vision. Throughout theprocedure, the patient's blood pressure, pulse, and oxygen saturations were monitored continuously.The Colonoscope was introduced through the anus and advanced to the cecum, identified by appendiceal orifice and ileocecal valve. The colonoscopy was performed without difficulty. The patient tolerated the procedure well. The quality of the bowel preparation was excellent. Findings: The perianal and digital rectal examinations were normal. The entire examined colon appeared normal on direct and retroflexion views. Procedure Code(s): --- Professional --- G0105, Colorectal cancer screening; colonoscopy on individual at high risk Diagnosis Code(s): --- Professional --- Z86.010, Personal history of colonic polyps CPT copyright 2020 [employer]. All rights reserved. The codes documented in this report are preliminary and upon demand inspector reviewmay be revised to meet current compliance requirements. Mary Kimbrough MD 08/15/2024 10:11:05 AM This report has been signed electronically.Mary Kimbrough MD Number of Addenda: 0 Note Initiated On: 08/15/2024 9:52 AM Scope Withdrawal Time: 0 hours 6 minutes 8 seconds Scope In: 9:57:18 AM Scope Out: 10:04:37 AM Endoscopy Department at [facility] - [address] [place] [id number] IMPRESSION: - The entire examined colon is normal on direct and retroflexion views. - No specimens collected. Recommendation: - Discharge patient to home. - Repeat colonoscopy in 10 years forsurveillance. us Mary Kimbroguh MD GI~PROCEDURE ORDERABLES Fin al Result * EGD Anesthesia - MAC; [facility] ENDOSCOPY (08/15/2024 10:09 AM EDT) Anatomical Region Laterality Modality Endoscopy 08/15/2024 10:0 2 AM EDT Impressions 08/15/2024 10:09 AM EDT - Normal esophagus. ? - Normal stomach. ? - Normal examined duodenum. ? - No specimens collected. Recommendation: ?- Discharge patient to home. ? - Follow an antireflux regimen. ? - Continue present medications. Narrative 08/15/2024 10:09 AM [facility] GI Patient Name: Destin Layton Procedure Date: 08/15/2024 10:02 AM Date of : 1970 Age: 54 Gender: Male Note Status: Finalized Attending MD: Mary Kimbrough MD, Procedure Date No Time: 08/15/2024 Procedure: ? Upper GI endoscopy Indications: ? Esophageal reflux symptoms that persist despite ? appropriate therapy, Heartburn Providers: ? Mary Kimbrough MD Referring MD: ?Mary Kimbrough MD Medicines: ? Monitored Anesthesia Care Complications: ? No immediate complications. Estimated Blood Loss: ? Estimated blood loss: none. Procedure: ? Pre-Anesthesia Assessment: ? - Prior to the procedure, a History and Physical was ? performed, and patient medications and allergies were ? reviewed. The patient is competent. The risks and ? benefits of the procedure and the sedation options and ? risks were discussed with the patient. All questions ? were answered and informed consent was obtained. ? Patient identification and proposed procedure were ? verified by the physician, the nurse, the recreation counselor ? and the pharmacy intake technician in the pre-procedure area in the ? endoscopy suite. Mental Status Examination: alert and ? oriented. Airway Examination: normal oropharyngeal ? airway and neck mobility. Respiratory Examination: ? clear to auscultation. CV Examination: normal. ? Prophylactic Antibiotics: The patient does not require ? prophylactic antibiotics. Prior Anticoagulants: The ? patient has taken no anticoagulant or antiplatelet ? agents. ASA Grade Assessment: III - A patient with ? severe systemic disease. After reviewing the risks and ? benefits, the patient was deemed in satisfactory ? condition to undergo the procedure. The anesthesia ? plan was to use monitored anesthesia care (MAC). ? Immediately prior to administration of medications, ? the patient was re-assessed for adequacy to receive ? sedatives. The heart rate, respiratory rate, oxygen ? saturations, blood pressure, adequacy of pulmonary ? ventilation, and response to care were monitored ? throughout the procedure. The physical status of the ? patient was re-assessed after the procedure. ? After obtaining informed consent, the endoscope was ? passed under direct vision. Throughout the procedure, ? the patient's blood pressure, pulse, and oxygen ? saturations were monitored continuously. The Endoscope ? was introduced through the mouth, and advanced to the ? second part of duodenum. The upper GI endoscopy was ? accomplished without difficulty. The patient tolerated ? the procedure well. Findings: ?The esophagus was normal. ? The stomach was normal. ? The examined duodenum was normal. Procedure Code(s): ? --- Professional --- ? 29962, Esophagogastroduodenoscopy, flexible, ? transoral; diagnostic, including collection of ? specimen(s) by brushing or washing, when performed ? (separate procedure) Diagnosis Code(s): ? --- Professional --- ? K21.9, Gastro-esophageal reflux disease without ? esophagitis ? R12, Heartburn CPT copyright 2020 [employer]. All rights reserved. The codes documented in this report are preliminary and upon demand inspector review may be revised to meet current compliance requirements. Mary Kimbrough MD 08/15/2024 10:09:25 AM This report has been signed electronically.Mary Kimbrough MD Number of Addenda: 0 Note Initiated On: 08/15/2024 10:02 AM Scope In: Scope Out: ? Endoscopy Department at [facility] - [address] [place] [address], ? [place] [address] Procedure Note Mary Kimbrough MD - 03/26/2025 [facility] GI Patient Name: Destin Layton Procedure Date: 08/15/2024 10:02 AM Date of : 1970 Age: 54 Gender: Male Note Status: Finalized Attending MD: Mary Kimbrough MD, Procedure Date No Time: 08/15/2024 Procedure: Upper GI endoscopy Indications: Esophageal reflux symptoms that persist despite appropriate therapy, Heartburn Providers: Mary Kimbrough MD Referring MD: Mary Kimbrough MD Medicines: Monitored Anesthesia Care Complications: No immediate complications. Estimated Blood Loss: Estimated blood loss: none. Procedure: Pre-Anesthesia Assessment: - Prior to the procedure, a History and Physicalwas performed, and patient medications and allergieswere reviewed. The patient is competent. The risks and benefits of the procedure and the sedation optionsand risks were discussed with the patient. Allquestions were answered and informed consent was obtained. Patient identification and proposed procedure were verified by the physician, the nurse, theanesthetist and the pharmacy intake technician in the pre-procedure area in the endoscopy suite. Mental Status Examination: alertand oriented. Airway Examination: normal oropharyngeal airway and neck mobility. Respiratory Examination: clear to auscultation. CV Examination: normal. Prophylactic Antibiotics: The patient does notrequire prophylactic antibiotics. Prior Anticoagulants: The patient has taken no anticoagulant or antiplatelet agents. ASA Grade Assessment: III - A patient with severe systemic disease. After reviewing the risksand benefits, the patient was deemed in satisfactory condition to undergo the procedure. The anesthesia plan was to use monitored anesthesia care (MAC). Immediately prior to administration of medications, the patient was re-assessed for adequacy to receive sedatives. The heart rate, respiratory rate, oxygen saturations, blood pressure, adequacy of pulmonary ventilation, and response to care were monitored throughout the procedure. The physical status ofthe patient was re-assessed after the procedure. After obtaining informed consent, the endoscope was passed under direct vision. Throughout theprocedure, the patient's blood pressure, pulse, and oxygen saturations were monitored continuously. TheEndoscope was introduced through the mouth, and advanced tothe second part of duodenum. The upper GI endoscopy was accomplished without difficulty. The patienttolerated the procedure well. Findings: The esophagus was normal. The stomach was normal. The examined duodenum was normal. Procedure Code(s): --- Professional --- 35810, Esophagogastroduodenoscopy, flexible, transoral; diagnostic, including collection of specimen(s) by brushing or washing, when performed (separate procedure) Diagnosis Code(s): --- Professional --- K21.9, Gastro-esophageal reflux disease without esophagitis R12, Heartburn CPT copyright 2020 [employer]. All rights reserved. The codes documented in this report are preliminary and upon demand inspector reviewmay be revised to meet current compliance requirements. Mary Kimbrough MD 08/15/2024 10:09:25 AM This report has been signed electronically.Mary Kimbrough MD Number of Addenda: 0 Note Initiated On: 08/15/2024 10:02 AM Scope In: Scope Out: Endoscopy Department at [address] [address] IMPRESSION: - Normal esophagus. - Normal stomach. - Normal examined duodenum. - No specimens collected. Recommendation: - Discharge patient to home. - Follow an antireflux regimen. - Continue present medications. Result [facility] Mary Kimbrough MD GI~PROCEDURE ORDERABLES Fin al Result * Depression Screening (03/14/2024) Pathologist [facility] Depression Screening Abstracted Result [facility] Historical Provider HEALTH MAINTENANCE Final Result * Diabetes Foot Exam (11/30/2023) [facility] Diabetes: Annual Foot Exam Abstracted Result [facility] Historical Provider HEALTH MAINTENANCE Final Result * Hepatitis C Screening (11/30/2003) Pathologist [facility] Hepatitis C Screening Abstracted Result [facility] Historical Provider HEALTH MAINTENANCE Final Result from Last 3 Months or Most Recently Relevant to Health Maintenance Insurance [employer] MEDICARE Member Subscriber Plan / Payer (Ef fective 2018-Present) Name:Destin Layton Relation to Subscriber:Self Name:Destin Layton Payer ID:[id number] Group ID:[id number] Type:Not on file Address: [place] [address] [address] [id number] Care Teams Classification Analyst Relationship Specialty Start Date End Date Sinai Patel MD [address] [place] [address] PCP - General 07/27/22
--- OUTSIDE RECORDS SUMMARY | 2024-09-12 17:12 | XMS_ITS | Encounter Summary ---
Author Organization [facility] Address [address] [place] [address] Care Team Providers Care Franchise Development Manager Name Role Phone Irene Armstrong MD Primary Care Provider U Jose Gao MD Primary Care Provider [phone] Sinai Patel MD Primary Care Provider + Rosemarie Young MD Unavailable [phone] Antonette King PA-C Unavailable [phone] Samson Ellis PA-C Unavailable [phone] Reason for Visit * Reason Onset Date Comments refill request 02/01/2022 Encounter Details Date Type Department Care Team Description 02/01/2022 Telephone Adult Medicine [address] [address] Irene Armstrong MD refill request Social History Tobacco Use Types [...] encounter Miscellaneous Notes * Telephone Encounter - Mildred Doyle - 02/01/2022 2:25 PM EDT Last office visit 01/04/22 Lab Results Component Value Date NA 137 02/11/2021 K 4.1 02/11/2021 CO2 26 02/11/2021 CL 103 02/11/2021 BUN 17 02/11/2021 CREAT 0.89 02/11/2021 GLU 194 02/11/2021 CA 9.5 02/11/2021 GFR > 60 02/11/2021 * Telephone Encounter - Samantha Randolph - 02/01/2022 1:40 PM EDT Patient would like script to be: E-PRESCRIBED/FAXED TO PHARMACY WHEN WAS THE PATIENT'S LAST APPOINTMENT IN ADULT MEDICINE? 01/04/22 WHEN WAS THE LAST TIME THE PATIENT SAW THEIR PCP? 12/26/20 Does patient have an upcoming appointment? no (THE MEDICATION REQUESTED IS ON THE MED LIST ABOVE) All of the medications requested were on the CURRENT MEDS list Did you check the Pharmacy information above?: YES Patient wants: 90 -day supply Is this a mail order prescription request ? NO If the refill is from a FAXED refill request what is the RX # listed on the fax? 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, uncontrolled Slow transit constipation documented in this encounter Care Teams Franchise Development Manager Relationship Specialty Start Date End Date Irene Armstrong MD PCP - General Internal Medicine 04/19/17 Jose Tidwell MD PCP - General Internal Medicine 05/26/22 07/26/22 Sinai Patel MD [address] [place] [address] PCP - General Internal Medicine 07/27/22 Rosemarie Young MD [address] [address] Surgeon Neurosurgery 07/27/23 Antonette King PA-C [address] [address] Specialist Neurosurgery 07/27/23 Samson Ellis PA-C [address] [address] Specialist Neurosurgery 07/27/23 documented as of this encounter
--- OUTSIDE RECORDS SUMMARY | 2024-09-12 17:12 | XMS_ITS | Encounter Summary ---
Author Organization [employer] [facility] Address [address] [place] [address] Care Team Providers Care Roving Technician Name Role Phone Irene Armstrong MD Primary Care Provider U Jose Gao MD Primary Care Provider [phone] Sinai Patel MD Primary Care Provider + Rosemarie Young MD Unavailable [phone] Antonette King PA-C Unavailable [phone] Samson Ellis PA-C Unavailable [phone] Reason for Visit * Reason Comments E-prescribe Rx Request Encounter Details Date Type Department Care Team Description 05/09/2018 Refill Adult Medicine [address] [address] Irene Armstrong MD E-prescribe Rx Request Social History Tobacco [...] Telephone Encounter - Irene Logan MD - 05/10/2018 11:14 AM EST Signed, thank you * Telephone Encounter - Susan Cristobal M.A. - 05/10/2018 9:34 AM EST Date of last office visit was 04/20/18. Pended appt for 06/29/18 Lab Results Component Value Date NA 141 04/20/2018 K 5.2 04/20/2018 CO2 25.2 04/20/2018 CL 97 04/20/2018 BUN 13 04/20/2018 CREAT 0.9 04/20/2018 GLU 199 04/20/2018 CA 10.4 04/20/2018 GFR > 60 04/20/2018 * Telephone Encounter - Rodolfo Gracia - 05/10/2018 8:48 AM EST Patient would like script to be: E-PRESCRIBED/FAXED TO PHARMACY WHEN WAS THE PATIENT'S LAST APPOINTMENT IN ADULT MEDICINE? 04-20-18 WHEN WAS THE LAST TIME THE PATIENT SAW THEIR PCP? Same as above Does patient have an upcoming appointment? Yes 06-29-18 (THE MEDICATION REQUESTED IS ON THE MED [...] N/A Patients current insurance carrier is: Payor: [employer] FFS / Plan: [employer] / Product Type: MEDICAID RISK documented in this encounter Plan of Treatment Not on file documented as of this encounter Visit Diagnoses Not on filedocumented in this encounter Care Teams Roving Technician Relationship Specialty Start Date End Date Irene Armstrong MD PCP - General Internal Medicine 04/19/17 Jose Tidwell MD PCP - General Internal Medicine 05/26/22 07/26/22 Sinai Patel MD [address] [place] [address] PCP - General Internal Medicine 07/27/22 Rosemarie Young MD [address] [address] Surgeon Neurosurgery 07/27/23 Antonette King PA-C [address] [address] Specialist Neurosurgery 07/27/23 Samson Ellis PA-C 175 [facility] [address] [place] [address] Specialist Neurosurgery 07/27/23 documented as of this encounter
--- OUTSIDE RECORDS SUMMARY | 2024-09-12 17:12 | XMS_ITS | Encounter Summary ---
Author Organization [email or web address] [facility] Address [address] [place] [address] Care Team Providers Care Ruby Software Developer Name Role Phone Irene Armstrong MD Primary Care Provider U Jose Gao MD Primary Care Provider [phone] Sinai Patel MD Primary Care Provider + Rosemarie Young MD Unavailable [phone] Antonette King PA-C Unavailable [phone] Samson Ellis PA-C Unavailable [phone] Reason for Visit * Reason Onset Date Comments refill request 10/21/2017 Encounter Details Date Type Department Care Team Description 10/21/2017 Refill Adult Medicine [address] [address] Irene Armstrong MD refill request Social History [...] Telephone Encounter - Irene Logan MD - 10/21/2017 4:44 PM EDT Signed, thank you * Telephone Encounter - Feliberto Laboy M.A. - 10/21/2017 4:28 PM EDT Last office visit 5..18 * Telephone Encounter - Rafy Bass - 10/21/2017 2:48 PM EDT Patient would like script to be: E-PRESCRIBED/FAXED TO PHARMACY WHEN WAS THE PATIENT'S LAST APPOINTMENT IN ADULT MEDICINE? -09-23-17 WHEN WAS THE LAST TIME THE PATIENT SAW THEIR PCP? Same as above Does patient have an upcoming appointment? Yes 01-04-18 (THE MEDICATION REQUESTED IS ON THE MED LIST ABOVE) All of the medications requested were on the CURRENT MEDS list Did you check the Pharmacy information above?: YES Patient wants: 30 -day supply Is this a mail order prescription request ? NO Patients current insurance carrier is: Payor: [employer] [facility] / Plan: [facility] ALLIANCE / Product Type: MEDICAID RISK documented in this encounter Plan of Treatment Not on file documented as of this encounter Visit Diagnoses Not on filedocumented in this encounter Care Teams Ruby Software Developer Relationship Specialty Start Date End Date Irene Armstrong MD PCP - General Internal Medicine 04/19/17 Jose Tidwell MD PCP - General Internal Medicine 05/26/22 07/26/22 Sinai Patel MD [address] [place] [address] PCP - General Internal Medicine 07/27/22 Rosemarie Young MD [address] [address] Surgeon Neurosurgery 07/27/23 Antonette King PA-C [address] [address] Specialist Neurosurgery 07/27/23 Samson Ellis PA-C [address] [address] Specialist Neurosurgery 07/27/23 documented as of this encounter
--- OUTSIDE RECORDS SUMMARY | 2024-09-12 17:12 | XMS_ITS | Encounter Summary ---
Author Organization [email or web address] [facility] Address [address] [place] [address] Care Team Providers Care Ink Printer Name Role Phone Irene Armstrong MD Primary Care Provider U Jose Gao MD Primary Care Provider [phone] Sinai Patel MD Primary Care Provider + Rosemarie Young MD Unavailable [phone] Antonette King PA-C Unavailable [phone] Samson Ellis PA-C Unavailable [phone] Reason for Visit * Reason Onset Date Comments refill request 10/30/2019 Encounter Details Date Type Department Care Team Description 10/30/2019 Refill Adult Medicine [address] [address] Irene Armstrong MD refill request Social History [...] Telephone Encounter - Irene Logan MD - 10/30/2019 3:12 PM EDT Signed, thank you * Telephone Encounter - Dee Valdivia M.A. - 10/30/2019 1:46 PM EDT Ref Range & Units 1yr ago VITAMIN B12 250 - 900 pg/mL 216 Abnormally low Resulting Agency [facility] Narrative Performed by: [facility] Specify Random or 24Hr->Random Specimen Collected: 09/06/18 ??8:24 AM Last Resulted: 09/06/18 ?? * Telephone Encounter - Ita Tidwell - 10/30/2019 9:10 AM EDT Needs today for richybble Patient would like script to be: E-PRESCRIBED/FAXED TO PHARMACY WHEN WAS THE PATIENT'S LAST APPOINTMENT IN ADULT MEDICINE? 08/07/2019 WHEN WAS THE LAST TIME THE PATIENT SAW THEIR PCP? Same as above Does patient have an upcoming appointment? Yes 11/07/2019 (THE MEDICATION REQUESTED IS ON THE MED [...] N/A Patients current insurance carrier is: Payor: [employer] [facility] ALLIANCE MCR / Plan: ONE CARE [facility] / Product Type: HMO [id number]-[id number] documented in this encounter Plan of Treatment Not on file documented as of this encounter Visit Diagnoses Not on filedocumented in this encounter Care Teams Ink Printer Relationship Specialty Start Date End Date Irene Armstrong MD PCP - General Internal Medicine 04/19/17 Jose Tidwell MD PCP - General Internal Medicine 05/26/22 07/26/22 Sinai Patel MD [address] [place] [address] PCP - General Internal Medicine 07/27/22 Rosemarie Young MD [address] [address] Surgeon Neurosurgery 07/27/23 Antonette King PA-C [address] [address] Specialist Neurosurgery 07/27/23 Samson Ellis PA-C 175 [facility] [address] [place] [address] Specialist Neurosurgery 07/27/23 documented as of this encounter
--- OUTSIDE RECORDS SUMMARY | 2024-09-12 17:12 | XMS_ITS | Encounter Summary ---
Author Organization [facility] Address [address] [place] [address] Care Team Providers Care Poultry Pinner Name Role Phone Sinai Patel MD Primary Care Provider + Rosemarie Young MD Unavailable [phone] Antonette King PA-C Unavailable Samson Ellis PA-C Unavailable [phone] Encounter Details Date Type Department Care Team Description 10/20/2023 Telephone [facility] [address] [address] Mannie Deluca DPM [address] [id number] Social History Tobacco Use Types Packs/Day Years [...] on filedocumented in this encounter Care Teams Poultry Pinner Relationship Specialty Start Date End Date Sinai Patel MD [address] [place] [phone] PCP - General Internal Medicine 07/27/22 Rosemarie Young MD 175 [facility] [address] [place] [address] Surgeon Neurosurgery 07/27/23 Antonette King PA-C [address] [address] Specialist Neurosurgery 07/27/23 Samson Ellis PA-C 175 [facility] [address] [place] [address] Specialist Neurosurgery 07/27/23 documented as of this encounter
--- OUTSIDE RECORDS SUMMARY | 2024-09-12 17:12 | XMS_ITS | Encounter Summary ---
Author Organization [facility] Address [address] [place] [address] Care Team Providers Care Supervisor Meter Repair Shop Name Role Phone Irene Armstrong MD Primary Care Provider U Jose Gao MD Primary Care Provider [phone] Sinai Patel MD Primary Care Provider + Rosemarie Young MD Unavailable [phone] Antonette King PA-C Unavailable [phone] Samson Ellis PA-C Unavailable [phone] Reason for Visit * Reason Onset Date Comments refill request 10/22/2019 Encounter Details Date Type Department Care Team Description 10/22/2019 Refill Adult Medicine - [address] [address] Zachary Jaramillo MD refill request Social History Tobacco Use [...] encounter Miscellaneous Notes * Telephone Encounter - Anastacia Broussard L.P.N. - 10/22/2019 11:06 AM EDT requesting Novolog refill. RX pended. Thank you. Last endo appt: 05/24/19 Lab Results Component Value Date HGBA1C 9.1 08/07/2019 MALBUR 61.6 03/07/2019 MALBCR 70.8 03/07/2019 CHOL 155 12/11/2018 LDL TNP 12/11/2018 HDL 33 12/11/2018 TRIG 555 12/11/2018 GLU 239 08/07/2019 CREAT 0.92 08/07/2019 documented in this encounter Plan of Treatment Not on file documented as of this encounter Visit Diagnoses Not on filedocumented in this encounter Care Teams Supervisor Meter Repair Shop Relationship Specialty Start Date End Date Irene Armstrong MD PCP - General Internal Medicine 04/19/17 Jose Tidwell MD PCP - General Internal Medicine 05/26/22 07/26/22 Sinai Patel MD [address] [place] [address] PCP - General Internal Medicine 07/27/22 Rosemarie Young MD [address] [address] Surgeon Neurosurgery 07/27/23 Antonette King PA-C [address] [address] Specialist Neurosurgery 07/27/23 Samson Ellis PA-C [address] [address] Specialist Neurosurgery 07/27/23 documented as of this encounter
--- OUTSIDE RECORDS SUMMARY | 2024-09-12 17:12 | XMS_ITS | Encounter Summary ---
Author Organization [employer] [facility] Address [address] [place] [address] Care Team Providers Care Long Filler Cigar Roller Machine Name Role Phone Zachary Jaramillo MD Primary Care Provider Unavail able Irene Armstrong MD Primary Care Provider [facility]Irene Araujo MD Primary Care Provider U Jose Gao MD Primary Care Provider [phone] Sinai Patel MD Primary Care Provider + Rosmearie Young MD Unavailable [phone] Antonette King PA-C Unavailable [phone] Samson Ellis PA-C Unavailable [phone] Encounter Details Date Type Department Care Team Description 10/22/2014 Hospital Medical Records [address] [place] [address] Porfirio Alston MD Social History Tobacco Use [...] on filedocumented in this encounter Care Teams Long Filler Cigar Roller Machine Relationship Specialty Start Date End Date Zachary Jaramillo MD PCP - General Internal Medicine 05/21/14 03/06/15 Irene Armstrong MD PCP - General Internal Medicine 04/19/17 Irene Armstrong MD PCP - General 03/07/15 Jose Tidwell MD PCP - General Internal Medicine 05/26/22 07/26/22 Sinai Patel MD [address] [place] [address] PCP - General Internal Medicine 07/27/22 Rosemarie Young MD [address] [address] Surgeon Neurosurgery 07/27/23 Antonette King PA-C [address] [address] Specialist Neurosurgery 07/27/23 Samson Ellis PA-C 175 [facility] [address] [place] [address] Specialist Neurosurgery 07/27/23 documented as of this encounter
--- OUTSIDE RECORDS SUMMARY | 2024-09-12 17:12 | XMS_ITS | Encounter Summary ---
Author Organization [employer] [facility] Address [address] [place] [address] Care Team Providers Care Management Professor Name Role Phone Irene Armstrong MD Primary Care Provider U [facility] Jose Tidwell MD Primary Care Provider [phone] Sinai Patel MD Primary Care Provider + Rosemarie Young MD Unavailable [phone] Antonette King PA-C Unavailable [phone] Samson Ellis PA-C Unavailable [phone] Encounter Details Date Type Department Care Team Description 07/25/2017 Orders Only Adult Medicine B - [address] [address] Zachary Jaramillo MD Social History Tobacco Use Types Packs/Day [...] on filedocumented in this encounter Care Teams Management Professor Relationship Specialty Start Date End Date Irene Armstrong MD PCP - General Internal Medicine 04/19/17 Jose Tidwell MD PCP - General Internal Medicine 05/26/22 07/26/22 Sinai Patel MD [address] [place] [address] PCP - General Internal Medicine 07/27/22 Rosemarie Young MD [address] [address] Surgeon Neurosurgery 07/27/23 Antonette King PA-C [address] [address] Specialist Neurosurgery 07/27/23 Samson Ellis PA-C [address] [address] Specialist Neurosurgery 07/27/23 documented as of this encounter
--- OUTSIDE RECORDS SUMMARY | 2024-09-12 17:12 | XMS_ITS | Encounter Summary ---
Author Organization [employer] [facility] Address [address] [place] [address] Care Team Providers Care Medical Assistant Supervisor Name Role Phone Irene Armstrong MD Primary Care Provider U Irene Tanner MD Primary Care Provider U Jose Gao MD Primary Care Provider [phone] Sinai Patel MD Primary Care Provider + Rosemarie Young MD Unavailable [phone] Antonette King PA-C Unavailable [phone] Samson Ellis PA-C Unavailable [phone] Reason for Visit * Reason Onset Date Comments Call From Patient Family 04/14/2015 Encounter Details Date Type Department Care Team Description 04/14/2015 Telephone Adult Medicine [address] [address] Zachary Jaramillo MD Call From Patient Family Social History Tobacco Use Types Packs/Day Years [...] Miscellaneous Notes * Telephone Encounter - Irma Ludin - 05/05/2015 9:03 AM EST Re routed to correct pool. * Telephone Encounter - Clarisa Rodriguez - 05/02/2015 11:16 AM EST Patient's Shanda Came into the office to check on status of patient's brace request. Please Return call To [phone]. * Telephone Encounter - Laurie Martinez M.A. - 04/21/2015 10:26 AM EST Dme sent to To sign please fax and close out message * Telephone Encounter - Delia Germain - 04/14/2015 1:47 PM EST Caller requesting call back from provider: Is the caller the patient? NO If caller is not the patient, what is the callers name? Shanda Callers relationship to patient? If person calling is not the patient themselves, is there a verbal release in FYI or permanent comments for this person: YES Reason for call back: Patient's stating that he needs a new prescription for his arm brace that he wears at night sent to [facility] [address]. She states that [facility] gave himthe first prescription Caller offered to speak with the nurse for assistance: YES Response: Patient offered to speak with nurse for assistance and patient agreed. Message forwarded to nurse. 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, uncontrolled documented in this encounter Care Teams Medical Assistant Supervisor Relationship Specialty Start Date End Date Irene Armstrong MD PCP - General Internal Medicine 04/19/17 Irene Armstrong MD PCP - General 03/07/15 Jose Tidwell MD PCP - General Internal Medicine 05/26/22 07/26/22 Sinai Patel MD [address] [place] [address] PCP - General Internal Medicine 07/27/22 Rosemarie Young MD [address] [address] Surgeon Neurosurgery 07/27/23 Antonette King PA-C [address] [id number] Specialist Neurosurgery 07/27/23 Samson Ellis PA-C [address] [address] Specialist Neurosurgery 07/27/23 documented as of this encounter
--- OUTSIDE RECORDS SUMMARY | 2024-09-12 17:12 | XMS_ITS | Encounter Summary ---
Author Organization [employer] [facility] Address [address] [place] [address] Care Team Providers Care Infrastructure Tech Name Role Phone Irene Armstrong MD Primary Care Provider U Jose Gao MD Primary Care Provider [phone] Sinai Patel MD Primary Care Provider + Rosemarie Young MD Unavailable [phone] Antonette King PA-C Unavailable [phone] Samson Ellis PA-C Unavailable [phone] Reason for Visit * Reason Comments E-prescribe Rx Request Encounter Details Date Type Department Care Team Description 05/19/2021 Refill Gastroenterology - [address] [place] [id number] Brandon Aguilar PA-C E-prescribe Rx Request [...] encounter Miscellaneous Notes * Telephone Encounter - Penny Romero M.A. - 05/19/2021 1:23 PM EST Last office visit : 08/01/2020 Next office visit not scheduled (pt has cancelled last 3 appts) documented in this encounter Plan of Treatment Not on file documented as of this encounter Visit Diagnoses Not on filedocumented in this encounter Care Teams Infrastructure Tech Relationship Specialty Start Date End Date Irene Armstrong MD PCP - General Internal Medicine 04/19/17 Jose Tidwell MD PCP - General Internal Medicine 05/26/22 07/26/22 Sinai Patel MD [address] [place] [address] PCP - General Internal Medicine 07/27/22 Rosemarie Young MD [address] [address] Surgeon Neurosurgery 07/27/23 Antonette King PA-C [address] [address] Specialist Neurosurgery 07/27/23 Samson Ellis PA-C 175 [facility] [address] [place] [address] Specialist Neurosurgery 07/27/23 documented as of this encounter
--- OUTSIDE RECORDS SUMMARY | 2024-09-12 17:12 | XMS_ITS | Encounter Summary ---
Author Organization [facility] Address [address] [place] [address] Care Team Providers Care Job Coach/Job Developer Name Role Phone Zachary Jaramillo MD Primary Care Provider Unavail able Irene Armstrong MD Primary Care Provider [facility] Primary Care Provider U Jose Gao MD Primary Care Provider [phone] Sinai Patel MD Primary Care Provider + Rosemarie Young MD Unavailable [phone] Antonette King PA-C Unavailable [phone] Samson Ellis PA-C Unavailable [phone] Encounter Details Date Type Department Care Team Description 11/05/2014 Retail Event Assistant Report Medical Records [address] [place] [address] [facility] [address] [place] [address] Social History Tobacco Use Types Packs/Day Years [...] on filedocumented in this encounter Care Teams Job Coach/Job Developer Relationship Specialty Start Date End Date Zachary Jaramillo MD PCP - General Internal Medicine 05/21/14 03/06/15 Irene Armstrong MD PCP - General Internal Medicine 04/19/17 Irene Armstrong MD PCP - General 03/07/15 Jose Tidwell MD PCP - General Internal Medicine 05/26/22 07/26/22 Sinai Patel MD [address] [place] [address] PCP - General Internal Medicine 07/27/22 Rosemarie Young MD [address] [address] Surgeon Neurosurgery 07/27/23 Antonette King PA-C [address] [address] Specialist Neurosurgery 07/27/23 Samson Ellis PA-C 175 [facility] [address] [place] [address] Specialist Neurosurgery 07/27/23 documented as of this encounter
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
--- OUTSIDE RECORDS SUMMARY | 2024-09-12 17:12 | XMS_ITS | Encounter Summary ---
Author Organization [employer] [facility] Address [address] [place] [address] Care Team Providers Care Lumber Puller Name Role Phone Irene Armstrong MD Primary Care Provider U Jose Gao MD Primary Care Provider [phone] Sinai Patel MD Primary Care Provider + Rosemarie Young MD Unavailable [phone] Antonette King PA-C Unavailable [phone] Samson Ellis PA-C Unavailable [phone] Encounter Details Date Type Department Care Team Description 03/24/2021 Environmental Health Nurse Report Medical Records [address] [place] [id number] [place] [address] Social History Tobacco Use Types Packs/Day Years [...] have Coronavirus / COVID-19? No / Unsure 03/19/2021 10:41 AM EDT documented as of this encounter Plan of Treatment Not on file documented as of this encounter Visit Diagnoses Not on filedocumented in this encounter Care Teams Lumber Puller Relationship Specialty Start Date End Date Irene Armstrong MD PCP - General Internal Medicine 04/19/17 Jose Tidwell MD PCP - General Internal Medicine 05/26/22 07/26/22 Sinai Patel MD [address] [place] [address] PCP - General Internal Medicine 07/27/22 Rosemarie Young MD [address] [address] Surgeon Neurosurgery 07/27/23 Antonette King PA-C [address] [address] Specialist Neurosurgery 07/27/23 Samson Ellis PA-C 175 [facility] [address] [place] [address] Specialist Neurosurgery 07/27/23 documented as of this encounter
--- OUTSIDE RECORDS SUMMARY | 2024-09-12 17:12 | XMS_ITS | Encounter Summary ---
Author Organization [facility] Address [address] [place] [address] Care Team Providers Care Campus Executive Director Name Role Phone Irene Armstrong MD Primary Care Provider U Jose Gao MD Primary Care Provider [phone] Sinai Patel MD Primary Care Provider + Rosemarie Young MD Unavailable [phone] Antonette King PA-C Unavailable [phone] Samson Ellis PA-C Unavailable [phone] Encounter Details Date Type Department Care Team Description 03/16/2021 Orders Only Medical Records [address] [place] [address] Abstract, Provider Social History Tobacco Use Types [...] Name Priority Date/Time Associated Diagnosis Comments OUTSIDE PLAIN FILM Routine 03/13/2021 documented in this encounter Results * OUTSIDE PLAIN FILM (03/13/2021) Provider Abstract RADIOLOGY documented in this encounter Visit Diagnoses Not on filedocumented in this encounter Care Teams Campus Executive Director Relationship Specialty Start Date End Date Irene Armstrong MD PCP - General Internal Medicine 04/19/17 Jose Tidwell MD PCP - General Internal Medicine 05/26/22 07/26/22 Sinai Patel MD [address] [place] [address] PCP - General Internal Medicine 07/27/22 Rosemarie Young MD [address] [address] Surgeon Neurosurgery 07/27/23 Antonette King PA-C [address] [address] Specialist Neurosurgery 07/27/23 Samson Ellis PA-C [address] [address] Specialist Neurosurgery 07/27/23 documented as of this encounter
--- OUTSIDE RECORDS SUMMARY | 2024-09-12 17:12 | XMS_ITS | Encounter Summary ---
Author Organization [facility] [facility] Address [address] [place] [address] Care Team Providers Care Associate Professor Of Education Name Role Phone Irene Armstrong MD Primary Care Provider U Jose Gao MD Primary Care Provider [phone] Sinai Patel MD Primary Care Provider + Rosemarie Young MD Unavailable [phone] Antonette King PA-C Unavailable [phone] Samson Ellis PA-C Unavailable [phone] Reason for Visit * Reason Comments E-prescribe Rx Request Encounter Details Date Type Department Care Team Description 02/07/2018 Refill Adult Medicine [address] [address] Irene Armstrong MD E-prescribe Rx Request Social [...] Telephone Encounter - Irene Logan MD - 02/07/2018 4:23 PM EDT Signed, thank you * Telephone Encounter - Susan Cristobal M.A. - 02/07/2018 3:05 PM EDT Date of last office visit was 12/14/17. Pended appt for 04/20/18 Lab Results Component Value Date NA 138 07/25/2017 K 4.5 07/25/2017 CO2 20.3 07/25/2017 CL 97 07/25/2017 BUN 8 07/25/2017 CREAT 0.9 07/25/2017 GLU 325 07/25/2017 CA 9.5 07/25/2017 GFR > 60 07/25/2017 * Telephone Encounter - Rodolfo Gracia - 02/07/2018 2:43 PM EDT Patient would like script to be: E-PRESCRIBED/FAXED TO PHARMACY WHEN WAS THE PATIENT'S LAST APPOINTMENT IN ADULT MEDICINE? 12-14-17 WHEN WAS THE LAST TIME THE PATIENT SAW THEIR PCP? Same as above Does patient have an upcoming appointment? Yes 04-20-18 (THE MEDICATION REQUESTED IS ON THE MED [...] N/A Patients current insurance carrier is: Payor: [employer] FFS / Plan: [employer] / Product Type: MEDICAID RISK documented in this encounter Plan of Treatment Not on file documented as of this encounter Visit Diagnoses Not on filedocumented in this encounter Care Teams Associate Professor Of Education Relationship Specialty Start Date End Date Irene Armstrong MD PCP - General Internal Medicine 04/19/17 Jose Tidwell MD PCP - General Internal Medicine 05/26/22 07/26/22 Sinai Patel MD [address] [place] [address] PCP - General Internal Medicine 07/27/22 Rosemarie Young MD [address] [address] Surgeon Neurosurgery 07/27/23 Antonette King PA-C [address] [address] Specialist Neurosurgery 07/27/23 Samson Ellis PA-C 175 [facility] [address] [place] [address] Specialist Neurosurgery 07/27/23 documented as of this encounter
--- OUTSIDE RECORDS SUMMARY | 2024-09-12 17:12 | XMS_ITS | Encounter Summary ---
Author Organization [employer] [facility] Address [address] [place] [address] Care Team Providers Care Sfdc Architect Name Role Phone Irene Armstrong MD Primary Care Provider U Jose Gao MD Primary Care Provider [phone] Sinai Patel MD Primary Care Provider + Rosemarie Young MD Unavailable [phone] Antonette King PA-C Unavailable Samson Ellis PA-C Unavailable Reason for Visit * Reason Comments E-prescribe Rx Request Encounter Details Date Type Department Care Team Description 05/09/2018 Refill Adult Medicine B - [address] [address] Remedios Moe NP [address] [place] [address] E-prescribe Rx Request Social History Tobacco Use [...] Encounter - Susan Cristobal M.A. - 05/10/2018 9:29 AM EST Date of last office visit was 04/20/18. Pended appt for 06/29/18 Lab Results Component Value Date NA 141 04/20/2018 K 5.2 04/20/2018 CO2 25.2 04/20/2018 CL 97 04/20/2018 BUN 13 04/20/2018 CREAT 0.9 04/20/2018 GLU 199 04/20/2018 CA 10.4 04/20/2018 GFR > 60 04/20/2018 * Telephone Encounter - Rodolfo Gracia - 05/10/2018 8:47 AM EST Patient would like script to [...] N/A Patients current insurance carrier is: Payor: [employer] FFS / Plan: [employer] / Product Type: MEDICAID RISK documented in this encounter Plan of Treatment Not on file documented as of this encounter Visit Diagnoses Not on filedocumented in this encounter Care Teams Sfdc Architect Relationship Specialty Start Date End Date Irene Armstrong MD PCP - General Internal Medicine 04/19/17 Jose Tidwell MD PCP - General Internal Medicine 05/26/22 07/26/22 Sinai Patel MD [address] [place] [address] PCP - General Internal Medicine 07/27/22 Rosemarie Young MD [address] [address] Surgeon Neurosurgery 07/27/23 Antonette King PA-C [address] [address] Specialist Neurosurgery 07/27/23 Samson Ellis PA-C [address] [address] Specialist Neurosurgery 07/27/23 documented as of this encounter
--- OUTSIDE RECORDS SUMMARY | 2024-09-12 17:12 | XMS_ITS | Encounter Summary ---
Author Organization [employer] [facility] Address [address] [place] [address] Care Team Providers Care Net Mender Name Role Phone Irene Armstrong MD Primary Care Provider U Jose Gao MD Primary Care Provider [phone] Sinai Patel MD Primary Care Provider + Rosemarie Young MD Unavailable [phone] Antonette King PA-C Unavailable [phone] Samson Ellis PA-C Unavailable [phone] Reason for Visit * Reason Comments E-prescribe Rx Request Encounter Details Date Type Department Care Team Description 05/14/2017 Refill Adult Medicine - [address] [address] Zachary Jaramillo MD E-prescribe Rx Request Social [...] Encounter - Irene Logan MD - 2017 3:40 PM EST Signed, thank you * Telephone Encounter - Mary Brewer - 2017 2:34 PM EST Patient would like script to be: E-PRESCRIBED/FAXED TO PHARMACY WHEN WAS THE PATIENT'S LAST APPOINTMENT IN ADULT MEDICINE? 04/19/17 WHEN WAS THE LAST TIME THE PATIENT SAW THEIR PCP? Same as above Does patient have an upcoming appointment? Yes 06/22/17 (THE MEDICATION REQUESTED IS ON THE MED LIST ABOVE) All of the medications requested were on the CURRENT MEDS list Did you check the Pharmacy information above?: YES Patient wants: 30 -day supply Is this a mail order prescription request ? NO Patients current insurance carrier is: Payor: [facility] [employer] [facility] MEDICAID / Plan: [facility] MEDICAID O $0 ENDEAVOR / Product Type: HMO [id number] Patient needs RX for tomorrow * Telephone Encounter - Daija Middleton M.A. - 2017 1:09 PM EST PIPO: 04/19/2017 Upcoming appt with Endo: 06/22/17 No appts with PCP Lab Results Component Value Date HGBA1C 8.8 04/19/2017 MALBUR 46.9 04/19/2017 MALBCR 41.8 04/19/2017 CHOL 153 04/19/2017 LDL 64 04/19/2017 HDL 36 04/19/2017 TRIG 268 04/19/2017 GLU 186 04/19/2017 CREAT 0.8 04/19/2017 * Telephone Encounter - Torie Garcia - 05/14/2017 10:01 AM EST Patient would like script to be: E-PRESCRIBED/FAXED TO PHARMACY WHEN WAS THE PATIENT'S LAST APPOINTMENT IN ADULT MEDICINE? 04/19/17 WHEN WAS THE LAST TIME THE PATIENT SAW THEIR PCP? Has not seen pcp Does patient have an upcoming appointment? no (THE MEDICATION REQUESTED IS ON THE MED LIST ABOVE) All of the medications requested were on the CURRENT MEDS list Did you check the Pharmacy information above?: YES Patient wants: 30 -day supply Is this a mail order prescription request ? NO Patients current insurance carrier is: Payor: [facility] MEDICAID / Plan: [employer] MEDICAID HMO $0 ENDEAVOR / Product Type: HMO [id number] documented in this encounter Plan of Treatment Not on file documented as of this encounter Visit Diagnoses Not on filedocumented in this encounter Care Teams Net Mender Relationship Specialty Start Date End Date Irene Armstrong MD PCP - General Internal Medicine 04/19/17 Jose Tidwell MD PCP - General Internal Medicine 05/26/22 07/26/22 Sinai Patel MD [address] [place] [address] PCP - General Internal Medicine 07/27/22 Rosemarie Young MD [address] [address] Surgeon Neurosurgery 07/27/23 Antonette King PA-C [address] [address] Specialist Neurosurgery 07/27/23 Samson Ellis PA-C [address] [place] [address] [address] [place] [address] Specialist Neurosurgery 07/27/23 documented as of this encounter
--- OUTSIDE RECORDS SUMMARY | 2024-09-12 17:12 | XMS_ITS | Encounter Summary ---
Author Organization [employer] [facility] Address [address] [place] [address] Care Team Providers Care Licensing Coordinator Name Role Phone Irene Armstrong MD Primary Care Provider [facility] Jose Tidwell MD Primary Care Provider [phone] Sinai Patel MD Primary Care Provider + Rosemarie Young MD Unavailable [phone] Antonette King PA-C Unavailable [phone] Samson Ellis PA-C Unavailable [phone] Encounter Details Date Type Department Care Team Description [address] [address] Zachary Jaramillo MD Social History Tobacco Use [...] on filedocumented in this encounter Care Teams Licensing Coordinator Relationship Specialty Start Date End Date Irene Armstrong MD PCP - General Internal Medicine 04/19/17 Jose Tidwell MD PCP - General Internal Medicine 05/26/22 07/26/22 Sinai Patel MD [address] [place] [address] PCP - General Internal Medicine 07/27/22 Rosemarie Young MD [address] [address] Surgeon Neurosurgery 07/27/23 Antonette King PA-C [address] [address] Specialist Neurosurgery 07/27/23 Samson Ellis PA-C [address] [address] Specialist Neurosurgery 07/27/23 documented as of this encounter
--- OUTSIDE RECORDS SUMMARY | 2024-09-12 17:12 | XMS_ITS | Encounter Summary ---
Author Organization [facility] Address [address] [place] [address] Care Team Providers Care Hat Renovator Name Role Phone Sinai Patel MD Primary Care Provider + Rosemarie Young MD Unavailable [phone] Antonette King PA-C Unavailable Samson Ellis PA-C Unavailable [phone] Reason for Visit * Reason Onset Date Comments Mychart Rx Refill 11/28/2023 Encounter Details Date Type Department Care Team Description 11/28/2023 Refill Adult Medicine [facility] [address] [place] [address] Sinai Patel MD [address] [place] [id number] Mychart Rx Refill Social History Tobacco Use [...] encounter Miscellaneous Notes * Telephone Encounter - Elizabeth Rodriguez PA-C - 11/29/2023 12:39 PM EDT Rx signed. [facility] reviewed and appropriate. * Telephone Encounter - Manuela Trinidad M.A. - 11/29/2023 9:12 AM EDT Lab Results Component Value Date URBENZO POSITIVE 09/28/2023 UROPIATES NONE DETECTED 09/28/2023 UROXYCODONE NONE DETECTED 09/28/2023 URBARBITUATE NONE DETECTED 09/28/2023 PAINAMPHETAM NONE DETECTED 09/28/2023 PAINCOCAINE NONE DETECTED 09/28/2023 PAINCANNABIN NONE DETECTED 09/28/2023 Pending appt with pcp 11/30/23 11/10/2023 09/19/2023 1 GABAPENTIN 300 MG CAPSULE 28 28 [place] [id number] [facility]/2 [place] 11/04/2023 09/08/2023 1 GABAPENTIN 600 MG TABLET 28 28 [place] [id number] [facility] 2/ 0.67 LME [place] 10/18/2023 10/18/2023 1 TRAMADOL HCL 50 MG TABLET 56 28 [place] [id number] [facility] ([facility] 0/0 20.00 MME [place] 10/17/2023 09/19/2023 1 GABAPENTIN 300 MG CAPSULE 28 28 [place] [id number] [facility] 1/2 [place] 10/07/2023 09/08/2023 1 GABAPENTIN 600 MG TABLET 28 28 [place] [id number] [facility] (18[facility] 1 0.67 LME [place] documented in this encounter Plan of Treatment Not on file documented as of this encounter Visit Diagnoses Diagnosis Multiple joint pain Pain in joint, multiple sites documented in this encounter Care Teams Hat Renovator Relationship Specialty Start Date End Date Sinai Patel MD [address] [place] [address] PCP - General Internal Medicine 07/27/22 Rosemarie Young MD [address] [address] Surgeon Neurosurgery 07/27/23 Antonette King PA-C [address] [address] Specialist Neurosurgery 07/27/23 Samson Ellis PA-C [address] [address] Specialist Neurosurgery 07/27/23 documented as of this encounter
--- OUTSIDE RECORDS SUMMARY | 2024-09-12 17:12 | XMS_ITS | Encounter Summary ---
Author Organization [employer] [facility] [facility] [employer] Address [address] [place] [address] Care Team Providers Care Guard Immigration Name Role Phone Sinai Patel MD Primary Care Provider + Rosemarie Young MD Unavailable [phone] Antonette King PA-C Unavailable [phone] Samson Ellis PA-C Unavailable [phone] Reason for Visit * Reason Comments E-prescribe Rx Request Encounter Details Date Type Department Care Team Description 11/08/2023 Refill Pulmonology - [place] [address] [id number] Adele Walker APRN 175 [facility] [address] [place] [address] E-prescribe Rx Request Social History Tobacco Use [...] encounter Miscellaneous Notes * Telephone Encounter - Anastacio Carter - 11/08/2023 9:52 AM EDT NOV 11/23/23 PIPO 01/11/23 documented in this encounter Plan of Treatment Not on file documented as of this encounter Visit Diagnoses Diagnosis Wheezing Obstructive sleep apnea AHI 5.8/REM AHI 53 Obstructive sleep apnea (adult) (pediatric) Seasonal allergic rhinitis, unspecified trigger documented in this encounter Care Teams Guard Immigration Relationship Specialty Start Date End Date Sinai Patel MD [address] [place] [address] PCP - General Internal Medicine 07/27/22 Rosemarie Young MD [address] [address] Surgeon Neurosurgery 07/27/23 Antonette King PA-C [address] [address] Specialist Neurosurgery 07/27/23 Samson Ellis PA-C [address] [address] Specialist Neurosurgery 07/27/23 documented as of this encounter
--- OUTSIDE RECORDS SUMMARY | 2024-09-12 17:12 | XMS_ITS | Encounter Summary ---
Author Organization [facility] Address [address] [place] [address] Care Team Providers Care Special Effects Makeup Artist Name Role Phone Irene Armstrong MD Primary Care Provider U Jose Gao MD Primary Care Provider [phone] Sinai Patel MD Primary Care Provider + Rosemarie Young MD Unavailable [phone] Antonette King PA-C Unavailable [phone] Samson Ellis PA-C Unavailable [phone] Encounter Details Date Type Department Care Team Description 01/22/2020 Cork Sorter Report Medical Records [address] [place] [address] Reza Crespo Social History Tobacco Use Types Packs/Day Years [...] have Coronavirus / COVID-19? No / Unsure 01/23/2020 9:14 AM EDT documented as of this encounter Plan of Treatment Not on file documented as of this encounter Visit Diagnoses Not on filedocumented in this encounter Care Teams Special Effects Makeup Artist Relationship Specialty Start Date End Date Irene Armstrong MD PCP - General Internal Medicine 04/19/17 Jose Tidwell MD PCP - General Internal Medicine 05/26/22 07/26/22 Sinai Patel MD [address] [place] [address] PCP - General Internal Medicine 07/27/22 Rosemarie Young MD [address] [address] Surgeon Neurosurgery 07/27/23 Antonette King PA-C [address] [address] Specialist Neurosurgery 07/27/23 Samson Ellis PA-C [address] [address] Specialist Neurosurgery 07/27/23 documented as of this encounter
--- OUTSIDE RECORDS SUMMARY | 2024-09-12 17:12 | XMS_ITS | Encounter Summary ---
Author Organization [facility] Address [address] [place] [address] Care Team Providers Care Charge Master Coordinator Name Role Phone Sinai Patel MD Primary Care Provider + Rosemarie Young MD Unavailable [phone] Antonette King PA-C Unavailable [phone] Samson Ellis PA-C Unavailable Encounter Details Date Type Department Care Team Description 09/19/2023 Pt. Non Urgent Medical Question Endocrinology - [address] [address] Ty Hager MD [address] [place], [place] [id number] Social History Tobacco Use Types Packs/Day Years [...] encounter Miscellaneous Notes * Telephone Encounter - Manuela Trinidad M.A. - 09/19/2023 10:47 AM EDTFrom: Destin Layton To: Susan Hager Sent: 09/19/2023 10:41 AM EDT Subject: Pump Do you want me to bring the new pump with us today? documented in this encounter Plan of Treatment Not on file documented as of this encounter Visit Diagnoses Not on filedocumented in this encounter Care Teams Charge Master Coordinator Relationship Specialty Start Date End Date Sinai Patel MD [address] [place] [address] PCP - General Internal Medicine 07/27/22 Rosemarie Young MD [address] [address] Surgeon Neurosurgery 07/27/23 Antonette King PA-C [address] [address] Specialist Neurosurgery 07/27/23 Samson Ellis PA-C [address] [address] Specialist Neurosurgery 07/27/23 documented as of this encounter
--- OUTSIDE RECORDS SUMMARY | 2024-09-12 17:12 | XMS_ITS | Encounter Summary ---
Author Organization [facility] Address [address] [place] [address] Care Team Providers Care Movers Name Role Phone Samson Iyer MD Primary Care Provider Unavail able Tisha Carpio MD Primary Care Provider Osvaldo Lambert MD Primary Care Provider Unava ilJuve Krueger MD Primary Care Provider Unavailab Zachary Rasmussen MD Primary Care Provider Unavail able Irene Armstrong MD Primary Care Provider U navailIrene Araujo MD Primary Care Provider U Jose Gao MD Primary Care Provider [phone] Sinai Patel MD Primary Care Provider + Rosemarie Young MD Unavailable [phone] Antonette King PA-C Unavailable [phone] Samson Ellis PA-C Unavailable [phone] Encounter Details Date Type Department Care Team Description 02/20/2005 Orders Only Medical [address] [place] [address] Zachary Jaramillo MD DIABETES MELLITUS TYPE II-UNCOMPL [...] Lab Routine Diabetes Mellitus Type Ii-Uncompl Ordered: 02/20/2005 documented as of this encounter Procedures Procedure Name Priority Date/Time Associated Diagnosis Comments HEMOGLOBIN A1C Routine 02/20/2005 8:00 AM EDT Diabetes Mellitus Type Ii-Uncompl documented in this encounter Results * (ABNORMAL) HEMOGLOBIN A1C (02/20/2005 8:00 AM EDT) GLYCOSYLATED HEMOGLOBIN A1C 7.3(H) 4.0 - 6.0 % [facility] 02/20/2005 8:00 AM EDT 02/20/2005 9:53 AM EDT Zachary Jaramillo MD LAB [facility] documented in this encounter Visit Diagnoses Diagnosis Type II or unspecified type diabetes mellitus without mention of complication, not stated as uncontrolled- Primary documented in this encounter Care Teams Movers Relationship Specialty Start Date End Date Samson Iyer MD PCP - General 02/10/11 01/29/13 Tisha Carpio MD [address] [place] [address] PCP - General 12/05/01 02/09/11 Osvaldo Lambert MD [address] [place] [address] PCP - General Internal Medicine 01/30/13 08/12/13 Juve Reno MD [address] [place] [address] PCP - General Internal Medicine 08/13/13 05/20/14 Zachary Jaarmillo MD [address] [place] [address] PCP - General Internal Medicine 05/21/14 03/06/15 Irene Armstrong MD [address] [place] [address] PCP - General Internal Medicine 04/19/17 05/25/22 Irene Armstrong MD [address] [place] [address] PCP - General 03/07/15 04/18/17 Jose Tidwell MD [address] [place] [address] PCP - General Internal Medicine 05/26/22 07/26/22 Sinai Patel MD [address] [place] [address] PCP - General Internal Medicine 07/27/22 Rosemarie Young MD [address] [address] Surgeon Neurosurgery 07/27/23 Antonette King PA-C [address] [address] Specialist Neurosurgery 07/27/23 Samson Ellis PA-C [address] [address] Specialist Neurosurgery 07/27/23 documented as of this encounter
--- OUTSIDE RECORDS SUMMARY | 2024-09-12 17:12 | XMS_ITS | Encounter Summary ---
Author Organization [facility] Address [address] [place] [address] Care Team Providers Care Wire Threader Name Role Phone Sinai Patel MD Primary Care Provider + Rosemarie Young MD Unavailable [phone] Antonette King PA-C Unavailable Samson Ellis PA-C Unavailable Encounter Details Date Type Department Care Team Description 10/06/2023 Refill Pulmonology - [place] 175 [facility] [address] [place] [phone] Adele Walker APRN 175 [facility] [address] [place] [phone] Social History Tobacco Use Types Packs/Day Years [...] encounter Miscellaneous Notes * Telephone Encounter - Brandon Rojas CMA - 10/06/2023 4:26 PM EDT PIPO 01/11/23 NOV 10/18/23 documented in this encounter Plan of Treatment Not on file documented as of this encounter Visit Diagnoses Diagnosis Wheezing Obstructive sleep apnea AHI 5.8/REM AHI 53 Obstructive sleep apnea (adult) (pediatric) Seasonal allergic rhinitis, unspecified trigger documented in this encounter Care Teams Wire Threader Relationship Specialty Start Date End Date Sinai Patel MD [address] [place] [address] PCP - General Internal Medicine 07/27/22 Rosemarie Young MD [address] [address] Surgeon Neurosurgery 07/27/23 Antonette King PA-C [address] [address] Specialist Neurosurgery 07/27/23 Samson Ellis PA-C 175 [facility] [address] [place] [address] Specialist Neurosurgery 07/27/23 documented as of this encounter
--- OUTSIDE RECORDS SUMMARY | 2024-09-12 17:12 | XMS_ITS | Encounter Summary ---
Author Organization [employer] [facility] Address [address] [place] [address] Care Team Providers Care Technical Sales Director Name Role Phone Irene Armstrong MD Primary Care Provider U Jose Gao MD Primary Care Provider [phone] Sinai Patel MD Primary Care Provider + Rosemarie Young MD Unavailable [phone] Antonette King PA-C Unavailable [phone] Samson Ellis PA-C Unavailable [phone] Reason for Visit * Reason Onset Date Comments Blood Pressure follow up 03/05/2021 Encounter Details Date Type Department Care Team Description 03/05/2021 Telephone Adult Medicine [facility] [address] [place] [address] Irene Armstrong MD Blood Pressure follow up Social History Tobacco Use Types Packs/Day Years [...] have Coronavirus / COVID-19? No / Unsure 02/11/2021 8:40 AM EDT documented as of this encounter Miscellaneous Notes * Telephone Encounter - Rosemarie Thomas PA-C - 03/05/2021 4:59 PM EDT Sent to the pharmacy * Telephone Encounter - Rose HOPPER - 03/05/2021 3:55 PM EDT Pt aware please call in trullicity 3mg * Telephone Encounter - Rosemarie Thomas PA-C - 03/05/2021 2:44 PM EDT If patient's blood sugars are elevated above 300 I can increase his Trulicity to 3 mg 1 shot a week. Please let me know if patient's is okay with this and I will send this to the pharmacy. 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 Do you have fever of higher than 101, sore throat with difficulty swallowing or severe shortnessof breath? NO If YES to any of these above symptoms, send a message to triage and do not book. Red dot. If no, an audio or video visit should be booked. ?? Have you had close contact with someone with Coronavirus in the last 14 days? NO ?? Have you traveled abroad? NO ?? Have you traveled recently to another state outside of [place], [place], [place], [place], [place], [place], [place]? NO o If yes, did you quarantine for 14 days or have a negative covid test? NO If yes to any of the above, patient is not to be scheduled in office until after 14 day quarantine or negative covid test. If pain or injury related was it due to an accident at work or from a motor vehicle accident? NO If yes, gather 3rd green party insurance information Date of accident/Injury: n/a How long has patient had these symptoms?: 2 weeks PCP: Irene Logan Payor: [employer] [facility] [employer] MCR / Plan: [facility] / Product Type: HMO [id number] documented in this encounter Plan of Treatment Not on file documented as of this encounter Visit Diagnoses Not on filedocumented in this encounter Care Teams Technical Sales Director Relationship Specialty Start Date End Date Irene Armstrong MD PCP - General Internal Medicine 04/19/17 Jose Tidwell MD PCP - General Internal Medicine 05/26/22 07/26/22 Sinai Patel MD [address] [place] [address] PCP - General Internal Medicine 07/27/22 Rosemarie Young MD 175 [facility] [address] [place] [address] Surgeon Neurosurgery 07/27/23 Antonette King PA-C 175 [facility] [address] [place] [address] Specialist Neurosurgery 07/27/23 Samson Ellis PA-C 175 [facility] [address] [place] [address] Specialist Neurosurgery 07/27/23 documented as of this encounter
--- OUTSIDE RECORDS SUMMARY | 2024-09-12 17:12 | XMS_ITS | Encounter Summary ---
Author Organization [facility] Address [address] [place] [address] Care Team Providers Care Web Production Manager Name Role Phone Sinai Patel MD Primary Care Provider + Rosemarie Young MD Unavailable [phone] Antonette King PA-C Unavailable [phone] Samson Ellis PA-C Unavailable [phone] Encounter Details Date Type Department Care Team Description 10/06/2023 Refill Pulmonology - [address] [place] [address] Fernando Richey MD Social History [...] (pediatric) documented in this encounter Care Teams Web Production Manager Relationship Specialty Start Date End Date Sinai Patel MD [address] [place] [id number] PCP - General Internal Medicine 07/27/22 Rosemarie Young MD [address] [address] Surgeon Neurosurgery 07/27/23 Antonette King PA-C [address] [address] Specialist Neurosurgery 07/27/23 Samson Ellis PA-C 175 [facility] [address] [place] [id number] Specialist Neurosurgery 07/27/23 documented as of this encounter
--- OUTSIDE RECORDS SUMMARY | 2024-09-12 17:12 | XMS_ITS | Encounter Summary ---
Author Organization [email or web address] Address [address] [place] [address] Care Team Providers Care Field Investigator Name Role Phone Irene Armstrong MD Primary Care Provider U Jose Gao MD Primary Care Provider [phone] Sinai Patel MD Primary Care Provider + Rosemarie Young MD Unavailable [phone] Antonette King PA-C Unavailable [phone] Samson Ellis PA-C Unavailable [phone] Reason for Visit * Reason Onset Date Comments refill request 04/09/2020 Encounter Details Date Type Department Care Team Description 04/09/2020 Refill Adult Medicine - [address] [address] Irene Armstrong MD refill request Social History [...] have Coronavirus / COVID-19? No / Unsure 04/02/2020 2:31 PM EST documented as of this encounter Miscellaneous Notes * Telephone Encounter - Irene Logan MD - 04/09/2020 3:36 PM EST Signed, thank you * Telephone Encounter - Mildred Chavez M.A. - 04/09/2020 1:57 PM EST Last office visit 04/02/20 Lab Results Component Value Date HGBA1C 8.0 04/02/2020 MALBUR 25.0 04/04/2020 MALBCR 21.3 04/04/2020 CHOL 133 11/29/2019 LDL 48 11/29/2019 HDL 37 11/29/2019 TRIG 243 11/29/2019 GLU 129 04/02/2020 CREAT 0.90 04/02/2020 * Telephone Encounter - Kimmie Sanchez - 04/09/2020 10:58 AM EST Patient would like script to be: E-PRESCRIBED/FAXED TO PHARMACY WHEN WAS THE PATIENT'S LAST APPOINTMENT IN ADULT MEDICINE? 04-02-20 WHEN WAS THE LAST TIME THE PATIENT SAW THEIR PCP? Same as above Does patient have an upcoming appointment? No-patient will call back to book appointment - pharmacycalling (THE MEDICATION REQUESTED IS ON THE MED LIST ABOVE) One or some of the medications requested were on the HISTORICAL MED list Did you check the Pharmacy information above?: YES Patient wants: 30 -day supply Is this a mail order prescription request ? NO If the refill is from a FAXED refill request what is the RX # listed on the fax? N/A Patients current insurance carrier is: Payor: [facility] MCR / Plan: [facility] / Product Type: HMO [id number] documented in this encounter Plan of Treatment Not on file documented as of this encounter Visit Diagnoses Not on filedocumented in this encounter Care Teams Field Investigator Relationship Specialty Start Date End Date Irene Armstrong MD PCP - General Internal Medicine 04/19/17 Jose Tidwell MD PCP - General Internal Medicine 05/26/22 07/26/22 Sinai Patel MD [address] [place] [address] PCP - General Internal Medicine 07/27/22 Rosemarie Young MD 175 [facility] [address] [place] [address] Surgeon Neurosurgery 07/27/23 Antonette King PA-C 175 [facility] [address] [place] [address] Specialist Neurosurgery 07/27/23 Samson Ellis PA-C 175 [facility] [address] [place] [address] Specialist Neurosurgery 07/27/23 documented as of this encounter
--- OUTSIDE RECORDS SUMMARY | 2024-09-12 17:12 | XMS_ITS | Encounter Summary ---
Author Organization [facility] Address [address] [place] [address] Care Team Providers Care Cyanide Pot Hardener Name Role Phone Irene Armstrong MD Primary Care Provider U Jose Gao MD Primary Care Provider [phone] Sinai Patel MD Primary Care Provider + Rosemarie Young MD Unavailable [phone] Antonette King PA-C Unavailable [phone] Samson Ellis PA-C Unavailable [phone] Reason for Visit * Reason Onset Date Comments Call From Patient Family 04/03/2020 Encounter Details Date Type Department Care Team Description 04/03/2020 Telephone Adult Medicine [address] [address] Zachary Jaramillo MD Call From Patient Family [...] encounter Miscellaneous Notes * Telephone Encounter - Zachary Jaramillo MD - 04/03/2020 9:06 PM EST D/w Mrs. Layton, inc lantus & Novolog. I will try to connect it [facility] office * Telephone Encounter - Cristi Cl - 04/03/2020 10:47 AM EST The patient's spouse, Cipriano, is calling today because she was told by Dr. Irene Logan to relay that the patient's A1C reading was 8 yesterday. She is also calling to ask if Dr. Zachary Jaramillo has an update on the situation regarding the patient's request for a new insulin pump. documented in this encounter Plan of Treatment Not on file documented as of this encounter Visit Diagnoses Not on filedocumented in this encounter Care Teams Cyanide Pot Hardener Relationship Specialty Start Date End Date Irene Armstrong MD PCP - General Internal Medicine 04/19/17 Jose Tidwell MD PCP - General Internal Medicine 05/26/22 07/26/22 Sinai Patel MD [address] [place] [address] PCP - General Internal Medicine 07/27/22 Rosemarie Young MD [address] [address] Surgeon Neurosurgery 07/27/23 Antonette King PA-C [address] [address] Specialist Neurosurgery 07/27/23 Samson Ellis PA-C [address] [address] Specialist Neurosurgery 07/27/23 documented as of this encounter
--- OUTSIDE RECORDS SUMMARY | 2024-09-12 17:12 | XMS_ITS | Encounter Summary ---
Author Organization [employer] [facility] Address [address] [place] [address] Care Team Providers Care Motor And Generator Brush Cutter Name Role Phone Irene Armstrong MD Primary Care Provider U Jose Gao MD Primary Care Provider [phone] Sinai Patel MD Primary Care Provider + Rosemarie Young MD Unavailable [phone] Antonette King PA-C Unavailable [phone] Samson Ellis PA-C Unavailable [phone] Reason for Visit * Reason Onset Date Comments Provider Call Back 12/14/2019 Encounter Details Date Type Department Care Team Description 12/14/2019 Telephone Adult Medicine [address] [address] Orion Dao MD Provider Call Back Social History Tobacco Use Types Packs/Day Years [...] encounter Miscellaneous Notes * Telephone Encounter - Luba Russo M.A. - 12/27/2019 3:15 PM EDT [phone] message stats office is closed * Telephone Encounter - Marisabel Lunsford M.A. - 12/26/2019 11:46 AM EDT Tried calling cardiology again, Phone message says they are closed * Telephone Encounter - Marisabel Lunsford M.A. - 12/24/2019 11:54 AM EDT Tried calling Cardiology, . They were closed at the time. Will call back * Telephone Encounter - Anita Allen M.A. - 12/17/2019 1:43 PM EDT Called [facility] no answer will try back later. * Telephone Encounter - Orion Dao MD - 12/17/2019 8:02 AM EDT I had indicated that I think that cardiac cause of his symptoms is less likely. However, please contact cardiology and see if they are able to perform this sometime in the next 4 weeks if possible. Thank you * Telephone Encounter - Linda Hadley - 12/14/2019 3:40 PM EDT Patient's calling stated that Dr. Dao referred the patient for an Echo and the appoinment that was given was at1. The patient's is concerned because if the patient is having heart issues he needs to be CORTEZ. documented in this encounter Plan of Treatment Not on file documented as of this encounter Visit Diagnoses Not on filedocumented in this encounter Care Teams Motor And Generator Brush Cutter Relationship Specialty Start Date End Date Irene Armstrong MD PCP - General Internal Medicine 04/19/17 Jose Tidwell MD PCP - General Internal Medicine 05/26/22 07/26/22 Sinai Patel MD [address] [place] [address] PCP - General Internal Medicine 07/27/22 Rosemarie Young MD [address] [address] Surgeon Neurosurgery 07/27/23 Antonette King PA-C [address] [address] Specialist Neurosurgery 07/27/23 Samson Ellis PA-C [address] [address] Specialist Neurosurgery 07/27/23 documented as of this encounter
--- OUTSIDE RECORDS SUMMARY | 2024-09-12 17:12 | XMS_ITS | Encounter Summary ---
Author Organization [employer] [facility] Address [address] [place] [address] Care Team Providers Care Foreign Agent Name Role Phone Irene Armstrong MD Primary Care Provider U Jose Gao MD Primary Care Provider [phone] Sinai Patel MD Primary Care Provider + Rosemarie Young MD Unavailable [phone] Antonette King PA-C Unavailable [phone] Samson Ellis PA-C Unavailable [phone] Reason for Referral * EXTERNAL (Routine) - Authorized/Booked Specialty Diagnoses / Procedures Referred By Contjavier t Referred To Contact Physical Therapy Procedures REFERRAL TO PHYSICAL THERAPY Irene Armstrong MD [address] [place], [place] [address]., [facility] Referral ID Status Reason Start Date Expiration Date V isits Requested Visits Authorized SEE NOTE Authorized/B ooked 01/10/2020 04/11/2020 1 1 Reason for Visit * Reason Onset Date Comments Tax Director Feedback 01/09/2020 [facility] PT Encounter Details Date Type Department Care Team Description 01/09/2020 Telephone Adult Medicine B - [address] [address] Irene Armstrong MD Tax Director Feedback ([facility] HUFF) Social History Tobacco Use Types Packs/Day Years [...] Miscellaneous Notes * Telephone Encounter - Freddie Figueroa - 01/09/2020 9:51 AM EDT Irene Logan We have pended a new PT order since the original one will by time of appt on 01/21/2020. Please sign Thanks documented in this encounter Plan of Treatment Not on file documented as of this encounter Visit Diagnoses Not on filedocumented in this encounter Care Teams Foreign Agent Relationship Specialty Start Date End Date Irene Armstrong MD PCP - General Internal Medicine 04/19/17 Jose Tidwell MD PCP - General Internal Medicine 05/26/22 07/26/22 Sinai Patel MD [address] [place] [address] PCP - General Internal Medicine 07/27/22 Rosemarie Young MD [address] [address] Surgeon Neurosurgery 07/27/23 Antonette King PA-C [address] [address] Specialist Neurosurgery 07/27/23 Samson Ellis PA-C [address] [address] Specialist Neurosurgery 07/27/23 documented as of this encounter
--- OUTSIDE RECORDS SUMMARY | 2024-09-12 17:12 | XMS_ITS | Encounter Summary ---
Author Organization [facility] Address [address] [place] [address] Care Team Providers Care Loop Puller Name Role Crusher Wet Ground MicaJuve Reno MD Primary Care Provider Unavailab Zachary Rasmussen MD Primary Care Provider Unavail able Irene Armstrong MD Primary Care Provider [facility] Primary Care Provider U [facility] Jose Tdiwell MD Primary Care Provider [phone] Sinai Patel MD Primary Care Provider + Rosemarie Young MD Unavailable [phone] Antonette King PA-C Unavailable [phone] Samson Ellis PA-C Unavailable [phone] Reason for Visit * Reason Onset Date Comments Provider Call Back 05/14/2014 Encounter Details Date Type Department Care Team Description 05/14/2014 Telephone Medicine/Pediatrics - [address] [address] Juve Reno MD Provider Call Back Social History Tobacco [...] Telephone Encounter - Luba Russo M.A. - 05/21/2014 1:34 PM EST [phone] (home) Spoke with Shanda. She is not currently with the patient to give me the recentreadings. She notes that the pt was feeling so poorly that he resumed the Glyburide on his own and is feeling better. I have asked them to call or send a [employer] message with the readings from both when he was feeling poorly and now that he has resumed Glyburide. Shanda told me that they will sendit through [employer]. * Telephone Encounter - Sally Cosme C.M.A. - 05/14/2014 2:47 PM EST Spoke with Shanda. She informed me that she did not know the blood sugars but that she would talk to her and call me tomorrow. I offered to call him myself but she declined. * Telephone Encounter - Orion Dao MD - 05/14/2014 2:18 PM EST I cannot provide any advice without knowing what the blood sugars are, at least approximately. * Telephone Encounter - Landy Antoine L.P.N. - 05/14/2014 1:48 PM EST Spoke with pt's , Shanda. She tells me that Dr. Reno told pt to stop taking his glyburide on04/26/14 and continue his Lantus. (This was because pt's blood sugar was well controlled, but he washaving periods of hypoglycemia. See visit note dated 04/26/14 for documentation.) He did so for 3 days, but his blood sugar went wicked high and he wasn't feeling well (he had some dizziness and headache) so he started taking it again. He's been feeling better since then, and his blood sugars arebetter . He was told to keep a blood sugar log and follow up in 2 weeks. Has appointment on 05/20/14. Advised he be sure keep this appointment! Message to covering provider for review. Shanda wants to know if he should continue both the glyburide and Lantus until his follow up with Dr. Reno? * Telephone Encounter - Charliemargaret Kingston - 05/14/2014 11:47 AM EST Caller requesting call back from provider: Is the caller the patient? NO If caller is not the patient, what is the callers name? [place] Callers relationship to patient? If person calling is not the patient themselves, is there a verbal release in FYI or permanent comments for this person: YES Reason for call back: states that once the patient stopped taking glyburide his blood sugar went extremely high. The patient has not been feeling well so he went back on the medication. would like to speak with Dr. Reno or his nurse. Please call [phone] Caller offered to speak with the nurse for assistance: YES Response: Patient offered to speak with nurse to assist them: refused offer Patient offered to speak with nurse for assistance and patient agreed. Message forwarded to nurse. documented in this encounter Plan of Treatment Not on file documented as of this encounter Visit Diagnoses Not on filedocumented in this encounter Care Teams Loop Puller Relationship Specialty Start Date End Date Juve Reno MD PCP - General Internal Medicine 08/13/13 05/20/14 Zachary Jaramillo MD PCP - General Internal Medicine 05/21/14 03/06/15 Irene Armstrong MD PCP - General Internal Medicine 04/19/17 Irene Armstrong MD PCP - General 03/07/15 Jose Tidwell MD PCP - General Internal Medicine 05/26/22 07/26/22 Sinai Patel MD [address] [place], [place] [id number] PCP - General Internal Medicine 07/27/22 Rosemarie Young MD [address] [address] Surgeon Neurosurgery 07/27/23 Antonette King PA-C [address] [address] Specialist Neurosurgery 07/27/23 Samson Ellis PA-C [address] [address] Specialist Neurosurgery 07/27/23 documented as of this encounter
--- OUTSIDE RECORDS SUMMARY | 2024-09-12 17:12 | XMS_ITS | Encounter Summary ---
Author Organization [employer] [facility] Address [address] [place] [address] Care Team Providers Care Embedded Systems Developer Name Role Phone Irene Armstrong MD Primary Care Provider U Jose Gao MD Primary Care Provider [phone] Sinai Patel MD Primary Care Provider + Rosemarie Young MD Unavailable [phone] Antonette King PA-C Unavailable [phone] Samson Ellis PA-C Unavailable Encounter Details Date Type Department Care Team Description 04/12/2018 Telephone Pulmonology [facility] 175 [facility] [address] [place] [address] Liliya Villa, [facility] [address] [place], [place] [id number] Social History Tobacco Use Types Packs/Day Years [...] on filedocumented in this encounter Care Teams Embedded Systems Developer Relationship Specialty Start Date End Date Irene Armstrong MD PCP - General Internal Medicine 04/19/17 Jose Tidwell MD PCP - General Internal Medicine 05/26/22 07/26/22 Sinai Patel MD [address] [place] [address] PCP - General Internal Medicine 07/27/22 Rosemarie Young MD [address] [address] Surgeon Neurosurgery 07/27/23 Antonette King PA-C [address] [address] Specialist Neurosurgery 07/27/23 Samson Ellis PA-C [address] [address] Specialist Neurosurgery 07/27/23 documented as of this encounter
--- OUTSIDE RECORDS SUMMARY | 2024-09-12 17:12 | XMS_ITS | Encounter Summary ---
Author Organization [employer] [facility] Address [address] [place] [address] Care Team Providers Care Volunteer Manager Name Role Phone Sinai Patel MD Primary Care Provider + Rosemarie Young MD Unavailable [phone] Antonette King PA-C Unavailable [phone] Samson Ellis PA-C Unavailable Reason for Visit * Reason Comments E-prescribe Rx Request Encounter Details Date Type Department Care Team Description 12/25/2023 Refill Pulmonology - [place] 175 [facility] [address] [place] [address] Kimberly Vargas MD [address] [place] [address] E-prescribe Rx Request Social History [...] encounter Miscellaneous Notes * Telephone Encounter - Altagracia Bunch - 12/26/2023 10:31 AM EDT Che: 12/01/2023 Nov: 02/01/2024 documented in this encounter Plan of Treatment Not on file documented as of this encounter Visit Diagnoses Diagnosis Restrictive pattern present on pulmonary function testing Shortness of breath Wheezing Obstructive sleep apnea AHI 5.8/REM AHI 53 Obstructive sleep apnea (adult) (pediatric) documented in this encounter Care Teams Volunteer Manager Relationship Specialty Start Date End Date Sinai Patel MD [address] [place] [address] PCP - General Internal Medicine 07/27/22 Rosemarie Young MD [address] [address] Surgeon Neurosurgery 07/27/23 Antonette King PA-C [address] [address] Specialist Neurosurgery 07/27/23 Samson Ellis PA-C 175 [facility] [address] [place] [address] Specialist Neurosurgery 07/27/23 documented as of this encounter
--- OUTSIDE RECORDS SUMMARY | 2024-09-12 17:12 | XMS_ITS | Encounter Summary ---
Author Organization [facility] Address [address] [place] [address] Care Team Providers Care Asbestos Siding Mechanic Name Role Phone Irene Armstrong MD Primary Care Provider U Jose Gao MD Primary Care Provider [phone] Sinai Patel MD Primary Care Provider + Rosemarie Young MD Unavailable [phone] Antonette King PA-C Unavailable [phone] Samson Ellis PA-C Unavailable [phone] Reason for Visit * Reason Onset Date Comments Blood Sugar Elevated 04/16/2020 Encounter Details Date Type Department Care Team Description 04/16/2020 Telephone Endocrinology - [place] [address] [place] [address] Zachary Jaramillo MD Blood Sugar Elevated Social History Tobacco Use Types Packs/Day Years [...] have Coronavirus / COVID-19? No / Unsure 04/14/2020 9:55 AM EST documented as of this encounter Miscellaneous Notes * Telephone Encounter - Zachary Jaramillo MD - 04/16/2020 8:14 PM EST Spoke with Mrs. Layton: inc Lantus & Novolog * Telephone Encounter - Bhavani [place] M.A. - 04/16/2020 10:02 AM EST Called spoke with patient's I informed her with Dr Jaramillo's previous message, which read take Novolog every 4 hours. Patient's states patient is doing that, blood sugars are not going under 300's. I informed the that I was informed by Alexey from [employer] that Simon is on vacation when he comes back next week he will contact patient tot schedule appt for pump set up. We are not able to set up omnipod, this has to be done by omnipod specialist. Patient aware and agreed. * Telephone Encounter - Precious Escalera - 04/16/2020 9:52 AM EST called stating while she was talking with one nurse from Dr Jaramillo's office, other called her and left a message to call her back. is returning a call. Please review and call * Telephone Encounter - Landy Antoine L.P.N. - 04/16/2020 9:22 AM EST Spoke with pt's , Shanda. She states that pt's blood sugar's have been elevated recently, in the 300s . He is asymptomatic when sugars are elevated. He hasn't been eating much because that will make it go higher . He's going to be getting an Omnipod, but they're waiting for the class (which has not been scheduled yet). Currently taking metformin 500 mg (2) tabs twice daily, Lantus 24 unitsat bedtime, and Novolog Flexpen per sliding scale. Asking for direction. Message to Dr. Jaramillo for review. * Telephone Encounter - Emerita Rainey - 04/16/2020 8:17 AM EST came into office to state that her husbands blood sugar has angel over 300 for the last 2 weeks. She states that he has not changed his diet to make this spike. She would like a call to discuss. documented in this encounter Plan of Treatment Not on file documented as of this encounter Visit Diagnoses Not on filedocumented in this encounter Care Teams Asbestos Siding Mechanic Relationship Specialty Start Date End Date Irene Armstrong MD PCP - General Internal Medicine 04/19/17 Jose Tidwell MD PCP - General Internal Medicine 05/26/22 07/26/22 Sinai Patel MD [address] [place] [address] PCP - General Internal Medicine 07/27/22 Rosemarie Young MD [address] [address] Surgeon Neurosurgery 07/27/23 Antonette King PA-C [address] [address] Specialist Neurosurgery 07/27/23 Samson Ellis PA-C [address] [address] Specialist Neurosurgery 07/27/23 documented as of this encounter
--- OUTSIDE RECORDS SUMMARY | 2024-09-12 17:13 | XMS_ITS | Encounter Summary ---
Author Organization [employer] [facility] Address [address] [place] [address] Care Team Providers Care Pitch Gatherer Name Role Phone Jose Tidwell MD Primary Care Provider [phone] Sinai Patel MD Primary Care Provider + Rosemarie Young MD Unavailable [phone] Antonette King PA-C Unavailable [phone] Samson Ellis PA-C Unavailable [phone] Reason for Visit * Reason Comments E-prescribe Rx Request Encounter Details Date Type Department Care Team Description 07/23/2022 Refill Gastroenterology [address] [phone] Brandon Aguilar PA-C E-prescribe Rx Request Social [...] on filedocumented in this encounter Care Teams Pitch Gatherer Relationship Specialty Start Date End Date Jose Tidwell MD PCP - General Internal Medicine 05/26/22 07/26/22 Sinai Patel MD [address] [place] [address] PCP - General Internal Medicine 07/27/22 Rosemarie Young MD [address] [address] Surgeon Neurosurgery 07/27/23 Antonette King PA-C [address] [address] Specialist Neurosurgery 07/27/23 Samson Ellis PA-C [address] [id number] Specialist Neurosurgery 07/27/23 documented as of this encounter
--- OUTSIDE RECORDS SUMMARY | 2024-09-12 17:13 | XMS_ITS | Encounter Summary ---
Author Organization [facility] Address [address] [place] [address] Care Team Providers Care Neon Sign Mechanic Name Role Phone Irene Armstrong MD Primary Care Provider U Jose Gao MD Primary Care Provider [phone] Sinai Patel MD Primary Care Provider + Rosemarie Young MD Unavailable [phone] Antonette King PA-C Unavailable [phone] Samson Ellis PA-C Unavailable [phone] Encounter Details Date Type Department Care Team Description 04/16/2020 Orders Only Adult Medicine B - [address] [address] Zachary Jaramillo MD Social History Tobacco Use [...] AM EST documented as of this encounter Plan of Treatment Not on file documented as of this encounter Visit Diagnoses Not on filedocumented in this encounter Care Teams Neon Sign Mechanic Relationship Specialty Start Date End Date Irene Armstrong MD PCP - General Internal Medicine 04/19/17 Jose Tidwell MD PCP - General Internal Medicine 05/26/22 07/26/22 Sinai Patel MD [address] [place] [address] PCP - General Internal Medicine 07/27/22 Rosemarie Young MD [address] [address] Surgeon Neurosurgery 07/27/23 Antonette King PA-C [address] [address] Specialist Neurosurgery 07/27/23 Samson Ellis PA-C 175 [facility] [address] [place] [address] Specialist Neurosurgery 07/27/23 documented as of this encounter
--- OUTSIDE RECORDS SUMMARY | 2024-09-12 17:13 | XMS_ITS | Encounter Summary ---
Author Organization [employer] [facility] Address [address] [place] [address] Care Team Providers Care Quad Stayer Name Role Phone Irene Armstrong MD Primary Care Provider [facility] Jose Tidwell MD Primary Care Provider [phone] Sinai Patel MD Primary Care Provider + Rosemarie Young MD Unavailable [phone] Antonette King PA-C Unavailable [phone] Samson Ellis PA-C Unavailable [phone] Encounter Details Date Type Department Care Team Description 07/11/2018 Silversmith Apprentice Report Medical Records [address] [place] [address] Refugio Lin MD Social History Tobacco Use Types Packs/Day [...] on filedocumented in this encounter Care Teams Quad Stayer Relationship Specialty Start Date End Date Irene Armstrong MD PCP - General Internal Medicine 04/19/17 Jose Tidwell MD PCP - General Internal Medicine 05/26/22 07/26/22 Sinai Patel MD [address] [place] [address] PCP - General Internal Medicine 07/27/22 Rosemarie Young MD [address] [address] Surgeon Neurosurgery 07/27/23 Antonette King PA-C [address] [address] Specialist Neurosurgery 07/27/23 Samson Ellis PA-C 175 [facility] [address] [place] [address] Specialist Neurosurgery 07/27/23 documented as of this encounter
--- OUTSIDE RECORDS SUMMARY | 2024-09-12 17:13 | XMS_ITS | Encounter Summary ---
Author Organization [employer] Address [address] [place] [address] Care Team Providers Care Foster Care Case Manager Name Role Phone Sinai Patel MD Primary Care Pr ovider Reason for Visit * Reason Onset Date Comments prior auth 08/27/2024 Encounter Details Date Type Department Care Team (Late st Contact Info) Description 08/27/2024 Telephone Endocrinology - [place] [address] [place], [place] [phone] Ty Hager MD [address] [place] [address] prior auth Social History Tobacco Use Types Packs/Day Years [...] PM EDT documented as of this encounter Progress Notes * Bibi Onofre RN - 09/04/2024 4:21 PM EDT Unable to complete via CMM PA completed with OV notes and faxed to [facility] * Haroon Scott - 08/27/2024 11:50 AM EDT Prior Authorization for Medication-do not complete and send this encounter unless you have the fax from the pharmacy. Is this a Cover My Meds request: Yes -- Thomas Code [id number] Name of Medication Dexcom G6 S Dose of Medication Sensor What is the RX # from the faxed refill? N/A How does patient take this med? N/A What Pharmacy did the fax come from: [facility] fax #: [phone] documented in this encounter Plan of Treatment Upcoming Encounters Date Type Department Care Team (Late st Contact Info) Description 10/03/2024 2:15 PM EDT Office Visit [address] [phone] Ty Hager MD [address] [place] [address] 11/12/2024 1:30 PM EDT Office Visit Adult Medicine [address] [phone] Sinai Patel MD [address] [place] [address] documented as of this encounter Visit Diagnoses Not on filedocumented in this encounter Care Teams Foster Care Case Manager Relationship Specialty Start Date End Date Sinai Patel MD [address] [place] [address] PCP - General 07/27/22 documented as of this encounter
--- OUTSIDE RECORDS SUMMARY | 2024-09-12 17:13 | XMS_ITS | Encounter Summary ---
Author Organization [employer] [facility] Address [address] [place] [address] Care Team Providers Care Flow Coordinator Name Role Phone Irene Armstrong MD Primary Care Provider U [facility] Jose Tidwell MD Primary Care Provider [phone] Sinai Patel MD Primary Care Provider + Rosemarie Young MD Unavailable [phone] Antonette King PA-C Unavailable [phone] Samson Ellis PA-C Unavailable [phone] Encounter Details Date Type Department Care Team Description 06/25/2021 Housekeeping Department Worker Report Medical Records [address] [place] [address] [facility] Social History Tobacco Use [...] on filedocumented in this encounter Care Teams Flow Coordinator Relationship Specialty Start Date End Date Irene Armstrong MD PCP - General Internal Medicine 04/19/17 Jose Tidwell MD PCP - General Internal Medicine 05/26/22 07/26/22 Sinai Patel MD [address] [place] [address] PCP - General Internal Medicine 07/27/22 Rosemarie Young MD [address] [address] Surgeon Neurosurgery 07/27/23 Antonette King PA-C [address] [address] Specialist Neurosurgery 07/27/23 Samson Ellis PA-C 175 [facility] [address] [place] [address] Specialist Neurosurgery 07/27/23 documented as of this encounter
--- OUTSIDE RECORDS SUMMARY | 2024-09-12 17:13 | XMS_ITS | Encounter Summary ---
Author Organization [facility] [facility] Address [address] [place] [address] Care Team Providers Care Communications Executive Name Role Phone Irene Armstrong MD Primary Care Provider U [facility] Jose Tidwell MD Primary Care Provider [phone] Sinai Patel MD Primary Care Provider + Rosemarie Young MD Unavailable [phone] Antonette King PA-C Unavailable [phone] Samson Ellis PA-C Unavailable [phone] Encounter Details Date Type Department Care Team Description 11/16/2021 Motor Vehicle Lecturer Report Medical Records [address] [place] [address] Bradley Segundo MD Social History Tobacco Use Types Packs/Day [...] on filedocumented in this encounter Care Teams Communications Executive Relationship Specialty Start Date End Date Irene Armstrong MD PCP - General Internal Medicine 04/19/17 Jose Tidwell MD PCP - General Internal Medicine 05/26/22 07/26/22 Sinai Patel MD [address] [place] [address] PCP - General Internal Medicine 07/27/22 Rosemarie Young MD [address] [address] Surgeon Neurosurgery 07/27/23 Antonette King PA-C [address] [address] Specialist Neurosurgery 07/27/23 Samson Ellis PA-C 175 [facility] [address] [place] [address] Specialist Neurosurgery 07/27/23 documented as of this encounter
--- OUTSIDE RECORDS SUMMARY | 2024-09-12 17:13 | XMS_ITS | Encounter Summary ---
Author Organization [employer] [facility] Address [address] [place] [address] Care Team Providers Care Loan Services Professional Name Role Phone Irene Armstrong MD Primary Care Provider U Jose Gao MD Primary Care Provider [phone] Sinai Patel MD Primary Care Provider + Rosemarie Young MD Unavailable [phone] Antonette King PA-C Unavailable [phone] Samson Ellis PA-C Unavailable [phone] Encounter Details Date Type Department Care Team Description 03/23/2020 Pt. Non Urgent Medical Question Adult Medicine B - [address] [address] Irene Armstrong MD Social History Tobacco Use [...] have Coronavirus / COVID-19? No / Unsure 03/24/2020 7:56 AM EST documented as of this encounter Plan of Treatment Not on file documented as of this encounter Visit Diagnoses Not on filedocumented in this encounter Care Teams Loan Services Professional Relationship Specialty Start Date End Date Irene Armstrong MD PCP - General Internal Medicine 04/19/17 Jose Tidwell MD PCP - General Internal Medicine 05/26/22 07/26/22 Sinai Patel MD [address] [place] [address] PCP - General Internal Medicine 07/27/22 Rosemarie Young MD [address] [address] Surgeon Neurosurgery 07/27/23 Antonette King PA-C [address] [address] Specialist Neurosurgery 07/27/23 Samson Ellis PA-C 175 [facility] [address] [place] [address] Specialist Neurosurgery 07/27/23 documented as of this encounter
--- OUTSIDE RECORDS SUMMARY | 2024-09-12 17:13 | XMS_ITS | Encounter Summary ---
Author Organization [facility] Address [address] [place] [address] Care Team Providers Care Cone Tender Name Role Phone Irene Armstrong MD Primary Care Provider U Jose Gao MD Primary Care Provider [phone] Sinai Patel MD Primary Care Provider + Rosemarie Young MD Unavailable [phone] Antonette King PA-C Unavailable [phone] Samson Ellis PA-C Unavailable [phone] Encounter Details Date Type Department Care Team Description 03/14/2020 Orders Only Medical Records [address] [place] [address] Urvashi Kimbrough MD [address] [place] [address] Social History Tobacco Use Types Packs/Day Years [...] have Coronavirus / COVID-19? No / Unsure 03/13/2020 1:29 PM EDT documented as of this encounter Progress Notes * Mary Kimbrough MD - 03/23/2020 4:36 PM EST Dear Destin, The polyp(s) that were removed during your colonoscopy were precancerous, but benign. Fortunately, we removed them and therefore, they will not cause any more problems in the future. Based on the number, the size, and the features of the polyp(s) removed, I recommend a follow-up colonoscopy in 5 years. Before, the 5 years are due, we will send you a reminder in the mail asking you to contact our office to have the colonoscopy scheduled. The esophagus biopsies which were taken during the time of your endoscopy show evidence of chronic inflammation. Please follow up in order to discuss these findings with the referring physician at [facility] gastroenterology clinic. I would like to personally thank you for allowing us to take care of you. Please don't hesitate to call us for any questions or concerns. Regards, Alejandro Kimbrough MD Board Certified Gastroenterology and Internal Medicine Transplant Hepatology [facility] documented in this encounter Plan of Treatment Not on file documented as of this encounter Procedures Procedure Name Priority Date/Time Associated Diagnosis Comments OUTSIDE PATHOLOGY Routine 03/12/2020 documented in this encounter Results * OUTSIDE PATHOLOGY (03/12/2020) Urvashi Kimbrough MD OUTSIDE LAB documented in this encounter Visit Diagnoses Not on filedocumented in this encounter Care Teams Cone Tender Relationship Specialty Start Date End Date Irene Armstrong MD PCP - General Internal Medicine 04/19/17 Jose Tidwell MD PCP - General Internal Medicine 05/26/22 07/26/22 Sinai Patel MD [address] [place] [address] PCP - General Internal Medicine 07/27/22 Rosemarie Young MD [address] [place] [address] Surgeon Neurosurgery 07/27/23 Antonette King PA-C [address] [address] Specialist Neurosurgery 07/27/23 Samson Ellis PA-C [address] [address] Specialist Neurosurgery 07/27/23 documented as of this encounter
--- OUTSIDE RECORDS SUMMARY | 2024-09-12 17:13 | XMS_ITS | Encounter Summary ---
Author Organization [facility] Address [address] [place] [address] Care Team Providers Care Bumper Machine Operator Name Role Phone Irene Armstrong MD Primary Care Provider U Jose Gao MD Primary Care Provider [phone] Sinai Patel MD Primary Care Provider + Rosemarie Young MD Unavailable [phone] Antonette King PA-C Unavailable [phone] Samson Ellis PA-C Unavailable [phone] Encounter Details Date Type Department Care Team Description 04/07/2020 [facility] - [address], [address] [place] [address] Irene Armstrong MD Social History Tobacco Use [...] PM EST documented as of this encounter Plan of Treatment Not on file documented as of this encounter Visit Diagnoses Not on filedocumented in this encounter Care Teams Bumper Machine Operator Relationship Specialty Start Date End Date Irene Armstrong MD PCP - General Internal Medicine 04/19/17 Jose Tidwell MD PCP - General Internal Medicine 05/26/22 07/26/22 Sinai Patel MD [address] [place] [address] PCP - General Internal Medicine 07/27/22 Rosemarie Young MD [address] [address] Surgeon Neurosurgery 07/27/23 Antonette King PA-C [address] [address] Specialist Neurosurgery 07/27/23 Samson Ellis PA-C 175 [facility] [address] [place] [address] Specialist Neurosurgery 07/27/23 documented as of this encounter
--- OUTSIDE RECORDS SUMMARY | 2024-09-12 17:13 | XMS_ITS | Encounter Summary ---
Author Organization [facility] Address [address] [place] [address] Care Team Providers Care Director Property Name Role Phone Irene Armstrong MD Primary Care Provider U Jose Gao MD Primary Care Provider [phone] Sinai Patel MD Primary Care Provider + Rosemarie Young MD Unavailable [phone] Antonette King PA-C Unavailable [phone] Samson Ellis PA-C Unavailable [phone] Reason for Visit * Reason Onset Date Comments Form 04/23/2019 PEX Card monas Encounter Details Date Type Department Care Team Description 04/23/2019 Telephone Endocrinology - [address] [address] Zachary Jaramilol MD Form ([employer]) Social History Tobacco Use Types Packs/Day Years [...] * Telephone Encounter - Fabian Francois - 04/23/2019 2:21 PM EST Tier 1 Performance is looking for a completed exception to coverage request sent back to documented in this encounter Plan of Treatment Not on file documented as of this encounter Visit Diagnoses Not on filedocumented in this encounter Care Teams Director Property Relationship Specialty Start Date End Date Irene Armstrong MD PCP - General Internal Medicine 04/19/17 Jose Tidwell MD PCP - General Internal Medicine 05/26/22 07/26/22 Sinai Patel MD [address] [place] [address] PCP - General Internal Medicine 07/27/22 Rosemarie Young MD [address] [address] Surgeon Neurosurgery 07/27/23 Antonette King PA-C [address] [address] Specialist Neurosurgery 07/27/23 Samson Ellis PA-C [address] [address] Specialist Neurosurgery 07/27/23 documented as of this encounter
--- OUTSIDE RECORDS SUMMARY | 2024-09-12 17:13 | XMS_ITS | Encounter Summary ---
Author Organization [facility] Address [address] [place] [address] Care Team Providers Care Aircraft Engine Dismantler Name Role Phone Irene Armstrong MD Primary Care Provider U Jose Gao MD Primary Care Provider [phone] Sinai Patel MD Primary Care Provider + Rosemarie Young MD Unavailable [phone] Antonette King PA-C Unavailable [phone] Samson Ellis PA-C Unavailable Reason for Visit * Reason Comments E-prescribe Rx Request Encounter Details Date Type Department Care Team Description 06/29/2021 Refill Adult Medicine B - [address] [address] Rosemarie Thomas PA-C [address] [place] [address] E-prescribe Rx Request Social History Tobacco Use [...] Miscellaneous Notes * Telephone Encounter - Rose Dean [facility] - 06/29/2021 3:54 PM EST Called [facility] c[facility] and stated that we do not see pt for endo anymore he goes outside of [facility] * Telephone Encounter - Rosemarie Thomas PA-C - 06/29/2021 3:23 PM EST Please double check with this patient. He is not my patient anymore as far as I know I referred himto see outside senior sql server developer. I am not going to be refilling medications. He should see his regular new senior sql server developer. * Telephone Encounter - Susan Cristobal M.A. - 06/29/2021 3:00 PM EST Date of last office visit was 12/23/20 Lab Results Component Value Date HGBA1C 7.3 02/11/2021 MALBUR 25.7 11/04/2020 MALBCR 18.3 11/04/2020 CHOL 135 11/04/2020 LDL 45 11/04/2020 HDL 42 11/04/2020 TRIG 243 11/04/2020 GLU 194 02/11/2021 CREAT 0.89 02/11/2021 * Telephone Encounter - Torie Garcia - 06/29/2021 11:28 AM EST Patient would like script to be: E-PRESCRIBED/FAXED TO PHARMACY WHEN WAS THE PATIENT'S LAST APPOINTMENT IN ADULT MEDICINE? 03/19/21 WHEN WAS THE LAST TIME THE PATIENT SAW THEIR PCP? 12/26/20 Does patient have an upcoming appointment? Sent my chart (THE MEDICATION REQUESTED IS ON THE MED [...] N/A Patients current insurance carrier is: Payor: [facility] / Plan: [facility] / Product Type: HMO [id number] documented in this encounter Plan of Treatment Not on file documented as of this encounter Visit Diagnoses Not on filedocumented in this encounter Care Teams Aircraft Engine Dismantler Relationship Specialty Start Date End Date Irene Armstrong MD PCP - General Internal Medicine 04/19/17 Jose Tidwell MD PCP - General Internal Medicine 05/26/22 07/26/22 Sinai Patel MD [address] [place] [address] PCP - General Internal Medicine 07/27/22 Rosemarie Young MD [address] [address] Surgeon Neurosurgery 07/27/23 Antonette King PA-C [address] [address] Specialist Neurosurgery 07/27/23 Samson Ellis PA-C [address] [address] Specialist Neurosurgery 07/27/23 documented as of this encounter
--- OUTSIDE RECORDS SUMMARY | 2024-09-12 17:13 | XMS_ITS | Encounter Summary ---
Author Organization [facility] Address [address] [place] [address] Care Team Providers Care Shell Sorter Name Role Phone Irene Armstrong MD Primary Care Provider U Jose Gao MD Primary Care Provider [phone] Sinai Patel MD Primary Care Provider + Rosemarie Young MD Unavailable [phone] Antonette King PA-C Unavailable [phone] Samson Ellis PA-C Unavailable [phone] Reason for Visit * Reason Comments E-prescribe Rx Request Encounter Details Date Type Department Care Team Description 07/15/2021 Refill Walk In [facility] [address] [place] [address] Celeste Resendez PA-C E-prescribe Rx Request Social History Tobacco [...] * Telephone Encounter - Mildred Doyle - 07/15/2021 1:40 PM EST Last office visit 12/23/20 with endo Lab Results Component Value Date HGBA1C 7.3 02/11/2021 MALBUR 25.7 11/04/2020 MALBCR 18.3 11/04/2020 CHOL 135 11/04/2020 LDL 45 11/04/2020 HDL 42 11/04/2020 TRIG 243 11/04/2020 GLU 194 02/11/2021 CREAT 0.89 02/11/2021 * Telephone Encounter - Torie Jose - 07/15/2021 12:08 PM EST Patient would like script to be: E-PRESCRIBED/FAXED TO PHARMACY WHEN WAS THE PATIENT'S LAST APPOINTMENT IN ADULT MEDICINE? 02-27-21 WHEN WAS THE LAST TIME THE PATIENT SAW THEIR PCP? 12-26-20 Does patient have an upcoming appointment? Yes 07-29-21 (THE MEDICATION REQUESTED IS ON THE MED [...] N/A Patients current insurance carrier is: Payor: [employer] [facility] MCR / Plan: 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
--- OUTSIDE RECORDS SUMMARY | 2024-09-12 17:13 | XMS_ITS | Encounter Summary ---
Author Organization [facility] Address [address] [place] [address] Care Team Providers Care Performance Manager Name Role Phone Irene Armstrong MD Primary Care Provider U Jose Gao MD Primary Care Provider [phone] Sinai Patel MD Primary Care Provider + Rosemarie Young MD Unavailable [phone] Antonette King PA-C Unavailable [phone] Samson Ellis PA-C Unavailable [phone] Reason for Visit * Reason Comments E-prescribe Rx Request Encounter Details Date Type Department Care Team Description 07/15/2021 Refill Gastroenterology - [address] [place] [id number] Brandon Aguilar PA-C E-prescribe Rx Request [...] Telephone Encounter - Irma Arvizu M.A. - 07/15/2021 11:44 AM EST Last telehealth visit 08/01/2020 documented in this encounter Plan of Treatment Not on file documented as of this encounter Visit Diagnoses Not on filedocumented in this encounter Care Teams Performance Manager Relationship Specialty Start Date End Date Irene Armstrong MD PCP - General Internal Medicine 04/19/17 Jose Tidwell MD PCP - General Internal Medicine 05/26/22 07/26/22 Sinai Patel MD [address] [place] [address] PCP - General Internal Medicine 07/27/22 Rosemarie Young MD [address] [address] Surgeon Neurosurgery 07/27/23 Antonette King PA-C [address] [address] Specialist Neurosurgery 07/27/23 Samson Ellis PA-C [address] [address] Specialist Neurosurgery 07/27/23 documented as of this encounter
--- OUTSIDE RECORDS SUMMARY | 2024-09-12 17:13 | XMS_ITS | Encounter Summary ---
Author Organization [facility] Address [address] [place] [address] Care Team Providers Care Tray Line Supervisor Name Role Phone Irene Armstrong MD Primary Care Provider [facility] MD Primary Care Provider [phone] Sinai Patel MD Primary Care Provider + Rosemarie Young MD Unavailable [phone] Antonette King PA-C Unavailable [phone] Samson Ellis PA-C Unavailable [phone] Encounter Details Date Type Department Care Team Description 07/10/2021 Certified Dietary Manager Report Medical Records [address] [place] [id number] [place] [address] Social History Tobacco Use Types Packs/Day [...] on filedocumented in this encounter Care Teams Tray Line Supervisor Relationship Specialty Start Date End Date Irene Armstrong MD PCP - General Internal Medicine 04/19/17 Jose Tidwell MD PCP - General Internal Medicine 05/26/22 07/26/22 Sinai Patel MD [address] [place] [address] PCP - General Internal Medicine 07/27/22 Roseamrie Young MD 175 [facility] [address] [place] [address] Surgeon Neurosurgery 07/27/23 Antonette King PA-C 175 [facility] [address] [place] [address] Specialist Neurosurgery 07/27/23 Samson Ellis PA-C 175 [facility] [address] [place] [address] Specialist Neurosurgery 07/27/23 documented as of this encounter
--- OUTSIDE RECORDS SUMMARY | 2024-09-12 17:13 | XMS_ITS | Encounter Summary ---
Author Organization [facility] Address [address] [place] [address] Care Team Providers Care Product Specialist Name Role Phone Irene Armstrong MD Primary Care Provider U Jose Gao MD Primary Care Provider [phone] Sinai Patel MD Primary Care Provider + Rosemarie Young MD Unavailable [phone] Antonette King PA-C Unavailable [phone] Samson Ellis PA-C Unavailable [phone] Encounter Details Date Type Department Care Team Description 05/28/2020 Pt. Non Urgent Medical Question Adult Urgent Care - [address] [address] Zachary Jaramillo MD Social History Tobacco Use [...] have Coronavirus / COVID-19? No / Unsure 05/14/2020 10:05 AM EST documented as of this encounter Progress Notes * Marla Yarbrough M.A. - 05/28/2020 9:17 AM ESTFrom: Destin Layton To: Zachary Jaramillo MD Sent: 05/28/2020 9:02 AM EST Subject: Blood sugar His blood sugar are still high, I tried to call the office but no one ever answers documented in this encounter Plan of Treatment Not on file documented as of this encounter Visit Diagnoses Not on filedocumented in this encounter Care Teams Product Specialist Relationship Specialty Start Date End Date Irene Armstrong MD PCP - General Internal Medicine 04/19/17 Jose Tidwell MD PCP - General Internal Medicine 05/26/22 07/26/22 Sinai Patel MD [address] [place] [address] PCP - General Internal Medicine 07/27/22 Rosemarie Young MD [address] [address] Surgeon Neurosurgery 07/27/23 Antonette King PA-C [address] [address] Specialist Neurosurgery 07/27/23 Samson Ellis PA-C [address] [address] Specialist Neurosurgery 07/27/23 documented as of this encounter
--- OUTSIDE RECORDS SUMMARY | 2024-09-12 17:13 | XMS_ITS | Encounter Summary ---
Author Organization [facility] [facility] Address [address] [place] [address] Care Team Providers Care Field Scout Name Role Phone Irene Armstrong MD Primary Care Provider U [facility] Jose Tidwell MD Primary Care Provider [phone] Sinai Patel MD Primary Care Provider + Rosemarie Young MD Unavailable [phone] Antonette King PA-C Unavailable [phone] Samson Ellis PA-C Unavailable [phone] Encounter Details Date Type Department Care Team Description 04/04/2019 Orders Only Adult Medicine B - [address] [address] Zachary Jaramillo MD Social History Tobacco Use [...] filedocumented in this encounter Care Teams Field Scout Relationship Specialty Start Date End Date Irene Armstrong MD PCP - General Internal Medicine 04/19/17 Jose Tidwell MD PCP - General Internal Medicine 05/26/22 07/26/22 Sinai Patel MD [address] [place] [address] PCP - General Internal Medicine 07/27/22 Rosemarie Young MD [address] [address] Surgeon Neurosurgery 07/27/23 Antonette King PA-C [address] [address] Specialist Neurosurgery 07/27/23 Samson Ellis PA-C [address] [address] Specialist Neurosurgery 07/27/23 documented as of this encounter
--- OUTSIDE RECORDS SUMMARY | 2024-09-12 17:13 | XMS_ITS | Encounter Summary ---
Author Organization [facility] Address [address] [place] [address] Care Team Providers Care Chief Hospital Administrator Name Role Phone Irene Armstrong MD Primary Care Provider U Jose Gao MD Primary Care Provider [phone] Sinai Patel MD Primary Care Provider + Rosemarie Young MD Unavailable [phone] Antonette King PA-C Unavailable [phone] Samson Ellis PA-C Unavailable [phone] Reason for Visit * Reason Onset Date Comments Information Needed 04/21/2020 Encounter Details Date Type Department Care Team Description 04/21/2020 Telephone Endocrinology - [address] [address] Zachary Jaramillo MD Information Needed Social History Tobacco Use Types Packs/Day Years [...] have Coronavirus / COVID-19? Unable to assess 04/21/2020 8:24 AM EST documented as of this encounter Miscellaneous Notes * Telephone Encounter - Zachary Jaramillo MD - 04/21/2020 9:01 PM EST Spoke with patient's Yessi Pickens, sugars were coming around and morning sugars varied between 130 and 215 the rest of the days in the 1 40-1 60 range. He has not new positive insulin I text messaged Mr. Simon Gracia to help arrange training for him * Telephone Encounter - Antonette Henry M.A. - 04/21/2020 1:14 PM EST Spoke with pt's Shanda, states she spoke with Dr Jaramillo on 04/16 and she was asked to call today with glucose readings. Declined to give me this information. She is aware Dr Jaramillo is out of the office this afternoon and will not return until tomorrow. She is asking for a call back tomorrow morning. She states she will be in the building with her daughter tomorrow as well. I informed her Dr Jaramillo is not able to meet with her in person because he has a full schedule of patients. She verbalizes understanding. Please call Shanda () [phone] * Telephone Encounter - Mannie Bass - 04/21/2020 10:37 AM EST Information Needed Who is calling: Other spouse Information being requested? Was told to call and leave a message for Dr. Jaramillo so Dr. Jaramillo can callpatient back with blood sugar levels. If information is regarding a referral and notes are needed- transfer call to HIM department If other information is needed, was an NOVA signed? YES How is the information to be communicated back to the caller? documented in this encounter Plan of Treatment Not on file documented as of this encounter Visit Diagnoses Not on filedocumented in this encounter Care Teams Chief Hospital Administrator Relationship Specialty Start Date End Date Irene Armstrong MD PCP - General Internal Medicine 04/19/17 Jose Tidwell MD PCP - General Internal Medicine 05/26/22 07/26/22 Sinai Patel MD [address] [place] [address] PCP - General Internal Medicine 07/27/22 Rosemarie Young MD [address] [id number] Surgeon Neurosurgery 07/27/23 Antonette King PA-C [address] [address] Specialist Neurosurgery 07/27/23 Samson Ellis PA-C 175 [facility] [address] [place] [address] Specialist Neurosurgery 07/27/23 documented as of this encounter
--- OUTSIDE RECORDS SUMMARY | 2024-09-12 17:13 | XMS_ITS | Encounter Summary ---
Author Organization [facility] Address [address] [place] [address] Care Team Providers Care Window Trimmer Name Role Phone Irene Armstrong MD Primary Care Provider U Jose Gao MD Primary Care Provider [phone] Sinai Patel MD Primary Care Provider + Rosemarie Young MD Unavailable [phone] Antonette King PA-C Unavailable [phone] Samson Ellis PA-C Unavailable [phone] Encounter Details Date Type Department Care Team Description 05/28/2020 Pt. Non Urgent Medical Question Adult Urgent Care - [address] [address] Zachary Jaramillo MD Social History Tobacco Use [...] as of this encounter Progress Notes * Susan Cristobal M.A. - 05/28/2020 1:07 PM ESTFrom: Destin Layton To: Zachary Jaramillo MD Sent: 05/28/2020 12:00 PM EST Subject: Blood sugar Today 05/28/20 8:31 189 9:59 140 10:59 112 Tuesday05/27/20 12:14 126 12:24 121 12:54 115 3:45 90 4:42 127 5:26 158 7:23 168 8:42 214 9:33 229 10:23 266 11:20 197 Tuesday05/26/20 9:12 228 1:02 197 2:50 154 7:33 170 9:38 169 documented in this encounter Plan of Treatment Not on file documented as of this encounter Visit Diagnoses Not on filedocumented in this encounter Care Teams Window Trimmer Relationship Specialty Start Date End Date Irene Armstrong MD PCP - General Internal Medicine 04/19/17 Jose Tidwell MD PCP - General Internal Medicine 05/26/22 07/26/22 Sinai Patel MD [address] [place] [address] PCP - General Internal Medicine 07/27/22 Rosemarie Young MD [address] [address] Surgeon Neurosurgery 07/27/23 Antonette King PA-C [address] [address] Specialist Neurosurgery 07/27/23 Samson Ellis PA-C [address] [address] Specialist Neurosurgery 07/27/23 documented as of this encounter
--- OUTSIDE RECORDS SUMMARY | 2024-09-12 17:13 | XMS_ITS | Encounter Summary ---
Author Organization [facility] Address [address] [place] [address] Care Team Providers Care Community Sports Coordinator Name Role Phone Irene Armstrong MD Primary Care Provider U Irene Tanner MD Primary Care Provider U Jose Gao MD Primary Care Provider [phone] Sinai Patel MD Primary Care Provider + Rosemarie Young MD Unavailable [phone] Antonette King PA-C Unavailable [phone] Samson Ellis PA-C Unavailable [phone] Reason for Referral * EXTERNAL (Routine) - Authorized/Booked Specialty Diagnoses / Procedures Referred By Contac t Referred To Contact Neurology Procedures REFERRAL TO NEUROLOGY Zachary Jaramillo MD [address] [place] [address] Refugio Lin MD Referral ID Status Reason Start Date Expiration Date V isits Requested Visits Authorized SEE NOTE Authorized/B ooked 02/13/2016 05/14/2016 1 1 Reason for Visit * Reason Onset Date Comments Water Supervisor Feedback 02/13/2016 DR.Emilio Jessica garza Encounter Details Date Type Department Care Team Description 02/13/2016 Telephone Adult Medicine - [address] [address] Zachary Jaramillo MD Water Supervisor Feedback (DR.Emilio Manrique) Social History Tobacco Use Types Packs/Day Years [...] encounter Miscellaneous Notes * Telephone Encounter - Valeria Abdiows - 02/13/2016 11:32 AM EDT Please review this patients new referral request. The referral has been pended. Please complete thefollowing: If approved> sign order If denied>please give instructions and route to your practice nursing pool. Practice nurse should inform referrals and the patient if denied. * Telephone Encounter - Brandy Michelleer - 02/13/2016 11:02 AM EDT What insurance does the patient have today? [employer] be healthy Effective 02/20/09: [employer]BS will not retro referral [...] insurance must be obtained and registered in [facility] or their referral can not be processed. Is this a retro request? YES. If yes for what date of service do you need the retro referral? N/A Who is calling to request this referral? If the caller is not the patient, what is their name?Shanda Ask the patient WHO referred them to this specialty: Patient self referred FIRST and LAST NAME of SPECIALIST PATIENT is seeing: DR.Emilio Manrique What specialty is this? neurology DIAGNOSIS Patient is being seen for (Not a body part or a procedure): dementia Have you seen this SPECIALIST for this PROBLEM/DX before?NO If YES, when:n/a Have you checked REVIEW or the APPT DESK to see if this referral has already been done or has visits left? NO Is this visit:Initial Visit Address of Specialist:[address] [place] [address] [address], [place] [address] Phone # of Specialist:[phone] Fax #: (if applicable):n/a Does patient have an appointment scheduled?: TBD Date of appointment- (including a retro-request): n/a Is this appointment related to: Not MVA, WC or Surgery related documented in this encounter Plan of Treatment Not on file documented as of this encounter Visit Diagnoses Not on filedocumented in this encounter Care Teams Community Sports Coordinator Relationship Specialty Start Date End Date Irene Armstrong MD PCP - General Internal Medicine 04/19/17 Irene Armstrong MD PCP - General 03/07/15 Jose Tidwell MD PCP - General Internal Medicine 05/26/22 07/26/22 Sinai Patel MD [address] [place] [address] PCP - General Internal Medicine 07/27/22 Rosemarie Young MD [address] [address] Surgeon Neurosurgery 07/27/23 Antonette King PA-C [address] [address] Specialist Neurosurgery 07/27/23 Samson Ellis PA-C [address] [address] Specialist Neurosurgery 07/27/23 documented as of this encounter
--- OUTSIDE RECORDS SUMMARY | 2024-09-12 17:13 | XMS_ITS | Encounter Summary ---
Author Organization [facility] Address [address] [place] [address] Care Team Providers Care Director Of Market Research Name Role Phone Irene Armstrong MD Primary Care Provider U Jose Gao MD Primary Care Provider [phone] Sinai Patel MD Primary Care Provider + Rosemarie Young MD Unavailable [phone] Antonette King PA-C Unavailable [phone] Samson Ellis PA-C Unavailable [phone] Encounter Details Date Type Department Care Team Description 03/11/2020 Orders Only Adult Medicine B - [address] [address] Zachary Jaramillo MD Social History Tobacco Use [...] filedocumented in this encounter Care Teams Director Of Market Research Relationship Specialty Start Date End Date Irene Armstrong MD PCP - General Internal Medicine 04/19/17 Jose Tidwell MD PCP - General Internal Medicine 05/26/22 07/26/22 Sinai Patel MD [address] [place] [address] PCP - General Internal Medicine 07/27/22 Rosemarie Young MD [address] [address] Surgeon Neurosurgery 07/27/23 Antonette King PA-C [address] [address] Specialist Neurosurgery 07/27/23 Samson Ellis PA-C 175 [facility] [address] [place] [address] Specialist Neurosurgery 07/27/23 documented as of this encounter
--- OUTSIDE RECORDS SUMMARY | 2024-09-12 17:13 | XMS_ITS | Encounter Summary ---
Author Organization [facility] Address [address] [place] [address] Care Team Providers Care Backend Developer Name Role Phone Irene Armstrong MD Primary Care Provider U Irene Tanner MD Primary Care Provider U Jose Gao MD Primary Care Provider [phone] Sinai Patel MD Primary Care Provider + Rosemarie Young MD Unavailable [phone] Antonette King PA-C Unavailable [phone] Samson Ellis PA-C Unavailable [phone] Reason for Referral * EXTERNAL (Routine) - Authorized/Booked Specialty Diagnoses / Procedures Referred By Contjavier t Referred To Contact Neurology Procedures REFERRAL TO NEUROLOGY Rosemarie Thomas PA-C [address] [place] [address] Hong Pelayo MD Referral ID Status Reason Start Date Expiration Date V isits Requested Visits Authorized SEE NOTE Authorized/B ooked 01/30/2016 06/02/2016 1 1 Reason for Visit * Reason Onset Date Comments TEST RESULTS 01/29/2016 Encounter Details Date Type Department Care Team Description 01/29/2016 Telephone Adult Medicine - [address] [address] Zachary Jaramillo MD TEST RESULTS Social History Tobacco Use Types Packs/Day Years [...] Telephone Encounter - Rosemarie Thomas PA-C - 01/30/2016 3:41 PM EDT Spoke to patient about results. Patient wants to see a new neurologist for a second opinion because she states he does not address her 's memory loss and has not given her a reason for it. I did order a new referral for neurology. * Telephone Encounter - Lisa Reid L.P.N. - 01/29/2016 10:19 AM EDT Pts would like to further discuss MRI when you have a chance ,she did read the my chart message. * Telephone Encounter - Shanti Witt - 01/29/2016 10:02 AM EDT Caller requesting call back from provider: Is the caller the patient? NO If caller is not the patient, what is the callers name? [place] Callers relationship to patient? If person calling is not the patient themselves, is there a verbal release in FYI or permanent comments for this person: YES Reason for call back: She has the resulta of the brain and has a few questions that she would like to discuss with doctor. Caller offered to speak with the nurse for assistance: YES Response: Patient offered to speak with nurse for assistance and patient prefers Dr. Jaramillo. documented in this encounter Plan of Treatment Not on file documented as of this encounter Visit Diagnoses Not on filedocumented in this encounter Care Teams Backend Developer Relationship Specialty Start Date End Date Irene Armstrong MD PCP - General Internal Medicine 04/19/17 Irene Armstrong MD PCP - General 03/07/15 Jose Tidwell MD PCP - General Internal Medicine 05/26/22 07/26/22 Sinai Patel MD [address] [place] [address] PCP - General Internal Medicine 07/27/22 Rosemarie Young MD [address] [address] Surgeon Neurosurgery 07/27/23 Antonette King PA-C [address] [address] Specialist Neurosurgery 07/27/23 Samson Ellis PA-C 175 [facility] [address] [place] [address] Specialist Neurosurgery 07/27/23 documented as of this encounter
--- OUTSIDE RECORDS SUMMARY | 2024-09-12 17:13 | XMS_ITS | Encounter Summary ---
Author Organization [facility] Address [address] [place] [address] Care Team Providers Care Land Clearer Name Role Phone Irene Armstrong MD Primary Care Provider U Jose Gao MD Primary Care Provider [phone] Sinai Patel MD Primary Care Provider + Rosemarie Young MD Unavailable [phone] Antonette King PA-C Unavailable [phone] Samson Ellis PA-C Unavailable [phone] Reason for Visit * Reason Onset Date Comments Provider Call Back 07/20/2018 Encounter Details Date Type Department Care Team Description 07/20/2018 Telephone Endocrinology - [address] [address] Zachary Jaramillo MD Provider Call Back Social History Tobacco [...] Telephone Encounter - Zachary Jaramillo MD - 07/20/2018 8:37 PM EST Yes please. ordered * Telephone Encounter - Landy Doyle - 07/20/2018 9:[address] Jaramillo, would like patient to have A1C? prior to OV with you on 08.10.2018. Order pended. * Telephone Encounter - Maria Del Rosario Howe - 07/20/2018 9:32 AM EST Caller requesting call back from provider: Is the caller the patient? NO If caller is not the patient, what is the callers name? Shanda Callers relationship to patient? If person calling is not the patient themselves, is there a verbal release in FYI or permanent comments for this person: YES Reason for call back: Pt's called she would like to know if her the Pt needs to have any labs done before his appt with Dr. Jaramillo on 08/10/18. If he does she would like a call back with the orders. Caller offered to speak with the nurse for assistance: YES Response: Patient offered to speak with nurse for assistance and patient agreed. Message forwarded to nurse. documented in this encounter Plan of Treatment Not on file documented as of this encounter Results * (ABNORMAL) HEMOGLOBIN A1C (09/06/2018 8:24 AM EDT) GLYCATED HEMOGLOBIN A1C 9.2(H) <6.5 % 09/06/2018 1:16 PM EDT [facility] ESTIMATED AVERAGE GLUCOSE 217 mg/dL 09/06/2018 1:16 PM EDT [facility] 09/06/2018 8:24 AM EDT 09/06/2018 8:25 AM EDT Zachary Jaramillo MD LAB [facility] [employer] documented in this encounter Visit Diagnoses Diagnosis Diabetic nephropathy associated with type 2 diabetes mellitus (HCC)- Primary documented in this encounter Care Teams Land Clearer Relationship Specialty Start Date End Date Irene Armstrong MD PCP - General Internal Medicine 04/19/17 Jose Tidwell MD PCP - General Internal Medicine 05/26/22 07/26/22 Sinai Patel MD [address] [place] [address] PCP - General Internal Medicine 07/27/22 Rosemarie Young MD [address] [address] Surgeon Neurosurgery 07/27/23 Antonette King PA-C [address] [address] Specialist Neurosurgery 07/27/23 Samson Ellis PA-C [address] [address] Specialist Neurosurgery 07/27/23 documented as of this encounter
--- OUTSIDE RECORDS SUMMARY | 2024-09-12 17:13 | XMS_ITS | Encounter Summary ---
Author Organization [facility] Address [address] [place] [address] Care Team Providers Care Summer Babysitter Name Role Phone Irene Armstrong MD Primary Care Provider U Jose Gao MD Primary Care Provider [phone] Sinai Patel MD Primary Care Provider + Rosemarie Young MD Unavailable [phone] Antonette King PA-C Unavailable [phone] Samson Ellis PA-C Unavailable [phone] Encounter Details Date Type Department Care Team Description 09/11/2018 Orders Only Adult Medicine B - [address] [address] Irene Armstrong MD Vitamin B12 deficiency disease (Primary Dx) Social History Tobacco Use Types [...] Type Priority Associated Diagnoses Orde r Schedule VITAMIN B12 INJECTION Other Routine Vitamin B12 deficiency disease 6 Occurrences starting 09/11/2018 until 03/30/2019 A THERAPEUTIC PROPHYLACTIC/DX INJECTION SUBQ/IM Immunizations/I njection Routine Vitamin B12 deficiency disease 6 Occurrences starting 09/11/2018 until 09/11/2019 VITAMIN B12 INJECTION Other Routine Vitamin B12 deficiency disease 6 Occurrences starting 09/11/2018 until 03/30/2019, 1 completed documented as of this encounter Visit Diagnoses Diagnosis Vitamin B12 deficiency disease- Primary Other B-complex deficiencies documented in this encounter Care Teams Summer Babysitter Relationship Specialty Start Date End Date Irene Armstrong MD PCP - General Internal Medicine 04/19/17 Jose Tidwell MD PCP - General Internal Medicine 05/26/22 07/26/22 Sinai Patel MD [address] [place] [address] PCP - General Internal Medicine 07/27/22 Rosemarie Young MD [address] [address] Surgeon Neurosurgery 07/27/23 Antonette King PA-C [address] [address] Specialist Neurosurgery 07/27/23 Samson Ellis PA-C [address] [address] Specialist Neurosurgery 07/27/23 documented as of this encounter
--- OUTSIDE RECORDS SUMMARY | 2024-09-12 17:13 | XMS_ITS | Encounter Summary ---
Author Organization [employer] [facility] Address [address] [place] [address] Care Team Providers Care Research Agricultural Engineer Name Role Phone Irene Armstrong MD Primary Care Provider U Jose Gao MD Primary Care Provider [phone] Sinai Patel MD Primary Care Provider + Rosemarie Young MD Unavailable [phone] Antonette King PA-C Unavailable [phone] Samson Ellis PA-C Unavailable [phone] Reason for Visit * Reason Comments E-prescribe Rx Request Encounter Details Date Type Department Care Team Description 06/29/2018 Refill Cardiology - [address] [address] Zachary Jaramillo MD E-prescribe Rx Request Social [...] Telephone Encounter - Susan Cristobal M.A. - 06/29/2018 10:57 AM EST Date of last office visit was 04/20/18 Lab Results Component Value Date HGBA1C 8.4 04/20/2018 MALBUR 81.3 04/20/2018 MALBCR 41.2 04/20/2018 CHOL 162 04/20/2018 LDL 79 04/20/2018 HDL 39 04/20/2018 TRIG 221 04/20/2018 GLU 199 04/20/2018 CREAT 0.9 04/20/2018 * Telephone Encounter - Anastaciaphill Munizyokasta - 06/29/2018 8:25 AM EST Patient would like script to be: E-PRESCRIBED/FAXED TO PHARMACY WHEN WAS THE PATIENT'S LAST APPOINTMENT IN ADULT MEDICINE? 04/20/18 WHEN WAS THE LAST TIME THE PATIENT SAW THEIR PCP? Same as above Does patient have an upcoming appointment? no [...] N/A Patients current insurance carrier is: Payor: [employer] FFS / Plan: [employer] / Product Type: MEDICAID RISK documented in this encounter Plan of Treatment Not on file documented as of this encounter Visit Diagnoses Not on filedocumented in this encounter Care Teams Research Agricultural Engineer Relationship Specialty Start Date End Date Irene Armstrong MD PCP - General Internal Medicine 04/19/17 Jose Tidwell MD PCP - General Internal Medicine 05/26/22 07/26/22 Sinai Patel MD [address] [place] [address] PCP - General Internal Medicine 07/27/22 Rosemarie Young MD [address] [address] Surgeon Neurosurgery 07/27/23 Antonette King PA-C [address] [address] Specialist Neurosurgery 07/27/23 Samson Ellis PA-C [address] [address] Specialist Neurosurgery 07/27/23 documented as of this encounter
--- OUTSIDE RECORDS SUMMARY | 2024-09-12 17:14 | XMS_ITS | Encounter Summary ---
Author Organization [employer] [facility] Address [address] [place] [address] Care Team Providers Care Shift Superintendent Caustic Cresylate Name Role Phone Irene Armstrong MD Primary Care Provider U Jose Gao MD Primary Care Provider [phone] Siani Patel MD Primary Care Provider + Rosemarie Young MD Unavailable [phone] Antonette King PA-C Unavailable [phone] Samson Ellis PA-C Unavailable [phone] Reason for Visit * Reason Onset Date Comments Faxed Refill 09/12/2020 Encounter Details Date Type Department Care Team Description 09/12/2020 Refill Adult Medicine - [address] [address] Irene Armstrong MD Faxed Refill Social History Tobacco Use Types Packs/Day [...] have Coronavirus / COVID-19? No / Unsure 08/14/2020 10:55 AM EDT documented as of this encounter Miscellaneous Notes * Telephone Encounter - Irene Logan MD - 09/12/2020 4:50 PM EDT Signed, thank you * Telephone Encounter - Susan Cristobal M.A. - 09/12/2020 4:13 PM EDT Date of last office visit was 04/02/20. Pended appt for 09/24/20 Lab Results Component Value Date NA 135 04/02/2020 K 4.3 04/02/2020 CO2 26 04/02/2020 CL 102 04/02/2020 BUN 10 04/02/2020 CREAT 0.90 04/02/2020 GLU 129 04/02/2020 CA 9.8 04/02/2020 GFR > 60 04/02/2020 Lab Results Component Value Date HGBA1C 8.0 04/02/2020 MALBUR 25.0 04/04/2020 MALBCR 21.3 04/04/2020 CHOL 133 11/29/2019 LDL 48 11/29/2019 HDL 37 11/29/2019 TRIG 243 11/29/2019 GLU 129 04/02/2020 CREAT 0.90 04/02/2020 * Telephone Encounter - Torie Garcia - 09/12/2020 4:07 PM EDT Patient would like script to be: E-PRESCRIBED/FAXED TO PHARMACY WHEN WAS THE PATIENT'S LAST APPOINTMENT IN ADULT MEDICINE? 04/02/20 WHEN WAS THE LAST TIME THE PATIENT SAW THEIR PCP? Same as above Does patient have an upcoming appointment? Yes 09/24/20 (THE MEDICATION REQUESTED IS ON THE MED [...] N/A Patients current insurance carrier is: Payor: [facility] MCR / Plan: [facility] / Product Type: HMO [id number] documented in this encounter Plan of Treatment Not on file documented as of this encounter Visit Diagnoses Not on filedocumented in this encounter Care Teams Shift Superintendent Caustic Cresylate Relationship Specialty Start Date End Date Irene Armstrong MD PCP - General Internal Medicine 04/19/17 Jose Tidwell MD PCP - General Internal Medicine 05/26/22 07/26/22 Sinia Patel MD [address] [place] [address] PCP - General Internal Medicine 07/27/22 Rosemarie Young MD [address] [address] Surgeon Neurosurgery 07/27/23 Antonette King PA-C [address] [address] Specialist Neurosurgery 07/27/23 Samson Ellis PA-C [address] [address] Specialist Neurosurgery 07/27/23 documented as of this encounter
--- OUTSIDE RECORDS SUMMARY | 2024-09-12 17:14 | XMS_ITS | Encounter Summary ---
Author Organization [facility] Address [address] [place] [address] Care Team Providers Care Gas Adjuster Name Role Phone Sinai Patel MD Primary Care Pr ovider Reason for Referral * Imaging (Routine) - Pending Review Specialty Diagnoses / Procedures Referred By Wendie nick Referred To Contact Radiology Diagnoses Right upper quadrant abdominal pain Procedures US Abdomen Limited US Abdomen Complete Sinai Patel MD [address] [place] [address] Phone: tel: fax: [address] Phone: tel: Referral ID Status Reason Start Date Expiration Date V isits Requested Visits Authorized [id number] Pending Review 08/17/2024 08/17/2025 1 1 Reason for Visit * Imaging (Routine) - Pending Review Specialty Diagnoses / Procedures Referred By Wendie nick Referred To Contact Radiology Diagnoses Right upper quadrant abdominal pain Procedures US Abdomen Limited US Abdomen Complete Sinai Patel MD [address] [place] [address] Phone: tel: fax: [facility] [address] Phone: tel: Referral ID Status Reason Start Date Expiration Date V isits Requested Visits Authorized [id number] Pending Review 08/17/2024 08/17/2025 1 1 Encounter Details Date Type Department Care Team (Latest Contact Info) Description 09/11/2024 7:51 AM EDT - 09/11/2024 11:59 PM EDT Hospital Encounter Radiology Department - [address] [phone] Right upper quadrant abdominal pain Discharge Disposition: Home or Self Care Social History Tobacco Use Types Packs/Day Years [...] PM EDT documented as of this encounter Medications at Time of Discharge acetaminophen (TYLENOL) 500 mg tablet TAKE 1 TABLET BY MOUTH EVERY 6 HOURS NEEDED FOR PAIN 120 tablet 3 5 albuterol HFA (Ventolin HFA) 90 mcg/actuation inhaler Inhale 2 Puffs into the lungs every 6 hours as needed for Cough, Wheezing or Shortness of Breath (chest tightness). 4 alcohol swabs pads, medicated Apply 1 Packet topically at bedtime. 3 arformoteroL (BROVANA) 15 mcg/2 mL nebulizer solution Take 2 mL by nebulization 2 times daily. COPD J44.9 4 arm brace misc Elastic Bandages & Supports (Wrist Brace Deluxe) Misc 1 Each by Does not apply route at bedtime. - Does not apply 4 aspirin 81 mg EC tabletIndications:M ixed hyperlipidemia,Prim marisa hypertension Take 1 tablet (81 mg total) by mouth 1 (one) time each day. 90 tablet 1 5 atorvastatin (LIPITOR) 40 mg tabletIndications:M ixed hyperlipidemia Take 1 tablet (40 mg total) by mouth 1 (one) time each day. 90 each 1 5 02/14/20 25 blood-glucose meter misc Use to test blood sugar twice daily. 4 blood-glucose sensor (Dexcom G6 Sensor) device Change sensor every 10 days. 9 each 5 blood-glucose transmitter (DEXCOM G6 TRANSMITTER MISC) DEXCOM G6 TRANSMITTER [address]-70, See Instructions, # 1 each, Refills 3, Tot. Refills 3, Maintenance, 11.9 use to monitor blood glucose continuously, change every 90 days, 10/15/22 12:29:00 EDT, Compound 3 budesonide (PULMICORT) 0.5 mg/2 mL nebulizer solutionIndications :Shortness of breath,Abnormal results of pulmonary function studies TAKE 2 ML BY NEBULIZATION 2 TIMES DAILY. 120 mL 1 5 cholecalciferol (VITAMIN D-3) 50 mcg (2,000 unit) capsule TAKE 1 CAPSULE BY MOUTH EVERY DAY 4 cyanocobalamin (VITAMIN B-12) 1,000 mcg tablet Take 1 tablet (1,000 mcg total) by mouth 1 (one) time each day. 5 cycloSPORINE (Restasis MultiDose) 0.05 % drops 1 divalproex (DEPAKOTE) [address] tablet 750mg nightly 4 docusate sodium (COLACE) 100 mg capsule Take 1 Capsule by mouth 2 times daily. 4 dulaglutide (Trulicity) 4.5 mg/0.5 mL pen injector injection Inject 4.5 mg into the skin once a week. 4 DULoxetine (CYMBALTA) [address] capsule Take 1 Capsule by mouth daily. 4 gabapentin (NEURONTIN) 300 mg capsule Take 1 Capsule by mouth every morning. 4 gabapentin (NEURONTIN) 600 mg tablet Take 1 Tablet by mouth every evening. Per Psych 4 glucose blood test strip Apply 1 Strip topically 2 times daily. To test blood sugar. 4 inhaler, assist devices ([employer] [facility]) by Does not apply route. 1 insulin lispro (HumaLOG KwikPen Insulin) 200 unit/mL (3 mL) CONCENTRATED injection pen Inject 200 Units into the skin continuous. Use daily with insulin pump. Max daily dose 200 units. 4 lancets lancets Use to test blood sugar twice daily. 4 lifitegrast (Xiidra) 5 % dropperette Place 1 Drop into both eyes 2 times daily. 1 lisinopriL (PRINIVIL,ZESTRIL) 2.5 mg tabletIndications:P rimary hypertension Take 1 tablet (2.5 mg total) by mouth 1 (one) time each day. 90 tablet 1 5 loratadine 10 mg capsuleIndications: Seasonal allergic rhinitis, unspecified trigger Take 1 capsule by mouth 1 (one) time each day. 90 each 1 5 magnesium oxide 500 mg magnesium tablet Take 1 Tablet by mouth daily. 4 meclizine (ANTIVERT) 25 mg tabletIndications:C hronic vertigo Take 1 tablet (25 mg total) by mouth 2 (two) times a day. 180 tablet 1 5 medical supply, miscellaneous (MISCELLANEOUS MEDICAL SUPPLY [facility]) Casts and Splints [facility] 2 Each by Does not apply route daily as needed for Other (pain). DX G56.03 4 medical supply, miscellaneous (MISCELLANEOUS MEDICAL SUPPLY [facility]) CPAP Historical (HISTORICAL CPAP Inhale 12-16 cm into the lungs at bedtime. apria-pressure 10-16 1 melatonin 5 mg tablet Take 1 Tablet by mouth every evening. 4 meloxicam (MOBIC) 15 mg tablet TAKE 1 TABLET BY MOUTH EVERY DAY NEEDED FOR PAIN 90 tablet 1 5 OLANZapine (ZyPREXA) 5 mg tablet 4 pantoprazole (PROTONIX) 20 mg EC tablet TAKE 1 TABLET BY MOUTH EVERY DAY BEFORE BREAKFAST 90 tablet 1 04/18/202 5 pen needle, diabetic 32 gauge x 32 needle Use one daily with lantus 1 pen needle, diabetic 32 gauge x needle USE DIRECTED EVERY EVENING. 0 polyethylene glycol (MIRALAX) 17 gram packet 1 capful with water twice daily, or as directed 3 propranolol LA (INDERAL LA) 120 mg 24 hr capsule TAKE 1 CAPSULE BY MOUTH EVERY DAY 90 capsule 1 5 psyllium (Reguloid, psyllium husk,) 0.4 gram capsule Take 1 capsule (0.4 g total) by mouth 1 (one) time each day. 28 capsule 3 5 SUMAtriptan (IMITREX) 100 mg tablet Take 1 Tablet by mouth daily as needed. May repeat dose once after 2 hours, if needed. traMADoL (ULTRAM) 50 mg tablet TAKE 1 TABLET BY MOUTH TWICE A DAY 56 tablet 5 traZODone (DESYREL) 100 mg tablet Take 2 tablets (200 mg total) by mouth at bedtime. 5 zolpidem tartrate (ZOLPIDEM ORAL) Take by mouth. tamsulosin (FLOMAX) 0.4 mg 24 hr capsule TAKE 1 CAPSULE BY MOUTH EVERY DAY 4 09/13/19 25 documented as of this encounter Discharge Disposition Disposition Code Departure Means Destination Home or Self Care documented in this encounter Plan of Treatment Upcoming Encounters Date Type Department Care Team (Late st Contact Info) Description 10/03/2024 2:15 PM EDT Office Visit Endocrinology [address] [phone] Ty Hager MD [address] [place] [address] 11/12/2024 1:30 PM EDT Office Visit Adult Medicine South - [address] [phone] Sinai Patel MD [address] [place] [address] documented as of this encounter Procedures Procedure Name Priority Date/Time Associated Diagnosis Comments US ABDOMEN LIMITED Routine 09/11/2024 8: 23 AM EDT Right upper quadrant abdominal pain documented in this encounter Results * US Abdomen Limited (09/11/2024 8:23 [...] Celeste Avery Reviewed and Electronically Signed By: eCleste Avery Signed Date: 09/11/2024 10:43 ET Workstation ID: [id number] Transcribed By: Self Edit Transcribed Date: 09/11/2024 10:40 ET Procedure Note Celeste Aveyr MD - 09/11/2024 Limited abdominal ultrasound. Right [...] Signed Date: 09/11/2024 10:43 ET Workstation ID: [id number] Transcribed By: Self Edit Transcribed Date: 09/11/2024 10:40 ET us Sinai Patel MD IMG US PROCEDURE S Final Result documented in this encounter Visit Diagnoses Diagnosis Right upper quadrant abdominal pain documented in this encounter Care Teams Gas Adjuster Relationship Specialty Start Date End Date Sinai Patel MD [address] [place] [address] PCP - General 07/27/22 documented as of this encounter
--- OUTSIDE RECORDS SUMMARY | 2024-09-12 17:14 | XMS_ITS | Encounter Summary ---
Author Organization [facility] Address [address] [place] [address] Care Team Providers Care Co Founder And Chairman Name Role Phone Irene Armstrong MD Primary Care Provider U Jose Gao MD Primary Care Provider [phone] Sinai Patel MD Primary Care Provider + Rosemarie Young MD Unavailable [phone] Antonette King PA-C Unavailable [phone] Samson Ellis PA-C Unavailable Reason for Visit * Reason Onset Date Comments refill request 07/08/2020 Encounter Details Date Type Department Care Team Description 07/08/2020 Refill Adult Medicine - [address] [address] Irene Armstrong MD refill request Social History [...] * Telephone Encounter - Jazmyn Doyle - 07/08/2020 1:50 PM EST Date of last office 06/20/20, no pended appt. Lab Results Component Value Date HGBA1C 8.0 04/02/2020 MALBUR 25.0 04/04/2020 MALBCR 21.3 04/04/2020 CHOL 133 11/29/2019 LDL 48 11/29/2019 HDL 37 11/29/2019 TRIG 243 11/29/2019 GLU 129 04/02/2020 CREAT 0.90 04/02/2020 * Telephone Encounter - Shannan Flores - 07/08/2020 11:21 AM EST Patient would like script to be: E-PRESCRIBED/FAXED TO PHARMACY WHEN WAS THE PATIENT'S LAST APPOINTMENT IN ADULT MEDICINE? 04/02/20 WHEN WAS THE LAST TIME THE PATIENT SAW THEIR PCP? Same as above Does patient have an upcoming appointment? (THE MEDICATION REQUESTED IS ON THE MED [...] N/A Patients current insurance carrier is: Payor: [employer] MCR / Plan: ONE CARE [facility]ARE ALLIANCE / Product Type: HMO [id number] documented in this encounter Plan of Treatment Not on file documented as of this encounter Visit Diagnoses Not on filedocumented in this encounter Care Teams Co Founder And Chairman Relationship Specialty Start Date End Date Irene Armstrong MD PCP - General Internal Medicine 04/19/17 Jose Tidwell MD PCP - General Internal Medicine 05/26/22 07/26/22 Sinai Patel MD [address] [place] [address] PCP - General Internal Medicine 07/27/22 Rosemarie Young MD [address] [id number] Surgeon Neurosurgery 07/27/23 Antonette King PA-C [address] [address] Specialist Neurosurgery 07/27/23 Samson Ellis PA-C 175 [facility] [address] [place] [address] Specialist Neurosurgery 07/27/23 documented as of this encounter
--- OUTSIDE RECORDS SUMMARY | 2024-09-12 17:14 | XMS_ITS | Encounter Summary ---
Author Organization [facility] Address [address] [place] [address] Care Team Providers Care Databases Software Consultant Name Role Phone Sinai Patel MD Primary Care Provider + Rosemarie Young MD Unavailable [phone] Antonette King PA-C Unavailable [phone] Samson Ellis PA-C Unavailable [phone] Encounter Details Date Type Department Care Team Description 03/15/2024 Pt. Non Urgent Medical Question Adult Medicine [facility] [address] [place] [address] Sinai Patel MD [address] [place] [address] [phone] Social History Tobacco Use Types Packs/Day Years [...] encounter Miscellaneous Notes * Telephone Encounter - Cinthia Doyle - 03/15/2024 2:49 PM EDTFrom: Destin Layton To: Osmar Patel Sent: 03/15/2024 1:38 PM EDT Subject: Pain I???m in pain, this is [place] I???m trying to reach out to you, but I remember my password. Please call me. documented in this encounter Plan of Treatment Not on file documented as of this encounter Visit Diagnoses Not on filedocumented in this encounter Care Teams Databases Software Consultant Relationship Specialty Start Date End Date Sinai Patel MD [address] [place] [address] PCP - General Internal Medicine 07/27/22 Rosemarie Young MD [address] [address] Surgeon Neurosurgery 07/27/23 Antonette King PA-C [address] [address] Specialist Neurosurgery 07/27/23 Samson Ellis PA-C [address] [address] Specialist Neurosurgery 07/27/23 documented as of this encounter
--- OUTSIDE RECORDS SUMMARY | 2024-09-12 17:14 | XMS_ITS | Encounter Summary ---
Author Organization [facility] Address [address] [place] [address] Care Team Providers Care Physician Assistant Psychiatry Name Role Phone Irene Armstrong MD Primary Care Provider U Jose Gao MD Primary Care Provider [phone] Sinai Patel MD Primary Care Provider + Rosemarie Young MD Unavailable [phone] Antonette King PA-C Unavailable [phone] Samson Ellis PA-C Unavailable [phone] Reason for Visit * Reason Comments E-prescribe Rx Request Encounter Details Date Type Department Care Team Description 12/22/2018 Refill Adult Medicine [address] [address] Irene Armstrong MD E-prescribe Rx Request Social [...] Telephone Encounter - Irene Logan MD - 12/25/2018 11:35 AM EDT Signed, thank you * Telephone Encounter - Antonette Henry M.A. - 12/25/2018 9:51 AM EDT Last office visit: 12.19.18 Lab Results Component Value Date NA 135 09/14/2018 K 4.5 09/14/2018 CO2 25 09/14/2018 CL 100 09/14/2018 BUN 7 09/14/2018 CREAT 0.98 09/14/2018 GLU 143 09/14/2018 CA 9.5 09/14/2018 GFR > 60 09/14/2018 * Telephone Encounter - Torie Garcia - 12/23/2018 10:49 AM EDT Patient would like script to be: E-PRESCRIBED/FAXED TO PHARMACY WHEN WAS THE PATIENT'S LAST APPOINTMENT IN ADULT MEDICINE? 12/19/18 WHEN WAS THE LAST TIME THE PATIENT [...] N/A Patients current insurance carrier is: [place] / [place] / Product Type: MEDICARE [id number] documented in this encounter Plan of Treatment Not on file documented as of this encounter Visit Diagnoses Not on filedocumented in this encounter Care Teams Physician Assistant Psychiatry Relationship Specialty Start Date End Date Irene Armstrong MD PCP - General Internal Medicine 04/19/17 Jose Tidwell MD PCP - General Internal Medicine 05/26/22 07/26/22 Sinai Patel MD [address] [place] [address] PCP - General Internal Medicine 07/27/22 Rosemarie Young MD [address] [address] Surgeon Neurosurgery 07/27/23 Antonette King PA-C [address] [address] Specialist Neurosurgery 07/27/23 Samson Ellis PA-C 175 [facility] [address] [place] [address] Specialist Neurosurgery 07/27/23 documented as of this encounter
--- OUTSIDE RECORDS SUMMARY | 2024-09-12 17:14 | XMS_ITS | Encounter Summary ---
Author Organization [facility] Address [address] [place] [address] Care Team Providers Care Pick Up Truck Driver Name Role Phone Irene Armstrong MD Primary Care Provider U Jose Gao MD Primary Care Provider [phone] Sinai Patel MD Primary Care Provider + Rosemarie Young MD Unavailable [phone] Antonette King PA-C Unavailable [phone] Samson Ellis PA-C Unavailable [phone] Encounter Details Date Type Department Care Team Description 11/07/2018 Pt. Non Urgent Medical Question Adult Urgent Care - [address] [address] Zachary Jaramillo MD Social History Tobacco Use [...] Progress Notes * Susan Cristobal M.A. - 11/07/2018 1:21 PM EDTFrom: Destin Layton To: Zachary Jaramillo MD Sent: 11/07/2018 1:16 PM EDT Subject: blood work I went to the lab, they said there was nothing there. You had said you were going to put an order in for me. To see if I can avoid getting the insulin pump. documented in this encounter Plan of Treatment Not on file documented as of this encounter Visit Diagnoses Not on filedocumented in this encounter Care Teams Pick Up Truck Driver Relationship Specialty Start Date End Date Irene Armstrong MD PCP - General Internal Medicine 04/19/17 Jose Tidwell MD PCP - General Internal Medicine 05/26/22 07/26/22 Sinai Patel MD [address] [place] [address] PCP - General Internal Medicine 07/27/22 Rosemarie Young MD 175 [facility] [address] [place] [address] Surgeon Neurosurgery 07/27/23 Antonette King PA-C 175 [facility] [address] [place] [address] Specialist Neurosurgery 07/27/23 Samson Ellis PA-C 175 [facility] [address] [place] [address] Specialist Neurosurgery 07/27/23 documented as of this encounter
--- OUTSIDE RECORDS SUMMARY | 2024-09-12 17:14 | XMS_ITS | Encounter Summary ---
Author Organization [facility] Address [address] [place] [address] Care Team Providers Care Dance Studio Manager Name Role Phone Jose Tidwell MD Primary Care Provider [phone] Sinai Patel MD Primary Care Provider + Rosemarie Young MD Unavailable [phone] Antonette King PAPeeweeC Unavailable [phone] Samson Ellis PAPeeweeC Unavailable [phone] Encounter Details Date Type Department Care Team Description 07/26/2022 [facility] - [place] [address] [place] [address] Ramiro Orourke MD [address] [place] [phone] Social History Tobacco Use Types Packs/Day Years [...] on filedocumented in this encounter Care Teams Dance Studio Manager Relationship Specialty Start Date End Date Jose Tidwell MD PCP - General Internal Medicine 05/26/22 07/26/22 Sinai Patel MD [address] [place] [address] PCP - General Internal Medicine 07/27/22 Rosemarie Young MD [address] [address] Surgeon Neurosurgery 07/27/23 Antonette King PA-C [address] [address] Specialist Neurosurgery 07/27/23 Samson Ellis PA-C [address] [phone] Specialist Neurosurgery 07/27/23 documented as of this encounter
--- OUTSIDE RECORDS SUMMARY | 2024-09-12 17:14 | XMS_ITS | Encounter Summary ---
Author Organization [facility] Address [address] [place] [address] Care Team Providers Care Community Health Specialist Name Role Phone Irene Armstrong MD Primary Care Provider U Jose Gao MD Primary Care Provider [phone] Sinai Patel MD Primary Care Provider + Rosemarie Young MD Unavailable [phone] Antonette King PA-C Unavailable [phone] Samson Ellis PA-C Unavailable [phone] Reason for Visit * Reason Comments E-prescribe Rx Request Encounter Details Date Type Department Care Team Description 10/23/2018 Refill Medicine/Pediatrics [address] [id number] Irene Armstrong MD E-prescribe Rx Request Social [...] Telephone Encounter - Irene Logan MD - 10/24/2018 11:46 AM EDT Signed, thank you * Telephone Encounter - Cristiane Kapoor R.N. - 10/24/2018 10:19 AM EDT Seen 09/14/18. * Telephone Encounter - Anastacia Engel - 10/24/2018 7:53 AM EDT Patient would like script to be: E-PRESCRIBED/FAXED TO PHARMACY WHEN WAS THE PATIENT'S LAST APPOINTMENT IN ADULT MEDICINE? 09/14/18 WHEN WAS THE LAST TIME THE PATIENT SAW THEIR PCP? 04/20/18 Does patient have an upcoming appointment? no [...] N/A Patients current insurance carrier is: Payor: [employer] FFS / Plan: [employer] [facility] ALLIANCE / Product Type: MEDICAID RISK documented in this encounter Plan of Treatment Not on file documented as of this encounter Visit Diagnoses Not on filedocumented in this encounter Care Teams Community Health Specialist Relationship Specialty Start Date End Date Irene Armstrong MD PCP - General Internal Medicine 04/19/17 Jose Tidwell MD PCP - General Internal Medicine 05/26/22 07/26/22 Sinai Patel MD [address] [place] [address] PCP - General Internal Medicine 07/27/22 Rosemarie Young MD [address] [address] Surgeon Neurosurgery 07/27/23 Antonette King PA-C [address] [address] Specialist Neurosurgery 07/27/23 Samson Ellis PA-C [address] [phone] Specialist Neurosurgery 07/27/23 documented as of this encounter
--- OUTSIDE RECORDS SUMMARY | 2024-09-12 17:14 | XMS_ITS | Encounter Summary ---
Author Organization [facility] Address [address] [place] [address] Care Team Providers Care Insulation Cupola Charger Name Role Phone Irene Armstrong MD Primary Care Provider U Jose Gao MD Primary Care Provider [phone] Sinai Patel MD Primary Care Provider + Rosemarie Young MD Unavailable [phone] Antonette King PA-C Unavailable [phone] Samson Ellis PA-C Unavailable [phone] Reason for Visit * Reason Onset Date Comments Provider Call Back 05/24/2019 Encounter Details Date Type Department Care Team Description 05/24/2019 Telephone Endocrinology - [place] [address] [place] [address] Zachary Jaramillo MD Provider Call Back Social [...] encounter Miscellaneous Notes * Telephone Encounter - Bhavani Allison M.A. - 05/31/2019 12:08 PM EST Called [facility] they placed the order and it will take 2 wks to process and check if patient is covered. * Telephone Encounter - Fabian Francois - 05/24/2019 1:48 PM EST Caller requesting call back from provider: Is the caller the patient? NO If caller is not the patient, what is the callers name? [place] Callers relationship to patient? If person calling is not the patient themselves, is there a verbal release in FYI or permanent comments for this person: YES Reason for call back: Patient's , Shanda, calling stating the number for [facility] is [phone] Caller offered to speak with the nurse for assistance: YES Response: Patient offered to speak with nurse for assistance and patient agreed. Message forwarded to nurse. documented in this encounter Plan of Treatment Not on file documented as of this encounter Visit Diagnoses Not on filedocumented in this encounter Care Teams Insulation Cupola Charger Relationship Specialty Start Date End Date Irene Armstrong MD PCP - General Internal Medicine 04/19/17 Jose Tidwell MD PCP - General Internal Medicine 05/26/22 07/26/22 Sinai Patel MD [address] [place] [address] PCP - General Internal Medicine 07/27/22 Rosemarie Young MD [address] [address] Surgeon Neurosurgery 07/27/23 Antonette King PA-C [address] [address] Specialist Neurosurgery 07/27/23 Samson Ellis PA-C [address] [address] Specialist Neurosurgery 07/27/23 documented as of this encounter
--- OUTSIDE RECORDS SUMMARY | 2024-09-12 17:14 | XMS_ITS | Encounter Summary ---
Author Organization [facility] Address [address] [place] [address] Care Team Providers Care Child And Adolescent Psychologist Name Role Phone Irene Armstrong MD Primary Care Provider U Jose Gao MD Primary Care Provider [phone] Sinai Patel MD Primary Care Provider + Rosemarie Young MD Unavailable [phone] Antonette King PA-C Unavailable [phone] Samson Ellis PA-C Unavailable [phone] Reason for Visit * Reason Onset Date Comments Faxed Refill 12/27/2018 Encounter Details Date Type Department Care Team Description 12/27/2018 Refill Adult Medicine - [address] [address] Irene Armstrong MD Faxed Refill Social History [...] encounter Miscellaneous Notes * Telephone Encounter - Estefany Ang M.A. - 12/27/2018 3:29 PM EDT Faxed to pharmacy * Telephone Encounter - Irene Logan MD - 12/27/2018 3:29 PM EDT Signed, thank you * Telephone Encounter - Gina Phillip - 12/27/2018 3:24 PM EDT * Telephone Encounter - Susan Cristobal M.A. - 12/27/2018 3:05 PM EDT Date of last office visit was 12/19/18. Lab Results Component Value Date HGBA1C 9.0 12/11/2018 MALBUR 81.3 04/20/2018 MALBCR 41.2 04/20/2018 CHOL 155 12/11/2018 LDL TNP 12/11/2018 HDL 33 12/11/2018 TRIG 555 12/11/2018 GLU 143 09/14/2018 CREAT 0.98 09/14/2018 * Telephone Encounter - Laurie Mi - 12/27/2018 2:44 PM EDT Patient would like script to [...] / [place] / Product Type: MEDICARE [id number] documented in this encounter Plan of Treatment Not on file documented as of this encounter Visit Diagnoses Not on filedocumented in this encounter Care Teams Child And Adolescent Psychologist Relationship Specialty Start Date End Date Irene Armstrong MD PCP - General Internal Medicine 04/19/17 Jose Tidwell MD PCP - General Internal Medicine 05/26/22 07/26/22 Sinai Patel MD [address] [place] [address] PCP - General Internal Medicine 07/27/22 Rosemarie Young MD [address] [address] Surgeon Neurosurgery 07/27/23 Antonette King PA-C [address] [address] Specialist Neurosurgery 07/27/23 Samson Ellis PA-C 175 [facility] [address] [place] [address] Specialist Neurosurgery 07/27/23 documented as of this encounter
--- OUTSIDE RECORDS SUMMARY | 2024-09-12 17:14 | XMS_ITS | Encounter Summary ---
Author Organization [facility] Address [address] [place] [address] Care Team Providers Care Carpet Repairer Name Role Phone Sinai Patel MD Primary Care Provider + Rosemarie Young MD Unavailable [phone] Antonette King PA-C Unavailable [phone] Samson Ellis PA-C Unavailable Reason for Visit * Reason Onset Date Comments refill request 08/24/2022 Encounter Details Date Type Department Care Team Description 08/24/2022 Refill Adult Medicine [address] [address] Sinai Patel MD [address] [place] [address] [id number] refill request Social History Tobacco Use Types [...] Telephone Encounter - Elizabeth Rodriguez PA-C - 08/25/2022 12:01 PM EDT Signed * Telephone Encounter - Alessandra Chambers M.A. - 08/25/2022 10:34 AM EDT Pls see routing comment & advise, thank you. Lab Results Component Value Date NA 138 06/09/2022 K 4.5 06/09/2022 CO2 27 06/09/2022 CL 102 06/09/2022 BUN 16 06/09/2022 CREAT 0.89 06/09/2022 GLU 77 06/09/2022 CA 10.0 06/09/2022 GFR 102 06/09/2022 PIPO w/Evelin Casiano 05/28/2022 PIPO w/PCP not on file Next OV w/Elizabeth Rodriguez 09/06/2022 * Telephone Encounter - Gina Shah - 08/24/2022 12:55 PM EDT Patient would like script to be: E-PRESCRIBED/FAXED TO PHARMACY WHEN WAS THE PATIENT'S LAST APPOINTMENT IN ADULT MEDICINE? 05/28/22 WHEN WAS THE LAST TIME THE PATIENT SAW THEIR PCP? never Does patient have an upcoming appointment? Yes 09/06/22 (THE MEDICATION REQUESTED IS ON THE MED [...] N/A Patients current insurance carrier is: Payor: [employer] [facility] [employer] MCR / Plan: ONE CARE [facility] ALLIANCE / Product Type: HMO [id number] documented in this encounter Plan of Treatment Not on file documented as of this encounter Visit Diagnoses Not on filedocumented in this encounter Care Teams Carpet Repairer Relationship Specialty Start Date End Date Sinai Patel MD [address] [place] [address] PCP - General Internal Medicine 07/27/22 Rosemarie Young MD [address] [address] Surgeon Neurosurgery 07/27/23 Antonette King PA-C [address] [address] Specialist Neurosurgery 07/27/23 Samson Ellis PA-C [address] [address] Specialist Neurosurgery 07/27/23 documented as of this encounter
--- OUTSIDE RECORDS SUMMARY | 2024-09-12 17:14 | XMS_ITS | Encounter Summary ---
Author Organization [facility] Address [address] [place] [address] Care Team Providers Care Office Systems Technology Instructor Name Role Phone Irene Armstrong MD Primary Care Provider U Jose Gao MD Primary Care Provider [phone] Sinai Patel MD Primary Care Provider + Rosemarie Young MD Unavailable [phone] Antonette King PA-C Unavailable [phone] Samson Ellis PA-C Unavailable [phone] Reason for Visit * Reason Onset Date Comments Information Needed 07/15/2020 Encounter Details Date Type Department Care Team Description 07/15/2020 Telephone Adult [address] [address] Irene Armstrong MD Information Needed Social History Tobacco Use [...] encounter Miscellaneous Notes * Telephone Encounter - Mariola Chiu - 07/15/2020 9:47 AM EST Information Needed Who is calling: Other bisi Information being requested? ICD code for dementia for billing purposes If information is regarding a referral and notes are needed- transfer call to HIM department If other information is needed, was an NOVA signed? NO How is the information to be communicated back to the caller? Called in to [phone] documented in this encounter Plan of Treatment Not on file documented as of this encounter Visit Diagnoses Not on filedocumented in this encounter Care Teams Office Systems Technology Instructor Relationship Specialty Start Date End Date Irene Armstrong MD PCP - General Internal Medicine 04/19/17 Jose Tidwell MD PCP - General Internal Medicine 05/26/22 07/26/22 Sinai Patel MD [address] [place] [address] PCP - General Internal Medicine 07/27/22 Rosemarie Young MD [address] [address] Surgeon Neurosurgery 07/27/23 Antonette King PA-C [address] [address] Specialist Neurosurgery 07/27/23 Samson Ellis PA-C [address] [address] Specialist Neurosurgery 07/27/23 documented as of this encounter
--- OUTSIDE RECORDS SUMMARY | 2024-09-12 17:14 | XMS_ITS | Encounter Summary ---
Author Organization [facility] Address [address] [place] [address] Care Team Providers Care Emergency Medical Technician Name Role Phone Irene Armstrong MD Primary Care Provider U Jose Gao MD Primary Care Provider [phone] Sinai Patel MD Primary Care Provider + Rosemarie Young MD Unavailable [phone] Antonette King PA-C Unavailable [phone] Samson Ellis PA-C Unavailable [phone] Reason for Visit * Reason Comments E-prescribe Rx Request Encounter Details Date Type Department Care Team Description 05/31/2019 Refill Adult Medicine - [address] [address] Irene Armstrong MD E-prescribe Rx Request Social [...] Telephone Encounter - Susan Cristobal M.A. - 05/31/2019 3:36 PM EST Date of last office visit was 05/10/19. Pended appt for 08/07/19 Lab Results Component Value Date NA 135 05/03/2019 K 4.5 05/03/2019 CO2 26 05/03/2019 CL 101 05/03/2019 BUN 14 05/03/2019 CREAT 1.02 05/03/2019 GLU 304 05/03/2019 CA 10.0 05/03/2019 GFR > 60 05/03/2019 Lab Results Component Value Date WBC 9.2 09/14/2018 HGB 14.6 09/14/2018 HCT 43.9 09/14/2018 MCV 85.6 09/14/2018 PLTCT 237 09/14/2018 * Telephone Encounter - Antonette Guerra - 05/31/2019 3:31 PM EST Patient would like script to be: E-PRESCRIBED/FAXED TO PHARMACY WHEN WAS THE PATIENT'S LAST APPOINTMENT IN ADULT MEDICINE? 05/10/19 WHEN WAS THE LAST TIME THE PATIENT SAW THEIR PCP? 05/03/19 Does patient have an upcoming appointment? Yes 08/07/19 (THE MEDICATION REQUESTED IS ON THE MED [...] N/A Patients current insurance carrier is: Payor: [employer] [facility] ALLIANCE MCR / Plan: ONE CARE [facility] / Product Type: HMO [id number] documented in this encounter Plan of Treatment Not on file documented as of this encounter Visit Diagnoses Not on filedocumented in this encounter Care Teams Emergency Medical Technician Relationship Specialty Start Date End Date Irene Armstrong MD PCP - General Internal Medicine 04/19/17 Jose Tidwell MD PCP - General Internal Medicine 05/26/22 07/26/22 Sinai Patel MD [address] [place] [address] PCP - General Internal Medicine 07/27/22 Rosemarie Young MD [address] [address] Surgeon Neurosurgery 07/27/23 Antonette King PA-C [address] [address] Specialist Neurosurgery 07/27/23 Samson Ellis PA-C 175 [facility] [address] [place] [address] Specialist Neurosurgery 07/27/23 documented as of this encounter
--- OUTSIDE RECORDS SUMMARY | 2024-09-12 17:14 | XMS_ITS | Encounter Summary ---
Author Organization [employer] [facility] Address [address] [place] [address] Care Team Providers Care Parish Worker Name Role Phone Sinai Patel MD Primary Care Provider + Rosemarie Young MD Unavailable [phone] Antonette King PA-C Unavailable Samson Ellis PA-C Unavailable Reason for Visit * Reason Onset Date Comments DME Request 11/02/2022 Encounter Details Date Type Department Care Team Description 11/02/2022 Telephone Pulmonology - [place] 175 [facility] [address] [place] [address] Adele Walker APRN 175 [facility] [address] [place] [address] DME Request Social History Tobacco Use Types Packs/Day [...] suspected to have Coronavirus/COVID-19? No / Unsure 10/29/2022 10:06 AM EDT documented as of this encounter Miscellaneous Notes * Telephone Encounter - Aleida Odomindia Capellan - 11/02/2022 9:03 AM EDT Orders faxed to ce *nebulizer *nebulizer supplies *overnight oximetry *cpap supplies documented in this encounter Plan of Treatment Not on file documented as of this encounter Visit Diagnoses Not on filedocumented in this encounter Care Teams Parish Worker Relationship Specialty Start Date End Date Sinai Patel MD [address] [place] [address] PCP - General Internal Medicine 07/27/22 Rosemarie Young MD [address] [address] Surgeon Neurosurgery 07/27/23 Antonette King PA-C [address] [address] Specialist Neurosurgery 07/27/23 Samson Ellis PA-C [address] [address] Specialist Neurosurgery 07/27/23 documented as of this encounter
--- OUTSIDE RECORDS SUMMARY | 2024-09-12 17:14 | XMS_ITS | Encounter Summary ---
Author Organization [employer] [facility] Address [address] [place] [address] Care Team Providers Care Official Greeter Name Role Phone Irene Armstrong MD Primary Care Provider U Irene Tanner MD Primary Care Provider U Jose Gao MD Primary Care Provider [phone] Sinai Patel MD Primary Care Provider + Rosemarie Young MD Unavailable [phone] Antonette King PA-C Unavailable [phone] Samson Ellis PA-C Unavailable [phone] Encounter Details Date Type Department Care Team Description 10/29/2016 Recreation Facility Manager Report Medical Records [address] [place] [address] Refugio Lin MD Social History Tobacco Use [...] on filedocumented in this encounter Care Teams Official Greeter Relationship Specialty Start Date End Date Irene Armstrong MD PCP - General Internal Medicine 04/19/17 Irene Armstrong MD PCP - General 03/07/15 Jose Tidwell MD PCP - General Internal Medicine 05/26/22 07/26/22 Sinai Patel MD [address] [place] [address] PCP - General Internal Medicine 07/27/22 Rosemarie Young MD [address] [address] Surgeon Neurosurgery 07/27/23 Antonette King PA-C [address] [address] Specialist Neurosurgery 07/27/23 Samson Ellis PA-C [address] [address] Specialist Neurosurgery 07/27/23 documented as of this encounter
--- OUTSIDE RECORDS SUMMARY | 2024-09-12 17:14 | XMS_ITS | Encounter Summary ---
Author Organization [employer] [facility] Address [address] [place] [address] Care Team Providers Care Soft Sugar Supervisor Name Role Phone Irene Armstrong MD Primary Care Provider U [facility] Jose Tidwell MD Primary Care Provider [phone] Sinai Patel MD Primary Care Provider + Rosemarie Young MD Unavailable [phone] Antonette King PA-C Unavailable [phone] Samson Ellis PA-C Unavailable [phone] Encounter Details Date Type Department Care Team Description 05/10/2019 Orders Only Adult Medicine B - [address] [address] Zachary Jaramillo MD Social History Tobacco Use [...] on filedocumented in this encounter Care Teams Soft Sugar Supervisor Relationship Specialty Start Date End Date Irene Armstrong MD PCP - General Internal Medicine 04/19/17 Jose Tidwell MD PCP - General Internal Medicine 05/26/22 07/26/22 Sinai Patel MD [address] [place] [address] PCP - General Internal Medicine 07/27/22 Rosemarie Young MD [address] [address] Surgeon Neurosurgery 07/27/23 Antonette King PA-C [address] [address] Specialist Neurosurgery 07/27/23 Samson Ellis PA-C [address] [address] Specialist Neurosurgery 07/27/23 documented as of this encounter
--- OUTSIDE RECORDS SUMMARY | 2024-09-12 17:14 | XMS_ITS | Encounter Summary ---
Author Organization [employer] [facility] Address [address] [place] [address] Care Team Providers Care Marble Machine Tender Name Role Phone Irene Armstrong MD Primary Care Provider U Jose Gao MD Primary Care Provider [phone] Sinai Patel MD Primary Care Provider + Rosemarie Young MD Unavailable [phone] Antonette King PA-C Unavailable [phone] Samson Ellis PA-C Unavailable [phone] Reason for Visit * Reason Comments E-prescribe Rx Request Encounter Details Date Type Department Care Team Description 08/26/2020 Refill Adult Medicine - [address] [address] Zachary Jaramillo MD E-prescribe Rx Request Social [...] Telephone Encounter - Susan Cristobal M.A. - 08/26/2020 5:14 PM EDT Date of last office visit was 08/14/20. Pended appt for 09/18/20 Lab Results Component Value Date HGBA1C 8.0 04/02/2020 MALBUR 25.0 04/04/2020 MALBCR 21.3 04/04/2020 CHOL 133 11/29/2019 LDL 48 11/29/2019 HDL 37 11/29/2019 TRIG 243 11/29/2019 GLU 129 04/02/2020 CREAT 0.90 04/02/2020 * Telephone Encounter - [place] - 08/26/2020 4:37 PM EDT Patient would like script to be: E-PRESCRIBED/FAXED TO PHARMACY WHEN WAS THE PATIENT'S LAST APPOINTMENT IN ADULT MEDICINE? 04/02/20 WHEN WAS THE LAST TIME THE PATIENT SAW THEIR PCP? Same as above Does patient have an upcoming appointment? Patient was sent a My Chart request to set up an appointment as they are due. (THE MEDICATION REQUESTED IS ON THE MED [...] N/A Patients current insurance carrier is: [facility] / Plan: [facility] / Product Type: HMO [id number] documented in this encounter Plan of Treatment Not on file documented as of this encounter Visit Diagnoses Not on filedocumented in this encounter Care Teams Marble Machine Tender Relationship Specialty Start Date End Date Irene Armstrong MD PCP - General Internal Medicine 04/19/17 Jose Tidwell MD PCP - General Internal Medicine 05/26/22 07/26/22 Sinai Patel MD [address] [place] [address] PCP - General Internal Medicine 07/27/22 Rosemarie Young MD [address] [address] Surgeon Neurosurgery 07/27/23 Antonette King PA-C [address] [address] Specialist Neurosurgery 07/27/23 Samson Ellis PA-C [address] [address] Specialist Neurosurgery 07/27/23 documented as of this encounter
--- OUTSIDE RECORDS SUMMARY | 2024-09-12 17:14 | XMS_ITS | Encounter Summary ---
Author Organization [employer] [facility] Address [address] [place] [address] Care Team Providers Care Blackener Name Role Phone Irene Armstrong MD Primary Care Provider [facility] Jose Tidwlel MD Primary Care Provider [phone] Sinai Patel MD Primary Care Provider + Rosemarie Young MD Unavailable [phone] Antonette King PA-C Unavailable [phone] Samson Ellis PA-C Unavailable [phone] Encounter Details Date Type Department Care Team Description 09/14/2018 Telephone Adult Medicine B - [address] [address] Irene Armstrong MD Social History Tobacco Use [...] on filedocumented in this encounter Care Teams Blackener Relationship Specialty Start Date End Date Irene Armstrong MD PCP - General Internal Medicine 04/19/17 Jose Tidwell MD PCP - General Internal Medicine 05/26/22 07/26/22 Sinai Patel MD [address] [place] [address] PCP - General Internal Medicine 07/27/22 Rosemarie Young MD [address] [address] Surgeon Neurosurgery 07/27/23 Antonette King PA-C [address] [address] Specialist Neurosurgery 07/27/23 Samson Ellsi PA-C 175 [facility] [address] [place] [address] Specialist Neurosurgery 07/27/23 documented as of this encounter
--- OUTSIDE RECORDS SUMMARY | 2024-09-12 17:14 | XMS_ITS | Encounter Summary ---
Author Organization [employer] [facility] Address [address] [place] [address] Care Team Providers Care No Experience Name Role Phone Jose Tidwell MD Primary Care Provider [phone] Sinai Patel MD Primary Care Provider + Rosemarie Young MD Unavailable [phone] Antonette King PA-C Unavailable [phone] Samson Ellis PA-C Unavailable [phone] Encounter Details Date Type Department Care Team Description 07/26/2022 Refill Adult Medicine [address] [id number] Bernadette Burris PA-C [address] [place] [id number] Social History Tobacco Use Types Packs/Day Years [...] Telephone Encounter - Rosemarie Thomas PA-C - 07/27/2022 9:53 AM EST Not my patient. He was referred to [facility] 2 years ago. 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
--- OUTSIDE RECORDS SUMMARY | 2024-09-12 17:14 | XMS_ITS | Encounter Summary ---
Author Organization [employer] [facility] Address [address] [place] [address] Care Team Providers Care Packer Operator Automatic Name Role Phone Irene Armstrong MD Primary Care Provider U Irene Tanner MD Primary Care Provider U Jose Gao MD Primary Care Provider [phone] Sinai Patel MD Primary Care Provider + Rosemarie Young MD Unavailable [phone] Antonette King PA-C Unavailable [phone] Samson Ellis PA-C Unavailable [phone] Reason for Visit * Reason Onset Date Comments APPOINTMENT 02/03/2017 Encounter Details Date Type Department Care Team Description 02/03/2017 Telephone Adult Medicine [address] [address] Zachary Jaramillo MD APPOINTMENT Social History Tobacco Use Types Packs/Day Years [...] Notes * Telephone Encounter - Rose Dean [facility] - 02/04/2017 11:53 AM EDT Made appt for pt 04/19/2017 Sent pt letter * Telephone Encounter - Dee Aguirre - 02/03/2017 9:51 AM EDT Appointment needed for patient before April to discuss medication. documented in this encounter Plan of Treatment Not on file documented as of this encounter Visit Diagnoses Not on filedocumented in this encounter Care Teams Packer Operator Automatic Relationship Specialty Start Date End Date Irene Armstrong MD PCP - General Internal Medicine 04/19/17 Irene Armstrong MD PCP - General 03/07/15 Jose Tidwell MD PCP - General Internal Medicine 05/26/22 07/26/22 Sinai Patel MD [address] [place] [address] PCP - General Internal Medicine 07/27/22 Rosemarie Young MD [address] [address] Surgeon Neurosurgery 07/27/23 Antonette King PA-C [address] [address] Specialist Neurosurgery 07/27/23 Samson Ellis PA-C [address] [address] Specialist Neurosurgery 07/27/23 documented as of this encounter
--- OUTSIDE RECORDS SUMMARY | 2024-09-12 17:14 | XMS_ITS | Encounter Summary ---
Author Organization [employer] [facility] Address [address] [place] [address] Care Team Providers Care Remelt Operator Name Role Phone Sinai Patel MD Primary Care Pr ovider Reason for Visit * Reason Onset Date Comments Results 09/11/2024 Encounter Details Date Type Department Care Team (Late st Contact Info) Description 09/11/2024 Telephone Adult Medicine [address] [phone] Sinai Patel MD [address] [place] [address] Results Social History Tobacco Use Types Packs/Day Years [...] as of this encounter Progress Notes * Sinai Patel MD - 09/11/2024 4:03 PM EDT Results were sent on [employer] with notes attached, thanks * Laurie Olivarez - 09/11/2024 2:48 PM EDT The patient's is calling back to see what the results are. * Adrienne Vazquez - 09/11/2024 10:51 AM EDT Patients is calling in asking that someone give them a call back to go over the test results from today 09/11/2024. It was an ultrasound of the abdomen. documented in this encounter Plan of Treatment Upcoming Encounters Date Type Department Care Team (Late st Contact Info) Description 10/03/2024 2:15 PM EDT Office Visit [address] [phone] Ty Hager MD [address] [place] [address] 11/12/2024 1:30 PM EDT Office Visit Adult Medicine [address] [phone] Sinai Patel MD [address] [place] [address] documented as of this encounter Visit Diagnoses Not on filedocumented in this encounter Care Teams Remelt Operator Relationship Specialty Start Date End Date Sinai Patel MD [address] [place] [address] PCP - General 07/27/22 documented as of this encounter
--- OUTSIDE RECORDS SUMMARY | 2024-09-12 17:14 | XMS_ITS | Encounter Summary ---
Author Organization [employer] [facility] Address [address] [place] [address] Care Team Providers Care Deboner Name Role Phone Irene Armstrong MD Primary Care Provider U Jose Gao MD Primary Care Provider [phone] Sinia Patel MD Primary Care Provider + Rosemarie Young MD Unavailable [phone] Antonette King PA-C Unavailable [phone] Samson Ellis PA-C Unavailable [phone] Reason for Visit * Reason Onset Date Comments refill request 07/29/2020 Encounter Details Date Type Department Care Team Description 07/29/2020 Refill Gastroenterology - [address] [place] [address] Brandon Aguilar PA-C refill request [...] have Coronavirus / COVID-19? Unable to assess 08/01/2020 7:52 AM EST documented as of this encounter Miscellaneous Notes * Telephone Encounter - Brandy Londono - 07/29/2020 1:15 PM EST Hce 04.25.2020 Nov 07.30.2020 30 day supply documented in this encounter Plan of Treatment Not on file documented as of this encounter Visit Diagnoses Not on filedocumented in this encounter Care Teams Deboner Relationship Specialty Start Date End Date Irene Armstrong MD PCP - General Internal Medicine 04/19/17 Jose Tidwell MD PCP - General Internal Medicine 05/26/22 07/26/22 Sinai Patel MD [address] [place] [address] PCP - General Internal Medicine 07/27/22 Rosemarie Young MD [address] [address] Surgeon Neurosurgery 07/27/23 Antonette King PA-C [address] [address] Specialist Neurosurgery 07/27/23 Samson Ellis PA-C [address] [address] Specialist Neurosurgery 07/27/23 documented as of this encounter
--- OUTSIDE RECORDS SUMMARY | 2024-09-12 17:14 | XMS_ITS | Encounter Summary ---
Author Organization [facility] Address [address] [place] [address] Care Team Providers Care Sales And Marketing Analyst Name Role Phone Irene Armstrong MD Primary Care Provider U Jose Gao MD Primary Care Provider [phone] Sinai Patel MD Primary Care Provider + Rosemarie Young MD Unavailable [phone] Antonette King PA-C Unavailable [phone] Samson Ellis PA-C Unavailable [phone] Encounter Details Date Type Department Care Team Description 05/28/2020 Telephone Adult Medicine [address] [address] Irene Armstrong MD Social History Tobacco Use [...] on filedocumented in this encounter Care Teams Sales And Marketing Analyst Relationship Specialty Start Date End Date Irene Armstrong MD PCP - General Internal Medicine 04/19/17 Jose Tidwell MD PCP - General Internal Medicine 05/26/22 07/26/22 Sinai Patel MD [address] [place] [address] PCP - General Internal Medicine 07/27/22 Rosemarie Young MD [address] [address] Surgeon Neurosurgery 07/27/23 Antonette King PA-C [address] [address] Specialist Neurosurgery 07/27/23 Samson Ellis PA-C 175 [facility] [address] [place] [address] Specialist Neurosurgery 07/27/23 documented as of this encounter
--- OUTSIDE RECORDS SUMMARY | 2024-09-12 17:14 | XMS_ITS | Encounter Summary ---
Author Organization [employer] [facility] Address [address] [place] [address] Care Team Providers Care Dairy Department Manager Name Role Phone Irene Armstrong MD Primary Care Provider U Jose Gao MD Primary Care Provider [phone] Sinai Patel MD Primary Care Provider + Rosemarie Young MD Unavailable [phone] Antonette King PA-C Unavailable [phone] Samson Ellis PA-C Unavailable [phone] Reason for Visit * Reason Onset Date Comments Medication 06/07/2019 Provider Call Back 06/07/2019 Encounter Details Date Type Department Care Team Description 06/07/2019 Telephone Adult Medicine - [address] [address] Irene Armstrong MD Medication; Provider Call Back Social History Tobacco Use [...] Notes * Telephone Encounter - Rose Dean [facility] - 06/08/2019 1:38 PM EST Told we did the best we could and called the [place] med[place] on there behalf but they said it would beat least 3 weeks before we hear anything. This is about the VGO and I reminded her that right now there is a shortage of pods. Informed pt that they may need to go back to their regular insulin untilthis is resolved. Pt would like his regular meds to be faxed to their local pharm * Telephone Encounter - Torie Garcia - 06/08/2019 1:23 PM EST calling for status. Patient is running out of insulin * Telephone Encounter - Mildred Chavez M.A. - 06/07/2019 11:28 AM EST To endo * Telephone Encounter - Torie Garcia - 06/07/2019 11:12 AM EST Caller requesting call back from provider: Is the caller the patient? NO If caller is not the patient, what is the callers name? ruidoso downs Callers relationship to patient? If person calling is not the patient themselves, is there a verbal release in FYI or permanent comments for this person: YES Reason for call back: They have not heard anything from the [employer]. Wondering what to do? Caller offered to speak with the nurse for assistance: YES Response: Patient offered to speak with nurse for assistance and patient agreed. Message forwarded to nurse. documented in this encounter Plan of Treatment Not on file documented as of this encounter Visit Diagnoses Not on filedocumented in this encounter Care Teams Dairy Department Manager Relationship Specialty Start Date End Date Irene Armstrong MD PCP - General Internal Medicine 04/19/17 Jose Tidwell MD PCP - General Internal Medicine 05/26/22 07/26/22 Sinai Patel MD [address] [place] [address] PCP - General Internal Medicine 07/27/22 Rosemarie Young MD [address] [address] Surgeon Neurosurgery 07/27/23 Antonette King PA-C [address] [address] Specialist Neurosurgery 07/27/23 Samson Ellis PA-C [address] [phone] Specialist Neurosurgery 07/27/23 documented as of this encounter
--- OUTSIDE RECORDS SUMMARY | 2024-09-12 17:14 | XMS_ITS | Encounter Summary ---
Author Organization [facility] Address [address] [place] [address] Care Team Providers Care Cable Television Technician Name Role Supervisor BackfillingJuve Reno MD Primary Care Provider Unavailab Zachary Rasmussen MD Primary Care Provider Unavail able Irene Armstrong MD Primary Care Provider [facility] Primary Care Provider [facility] Jose Tidwell MD Primary Care Provider [phone] Sinai Patel MD Primary Care Provider + Rosemarie Young MD Unavailable [phone] Antonette King PA-C Unavailable [phone] Samson EllisC Unavailable [phone] Encounter Details Date Type Department Care Team Description 08/23/2013 Leasing Consultant Report Medical Records [address] [place] [address] Hong Pelayo MD Social History Tobacco Use Types Packs/Day [...] on filedocumented in this encounter Care Teams Cable Television Technician Relationship Specialty Start Date End Date Juve Reno MD PCP - General Internal Medicine 08/13/13 05/20/14 Zachary Jaramillo MD PCP - General Internal Medicine 05/21/14 03/06/15 Irene Armstrong MD PCP - General Internal Medicine 04/19/17 Irene Armstrong MD PCP - General 03/07/15 Jose Tidwell MD PCP - General Internal Medicine 05/26/22 07/26/22 Sinai Patel MD [address] [place] [address] PCP - General Internal Medicine 07/27/22 Rosemarie Young MD [address] [address] Surgeon Neurosurgery 07/27/23 Antonette King PA-C [address] [address] Specialist Neurosurgery 07/27/23 Samson Ellis PA-C [address] [address] Specialist Neurosurgery 07/27/23 documented as of this encounter
--- OUTSIDE RECORDS SUMMARY | 2024-09-12 17:14 | XMS_ITS | Encounter Summary ---
Author Organization [employer] [facility] Address [address] [place] [address] Care Team Providers Care Slipcover Cutter Name Role Phone Irene Armstrong MD Primary Care Provider U Irene Tanner MD Primary Care Provider U Jose Gao MD Primary Care Provider [phone] Sinai Patel MD Primary Care Provider + Rosemarie Young MD Unavailable [phone] Antonette King PA-C Unavailable [phone] Samson Ellis PA-C Unavailable [phone] Encounter Details Date Type Department Care Team Description 05/20/2016 Hospital Medical Records [address] [place] [address] Porfirio Alston MD Social History Tobacco Use [...] on filedocumented in this encounter Care Teams Slipcover Cutter Relationship Specialty Start Date End Date Irene Armstrong MD PCP - General Internal Medicine 04/19/17 Irene Armstrong MD PCP - General 03/07/15 Jose Tidwell MD PCP - General Internal Medicine 05/26/22 07/26/22 Sinai Patel MD [address] [place] [address] PCP - General Internal Medicine 07/27/22 Rosemarie Young MD [address] [address] Surgeon Neurosurgery 07/27/23 Antonette King PA-C [address] [address] Specialist Neurosurgery 07/27/23 Samson Ellis PA-C [address] [address] Specialist Neurosurgery 07/27/23 documented as of this encounter
--- OUTSIDE RECORDS SUMMARY | 2024-09-12 17:14 | XMS_ITS | Encounter Summary ---
Author Organization [employer] [facility] Address [address] [place] [address] Care Team Providers Care Licensed Prosthetist/Orthotist Name Role Phone Irene Armstrong MD Primary Care Provider U Irene Tanner MD Primary Care Provider U Jose Gao MD Primary Care Provider [phone] Sinai Patel MD Primary Care Provider + Rosemarie Young MD Unavailable [phone] Antonette King PA-C Unavailable [phone] Samson Ellis PA-C Unavailable [phone] Reason for Visit * Reason Comments E-prescribe Rx Request Encounter Details Date Type Department Care Team Description 08/10/2016 Refill Medicine/Pediatrics [address] [phone] Zachary Jaramillo MD E-prescribe Rx Request Social [...] Telephone Encounter - Susan Cristobal M.A. - 08/10/2016 11:07 AM EDT Date of last office visit was 04/27/16 Component Value Date HGBA1C 7.0 04/27/2016 MALBUR 12.3 04/27/2016 MALBCR 8.3 04/27/2016 CHOL 130 04/27/2016 LDL 64 04/27/2016 HDL 42 04/27/2016 TRIG 124 04/27/2016 GLU 145 04/27/2016 CREAT 0.9 04/27/2016 * Telephone Encounter - Brandy Bry - 08/10/2016 11:02 AM EDT Patient would like script to be: E-PRESCRIBED/FAXED TO PHARMACY WHEN WAS THE PATIENT'S LAST APPOINTMENT IN ADULT MEDICINE? 04.27.2016 WHEN WAS THE LAST TIME THE PATIENT [...] NO Patients current insurance carrier is: Payor: [facility] MEDICAID / Plan: [facility] MEDICAID O [id number] [place] / Product Type: HMO [id number] documented in this encounter Plan of Treatment Not on file documented as of this encounter Visit Diagnoses Not on filedocumented in this encounter Care Teams Licensed Prosthetist/Orthotist Relationship Specialty Start Date End Date Irene Armstrong MD PCP - General Internal Medicine 04/19/17 Irene Armstrong MD PCP - General 03/07/15 Jose Tidwell MD PCP - General Internal Medicine 05/26/22 07/26/22 Sinai Patel MD [address] [place] [address] PCP - General Internal Medicine 07/27/22 Rosemarie Young MD 175 [facility] [address] [place] [address] Surgeon Neurosurgery 07/27/23 Antonette King PA-C [address] [address] Specialist Neurosurgery 07/27/23 Samson Ellis PA-C 175 [facility] [address] [place] [address] Specialist Neurosurgery 07/27/23 documented as of this encounter
--- OUTSIDE RECORDS SUMMARY | 2024-09-12 17:14 | XMS_ITS | Clinical Summary ---
Author Organization [facility] Address [address] [place] [address] Care Team Providers Care Channel Development Director Name Role Phone Sinai Patel MD Primary Care Provider + Rosemarie Young MD Unavailable [phone] Antonette King PA-C Unavailable [phone] Samson Ellis PA-C Unavailable Allergies Active Allergy Reactions Severity Noted Date Comments Naproxen Rash/Dermatitis High 04/19/2017 Ondansetron 12/19/2017 Medications Medication Sig Dispensed Refills Start Date End Date Status EASY COMFORT PEN NEEDLES 32G X 4 MM MiscIndications:DM (diabetes mellitus), secondary, uncontrolled, with neurologic complications USE DIRECTED EVERY EVENING. 100 Each 1 08/07/2019 Active Xiidra 5 % Solution Place 1 Drop into both eyes 2 times daily. 1 Each 3 12/12/2020 Active Respiratory Therapy Supplies (Vortex Holding Chamber/Mask) DeviceIndications:Re strictive pattern present on pulmonary function testing by Does not apply route. 0 01/20/2021 Active Insulin Pen Needle (BD Pen Needle Zara U/F) 32G X 4 MM Misc Use one daily with lantus 100 Each 1 01/20/2021 Active CPAP Historical (HISTORICAL CPAP)Indications:Obs tructive sleep apnea Inhale 12-16 cm into the lungs at bedtime. apria-pressure 10-16 0 01/25/2021 Active Restasis MultiDose 0.05 % ophthalmic emulsion 0 01/07/2021 Active ZOLPIDEM TARTRATE OR Take by mouth. 0 Active Empagliflozin 10 MG Tab Take 1 Tablet by mouth daily. 0 Active trazodone (DESYREL) 100 MG tablet Take 200 mg by mouth at bedtime. 0 Active polyethylene glycol (GLYCOLAX) 17 GM/SCOOP powderIndications:Sl ow transit constipation 1 capful with water twice daily, or as directed 3060 g 0 09/06/2022 Active sumatriptan (IMITREX) 100 MG tablet Take 1 Tablet by mouth daily as needed. May repeat dose once after 2 hours, if needed. 0 Active Continuous Blood Gluc Sensor (Dexcom G6 Sensor) [facility] [place] 3 PACK [id number], See Instructions, # 3 pack/packet, Refills 11, Tot. Refills 11, Maintenance, 11.9 use to monitor blood glucose continuously, change sensor every 10 days, 10/15/22 12:29:00 EDT, Compound 0 10/15/2022 Active Continuous Blood Gluc Transmit (Dexcom G6 Transmitter) [facility] [place]6 TRANSMITTER [id number], See Instructions, # 1 each, Refills 3, Tot. Refills 3, Maintenance, 11.9 use to monitor blood glucose continuously, change every 90 days, 10/15/22 12:29:00 EDT, Compound 0 10/15/2022 Active Alcohol Swabs PadsIndications:Type 2 diabetes mellitus with complication, with long-term current use of insulin (HCC) Apply 1 Packet topically at bedtime. 100 Each 0 05/18/2023 Active Ventolin HFA 108 (90 Base) MCG/ACT Aero SolnIndications:Rest rictive pattern present on pulmonary function testing,Shortness of breath,Wheezing,Obst ructive sleep apnea,Seasonal allergic rhinitis, unspecified trigger Inhale 2 Puffs into the lungs every 6 hours as needed for Cough, Wheezing or Shortness of Breath (chest tightness). 18 g 6 06/01/2023 Active arformoterol (Brovana) 15 MCG/2ML Nebu SolnIndications:Rest rictive pattern present on pulmonary function testing,Moderate persistent exacerbation of reactive airway disease Take 2 mL by nebulization 2 times daily. COPD J44.9 120 mL 3 06/01/2023 Active Elastic Bandages & Supports (Wrist Brace Deluxe) MiscIndications:Prim marisa osteoarthritis of both hands 1 Each by Does not apply route at bedtime. 2 Each 0 06/17/2023 Active Casts and Splints MiscIndications:Carp al tunnel syndrome on both sides 2 Each by Does not apply route daily as needed for Other (pain). DX G56.03 2 Each 0 06/17/2023 Active divalproex (DEPAKOTE) 500 MG EC tablet 750mg nightly 0 06/17/2023 Active Insulin Lispro (HumaLOG KwikPen) 200 UNIT/ML Solution Pen-injectorIndicati ons:Type 2 diabetes mellitus without complication, with long-term current use of insulin (HCC) Inject 200 Units into the skin continuous. Use daily with insulin pump. Max daily dose 200 units. 30 mL 2 07/08/2023 Active albuterol (PROVENTIL) (2.5 MG/3ML) 0.083% nebulizer solutionIndications: Restrictive pattern present on pulmonary function testing,Shortness of breath,Wheezing,Seas onal allergic rhinitis, unspecified trigger Take 1 Vial by nebulization every 6 hours as needed for Wheezing, Shortness of Breath or Cough for up to 180 days. 360 mL 1 07/20/2023 Active diazepam (VALIUM) 5 MG tablet TAKE 1 TABLET BY MOUTH EVERYDAY AT BEDTIME 0 05/29/2023 Active Loratadine 10 MG Cap Take 1 Capsule by mouth. 0 09/12/2018 Active gabapentin (NEURONTIN) 600 MG tablet Take 1 Tablet by mouth every evening. Per Psych 90 Tablet 1 09/08/2023 Active docusate sodium (COLACE) 100 MG capsuleIndications:C alculus of kidney with calculus of ureter Take 1 Capsule by mouth 2 times daily. 180 Capsule 1 09/14/2023 Active duloxetine (CYMBALTA) 60 MG capsule Take 1 Capsule by mouth daily. 90 Capsule 1 09/15/2023 Active gabapentin (NEURONTIN) 300 MG capsule Take 1 Capsule by mouth every morning. 90 Capsule 0 09/19/2023 Active Meclizine HCl 25 MG Tab TAKE 1 TABLET BY MOUTH 2 TIMES DAILY NEEDED (DIZZINESS). 56 Tablet 5 10/06/2023 Active propranolol (INDERAL LA) 120 MG 24 hr capsule Take 1 Capsule by mouth daily. 90 Capsule 1 10/06/2023 Active Triamcinolone Acetonide 55 MCG/ACT AerosolIndications:W heezing,Obstructive sleep apnea,Seasonal allergic rhinitis, unspecified trigger USE 1 SPRAY INTO EACH NOSTRIL DAILY 16.9 mL 5 11/09/2023 Active olanzapine (ZYPREXA) 5 MG tablet 0 11/07/2023 Active Dulaglutide (Trulicity) 4.5 MG/0.5ML Solution Pen-injector Inject 4.5 mg into the skin once a week. 6 mL 1 11/30/2023 Active atorvastatin (LIPITOR) 40 MG tablet Take 1 Tablet by mouth daily. 90 Tablet 1 11/30/2023 Active Acetaminophen Extra Strength 500 MG Tab TAKE 1 TABLET BY MOUTH EVERY 6 HOURS NEEDED FOR PAIN 360 Tablet 1 01/02/2024 Active Magnesium Oxide -Mg Supplement 500 MG TabIndications:Memor y impairment Take 1 Tablet by mouth daily. 90 Tablet 1 12/29/2023 Active Blood Glucose Monitoring Suppl (ONE TOUCH ULTRA 2) w/Device KitIndications:Type 2 diabetes mellitus without complication, with long-term current use of insulin (HCC) Use to test blood sugar twice daily. 1 Kit 0 01/10/2024 Active ONE TOUCH BASIC STRIPSIndications:Ty pe 2 diabetes mellitus without complication, with long-term current use of insulin (HCC) Apply 1 Strip topically 2 times daily. To test blood sugar. 100 Strip 5 01/10/2024 Active ONE TOUCH ULTRASOFT LANCETS MiscIndications:Type 2 diabetes mellitus without complication, with long-term current use of insulin (HCC) Use to test blood sugar twice daily. 100 Each 01/10/2024 Active Melatonin 5 MG Tab Take 1 Tablet by mouth every evening. 90 Tablet 1 01/18/2024 Active Psyllium 400 MG Cap Take 400 mg by mouth daily. 90 Capsule 1 01/31/2024 Active budesonide (PULMICORT) 0.5 MG/2ML nebulizer solutionIndications: Restrictive pattern present on pulmonary function testing,Shortness of breath,Wheezing,Obst ructive sleep apnea TAKE 2 ML BY NEBULIZATION 2 TIMES DAILY. COPD 120 mL 1 02/21/2024 Active lisinopril (PRINIVIL,ZESTRIL) 2.5 MG tablet TAKE 1 TABLET BY MOUTH EVERY DAY 28 Tablet 5 02/24/2024 Active Aspirin Low Dose 81 MG EC tabletIndications:Di abetic nephropathy associated with type 2 diabetes mellitus (HCC) TAKE 1 TABLET BY MOUTH EVERY DAY 28 Tablet 5 02/24/2024 Active Cholecalciferol (Vitamin D3) 50 MCG (1999 UT) CapIndications:Diabe tic nephropathy associated with type 2 diabetes mellitus (HCC) TAKE 1 CAPSULE BY MOUTH EVERY DAY 28 Capsule 5 02/24/2024 Active meloxicam (MOBIC) 15 MG tablet TAKE 1 TABLET BY MOUTH EVERY DAY NEEDED FOR PAIN 28 Tablet 1 02/28/2024 Active tamsulosin (FLOMAX) 0.4 MG 24 hr capsuleIndications:B enign prostatic hyperplasia, unspecified whether lower urinary tract symptoms present TAKE 1 CAPSULE BY MOUTH EVERY DAY 90 Capsule 1 03/20/2024 Active pantoprazole (PROTONIX) 20 MG tablet TAKE 1 TABLET BY MOUTH EVERY DAY BEFORE BREAKFAST 90 Tablet 1 03/20/2024 Active tramadol (ULTRAM) 50 MG tabletIndications:Mu ltiple joint pain Take 1 Tablet by mouth 2 times daily. 56 Tablet 0 03/22/2024 Active Active Problems Patient Care Coordination No te Formatting of this note is d ifferent from the original. Checking Your Blood Sugars Please check your blood sugars every day. Please check your sugars at the following times of day: before breakfast and after dinner Your Blood Sugar Goals Pre Meal: 90-130 2 hours after meals: 110-160 Bedtime: 110-150 Use the Results ?? Bring your glucometer to every appointment ?? Write your fingerstick blood sugars down on a log sheet or record book. Bring them to your appointment ?? Look for patterns in the numbers. The results help you and your provider make decisions about your diabetes treatment plan. Your Results and your Goals Your Result / Date of Completion Your Goal / How Often to Assess Component Value Date HGBA1C 7.9 01/24/2016 Less than 7%--- 2-4 times per year BP Readings from Last 1 Encounters: 04/27/16 110/80 Less than 130/80--- once per year Component Value Date LDL 49 06/30/2015 LDL less than 100--- once per year Component Value Date MALBUR 105.1 01/24/2016 Less than 30--- once per year Wt Readings from Last 1 Encounters: 04/27/16 189 lb 3.2 oz (85.821 kg) Your goal weight by next visit: 201 --- reassess 2-4 times a year There are no preventive care reminders to display for this patient. Your Action Plan Check blood glucose as directed and write down all results. Increase physical activity Contact me if you experience any barriers to care such as inability to purchase your medication, difficulty getting to your appointments or difficulty understanding your care plan When to Call your Healthcare Provider If your blood sugar falls below 70 and you do not know why or you become unconscious If you are sick and unable to take liquids because or nausea or vomiting If you have a fever over 101 If your blood sugar is 300 or higher on greater than 3 separate occasions during the same week If you are just unsure what to do Educational Resources [place] [employer] (www.diabetes.org) Centers for Disease Control and Prevention (www.cdc.gov/diabetes) This care plan was created in collaboration with Destin Layton on 04/27/2016 Problem Noted Date Insomnia 09/19/2023 Gastroesophageal reflux disease without esophagitis 09/19/2023 Neck pain 08/31/2023 Last Assessment & Plan: Mr. Layton describes [...] consider an MRI of the cervical spine. Chronic low back pain with bilateral sci atica 08/31/2023 Last Assessment & Plan: Mr. Layton describes [...] can consider an MRI at that time. Hyperlipidemia 07/27/2023 Hypertension 07/27/2023 Vitamin D deficiency 07/27/2023 Common migraine 07/27/2023 Chronic vertigo 06/17/2023 Traumatic brain injury with loss of cons ciousness 06/17/2023 Calcific tendinitis of right shoulder Lumbar degenerative disc disease 024 Multiple joint pain 06/17/2023 Type 2 diabetes mellitus wit h diabetic neuropathy, with long-term current use of insulin 09/06/2022 Benign prostatic hyperplasia 09/06/2022 History of dizziness 01/04/2022 Seasonal allergic rhinitis 01/04/2022 Restrictive pattern present on pulmonary function testing 04/21/2020 Evidence of airways hyperreactivity with out diagnosis of asthma 04/21/2020 Mold exposure 04/21/2020 Class 1 obesity 03/01/2019 PTSD (post-traumatic stress disorder) Anxiety 06/27/2018 Moderate episode of recurrent major depr essive disorder 06/27/2018 Glaucoma 04/19/2017 Overview: Naomi; Bilat surgery Atypical chest pain 06/08/2016 Ulnar neuropathy at elbow 04/27/2016 Lesions of both ulnar nerves 11/27/2015 Overview: Bilateral ulnar neuropathy on EMG 11/05 Osteoarthritis of hands, bilateral 11/26 [employer] (background diabetic retinopathy) Sinus tachycardia 04/14/2015 Urolithiasis 12/30/2014 Overview: Dr. Alston Obstructive sleep apnea AHI 5.8/REM AHI 53 11/29/2014 Overview: Cx Pulmo 04/09 and 08/17 due to [...] 0.7. Carpal tunnel syndrome on both sides 09/2013 Overview: Moderate symptoms spring 2013; declined emg Has relief with braces October 2015 EMG: mild bilateral CTS and bilateral ulnar neuropathy Memory impairment 08/24/2013 Overview: Dr. Pelayo - 08/23/13 - potential benefit for psychotherapy; unclear etiology with only certain segments of memory impairment; followup as needed Overweight 01/29/2013 Diabetic nephropathy 03/22/2008 Resolved Problems Problem Noted Date Resolved Date Lab test negative for COVID-19 virus 04/10/2020 06/17/2023 DM (diabetes mellitus), seco ndary, uncontrolled, with neurologic complications 05/12/2010 09/06/2022 Overview: Onset approx age 25. HYPERCHOLESTEROLEMIA 07/11/2006 11/30/2023 Immunizations Name Administration Dates Next Due Hepatitis B > 19yrs 05/31/2011,12/04/2010,2010 Hepb Vacc, Ill Pat 3 Dose 05/31/2011,12/04/2010, 10/29/2010 Influenza (> 6 Months) 02/25/2016,2013,03/22/2008,05/02,04/18/2006 Influenza Vaccine-preservati ve Free-quadrivalent 4 Years 05/28/2022,02/11/2021,04/17/2019,04/20 Influenza Vaccine-quadrivale nt 4 Years Plus 04/19/2017 MMR (Bpeucpr-Ndvhj-Brykoue) 10/29/2010 Pneumoccoccal(Adult) Polysac charide PPSV23 04/26/2014 TD (STATE SUPPLIED FOR ADULT S AND CHILDREN) 05/28/2022 TETANUS/DIPTHERIA (ADULT) 08/29/2003 Tdap 10/14/2010 Varicella Titre-Positive + 10/15/2010 Family History Medical History Relation Name Comments Cataract Maternal Grandfather Diabetes Maternal Grandfather Cataract Maternal Grandmother Diabetes Maternal Grandmother Diabetes Mother Blindness Paternal Grandfather Cataract Paternal Grandfather Diabetes Paternal Grandfather Cataract Paternal Grandmother unknown Other pt states famil y does not talk about anything Macular Degeneration Negative Hx Strabismus Negative Hx Relation Name Status Comments Maternal Grandfather Maternal Grandmother Mother Paternal Grandfather Paternal Grandmother Other Social History Tobacco Use Types Packs/Day Years Used Date Smoking Tobacco: Never Cigarettes Qu it: 05/23/1990 Smokeless Tobacco: Never Tobacco Cessation:Counseling Given: Not Answered Alcohol Use Standard Drinks/Week Comments Not Asked 0 (1 standard drink = 0.6 oz pur e alcohol) Sex Assigned at Date Recorded Not on file Job Start Date Occupation Industry Not on file Not on file Not on file Last Filed Vital Signs Vital Sign Reading Time Taken Comments Blood Pressure 110/62 12/01/2023 1:44 PM EDT Pulse 88 03/14/2024 1:24 PM EDT Temperature 35.8 ??C (96.5 ??F) 12/01/2023 1:44 PM ED T Respiratory Rate 16 03/14/2024 1:24 PM EDT Oxygen Saturation 93% 12/01/2023 1:44 PM EDT Inhaled Oxygen Concentration - - Weight 100.9 kg (222 lb 8 oz) 08/31/2023 10:48 A M EDT Height 165.1 cm (5' 5 ) 03/14/2024 1:24 PM EDT Body Mass Index 37.03 08/31/2023 10:48 AM EDT Plan of Treatment Health Maintenance Due Date Last Done Comments Covid-19 Vaccine (#1) 1969 SHINGLES VACCINE (1 of 2) 2019 DIABETES: ANNUAL EYE EXAM 06/02/20232022, 05/28/2022 (External Completion of test per patient (Patient reports normal results)), 12/31/2020, Additional history exists BMI CHECK/ADVISE 05/23/2024 03/14/2024 (Com pleted), 01/11/2023, 10/21/2022, Additional history exists DEPRESSION SCREENING/FOLLOWUP 05/23/2024, 11/30/2023, 09/19/2023, Additional history exists SOCIAL NEEDS SCREENING 05/23/2024 05/28/2022 (Comple nicholas) BASELINE HEALTH EXAM 40-64 06/09/202406/09, 05/28/2022, 04/20/2018, Additional history exists DIABETES: BLOOD SUGAR CONTRO L TEST (HGBA1C) 06/14/2024 03/14/2024, 12/01/2023, 08/29/2023, Additional history exists DIABETES/HEART DISEASE: PATRICE RICE CHOLESTEROL (LDL) 08/28/2024 08/29/2023, 06/09/2022, 11/04/2020, Additional history exists DEPRESSION SCREEN 11/29/2024 11/30/2023 (Co mpleted), 05/28/2022 (Completed), 02/01/2019 DIABETES: ANNUAL FOOT EXAM 11/29/202411/29, 05/30/2022, 09/07/2018 (Completed), Additional history exists DIABETES: ANNUAL URINE PROTE IN TEST (MICROALBUMIN) 11/30/2024 12/01/2023, 10/12/2022, 06/09/2022, Additional history exists INFLUENZA (Season Ended) 2025 023, 02/11/2021, 04/17/2019, Additional history exists COLON CANCER SCREENING 03/12/2025 03/12/2020 DTAP/TDAP/TD (3 - Td or Tdap) 05/28/2032 05/28/2022, 10/14/2010 PNEUMOCOCCAL VACCINE FOR HIG H RISK PATIENTS (#2) 2034 04/26/2014 HEPATITIS C SCREENING Completed 11/30/2003 Advance Directives For more information, please contact: [phone] Documents on File Type Date Recorded Patient Regulatory Compliance Engineer Expl anation Power of Jointer Machine 01/09/2020 11:45 AM DURA BLE POWER OF WOOD ROUTER HAND Health Care Proxy 01/04/2020 11:55 AM Care Teams Channel Development Director Relationship Specialty Start Date End Date Sinai Patel MD [address] [place] [address] PCP - General Internal Medicine 07/27/22 Rosemarie Young MD [address] [address] Surgeon Neurosurgery 07/27/23 Antonette King PA-C [address] [address] Specialist Neurosurgery 07/27/23 Samson Ellis PA-C [address] [address] Specialist Neurosurgery 07/27/23
--- OUTSIDE RECORDS SUMMARY | 2024-09-12 17:14 | XMS_ITS | Encounter Summary ---
Author Organization [facility] Address [address] [place] [address] Care Team Providers Care V Groove Cutter Name Role Phone Irene Armstrong MD Primary Care Provider U Jose Gao MD Primary Care Provider [phone] Sinai Patel MD Primary Care Provider + Rosemarie Young MD Unavailable [phone] Antonette King PA-C Unavailable [phone] Samson Ellis PA-C Unavailable [phone] Reason for Visit * Reason Onset Date Comments refill request 09/22/2020 Encounter Details Date Type Department Care Team Description 09/22/2020 Refill Gastroenterology - [address] [place] [address] Brandon Aguilar PA-C refill request [...] encounter Miscellaneous Notes * Telephone Encounter - Jennifer Thomas - 09/22/2020 4:22 PM EDT PIPO 08/01/20 NOV 10/06/20 documented in this encounter Plan of Treatment Not on file documented as of this encounter Visit Diagnoses Not on filedocumented in this encounter Care Teams V Groove Cutter Relationship Specialty Start Date End Date Irene Armstrong MD PCP - General Internal Medicine 04/19/17 Jose Tidwell MD PCP - General Internal Medicine 05/26/22 07/26/22 Sinai Patel MD [address] [place] [address] PCP - General Internal Medicine 07/27/22 Rosemarie Young MD [address] [address] Surgeon Neurosurgery 07/27/23 Antonette King PA-C [address] [address] Specialist Neurosurgery 07/27/23 Samson Ellis PA-C [address] [address] Specialist Neurosurgery 07/27/23 documented as of this encounter
--- OUTSIDE RECORDS SUMMARY | 2024-09-12 17:14 | XMS_ITS | Encounter Summary ---
Author Organization [facility] Address [address] [place] [address] Care Team Providers Care Shoe Lay Out Planner Name Role Phone Sinai Patel MD Primary Care Provider + Rosemarie Young MD Unavailable [phone] Antonette King PA-C Unavailable [phone] Samson Ellis PA-C Unavailable Reason for Visit * Reason Onset Date Comments APPOINTMENT 01/27/2024 Encounter Details Date Type Department Care Team Description 01/27/2024 Telephone Pulmonology - [place] [address] [address] Amanda Springer MD [address] [address] APPOINTMENT Social History Tobacco Use Types Packs/Day [...] Miscellaneous Notes * Telephone Encounter - Aleida Capellan CMA - 01/27/2024 11:45 AM EDT Called patient to ask about ct and pft orders that were placed no answer left vm documented in this encounter Plan of Treatment Not on file documented as of this encounter Visit Diagnoses Not on filedocumented in this encounter Care Teams Shoe Lay Out Planner Relationship Specialty Start Date End Date Sinai Patel MD [address] [place] [address] PCP - General Internal Medicine 07/27/22 Rosemarie Young MD [address] [address] Surgeon Neurosurgery 07/27/23 Antonette King PA-C [address] [address] Specialist Neurosurgery 07/27/23 Samson Ellis PA-C [address] [address] Specialist Neurosurgery 07/27/23 documented as of this encounter
--- OUTSIDE RECORDS SUMMARY | 2024-09-12 17:14 | XMS_ITS | Encounter Summary ---
Author Organization [employer] [facility] Address [address] [place] [address] Care Team Providers Care Vice President Of Product Marketing Name Role Phone Irene Armstrong MD Primary Care Provider U [facility] Jose Tidwell MD Primary Care Provider [phone] Sinai Patel MD Primary Care Provider + Rosemarie Young MD Unavailable [phone] Antonette King PA-C Unavailable [phone] Samson Ellis PA-C Unavailable [phone] Encounter Details Date Type Department Care Team Description 09/14/2018 Orders Only Adult Medicine B - [address] [address] Irene Armstrong MD Social History Tobacco Use [...] on filedocumented in this encounter Care Teams Vice President Of Product Marketing Relationship Specialty Start Date End Date Irene Armstrong MD PCP - General Internal Medicine 04/19/17 Jose Tidwell MD PCP - General Internal Medicine 05/26/22 07/26/22 Sinai Patel MD [address] [place] [address] PCP - General Internal Medicine 07/27/22 Rosemarie Young MD [address] [address] Surgeon Neurosurgery 07/27/23 Antonette King PA-C [address] [address] Specialist Neurosurgery 07/27/23 Samson Ellis PA-C 175 [facility] [address] [place] [address] Specialist Neurosurgery 07/27/23 documented as of this encounter
--- OUTSIDE RECORDS SUMMARY | 2024-09-12 17:14 | XMS_ITS | Encounter Summary ---
Author Organization [employer] [facility] Address [address] [place] [address] Care Team Providers Care Medical Reviewer Name Role Phone Irene Armstrong MD Primary Care Provider U Jose Gao MD Primary Care Provider [phone] Sinai Patel MD Primary Care Provider + Rosemarie Young MD Unavailable [phone] Antonette King PA-C Unavailable [phone] Samson Ellis PA-C Unavailable [phone] Reason for Visit * Reason Onset Date Comments Prior Authorization 04/25/2019 Encounter Details Date Type Department Care Team Description 04/25/2019 Telephone Endocrinology - [address] [address] Zachary Jaramillo MD Prior Authorization Social History Tobacco Use Types Packs/Day Years [...] Miscellaneous Notes * Telephone Encounter - Brandy Rouse M.A. - 05/09/2019 3:22 PM EST Spoke with scheduling representative from [facility] who does the prior auths for this Rx. She stated it was denied, she stated that pt didn't meet criteria but it didn't make sense cos she then stated that Pt doesn'tneed strips because of the sensors. * Telephone Encounter - Sherron Addison - 05/09/2019 9:06 AM EST Colleen calling stating they still havent received this Prior Auth. * Telephone Encounter - Brandy Rouse M.A. - 05/01/2019 11:54 AM EST Christofer from [facility] requesting supporting office visit notes. Fax to [phone] Office visit notes faxed today * Telephone Encounter - Brandy Rouse M.A. 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 Is this a Cover My Meds request: Yes -- Thomas Code [id number] Name of Medication FreeStyle Ian 14 Day Sensor Dose of Medication N/A What is the RX # from the faxed refill? N/A How does patient take this med? Use to check blood sugars. Apply to the back of the upper arm every14 days. What Pharmacy did the fax come from: [facility] fax #: [phone] [employer] Republican Information from fax: What Prescription Plan does the patient have? [facility] BIN/PCN if applicable: N/A Cardholder ID:[id number] Person Code: N/A Relationship Code: N/A Help desk phone: [phone] documented in this encounter Plan of Treatment Not on file documented as of this encounter Visit Diagnoses Not on filedocumented in this encounter Care Teams Medical Reviewer Relationship Specialty Start Date End Date Irene Armstrong MD PCP - General Internal Medicine 04/19/17 Jose Tidwell MD PCP - General Internal Medicine 05/26/22 07/26/22 Sinai Patel MD [address] [place] [address] PCP - General Internal Medicine 07/27/22 Rosemarie Young MD [address] [address] Surgeon Neurosurgery 07/27/23 Antonette King PA-C [address] [address] Specialist Neurosurgery 07/27/23 Samson Ellis PA-C 175 [facility] [address] [place] [address] Specialist Neurosurgery 07/27/23 documented as of this encounter
--- OUTSIDE RECORDS SUMMARY | 2024-09-12 17:14 | XMS_ITS | Encounter Summary ---
Author Organization [employer] [facility] Address [address] [place] [address] Care Team Providers Care Flame Cutting Supervisor Name Role Phone Irene Armstrong MD Primary Care Provider U Irene Tanner MD Primary Care Provider U Jose Gao MD Primary Care Provider [phone] iSnai Patel MD Primary Care Provider + Rosemarie Young MD Unavailable [phone] Antonette King PA-C Unavailable [phone] Samson Ellis PA-C Unavailable [phone] Encounter Details Date Type Department Care Team Description 07/07/2016 Swing Grinder Report Medical Records [address] [place] [address] Porfirio Alston MD Social History Tobacco Use [...] on filedocumented in this encounter Care Teams Flame Cutting Supervisor Relationship Specialty Start Date End Date Irene Armstrong MD PCP - General Internal Medicine 04/19/17 Irene Armstrong MD PCP - General 03/07/15 Jose Tidwell MD PCP - General Internal Medicine 05/26/22 07/26/22 Sinai Patel MD [address] [place] [address] PCP - General Internal Medicine 07/27/22 Rosemarie Young MD [address] [address] Surgeon Neurosurgery 07/27/23 Antonette King PA-C [address] [address] Specialist Neurosurgery 07/27/23 Samson Ellis PA-C [address] [address] Specialist Neurosurgery 07/27/23 documented as of this encounter
--- OUTSIDE RECORDS SUMMARY | 2024-09-12 17:14 | XMS_ITS | Encounter Summary ---
Author Organization [employer] [facility] Address [address] [place] [address] Care Team Providers Care Web Portal Developer Name Role Phone Irene Armstrong MD Primary Care Provider [facility] Jose Tidwell MD Primary Care Provider [phone] Sinai Patel MD Primary Care Provider + Rosemarie Young MD Unavailable [phone] Antonette King PA-C Unavailable [phone] Samson Ellis PA-C Unavailable [phone] Encounter Details Date Type Department Care Team Description 11/01/2018 Rocket Motor Mechanic Report Medical Records [address] [place] [address] Addy Miles PA-C Social History Tobacco Use Types Packs/Day Years [...] on filedocumented in this encounter Care Teams Web Portal Developer Relationship Specialty Start Date End Date Irene Armstrong MD PCP - General Internal Medicine 04/19/17 Jose Tidwell MD PCP - General Internal Medicine 05/26/22 07/26/22 Sinai Patel MD [address] [place] [address] PCP - General Internal Medicine 07/27/22 Rosemarie Young MD [address] [address] Surgeon Neurosurgery 07/27/23 Antonette King PA-C [address] [address] Specialist Neurosurgery 07/27/23 Samson Ellis PA-C [address] [address] Specialist Neurosurgery 07/27/23 documented as of this encounter
--- OUTSIDE RECORDS SUMMARY | 2024-09-12 17:14 | XMS_ITS | Encounter Summary ---
Author Organization [employer] [facility] Address [address] [place] [address] Care Team Providers Care Quality Intern Name Role Phone Irene Armstrong MD Primary Care Provider U Irene Tanner MD Primary Care Provider U Jose Gao MD Primary Care Provider [phone] Sinai Patel MD Primary Care Provider + Rosemarie Young MD Unavailable [phone] Antonette King PA-C Unavailable [phone] Samson Ellis PA-C Unavailable [phone] Encounter Details Date Type Department Care Team Description 12/30/2015 Operations Support Professionals Report Medical Records [address] [place] [address] Abstract, Provider Social History Tobacco Use Types [...] on filedocumented in this encounter Care Teams Quality Intern Relationship Specialty Start Date End Date Irene Armstrong MD PCP - General Internal Medicine 04/19/17 Irene Armstrong MD PCP - General 03/07/15 Jose Tidwell MD PCP - General Internal Medicine 05/26/22 07/26/22 Sinai Patel MD [address] [place] [address] PCP - General Internal Medicine 07/27/22 Rosemarie Young MD [address] [address] Surgeon Neurosurgery 07/27/23 Antonette King PA-C [address] [address] Specialist Neurosurgery 07/27/23 Samson Ellis PA-C [address] [address] Specialist Neurosurgery 07/27/23 documented as of this encounter
--- OUTSIDE RECORDS SUMMARY | 2024-09-12 17:14 | XMS_ITS | Encounter Summary ---
Author Organization [employer] [facility] Address [address] [place] [address] Care Team Providers Care Intramural Director Name Role Phone Irene Armstrong MD Primary Care Provider U [facility] Jose Tidwell MD Primary Care Provider [phone] Sinai Patel MD Primary Care Provider + Rosemarie Young MD Unavailable [phone] Antonette King PA-C Unavailable [phone] Samson Ellis PA-C Unavailable [phone] Encounter Details Date Type Department Care Team Description 06/27/2020 Orders Only Adult Medicine B - [address] [address] Zachary Jaramillo MD Social History Tobacco Use [...] on filedocumented in this encounter Care Teams Intramural Director Relationship Specialty Start Date End Date Irene Armstrong MD PCP - General Internal Medicine 04/19/17 Jose Tidwell MD PCP - General Internal Medicine 05/26/22 07/26/22 Sinai Patel MD [address] [place] [address] PCP - General Internal Medicine 07/27/22 Rosemarie Young MD [address] [address] Surgeon Neurosurgery 07/27/23 Antonette King PA-C [address] [address] Specialist Neurosurgery 07/27/23 Samson Ellis PA-C 175 [facility] [address] [place] [address] Specialist Neurosurgery 07/27/23 documented as of this encounter
--- OUTSIDE RECORDS SUMMARY | 2024-09-12 17:14 | XMS_ITS | Encounter Summary ---
Author Organization [employer] [facility] Address [address] [place] [address] Care Team Providers Care Head Charger Name Role Phone Jose Tidwell MD Primary Care Provider [phone] Sinai Patel MD Primary Care Provider + Rosemarie Young MD Unavailable [phone] Antonette King PA-C Unavailable [phone] Samson Ellis PA-C Unavailable [phone] Encounter Details Date Type Department Care Team Description 07/26/2022 [facility] [address] [place] [id number] Brandon Aguilar PA-C Social History Tobacco Use Types Packs/Day [...] Miscellaneous Notes * Telephone Encounter - Susan Reza - 07/27/2022 8:49 AM EST Che- 08/01/20 Nov- none documented in this encounter Plan of Treatment Not on file documented as of this encounter Visit Diagnoses Not on filedocumented in this encounter Care Teams Head Charger Relationship Specialty Start Date End Date Jose Tidwell MD PCP - General Internal Medicine 05/26/22 07/26/22 Sinai Patel MD [address] [place] [address] PCP - General Internal Medicine 07/27/22 Rosemarie Young MD [address] [address] Surgeon Neurosurgery 07/27/23 Antonette King PA-C [address] [address] Specialist Neurosurgery 07/27/23 Samson Ellis PA-C [address] [address] Specialist Neurosurgery 07/27/23 documented as of this encounter
== END ==
LOC: HO.HBST 14:18
PROVIDERS: Visit Provider Counselor Mental Health
DX: F43.12 Post-traumatic stress disorder, chronic (principal)
CPT/HCPCS: 90834